=== PATIENT | male | born 1955 | race Caucasian/White ===

== ENCOUNTER → 2022-03-07 09:17 | Outpatient (CLI) | payer MEDICARE, SELFPAY ==
--- NOTE | 2022-03-07 09:24 | CT_ITS ---
FINAL REPORT TECHNIQUE: After the administration of oral and intravenous contrast, axial images were obtained through the abdomen and pelvis by computed tomography. The study was performed with techniques to keep radiation dose as low as reasonably achievable, (ALARA). Individual dose reduction techniques using automated exposure control or adjustment of mA and/or kV according to the patient's size were employed. CLINICAL HISTORY: HIGH PSA,? PROSTATE CANCER FINDINGS: Abdomen: The lung bases are clear. The liver parenchyma is homogeneous. The gallbladder is absent. There is moderate intrahepatic and extrahepatic biliary duct dilatation. The spleen, pancreas, and adrenal appear unremarkable. There is a defect in the posterior left kidney that may be due to sequela of old infarct. The aorta is normal in caliber. There is stranding in the root of the mesentery. There is a knuckle of small bowel measuring up to 4.5 cm in the mid abdomen. There are no secondary signs suggesting obstruction. There is extensive descending and sigmoid diverticulosis. There is a large amount of retained stool. Pelvis: The appendix is not identified. The urinary bladder is unremarkable. There is no free fluid or adenopathy. There are surgical clips in the inguinal regions. The prostate does not appear enlarged. There are multitude of sclerotic lesions throughout the axial skeleton particularly involving the lower lumbar and pelvis highly concerning for osseous metastatic disease. IMPRESSION: Diverticulosis without diverticulitis. Extensive osseous metastatic disease. Constipation. Reviewed, Interpreted and Dictated by Brock Adams MD Transcribed by Shan Main Authenticated by Brock Adams MD on 03/07/2022 01:24:45 PM [facility]
[2022-03-07 10:15] LABS: Blood Urea Nitrogen 18 mg/dl (9-20); Estimated Glomerular Filt Rate 134 ml/min (>60); GFR (African American) 163 ML/MIN (>60)
== END ==
PROVIDERS: PCP Student in an Organized Health Care Education/Training Program; Visit Provider Urology
DX: N31.1 Reflex neuropathic bladder, not elsewhere classified (principal)
CPT/HCPCS: 36415; 74177; 82565; 84520; Q9967

== ENCOUNTER → 2022-03-13 09:01 | Outpatient (CLI) | payer MEDICARE, SELFPAY ==
--- NOTE | 2022-03-13 09:06 | NM_ITS ---
FINAL REPORT CLINICAL HISTORY: PROSTATE CANCER pt had ct abd/pelvis 03/07/22 9:15 am 25.8 mci tc MDP injected into lt ant FINDINGS: EXISTING RELEVANT IMAGING STUDIES: CT abdomen and pelvis dated March 07, 2022 TECHNIQUE: The patient was injected with 25.8 mCi of technetium 99-MDP. 3 hour delayed images were obtained. FINDINGS: There is widespread abnormal tracer activity in the spine, pelvis, multiple ribs, proximal right femur, and both shoulders consistent with widespread bony metastatic disease as seen on the recent CT from March 07, 2022. IMPRESSION: Widespread bony metastatic disease. Reviewed, Interpreted and Dictated by Shan Womack III, MD Transcribed by Shan Main Authenticated by Shan Womack III, MD on 03/13/2022 01:02:03 PM [facility]
== END ==
PROVIDERS: PCP Student in an Organized Health Care Education/Training Program; Visit Provider Urology
DX: C61 Malignant neoplasm of prostate (principal)
CPT/HCPCS: 78306; A9503

== ENCOUNTER → 2022-04-21 11:01 | Outpatient (CLI) | payer MEDICARE, SELFPAY ==
--- NOTE | 2022-04-21 | XR_ITS ---
FINAL REPORT CLINICAL HISTORY: STOMACH PAIN..prostate ca FINDINGS: SINGLE VIEW ABDOMEN A single view of the abdomen was obtained. There is a nonobstructive bowel gas pattern. There are no abnormally dilated loops of small bowel. There is a large amount of retained stool. No abnormal calcifications are identified. There are postoperative changes of the right upper quadrant. There are postoperative changes of the right pelvis. IMPRESSION: Nonobstructive bowel gas pattern. Large amount of retained stool. Reviewed, Interpreted and Dictated by Shan Womack III, MD Transcribed by Hayde Johnston Authenticated and [facility]
[2022-04-21 11:39] LABS: Microscopic, Urine URINE MICROSCOPIC (MICROSCOPIC)
[2022-04-21 12:01] LABS: Appearance,Urine CLEAR (Clear); Bilirubin,Urine Negative (Negative); Blood, Urine Negative (Negative); Color,Urine YELLOW (Yellow); Glucose,Urine (UA) 3+ (Negative); Ketones,Urine Negative (Negative); Leukocyte Esterase,Urine Negative (Negative); Nitrate,Urine Negative (Negative); Protein,Urine Negative (Negative); Urobilinogen,Urine 0.2 EU/dl (0.2)
[2022-04-21 12:14] LABS: Bacteria,Urine Trace /lpf; Squamous Epithelial Cell,Urine Occasional #/hpf (0-5)
== END ==
PROVIDERS: PCP Student in an Organized Health Care Education/Training Program; Visit Provider Urology
DX: C61 Malignant neoplasm of prostate (principal); Z12.5 Encounter for screening for malignant neoplasm of prostate
CPT/HCPCS: 36415; 74018; 81001; G0103

== ENCOUNTER → 2022-05-21 11:38 | Outpatient (CLI) | payer MEDICARE, SELFPAY ==
--- NOTE | 2022-05-21 12:15 | XR_ITS ---
FINAL REPORT CLINICAL HISTORY: Malignant neoplasm of prostate COMPARISON: 04/21/2022 FINDINGS: ABDOMEN SINGLE VIEW There is a nonspecific, nonobstructive bowel gas pattern. No bowel dilation is identified. No abnormal calcification is seen. There is a moderate amount of stool throughout the colon. Postoperative changes seen in the right pelvis and right upper quadrant. The bony skeleton is heterogeneous consistent with widespread sclerotic metastases as seen on CT exam dated 03/07/2022 IMPRESSION: Widespread sclerotic metastases of the bony skeleton. Reviewed, Interpreted and Dictated by Shan Womack III, MD Transcribed by Tiffany Osborn Authenticated and [facility]
[2022-05-21 17:05] LABS: Prostate Specific Ag Screen 16.3 ng/ml (0.0-4.0)
== END ==
PROVIDERS: PCP Student in an Organized Health Care Education/Training Program; Visit Provider Urology
DX: C61 Malignant neoplasm of prostate (principal); Z12.5 Encounter for screening for malignant neoplasm of prostate
CPT/HCPCS: 36415; 74018; G0103

== ENCOUNTER → 2022-07-25 12:23 | Outpatient (CLI) | payer MEDICARE, SELFPAY ==
--- NOTE | 2022-07-25 12:49 | XR_ITS ---
FINAL REPORT CLINICAL HISTORY: prostate ca FINDINGS: A single view of the abdomen was obtained. There is a nonobstructive bowel gas pattern. There are no abnormally dilated loops of small bowel. There is a large amount of retained stool. IMPRESSION: Large amount of retained stool. Reviewed, Interpreted and Dictated by Brock Adams MD Transcribed by Shan Main Authenticated and [facility]
[2022-07-25 13:34] LABS: Alanine Aminotransferase 27 U/L (12-78); Albumin Level 4.3 g/dl (3.5-5.0); Albumin/Globulin Ratio 1.6 (1.1-1.8); Alkaline Phosphatase 247 U/L (38-126); Anion Gap 15.7 mEq/L (5-15); Aspartate Amino Transferase 28 U/L (17-59); Blood Urea Nitrogen 27 mg/dl (9-20); Calcium 9.3 mg/dl (8.4-10.2); Carbon Dioxide 25 mmol/L (22.0-30.0); Chloride 103 mmol/L (98-107); Estimated Glomerular Filt Rate 96 ml/min (>60); GFR (African American) 117 ML/MIN (>60); Globulin 2.7 g/dL (1.3-3.2); Glucose 135 mg/dl (74-100); Potassium 4.7 mmoL/L (3.5-5.1); Sodium 139 mmol/L (136-145)
[2022-07-25 13:39] LABS: Bilirubin,Total 0.1 mg/dl (0.2-1.3)
[2022-07-25 14:04] LABS: Prostate Specific Ag Screen 12.6 ng/ml (0.0-4.0)
== END ==
PROVIDERS: PCP Student in an Organized Health Care Education/Training Program; Visit Provider Urology
DX: C61 Malignant neoplasm of prostate (principal); Z12.5 Encounter for screening for malignant neoplasm of prostate
CPT/HCPCS: 36415; 74018; 80053; G0103

== ENCOUNTER → 2022-09-05 10:21 | Outpatient (CLI) | payer MEDICARE, SELFPAY ==
[2022-09-05 12:31] LABS: Prostate Specific Ag, Diagnost 10.9 ng/ml (0.0-4.0)
[2022-09-12 00:07] LABS: Testosterone, Total, LC/MS 6.9 ng/dL (.)
== END ==
PROVIDERS: PCP Student in an Organized Health Care Education/Training Program; Visit Provider Urology
DX: C61 Malignant neoplasm of prostate (principal)
CPT/HCPCS: 36415; 84153; 84403

== ENCOUNTER → 2022-09-29 14:49 | Outpatient (CLI) | payer MEDICARE, SELFPAY ==
--- NOTE | 2022-09-29 15:54 | XR_ITS ---
FINAL REPORT CLINICAL HISTORY: PROSTATE CANCER COMPARISON: 07/25/2022 FINDINGS: A single view of the abdomen was obtained. There is a nonobstructive bowel gas pattern. There are no abnormally dilated loops of small bowel. There is moderate fecal impaction. There are surgical clips in the right upper quadrant in the left lower quadrant. There is a small left pelvic calcification which is stable and compatible with a phlebolith. IMPRESSION: Stable exam. Reviewed, Interpreted and Dictated by Shon Kaye MD Transcribed by Armida Vazquez Authenticated and [facility]
[2022-09-29 16:52] LABS: Alanine Aminotransferase 92 U/L (12-78); Albumin Level 4.5 g/dl (3.5-5.0); Albumin/Globulin Ratio 1.7 (1.1-1.8); Alkaline Phosphatase 246 U/L (38-126); Anion Gap 20.9 mEq/L (5-15); Aspartate Amino Transferase 47 U/L (17-59); Bilirubin,Total 0.4 mg/dl (0.2-1.3); Blood Urea Nitrogen 25 mg/dl (9-20); Calcium 9.6 mg/dl (8.4-10.2); Carbon Dioxide 28 mmol/L (22.0-30.0); Chloride 94 mmol/L (98-107); Estimated Glomerular Filt Rate 84 ml/min (>60); GFR (African American) 102 ML/MIN (>60); Globulin 2.7 g/dL (1.3-3.2); Glucose 129 mg/dl (74-100); Potassium 3.9 mmoL/L (3.5-5.1); Sodium 139 mmol/L (136-145); Total Protein,Serum 7.2 g/dl (6.3-8.2)
[2022-09-29 17:22] LABS: Prostate Specific Ag, Diagnost 13.7 ng/ml (0.0-4.0)
== END ==
PROVIDERS: PCP Family Medicine; Visit Provider Urology
DX: C61 Malignant neoplasm of prostate (principal)
CPT/HCPCS: 36415; 74018; 80053; 84153

== ENCOUNTER 2022-10-08 14:47 | Emergency (ER) | payer MEDICARE, SELFPAY ==
[2022-10-08 15:48] VITALS: BP 139/77; PULSE 67; RESP 18; TEMP 36.5; O2SAT 97; BMI 26.6
--- NOTE | 2022-10-08 16:13 | EXP.UTC ---
Discharge Plan Disposition Patient Disposition: Home, Self-Care Condition: Good Prescriptions Prescriptions: New azithromycin [Zithromax Z-Naseem] 250 mg tablet See Rx Instructions .ROUTE .COMPLEX 5 Days Qty: 6 0RF Rx Instructions: For 250 mg dose pack: take 500 mg today (day 1), then 250 mg for 4 days (days 2-5) benzonatate 100 mg capsule 100 mg PO TID PRN (Reason: cough) Qty: 30 0RF Referrals Follow up/Referrals: Luis Atkins II, [Primary Care Provider] - See instructions Activity Restrictions/Add. Instructions Additional Instructions/Restrictions: *Monitor Temp, Over the counter Motrin or Tylenol as directed/as needed Tylenol every 4 hours and Motrin every 6 hours (as long as your family doctor has told you that you can take it) for fever or pain. and straight to ER if unable to lower temp less than 101.0 after medication given *Warm salt water gargles may help to soothe the throat *Throat Lozenges? *Warm fluids like tea with honey may help to soothe the throat? *Sleep elevated *Humidifier/Vaporizer Follow up IMMEDIATELY for new or worsening symptoms or no Noticeable improvement over the next 48-72 hours. 911 for difficulty breathing or swallowing You were tested for today for Upper Respiratory panel with COVID19 your test result should be back in the next 24-48 hours, you may check your results on the [facility] Clinical Impressions Clinical Impression: Bronchitis Sinusitis Qualifiers: Sinusitis location: unspecified location Chronicity: unspecified Qualified Code(s): J32.9 - Chronic sinusitis, unspecified Stand Alone Forms Stand Alone Forms: Work/School Release Instructions Patient Instructions: Sinusitis, DI for Sinusitis Discharge ED Provider: Clarice Mueller [facility] [place] Stated complaint: Covid test, congestion, cough, fever Mode of Arrival: Ambulatory Source of Information: Patient Limitations: No Limitations Time Seen by Provider: 10/08/22 16:14 Description of Symptoms (Recalled from Triage Doc. by RN): COUGH AND CONGESTION SINCE THANKSGIVING HEENT Symptoms (Recalled from RN notes): Yes Resp Symptoms (Recalled from RN notes): Yes Skin Symptoms (Recalled from RN notes): No MS Symptoms (Recalled from RN notes): No Functional Status (Recalled from RN notes): WNL History of Present Illness Provider Complaint: Patient states that he has had cough and sinus congestion on and off since but sinus congestion has got worse over the last couple of days and draining in the back of his throat causing him to cough States that one of his grandchildren has RSV and flu and wanted to get tested for that and COVID but thinks it is a URI Related Data Previous Rx's Medication Instructions Recorded azithromycin 250 mg tablet See Rx Instructions PO .COMPLEX 5 10/08/22 (Zithromax Z-Naseem) days #6 tabs benzonatate 100 mg capsule 100 mg PO TID PRN cough #30 caps 10/08/22 Allergies Allergy/AdvReac Type Severity Reaction Status Date / Time lisinopril [LISINOPRIL] Allergy Unknown Unverified 10/20/17 15:15 Tetanus Vaccines and Toxoid Allergy Unknown Unverified 10/20/17 15:15 [TETANUS VACCINES & TOXOID] Worker's Comp Is this a Worker's Comp case?: No [facility] Disclaimer: The information contained in this section may have been updated after the patient was seen, as this information can be updated by other users. Social History Smoking Status: Unknown if ever smoked alcohol intake: never current occupational status: retired Travel in the last 8 weeks: None ROS Obtained: Yes All systems reviewed & no additional complaints except as documented and Yes Systems reviewed as appropriate & no additional complaints except as documented Constitutional Constitutional: Reports system reviewed and no additional complaints, except as documented and Reports as per HPI ENT Ears, Nose, Mouth, and Throat: Reports system reviewed and
[2022-10-08 16:26] LABS: Adenovirus,PCR Not Detected (NotDetected); Bordetella Pertussis Not Detected (NotDetected); Chlamydophila Pneumoniae, PCR Not Detected (NotDetected); Coronavirus 19, PCR Not Detected (NotDetected); Coronavirus 229E Not Detected (NotDetected); Coronavirus NL63 Not Detected (NotDetected); Coronavirus OC43 Not Detected (NotDetected); Coronovirus HKU1,PCR Not Detected (NotDetected); Human Metapneumovirus Not Detected (NotDetected); Influenza A, PCR Not Detected (NotDetected); Influenza AH1, 2009 Not Detected (NotDetected); Influenza AH1, PCR Not Detected (NotDetected); Influenza AH3,PCR Not Detected (NotDetected); Influenza B, PCR Not Detected (NotDetected); Mycoplasma Pneumoniae, PCR Not Detected (NotDetected); Parainfluenza 1, PCR Not Detected (NotDetected); Parainfluenza 2, PCR Not Detected (NotDetected); Parainfluenza 3, PCR Not Detected (NotDetected); Parainfluenza 4, PCR Not Detected (NotDetected); Rhinovirus/Enterovirus Not Detected (NotDetected)
[2022-10-08 16:44] VITALS: BP 139/77; PULSE 67; RESP 18; TEMP 36.5; O2SAT 97
[2022-10-08 22:19] LABS: Respiratory Syncytial Virus Detected (NotDetected)
== END 2022-10-08 16:45 | disposition home or self-care (01) ==
PROVIDERS: Emergency Provider Nurse Practitioner; PCP Student in an Organized Health Care Education/Training Program
DX: J40 Bronchitis, not specified as acute or chronic (principal); J32.9 Chronic sinusitis, unspecified
CPT/HCPCS: 87581; 87632; 87798; 99212; C9803; G0463; U0003; U0005

== ENCOUNTER → 2022-11-07 14:37 | Outpatient (CLI) | payer MEDICARE, SELFPAY ==
--- NOTE | 2022-11-07 15:20 | XR_ITS ---
FINAL REPORT CLINICAL HISTORY: PROSTATE CANCER COMPARISON: September 29, 2022 FINDINGS: A single view of the abdomen was obtained. There is a normal bowel gas pattern. There are no abnormally dilated loops of small bowel. There is moderate fecal impaction. There are surgical clips in the right upper quadrant and the left lower quadrant. There is a small left pelvic calcification which is stable and compatible with a phlebolith. IMPRESSION: Stable exam. Reviewed, Interpreted and Dictated by Shon Kaye MD Transcribed by Armida Vazquez Authenticated and [facility]
[2022-11-07 17:29] LABS: Prostate Specific Ag, Diagnost 8.52 ng/ml (0.0-4.0)
== END ==
PROVIDERS: PCP Student in an Organized Health Care Education/Training Program; Visit Provider Urology
DX: C61 Malignant neoplasm of prostate (principal)
CPT/HCPCS: 36415; 74018; 84153

== ENCOUNTER → 2022-12-17 14:59 | Outpatient (CLI) | payer MEDICARE, SELFPAY ==
[2022-12-17 18:44] LABS: Prostate Specific Ag Screen 5.5 ng/ml (0.0-4.0)
== END ==
PROVIDERS: PCP Student in an Organized Health Care Education/Training Program; Visit Provider Urology
DX: C61 Malignant neoplasm of prostate (principal); Z12.5 Encounter for screening for malignant neoplasm of prostate
CPT/HCPCS: 36415; G0103

== ENCOUNTER → 2023-01-09 11:01 | Outpatient (CLI) | payer MEDICARE, SELFPAY ==
--- NOTE | 2023-01-09 11:30 | XR_ITS ---
FINAL REPORT CLINICAL HISTORY: PROSTATE CANCER COMPARISON: 11/07/2022 FINDINGS: ABDOMEN SINGLE VIEW / KUB A single view of the abdomen was obtained with a coned down view of the pelvis. There is a nonobstructive bowel gas pattern. There is a large stool burden. There are no abnormally dilated loops of small bowel. No abnormal calcification is identified. There are postoperative changes in the right upper quadrant and the right pelvis. IMPRESSION: Large stool burden with a nonobstructive bowel gas pattern. No significant change from prior. Reviewed, Interpreted and Dictated by Shan Womack III, MD Transcribed by Maria D Grey Authenticated and . [facility]
[2023-01-09 13:08] LABS: Prostate Specific Ag, Diagnost 6.04 ng/ml (0.0-4.0)
[2023-01-17 15:09] LABS: Testosterone, Total, LC/MS 8.1 ng/dL (.)
== END ==
PROVIDERS: PCP Student in an Organized Health Care Education/Training Program; Visit Provider Urology
DX: C61 Malignant neoplasm of prostate (principal)
CPT/HCPCS: 36415; 74018; 84153; 84403

== ENCOUNTER → 2023-02-13 09:41 | Outpatient (CLI) | payer MEDICARE, SELFPAY ==
[2023-02-13 11:36] LABS: Prostate Specific Ag Screen 6.6 ng/ml (0.0-4.0)
== END ==
PROVIDERS: PCP Student in an Organized Health Care Education/Training Program; Visit Provider Urology
DX: C61 Malignant neoplasm of prostate (principal); Z12.5 Encounter for screening for malignant neoplasm of prostate
CPT/HCPCS: 36415; G0103

== ENCOUNTER → 2023-03-02 13:13 | Outpatient (CLI) | payer MEDICARE, SELFPAY ==
--- NOTE | 2023-03-02 13:38 | XR_ITS ---
FINAL REPORT CLINICAL HISTORY: h/o medastatic prostate cancer COMPARISON: 01/09/2023 FINDINGS: A single view of the abdomen was obtained. There is a nonobstructive bowel gas pattern. There is a large amount of retained stool in the colon. There are no abnormally dilated loops of small bowel. There are no abnormal calcifications. Surgical clips are noted in the right upper quadrant. IMPRESSION: Constipation. Reviewed, Interpreted and Dictated by Brock Adams MD Transcribed by Mercedes Arreaga Authenticated and [facility]
[2023-03-02 14:46] LABS: Prostate Specific Ag Screen 6.2 ng/ml (0.0-4.0)
== END ==
PROVIDERS: PCP Student in an Organized Health Care Education/Training Program; Visit Provider Urology
DX: C61 Malignant neoplasm of prostate (principal); Z12.5 Encounter for screening for malignant neoplasm of prostate
CPT/HCPCS: 36415; 74018; G0103

== ENCOUNTER → 2023-03-04 16:21 | Outpatient (CLI) | payer MEDICARE, SELFPAY ==
--- NOTE | 2023-03-04 16:26 | XR_ITS ---
PROCEDURE INFORMATION: Exam: XR Right Knee Exam date and time: 03/04/2023 4:43 PM Age: 67 years old Clinical indication: Pain; Knee; Right; Additional info: Knee pain TECHNIQUE: Imaging protocol: Radiologic exam of the right knee. Views: 3 views. COMPARISON: NM BONE SCAN WHOLE BODY 03/13/2022 12:24 PM FINDINGS: Bones/joints: Normal. Soft tissues: Normal. IMPRESSION: No evidence of acute osseous injury.
== END ==
PROVIDERS: PCP Student in an Organized Health Care Education/Training Program; Visit Provider Urology
DX: M25.561 Pain in right knee (principal)
CPT/HCPCS: 73562

== ENCOUNTER → 2023-05-25 11:58 | Outpatient (CLI) | payer MEDICARE, SELFPAY ==
--- NOTE | 2023-05-25 12:39 | XR_ITS ---
FINAL REPORT CLINICAL HISTORY: PROSTATE CANCER FINDINGS: ABDOMEN SINGLE VIEW There is moderate diffuse fecal impaction. There is no bowel obstruction. Surgical clips are seen in the right pelvis. IMPRESSION Fecal impaction. Reviewed, Interpreted and Dictated by Shon Kaye MD Transcribed by Harry Sarmiento Authenticated and [facility]
[2023-05-25 14:05] LABS: Alanine Aminotransferase 95 U/L (12-78); Albumin Level 4.8 g/dl (3.5-5.0); Albumin/Globulin Ratio 1.5 (1.1-1.8); Alkaline Phosphatase 199 U/L (38-126); Anion Gap 16.9 mEq/L (5-15); Aspartate Amino Transferase 128 U/L (17-59); Bilirubin,Total 0.6 mg/dl (0.2-1.3); Calcium 9.9 mg/dl (8.4-10.2); Carbon Dioxide 24 mmol/L (22.0-30.0); Chloride 101 mmol/L (98-107); Globulin 3.1 g/dL (1.3-3.2); Glucose 257 mg/dl (74-100); Potassium 4.9 mmoL/L (3.5-5.1); Sodium 137 mmol/L (136-145); Total Protein,Serum 7.9 g/dl (6.3-8.2)
[2023-05-25 14:09] LABS: Blood Urea Nitrogen 22 mg/dl (9-20)
[2023-05-25 14:10] LABS: Estimated Glomerular Filt Rate 84 ml/min (>60); GFR (African American) 102 ML/MIN (>60)
[2023-05-25 14:35] LABS: Prostate Specific Ag Screen 6.6 ng/ml (0.0-4.0)
== END ==
PROVIDERS: PCP Student in an Organized Health Care Education/Training Program; Visit Provider Urology
DX: Z12.5 Encounter for screening for malignant neoplasm of prostate (principal); R97.20 Elevated prostate specific antigen [PSA]
CPT/HCPCS: 36415; 74018; 80053; G0103

== ENCOUNTER → 2023-06-26 10:52 | Outpatient (CLI) | payer MEDICARE, SELFPAY ==
[2023-06-26 11:21] LABS: Microscopic, Urine URINE MICROSCOPIC (MICROSCOPIC)
--- NOTE | 2023-06-26 11:31 | XR_ITS ---
FINAL REPORT CLINICAL HISTORY: PROSTATE CANCER COMPARISON: 05/25/2023 FINDINGS: SINGLE VIEW ABDOMEN A single view of the abdomen was obtained. There is a nonobstructive bowel gas pattern. There are no abnormally dilated loops of small bowel. No abnormal calcifications are identified. A moderate amount of stool is present. There are surgical clips in the inguinal regions bilaterally as well as in the right upper quadrant of the abdomen. IMPRESSION: Nonobstructive bowel gas pattern with a moderate stool burden. Reviewed, Interpreted and Dictated by Brock Adams MD Transcribed by Shanti Vang Authenticated and [facility]
[2023-06-26 11:51] LABS: Appearance,Urine CLEAR (Clear); Bilirubin,Urine Negative (Negative); Blood, Urine Negative (Negative); Color,Urine YELLOW (Yellow); Glucose,Urine (UA) 3+ (Negative); Ketones,Urine Negative (Negative); Leukocyte Esterase,Urine Negative (Negative); Nitrate,Urine Negative (Negative); Protein,Urine Negative (Negative); Specific Gravity, Urine <= 1.005 (1.005-1.030); Urobilinogen,Urine 0.2 EU/dl (0.2)
[2023-06-26 12:10] LABS: Squamous Epithelial Cell,Urine Occasional #/hpf (0-5)
[2023-06-26 12:11] LABS: Bacteria,Urine Trace /lpf
[2023-06-26 13:00] LABS: Prostate Specific Ag Screen 5.9 ng/ml (0.0-4.0)
[2023-07-02 17:55] LABS: Testosterone, Total, LC/MS 7.9 ng/dL (.)
== END ==
LOC: LAB 10:53
PROVIDERS: PCP Student in an Organized Health Care Education/Training Program; Visit Provider Urology
DX: C61 Malignant neoplasm of prostate; Z12.5 Encounter for screening for malignant neoplasm of prostate
CPT/HCPCS: 36415; 74018; 81001; 84403; G0103

== ENCOUNTER → 2023-07-24 10:13 | Outpatient (CLI) | payer MEDICARE, SELFPAY ==
[2023-07-24 12:13] LABS: Prostate Specific Ag Screen 6.9 ng/ml (0.0-4.0)
== END ==
PROVIDERS: PCP Student in an Organized Health Care Education/Training Program; Visit Provider Urology
DX: Z12.5 Encounter for screening for malignant neoplasm of prostate (principal)
CPT/HCPCS: 36415; G0103

== ENCOUNTER → 2023-08-28 13:23 | Outpatient (CLI) | payer MEDICARE, SELFPAY ==
--- NOTE | 2023-08-28 13:29 | XR_ITS ---
FINAL REPORT CLINICAL HISTORY: PROSTATE CANCER COMPARISON: 06/26/2023 FINDINGS: SINGLE VIEW ABDOMEN A single view of the abdomen was obtained. There is a nonobstructive bowel gas pattern with a moderate to large stool burden. There are no abnormally dilated loops of small bowel. No abnormal calcifications are identified. Postoperative changes are noted in the right abdomen and pelvis. There is a sclerotic focus in the left pubic bone, and a sclerotic metastasis is not excluded. IMPRESSION: Nonobstructive bowel gas pattern with moderate to large stool burden Sclerotic focus in the left pubic bone, a sclerotic metastasis is not excluded. Would recommend follow-up radiographs or bone scan for further evaluation.. Reviewed, Interpreted and Dictated by Shan Womack III, MD Transcribed by Shanti Vang Authenticated and [facility]
== END ==
PROVIDERS: PCP Student in an Organized Health Care Education/Training Program; Visit Provider Urology
DX: C61 Malignant neoplasm of prostate (principal); Z12.5 Encounter for screening for malignant neoplasm of prostate
CPT/HCPCS: 36415; 74018; 84403; G0103

== ENCOUNTER → 2023-10-05 12:20 | Outpatient (CLI) | payer MEDICARE, SELFPAY ==
[2023-10-05 13:48] LABS: Prostate Specific Ag, Diagnost 10.6 ng/ml (0.0-4.0)
[2023-10-12 09:25] LABS: Testosterone, Total, LC/MS 8.7
== END ==
PROVIDERS: PCP Student in an Organized Health Care Education/Training Program; Visit Provider Urology
DX: C61 Malignant neoplasm of prostate (principal)
CPT/HCPCS: 36415; 84153; 84403

== ENCOUNTER 2023-11-03 11:44 | Outpatient (CLI) | payer MEDICARE, SELFPAY ==
--- NOTE | 2023-11-03 11:55 | XR_ITS ---
FINAL REPORT CLINICAL HISTORY: .metastatic prostate cancer gallbladder sx hernia sx FINDINGS: There is a nonobstructive bowel gas pattern. There are no abnormally dilated loops of small bowel. No abnormal calcification is identified. There is a moderate amount of retained stool. There is postoperative change in the right abdomen and pelvis. Small foreign bodies in the right side of the abdomen may reflect ingested material. IMPRESSION: Nonobstructive bowel gas pattern. Reviewed, Interpreted and Dictated by Shan Womack III, MD Transcribed by Shan Main Authenticated and [facility]
[2023-11-03 12:10] LABS: Microscopic, Urine URINE MICROSCOPIC (MICROSCOPIC)
[2023-11-03 12:52] LABS: Appearance,Urine CLEAR (Clear); Bilirubin,Urine Negative (Negative); Blood, Urine Negative (Negative); Color,Urine YELLOW (Yellow); Glucose,Urine (UA) 3+ (Negative); Ketones,Urine Negative (Negative); Leukocyte Esterase,Urine Negative (Negative); Nitrate,Urine Negative (Negative); PH,Urine 5.5 (5.0-8.5); Protein,Urine Negative (Negative); Specific Gravity, Urine 1.015 (1.005-1.030); Urobilinogen,Urine 0.2 EU/dl (0.2)
[2023-11-03 13:27] LABS: Bacteria,Urine Trace /lpf; WBC,Urine Occasional #/hpf (0-3)
[2023-11-03 13:42] LABS: Alanine Aminotransferase 47 U/L (12-78); Albumin Level 4.2 g/dl (3.5-5.0); Albumin/Globulin Ratio 1.5 (1.1-1.8); Alkaline Phosphatase 130 U/L (38-126); Aspartate Amino Transferase 36 U/L (17-59); Bilirubin,Total 0.5 mg/dl (0.2-1.3); Blood Urea Nitrogen 22 mg/dl (9-20); Calcium 9.1 mg/dl (8.4-10.2); Carbon Dioxide 28 mmol/L (22.0-30.0); Estimated Glomerular Filt Rate 84 ml/min (>60); GFR (African American) 101 ML/MIN (>60); Globulin 2.8 g/dL (1.3-3.2); Glucose 136 mg/dl (74-100)
[2023-11-03 13:48] LABS: Anion Gap 13.1 mEq/L (5-15); Chloride 103 mmol/L (98-107); Potassium 4.1 mmoL/L (3.5-5.1); Sodium 140 mmol/L (136-145)
[2023-11-03 16:04] LABS: Prostate Specific Ag, Diagnost 5.25 ng/ml (0.0-4.0)
[2023-11-06 15:10] LABS: Testosterone, Total, LC/MS 7.7 ng/dL (.)
== END 2023-11-03 23:59 ==
LOC: RAD 11:46
PROVIDERS: PCP Student in an Organized Health Care Education/Training Program; Visit Provider Urology
DX: C61 Malignant neoplasm of prostate (principal)
CPT/HCPCS: 36415; 74018; 80053; 81001; 84153; 84403

== ENCOUNTER 2023-12-04 12:36 | Outpatient (CLI) | payer MEDICARE, SELFPAY ==
--- NOTE | 2023-12-04 12:51 | XR_ITS ---
FINAL REPORT CLINICAL HISTORY: PROTATE CANCER COMPARISON: 11/03/2023 FINDINGS: The visualized intestinal gas pattern appears unremarkable without evidence to suggest obstruction. There is mild fecal impaction. Surgical clips are seen in the right upper and right lower quadrants. No abnormal radiopacities are seen in the abdomen. IMPRESSION: Mild fecal impaction. Reviewed, Interpreted and Dictated by Shon Kaye MD Transcribed by Tiffany Osborn Authenticated and [facility]
[2023-12-04 13:32] LABS: Alanine Aminotransferase 28 U/L (12-78); Albumin Level 4.2 g/dl (3.5-5.0); Albumin/Globulin Ratio 1.7 (1.1-1.8); Alkaline Phosphatase 119 U/L (38-126); Anion Gap 12.5 mEq/L (5-15); Aspartate Amino Transferase 26 U/L (17-59); Bilirubin,Total 0.3 mg/dl (0.2-1.3); Blood Urea Nitrogen 19 mg/dl (9-20); Calcium 9.7 mg/dl (8.4-10.2); Carbon Dioxide 28 mmol/L (22.0-30.0); Chloride 104 mmol/L (98-107); Estimated Glomerular Filt Rate 84 ml/min (>60); GFR (African American) 101 ML/MIN (>60); Globulin 2.5 g/dL (1.3-3.2); Glucose 202 mg/dl (74-100); Potassium 4.5 mmoL/L (3.5-5.1); Sodium 140 mmol/L (136-145); Total Protein,Serum 6.7 g/dl (6.3-8.2)
[2023-12-04 14:03] LABS: Prostate Specific Ag, Diagnost 3.58 ng/ml (0.0-4.0)
[2023-12-11 20:13] LABS: Testosterone, Total, LC/MS 9.6 ng/dL (.)
== END 2023-12-04 23:59 ==
LOC: RAD 12:38
PROVIDERS: PCP Student in an Organized Health Care Education/Training Program; Visit Provider Urology
DX: C61 Malignant neoplasm of prostate (principal)
CPT/HCPCS: 36415; 74018; 80053; 84153; 84403

== ENCOUNTER 2024-01-08 08:20 | Outpatient (CLI) | payer MEDICARE, SELFPAY ==
--- NOTE | 2024-01-08 08:37 | XR_ITS ---
FINAL REPORT CLINICAL HISTORY: HEMATURIA,PROSTATE CANCER COMPARISON: 12/04/2023 FINDINGS: A single supine view the abdomen was obtained. Postoperative changes are present in the right upper quadrant. The bowel gas pattern is nonspecific but nonobstructive. There are no pathologic calcifications. Osseous structures are within normal limits. IMPRESSION: Nonspecific but nonobstructive bowel gas pattern. Reviewed, Interpreted and Dictated by Shan Womack III, MD Transcribed by Shanti Vang Authenticated and [facility]
--- NOTE | 2024-01-08 08:37 | XR_ITS ---
FINAL REPORT TECHNIQUE: C-spine 3 views, thoracic spine 3 views, lumbar spine 2 views CLINICAL HISTORY: hx prostate cancer. screening COMPARISON: None FINDINGS: CERVICAL SPINE: Mild degenerative change is present in the cervical spine. There is normal alignment of the cervical vertebral bodies. No prevertebral soft tissue swelling is noted. No evidence of acute fracture or dislocation is present. Small osteophytes are present. IMPRESSION: Mild degenerative change. THORACIC SPINE: Views of the thoracic spine reveal mild and moderate degenerative change of the thoracic spine. No paraspinal soft tissue abnormality is identified. No evidence of acute fracture is seen. Small osteophytes are present. IMPRESSION: Mild and moderate degenerative change of the thoracic spine. LUMBAR SPINE: Mild degenerative change of the lumbar spine is present. Multilevel osteophytes are present. Facet osteoarthropathy is present in the lower lumbar spine. No acute bony abnormality is present. IMPRESSION: Mild degenerative change with facet osteoarthropathy in the lower lumbar spine. Reviewed, Interpreted and Dictated by Shan Womack III, MD Transcribed by Shanti Vang Authenticated and [facility]
[2024-01-08 09:14] LABS: Alanine Aminotransferase 51 U/L (12-78); Albumin/Globulin Ratio 1.6 (1.1-1.8); Alkaline Phosphatase 125 U/L (38-126); Anion Gap 12.3 mEq/L (5-15); Aspartate Amino Transferase 80 U/L (17-59); Bilirubin,Total 0.5 mg/dl (0.2-1.3); Blood Urea Nitrogen 22 mg/dl (9-20); Carbon Dioxide 27 mmol/L (22.0-30.0); Chloride 101 mmol/L (98-107); Estimated Glomerular Filt Rate 96 ml/min (>60); GFR (African American) 116 ML/MIN (>60); Globulin 2.5 g/dL (1.3-3.2); Glucose 208 mg/dl (74-100); Potassium 4.3 mmoL/L (3.5-5.1); Sodium 136 mmol/L (136-145); Total Protein,Serum 6.5 g/dl (6.3-8.2)
--- NOTE | 2024-01-08 09:18 | XR_ITS ---
FINAL REPORT CLINICAL HISTORY: LOW BACK PAIN hx prostate cancer COMPARISON: None FINDINGS: SACRUM COCCYX: Views of the sacrum and coccyx failed to reveal any evidence of acute fracture. Surgical clips are noted over the right inguinal area. There is mild degenerative change present in the sacroiliac joints bilaterally. IMPRESSION: Mild degenerative change in the SI joints bilaterally. Reviewed, Interpreted and Dictated by Shan Womack III, MD Transcribed by Shanti Vang Authenticated and [facility]
[2024-01-08 09:45] LABS: Prostate Specific Ag, Diagnost 3.94 ng/ml (0.0-4.0)
[2024-01-14 19:09] LABS: Testosterone, Total, LC/MS 7.6 ng/dL (.)
== END 2024-01-08 23:59 ==
LOC: RAD 08:21
PROVIDERS: PCP Student in an Organized Health Care Education/Training Program; Visit Provider Urology
DX: R31.1 Benign essential microscopic hematuria; N40.1 Benign prostatic hyperplasia with lower urinary tract symptoms; M54.50 Low back pain, unspecified; C61 Malignant neoplasm of prostate
CPT/HCPCS: 36415; 72084; 72220; 74018; 80053; 84153; 84403

== ENCOUNTER 2024-02-13 10:20 | Outpatient (CLI) | payer MEDICARE, SELFPAY ==
[2024-02-13 10:29] LABS: Microscopic, Urine URINE MICROSCOPIC (MICROSCOPIC)
[2024-02-13 11:04] LABS: Appearance,Urine CLEAR (Clear); Bilirubin,Urine Negative (Negative); Blood, Urine Negative (Negative); Color,Urine YELLOW (Yellow); Glucose,Urine (UA) 3+ (Negative); Ketones,Urine Negative (Negative); Leukocyte Esterase,Urine Negative (Negative); Nitrate,Urine Negative (Negative); PH,Urine 5.5 (5.0-8.5); Protein,Urine Negative (Negative); Urobilinogen,Urine 0.2 EU/dl (0.2)
[2024-02-13 11:25] LABS: Bacteria,Urine Trace /lpf; Chloride 104 mmol/L (98-107); Potassium 4.9 mmoL/L (3.5-5.1); Sodium 139 mmol/L (136-145); Squamous Epithelial Cell,Urine Occasional #/hpf (0-5)
[2024-02-13 11:28] LABS: Alanine Aminotransferase 35 U/L (12-78); Albumin Level 4.4 g/dl (3.5-5.0); Albumin/Globulin Ratio 1.7 (1.1-1.8); Alkaline Phosphatase 129 U/L (38-126); Anion Gap 10.9 mEq/L (5-15); Aspartate Amino Transferase 33 U/L (17-59); Bilirubin,Total 0.5 mg/dl (0.2-1.3); Blood Urea Nitrogen 20 mg/dl (9-20); Carbon Dioxide 29 mmol/L (22.0-30.0); Estimated Glomerular Filt Rate 96 ml/min (>60); GFR (African American) 116 ML/MIN (>60); Globulin 2.6 g/dL (1.3-3.2); Glucose 244 mg/dl (74-100)
[2024-02-13 12:35] LABS: Prostate Specific Ag Screen 3.4 ng/ml (0.0-4.0)
[2024-02-20 18:19] LABS: Testosterone, Total, LC/MS 7.4 ng/dL (.)
== END 2024-02-13 23:59 | disposition home or self-care (01) ==
LOC: LAB 10:21
PROVIDERS: PCP Student in an Organized Health Care Education/Training Program; Visit Provider Urology
DX: C61 Malignant neoplasm of prostate (principal)
CPT/HCPCS: 36415; 80053; 81001; 84403; G0103

== ENCOUNTER 2024-03-17 11:22 | Outpatient (CLI) | payer MEDICARE, SELFPAY ==
[2024-03-17 11:36] LABS: Microscopic, Urine URINE MICROSCOPIC (MICROSCOPIC)
--- NOTE | 2024-03-17 12:02 | XR_ITS ---
FINAL REPORT CLINICAL HISTORY: PROSTATE CANCER FINDINGS: A single view of the abdomen was obtained. There is a nonobstructive bowel gas pattern. There is a moderate to large amount of retained stool. There are no abnormally dilated loops of small bowel. There are no abnormal calcifications. Postoperative changes are seen in the right upper quadrant and right pelvis. IMPRESSION: Nonobstructive bowel gas pattern with a moderate to large stool burden. Reviewed, Interpreted and Dictated by Shan Womack III, MD Transcribed by Mercedes Arreaga Authenticated and [facility]
[2024-03-17 13:02] LABS: Appearance,Urine CLEAR (Clear); Bilirubin,Urine Negative (Negative); Blood, Urine Negative (Negative); Color,Urine YELLOW (Yellow); Glucose,Urine (UA) 3+ (Negative); Ketones,Urine Negative (Negative); Leukocyte Esterase,Urine Negative (Negative); Nitrate,Urine Negative (Negative); Protein,Urine Negative (Negative); Urobilinogen,Urine 0.2 EU/dl (0.2)
[2024-03-17 13:35] LABS: Alanine Aminotransferase 32 U/L (12-78); Albumin Level 4.1 g/dl (3.5-5.0); Albumin/Globulin Ratio 1.5 (1.1-1.8); Alkaline Phosphatase 110 U/L (38-126); Anion Gap 13.2 mEq/L (5-15); Aspartate Amino Transferase 30 U/L (17-59); Bilirubin,Total 0.4 mg/dl (0.2-1.3); Blood Urea Nitrogen 21 mg/dl (9-20); Calcium 9.5 mg/dl (8.4-10.2); Carbon Dioxide 24 mmol/L (22.0-30.0); Chloride 102 mmol/L (98-107); Estimated Glomerular Filt Rate 96 ml/min (>60); GFR (African American) 116 ML/MIN (>60); Globulin 2.7 g/dL (1.3-3.2); Glucose 229 mg/dl (74-100); Potassium 4.2 mmoL/L (3.5-5.1); Sodium 135 mmol/L (136-145); Total Protein,Serum 6.8 g/dl (6.3-8.2)
[2024-03-17 13:59] LABS: Squamous Epithelial Cell,Urine Occasional #/hpf (0-5)
[2024-03-17 14:48] LABS: Prostate Specific Ag Screen 3.1 ng/ml (0.0-4.0)
== END 2024-03-17 23:59 | disposition home or self-care (01) ==
LOC: LAB 11:24
PROVIDERS: PCP Student in an Organized Health Care Education/Training Program; Visit Provider Urology
DX: C61 Malignant neoplasm of prostate (principal); Z12.5 Encounter for screening for malignant neoplasm of prostate; N39.0 Urinary tract infection, site not specified
CPT/HCPCS: 36415; 74018; 80053; 81001; 87086; G0103

== ENCOUNTER 2024-04-25 11:40 | Outpatient (CLI) | payer MEDICARE, SELFPAY ==
[2024-04-25 13:20] LABS: Prostate Specific Ag, Diagnost 3.28 ng/ml (0.0-4.0)
== END 2024-04-25 23:59 | disposition home or self-care (01) ==
LOC: LAB 11:43
PROVIDERS: PCP Student in an Organized Health Care Education/Training Program; Visit Provider Urology
DX: C61 Malignant neoplasm of prostate (principal)
CPT/HCPCS: 36415; 84153

== ENCOUNTER 2024-05-20 12:14 | Outpatient (CLI) | payer MEDICARE, SELFPAY ==
--- NOTE | 2024-05-20 12:19 | XR_ITS ---
FINAL REPORT TECHNIQUE: 1 view CLINICAL HISTORY: PROSTATE CANCER COMPARISON: March 2024 FINDINGS: Abdomen single view Examination shows moderate diffuse fecal impaction. There is no mechanical bowel obstruction. No abnormal densities are seen. No obvious free air is seen. IMPRESSION: Stool-filled colon as above Authenticated and [facility]
[2024-05-20 12:31] LABS: Microscopic, Urine URINE MICROSCOPIC (MICROSCOPIC)
[2024-05-20 13:12] LABS: Appearance,Urine CLEAR (Clear); Bilirubin,Urine Negative (Negative); Blood, Urine Negative (Negative); Color,Urine YELLOW (Yellow); Glucose,Urine (UA) 3+ (Negative); Ketones,Urine Negative (Negative); Leukocyte Esterase,Urine Negative (Negative); Nitrate,Urine Negative (Negative); Protein,Urine Negative (Negative); Urobilinogen,Urine 0.2 EU/dl (0.2)
[2024-05-20 13:21] LABS: Squamous Epithelial Cell,Urine Occasional #/hpf (0-5)
[2024-05-20 13:36] LABS: Alanine Aminotransferase 34 U/L (12-78); Albumin Level 4.1 g/dl (3.5-5.0); Albumin/Globulin Ratio 1.5 (1.1-1.8); Alkaline Phosphatase 129 U/L (38-126); Aspartate Amino Transferase 31 U/L (17-59); Bilirubin,Total 0.5 mg/dl (0.2-1.3); Blood Urea Nitrogen 21 mg/dl (9-20); Calcium 9.7 mg/dl (8.4-10.2); Carbon Dioxide 30 mmol/L (22.0-30.0); Chloride 99 mmol/L (98-107); Estimated Glomerular Filt Rate 112 ml/min (>60); GFR (African American) 135 ML/MIN (>60); Globulin 2.8 g/dL (1.3-3.2); Glucose 294 mg/dl (74-100); Sodium 137 mmol/L (136-145); Total Protein,Serum 6.9 g/dl (6.3-8.2)
[2024-05-20 14:07] LABS: Prostate Specific Ag, Diagnost 2.67 ng/ml (0.0-4.0)
== END 2024-05-20 23:59 | disposition home or self-care (01) ==
LOC: LAB 12:16
PROVIDERS: PCP Student in an Organized Health Care Education/Training Program; Visit Provider Urology
DX: R97.21 Rising PSA following treatment for malignant neoplasm of prostate (principal)
CPT/HCPCS: 36415; 74018; 80053; 81001; 84153

== ENCOUNTER 2024-06-24 13:29 | Outpatient (CLI) | payer MEDICARE, SELFPAY ==
[2024-06-24 15:34] LABS: Prostate Specific Ag, Diagnost 2.46 ng/ml (0.0-4.0)
== END 2024-06-24 23:59 | disposition home or self-care (01) ==
LOC: LAB 13:31
PROVIDERS: PCP Student in an Organized Health Care Education/Training Program; Visit Provider Urology
DX: C61 Malignant neoplasm of prostate (principal)
CPT/HCPCS: 36415; 84153

== ENCOUNTER 2024-08-12 12:03 | Outpatient (CLI) | payer MEDICARE, SELFPAY ==
--- NOTE | 2024-08-12 12:15 | XR_ITS ---
FINAL REPORT CLINICAL HISTORY: .PROSTATE CANCER COMPARISON: None FINDINGS: SINGLE VIEW ABDOMEN A single view of the abdomen was obtained. There is a nonobstructive bowel gas pattern. A large amount of stool is present in the colon. There are no abnormally dilated loops of small bowel. No abnormal calcifications are identified. IMPRESSION: Nonobstructive bowel gas pattern with a large stool burden. Reviewed, Interpreted and Dictated by Shan Womack III, MD Transcribed by Shanti Vang Authenticated and [facility]
--- NOTE | 2024-08-12 12:16 | XR_ITS ---
FINAL REPORT TECHNIQUE: Cervical spine 3 views, thoracic spine 2 views, lumbar spine 3 views CLINICAL HISTORY: .PROSTATE CANCER COMPARISON: None FINDINGS: CERVICAL SPINE: AP, lateral and odontoid views of the cervical spine were obtained. There is no prior exam for comparison. There is no acute fracture or malalignment. Mild degenerative change is present. Vertebral body height is preserved. The precervical soft tissues are normal. IMPRESSION: Mild degenerative change without acute bony abnormality. THORACIC SPINE: AP, and lateral views of the thoracic spine were obtained. There is no prior exam for comparison. There is no acute fracture or malalignment. Mild degenerative changes are present at multiple levels with osteophytes. Vertebral body height is preserved. Paraspinal soft tissues are within normal limits. IMPRESSION: Mild degenerative change without acute bony abnormality. LUMBAR SPINE: AP and lateral views of the lumbar spine were obtained. There is no prior exam for comparison. There is no acute fracture or malalignment. Vertebral body height is preserved. Mild lumbar degenerative change is present. Mild vascular calcifications are present. IMPRESSION: Mild degenerative change without acute bony abnormality. Reviewed, Interpreted and Dictated by Shan Womack III, MD Transcribed by Shanti Vang Authenticated and . [facility]
[2024-08-12 13:35] LABS: Prostate Specific Ag, Diagnost 2.64 ng/ml (0.0-4.0)
== END 2024-08-12 23:59 | disposition home or self-care (01) ==
LOC: RAD 12:05
PROVIDERS: PCP Student in an Organized Health Care Education/Training Program; Visit Provider Urology
DX: C61 Malignant neoplasm of prostate (principal)
CPT/HCPCS: 36415; 72084; 74018; 84153

== ENCOUNTER 2024-10-06 14:55 | Outpatient (CLI) | payer MEDICARE, SELFPAY | END 2024-10-06 23:59 | disposition home or self-care (01) | LOC: LAB 14:57 | PROVIDERS: PCP Student in an Organized Health Care Education/Training Program; Visit Provider Urology | DX: C61 Malignant neoplasm of prostate (principal) | CPT/HCPCS: 36415; 84153 ==

== ENCOUNTER 2024-11-18 12:40 | Outpatient (CLI) | payer MEDICARE, SELFPAY ==
[2024-11-18 12:51] LABS: Microscopic, Urine URINE MICROSCOPIC (MICROSCOPIC)
--- NOTE | 2024-11-18 13:03 | XR_ITS ---
FINAL REPORT CLINICAL HISTORY: HEMATURIA, PROSTATE CANCER COMPARISON: 08/12/2024 FINDINGS: There is moderate fecal impaction diffusely. There is no evidence of small-bowel dilatation. No abnormal calcifications are seen. The patient is status post cholecystectomy. IMPRESSION: Fecal impaction without evidence of radiopaque urinary tract stone. Reviewed, Interpreted and Dictated by Shon Kaye MD Transcribed by Maria D Grey Authenticated and [facility]
[2024-11-18 13:11] LABS: Appearance,Urine CLEAR (Clear); Bilirubin,Urine Negative (Negative); Blood, Urine Negative (Negative); Color,Urine YELLOW (Yellow); Glucose,Urine (UA) 3+ (Negative); Ketones,Urine Negative (Negative); Leukocyte Esterase,Urine Negative (Negative); Nitrate,Urine Negative (Negative); Protein,Urine Negative (Negative); Specific Gravity, Urine <= 1.005 (1.005-1.030); Urobilinogen,Urine 0.2 EU/dl (0.2)
[2024-11-18 13:29] LABS: Alanine Aminotransferase 77 U/L (12-78); Albumin Level 4.5 g/dl (3.5-5.0); Albumin/Globulin Ratio 1.7 (1.1-1.8); Alkaline Phosphatase 126 U/L (38-126); Anion Gap 16.3 mEq/L (5-15); Aspartate Amino Transferase 124 U/L (17-59); Bilirubin,Total 0.5 mg/dl (0.2-1.3); Blood Urea Nitrogen 23 mg/dl (9-20); Calcium 9.6 mg/dl (8.4-10.2); Carbon Dioxide 23 mmol/L (22.0-30.0); Chloride 100 mmol/L (98-107); Estimated Glomerular Filt Rate 83 ml/min (>60); GFR (African American) 101 ML/MIN (>60); Globulin 2.6 g/dL (1.3-3.2); Glucose 313 mg/dl (74-100); Potassium 4.3 mmoL/L (3.5-5.1); Sodium 135 mmol/L (136-145); Total Protein,Serum 7.1 g/dl (6.3-8.2)
[2024-11-18 13:35] LABS: Bacteria,Urine Trace /lpf; Squamous Epithelial Cell,Urine Occasional #/hpf (0-5); WBC,Urine Occasional #/hpf (0-3)
[2024-11-18 13:59] LABS: Prostate Specific Ag Screen 2.6 ng/ml (0.0-4.0)
== END 2024-11-18 23:59 | disposition home or self-care (01) ==
LOC: RAD 12:42
PROVIDERS: PCP Student in an Organized Health Care Education/Training Program; Visit Provider Urology
DX: C61 Malignant neoplasm of prostate (principal); R31.1 Benign essential microscopic hematuria
CPT/HCPCS: 36415; 74018; 80053; 81001; G0103

== ENCOUNTER 2025-01-02 12:01 | Outpatient (CLI) | payer MEDICARE, SELFPAY ==
[2025-01-02 13:37] LABS: Prostate Specific Ag, Diagnost 2.77 ng/ml (0.0-4.0)
== END 2025-01-02 23:59 | disposition home or self-care (01) ==
LOC: LAB 12:03
PROVIDERS: PCP Student in an Organized Health Care Education/Training Program; Visit Provider Urology
DX: C61 Malignant neoplasm of prostate (principal)
CPT/HCPCS: 36415; 84153

== ENCOUNTER 2025-02-24 15:36 | Outpatient (CLI) | payer MEDICARE, SELFPAY ==
--- NOTE | 2025-02-24 15:42 | XR_ITS ---
FINAL REPORT CLINICAL HISTORY: PROSTATE CANCER, BLOATING, ABD PAIN COMPARISON: 11/18/2024 FINDINGS: SINGLE VIEW ABDOMEN A single view of the abdomen was obtained. There is a large amount of stool throughout the colon consistent with constipation. Surgical clips are noted in the right inguinal region. No abnormal calcifications are identified. IMPRESSION: Constipation. Reviewed, Interpreted and Dictated by Brock Adams MD Transcribed by Maria D Grey Authenticated and [facility]
[2025-02-24 15:58] LABS: Microscopic, Urine URINE MICROSCOPIC (MICROSCOPIC)
[2025-02-24 16:54] LABS: Appearance,Urine CLEAR (Clear); Bilirubin,Urine Negative (Negative); Blood, Urine Negative (Negative); Color,Urine YELLOW (Yellow); Glucose,Urine (UA) 3+ (Negative); Ketones,Urine Negative (Negative); Leukocyte Esterase,Urine Negative (Negative); Nitrate,Urine Negative (Negative); PH,Urine 5.5 (5.0-8.5); Protein,Urine Negative (Negative); Urobilinogen,Urine 0.2 EU/dl (0.2)
[2025-02-24 17:23] LABS: Albumin Level 4.1 g/dl (3.5-5.0); Albumin/Globulin Ratio 1.5 (1.1-1.8); Alkaline Phosphatase 103 U/L (38-126); Anion Gap 11.6 mEq/L (5-15); Bilirubin,Total 0.6 mg/dl (0.2-1.3); Blood Urea Nitrogen 17 mg/dl (9-20); Calcium 9.6 mg/dl (8.4-10.2); Carbon Dioxide 29 mmol/L (22.0-30.0); Chloride 102 mmol/L (98-107); Estimated Glomerular Filt Rate 96 ml/min (>60); GFR (African American) 116 ML/MIN (>60); Globulin 2.8 g/dL (1.3-3.2); Glucose 227 mg/dl (74-100); Potassium 4.6 mmoL/L (3.5-5.1); Sodium 138 mmol/L (136-145); Total Protein,Serum 6.9 g/dl (6.3-8.2)
[2025-02-24 17:24] LABS: Alanine Aminotransferase 26 U/L (12-78); Aspartate Amino Transferase 24 U/L (17-59)
[2025-02-24 17:56] LABS: Prostate Specific Ag, Diagnost 2.21 ng/ml (0.0-4.0)
[2025-02-24 17:58] LABS: Bacteria,Urine Trace /lpf; WBC,Urine Occasional #/hpf (0-3)
== END 2025-02-24 23:59 | disposition home or self-care (01) ==
LOC: LAB 15:37
PROVIDERS: PCP Student in an Organized Health Care Education/Training Program; Visit Provider Urology
DX: C61 Malignant neoplasm of prostate (principal)
CPT/HCPCS: 36415; 74018; 80053; 81001; 84153

== ENCOUNTER 2025-04-10 12:48 | Outpatient (CLI) | payer MEDICARE, SELFPAY ==
--- OUTSIDE RECORDS SUMMARY | 2025-03-01 13:00 | XMS_ITS | Encounter Summary ---
Author Organization [place] [address] Care Team Providers [facility] Name Role Phone Thiago Martin MD Unavailable [phone] Neema Mariano DO Primary Care Provider [phone] Reason for Visit * Reason Comments Annual Exam Encounter Details Date Type Department Care Team (Late st Contact Info) Description 03/01/2025 1:00 PM EDT Office Visit [facility] [address] [place], [place] [id number] Neema Mariano DO [address] [place] [address] Medicare annual wellness visit, subsequent (Primary Dx); High risk medications (not anticoagulants) long-term use; Malaise and fatigue; Hyperlipidemia, unspecified hyperlipidemia type; Type 2 diabetes mellitus with diabetic nephropathy, with long-term current use of insulin (HCC); 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); Hypertension associated with diabetes (HCC); Hyperlipidemia associated with type 2 diabetes mellitus (HCC) Social History Tobacco Use Types Packs/Day Years Used Date Smoking Tobacco: Never Smokeless Tobacco: Never Tobacco Cessation:Counseling Given: Not Answered Alcohol Use Standard Drinks/Week Comments No 0 (1 standard drink = 0.6 oz pur e alcohol) Overall Financial Resource Strain (CARDIA) Mellisae r Date Recorded How hard is it for you to pa y for the very basics like food, housing, medical care, and heating? Not very hard 08/22/2024 PHQ-2 Answer Date Recorded PHQ-2 Total Score 0 03/01/2025 [facility] - Occupational Stress Questionnaire Answer Date Recorded Do you feel stress - tense, restless, nervous, or anxious, or unable to sleep at night because your mind is troubled all the time - these days? Only a little 08/22/2024 Exercise Vital Sign Answer Date Recorde d On average, how many days pe r week do you engage in moderate to strenuous exercise (like a brisk walk)? 0 days 08/22/2024 On average, how many minutes do you engage in exercise at this level? 0 min 08/22/2024 Hunger Vital Sign Answer Date Recorded Within the past 12 months, y ou worried that your food would run out before you got the money to buy more. Never true 08/22/20 24 Within the past 12 months, t he food you bought just didn't last and you didn't have money to get more. Never true 08/22/2024 PRAPARE - Transportation Answer Date Re corded In the past 12 months, has l ack of transportation kept you from medical appointments or from getting medications? No 08/03 In the past 12 months, has l ack of transportation kept you from meetings, work, or from getting things needed for daily living? No 08/22/2024 Housing Stability Vital Sign Answer Slim e Recorded In the last 12 months, was t here a time when you were not able to pay the mortgage or rent on time? No 09/20/2021 Number of Places Lived in the Last Year Not on f ile 09/20/2021 In the last 12 months, was t here a time when you did not have a steady place to sleep or slept in a penitentiary (including now)? No 09/20/2021 Sex and Gender Information Value Date Recorded Sex Assigned at Not on file Legal Sex Male 6:41 PM EDT Gender Identity Not on file Sexual Orientation Not on file documented as of this encounter Last Filed Vital Signs Vital Sign Reading Time Taken Comments Blood Pressure 120/80 03/01/2025 1:08 PM EDT Pulse 73 03/01/2025 1:08 PM EDT Temperature 36.2 C (97.2 F) 03/01/2025 1:08 PM EDT Respiratory Rate - - Oxygen Saturation 96% 03/01/2025 1:08 PM EDT Inhaled Oxygen Concentration - - Weight 103.9 kg (229 lb) 03/01/2025 1:08 PM EDT Height 186.7 cm (6' 1.5 ) 03/01/2025 1:08 PM EDT Body Mass Index 29.8 03/01/2025 1:08 PM EDT documented in this encounter Functional Status * Is the person deaf or does he/she have serious difficulty hearing? Answer Date of Assessment Author No 02/19/2023 11:19 AM EDT Clara Hinojosa RMA * Is the person blind or does he/she have serious difficulty seeing even when wearing glasses? Answer Date of Assessment Author No 02/19/2023 11:19 AM EDT Clara Hinojosa RMA * Does this person have serious difficulty walking or climbing stairs? Answer Date of Assessment Author No 02/19/2023 11:19 AM EDT Clara Hinojosa RMA * Does this person have difficulty dressing or bathing? Answer Date of Assessment Author No 02/19/2023 11:19 AM EDT Clara Hinojosa RMA * Because of a physical, mental or emotional condition, does this person have difficulty doing errands alone such as visiting a doctor's office or shopping? Answer Date of Assessment Author No 02/19/2023 11:19 AM EDT Clara Hinojosa RMA * PHQ-9 Total Score Answer Date of Assessment Author 0 03/01/2025 1:13 PM EDT Alanna Zamudio MA * Question Answer Date of Assessment Author Little interest or pleasure in doing things 0 03/01/2025 1:13 PM EDT Lien Mobley MA Feeling down, depressed, or hopeless 0 03/01/2025 1:13 PM EDT Lien Mobley MA PHQ-2 Total Score 0 03/01/2025 1:13 PM EDT Alanna Mobley MA documented as of this encounter Mental Status * Because of a physical, mental or emotional condition, does this person have serious difficulty concentrating, remembering or making decisions? Answer Entry Date Author No 02/19/2023 11:19 AM EDT Clara Hinojosa RMA documented in this encounter Progress Notes * Neema Mariano DO - 03/01/2025 1:00 PM EDT Assessment & Plan Vertigo: Resolved. Brain MRI 2 months ago normal. No further symptoms. No treatment needed. Hypertension: Well-controlled at 120/80 mmHg. Currently taking amlodipine. Recommend discontinuing amlodipine to monitor blood pressure response. If stable, can continue without amlodipine. Diabetes Mellitus: Slightly elevated blood glucose with A1c 7.4%. On 45 units of Tresiba at night and adjusts NovoLog dosage based on blood sugar levels. Morning levels typically around 90. Continue current insulin regimen. Prostate Cancer: Undergoing testosterone-lowering therapy. Reports fatigue and impact on quality oflife. Prefers no new medications for mood or other symptoms. Continue current management and monitor for changes. Dx/Orders: Diagnoses and all orders for this visit: Medicare annual wellness visit, subsequent - STABLE, PATIENT HAS NO ISSUES High risk medications (not anticoagulants) long-term use - COMPREHENSIVE METABOLIC PANEL; Future - STABLE, PATIENT HAS NO ISSUES Malaise and fatigue - CBC WITH DIFF; Future - TSH REFLEX TO FT4; Future - STABLE, PATIENT HAS NO ISSUES Hyperlipidemia, unspecified hyperlipidemia type - LIPID SCREEN; Future - MICROALBUMIN/CREATININE RATIO URINE; Future - STABLE, PATIENT HAS NO ISSUES Type 2 diabetes mellitus with diabetic nephropathy, with long-term current use of insulin (HCC) (Chronic) Overview: Microalbuminuria diagnosed Nov 2017. Tests sugar 4-5 times a day. Orders: - POCT GLYCATED HEMOGLOBIN, TOTAL - STABLE, PATIENT HAS NO ISSUES 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) (Chronic) Overview: Follows with Dr. Prather in [place], [place] Orders: - STABLE, PATIENT HAS NO ISSUES Hypertension associated with diabetes (HCC) (Chronic) Overview: At goal continue current medications Orders: - STABLE, PATIENT HAS NO ISSUES Hyperlipidemia associated with type 2 diabetes mellitus (HCC) (Chronic) - STABLE, PATIENT HAS NO ISSUES Return in about 6 months (around 08/31/2025) for Diabetes. Subjective Mil Johnston is a 69 y.o. male Chief Complaint Patient presents with Annual Exam Subsequent Annual Medicare Wellness Assessment. Risk Assessments: Fall Risk Assessment Has the patient had any fall with injury in the past year?: No Has the patient had 2 or more falls in the past year?: No Is the patient able to sit without assistance?: (!) No Is the patient able to get up without assistance?: Yes Does the patient have a difficult time ambulating when first getting up?: No (maybe a little bit) Does the patient have rugs or runners in the home?: No Does the patient have grab bars in the bathroom?: Yes Does the patient have stairs inside or outside of the home?: (!) Yes Does the patient have handrails for all inside or outside stairs?: Yes Functional Status Assessment Functional Level: self care Functional Mobility Assessment: independent w/o assist device Assessment of transportation needs: still drives most of the time Functional Activities of Daily Living Limitations: (!) managing medications; laundry Bladder: Do you have issues with your bladder, such as urgency or leaking urine?: Significant issues Does the patient report issues or concerns regarding hearing?: No Activities of Daily Living Assistive Device Assessment Assistive Devices: None Osteoporosis Screening Assessment Has the patient had a DEXA (Bone Density) scan in the past 2 years?: Not applicable (male) No results found for this or any previous visit. Abnormal Pains Assessment Excluding what you would consider normal aches and pains for your age and medical condition, do youhave any unusual or worrisome pains?: No Opiate Screening Are you currently on opiate or narcotic medications?: (!) Yes Do you ever use more of your medication, that is, take a higher dose, than is prescribed for you?: 0 Do you ever need early refills for your pain medication?: 0 Do you ever feel high or get a buzz after using your pain medication?: 0 Do you ever take you pain medication because you are upset, using the medication to relieve or copewith problems other than pain?: 0 Have you ever gone to multiple physicians, including emergency room doctors, seeking more of your pain medication?: 0 PHQ Depression Screening Results Little interest or pleasure in doing things: 0 Feeling down, depressed, or hopeless: 0 PHQ-2 Total Score: 0 PHQ-9 Total Score: 0 Advanced Directive Evaluation Advance Care Planning Guide Given?: Yes (For Dementia Screening below can use either AD-8 or Mini Cog. Doesn't require both.) AD-8 Dementia Screening tool results Problems with judgement: 0 Less interest in hobbies/activities: 0 Repeats the same things over and over: (!) 1 (according to Pt's ) Trouble learning how to use a tool, appliance or gadget: 0 Forgets correct month or year: 0 Trouble handling complicated financial affairs: 0 Trouble remembering appointments: 0 Daily problems with thinking and/or memory: 0 Total AD8 score:: 1 Mini Cog Dementia Screening tool results Welcome to Medicare Vision Screening Patient Instructions AWV findings and Plan of Care: Recommendations as part of the Personal Plan of Care based on risk screening assessments are: Fall Risk Assessment: Fall Risk Assessment: negative - re-assess in 1 year Functional Status/Social Determinates of Health: stable, no issues, re-assess in 1 year Depression Screening: negative - re-assess in 1 year Dementia Screening: negative - recommend re-assess in 1 year Vaccinations: up to date Exercise/Activity: recommended continuing current Recommended follow up annually for Medicare Annual Wellness Visit. Good preventative health care is important in reducing morbidity and mortality. I recommend exercise regularly as tolerated focusing on strength and balance. I recommend a balanced diet focusing on fruits, veggies, and lean meats. I recommend avoiding having rugs, runners, or other loose trip hazards in the home as these increase fall risk. I recommend installing grab bars in the bathrooms close to toilets, in tubs, and in showers as these are common areas for falls when transitioning from wet surfaces to dry surfaces, or visa versa. This is also an area of the home that is high risk for falls at night. I encourage having an Advanced Directives. This is something we recommend you have on file at home,as well as something that we should have on file in our records. If we don't have a copy of your current Advanced Directive, please bring a copy to your next visit. If you have a power of traffic law attorney orsdavidogate, we should also have a copy on file. I encourage candid discussion with your family on your wishes in the event that you are incapacitated and unable to participate in direct medical decision making. It is important to stay up to date on recommended vaccinations, please see the health maintenance topics due below and if we have not completed one of those topics today, please consider completing as part of your wellness plan this year. Below are other health maintenance topics that are recommended to be closed at your earliest opportunity. You may notice that some of these were addressed in the office today and will show as resolved in your MyChart account soon. Health Maintenance Due Topic Date Due Zoster (1 of 2) Never done RSV or 60+ (1 - Risk 60-74 years 1-dose series) Never done COVID-19 Vaccine (1) Never done Diabetic Eye Exam 10/23/2024 As part of today's visit the components of the Medicare wellness assessment were completed. These components included reviewing the information available in the risk screening questionnaire that was administered by ancillary staff either today or prior to today's visit (pre-visit planning) and recorded in the Medicare Wellness Assessment Flowsheet in the EMR. I have reviewed the data in regards to fall risk, activities of daily living/functional status, depression screening, dementia screening,and outstanding Health Maintenance topics and edited where necessary. The staff has reviewed and updated the past medical history, social history, family history, allergies, medications, and care team information during the standard rooming process. I have also reviewed this data as part of today'svisit. Below are the findings, recommendations, and Personal Plan of Care. The patient received a copy of their Personal Plan of Care including health maintenance topics thatare recommended to be completed and this can be noted in the after visit summary. The AVS is provided to the patient digitally through their [facility] account or with a paper copy if the patient doesn't have an active MyChart Account. A copy of today's progress note with recommendations below is alsoavailable electronically for patients with an active [facility] account per the Federal Cures Act. TheAVS also contains additional patient education if appropriate on topics common to wellness and their plan of care. History Reviewed: No results found. Results for orders placed or performed in visit on 03/01/25 LIPID SCREEN Result Value Ref Range Cholesterol 192 <200 mg/dL Triglyceride 250 (H) <150 mg/dL HDL 41 >=40 mg/dL LDL Calculated 108 (H) <100 mg/dL Non-HDL-C Calculated 151 (H) <=129 mg/dL Fasting Specimen? Yes None COMPREHENSIVE METABOLIC PANEL Result Value Ref Range Sodium 137 136 - 145 mmol/L Potassium 5.0 3.5 - 5.0 mmol/L Chloride 100 98 - 107 mmol/L Total CO2 23 22 - 29 mmol/L Anion Gap 14 7 - 16 mmol/L Calcium 10.2 8.8 - 10.4 mg/dL Glucose Lvl 176 (H) 70 - 99 mg/dL BUN 19 8 - 23 mg/dL Creatinine 0.82 0.67 - 1.30 mg/dL Albumin 4.6 3.2 - 4.6 gm/dL Total Protein 7.9 6.4 - 8.3 gm/dL Bili Total 0.4 0.2 - 1.4 mg/dL ALT 26 <=41 U/L AST 27 <=40 U/L Alk Phos 135 (H) 40 - 129 U/L e[facility]) 94 >=60 mL/min/1.73 m2 CBC WITH DIFF Result Value Ref Range WBC 8.8 3.7 - 10.3 x10(3)/mcL RBC 5.30 4.60 - 6.10 x10(6)/mcL Hgb 16.4 13.7 - 17.5 g/dL Hct 49.7 40.0 - 51.0 % MCV 93.8 80.0 - 100.0 fL MCH 30.9 26.0 - 34.0 pg MCHC 33.0 30.7 - 35.5 g/dL RDW 12.8 <=14.9 % Platelet 322 155 - 369 x10(3)/mcL MPV 10.0 8.8 - 12.5 fL Neut Percent 68.1 % Imm Gran% 0.3 % Lymph Percent 15.5 % [place] Percent 10.1 % Eos Percent 5.2 % Baso Percent 0.8 % Neut # 6.0 1.6 - 6.1 x10(3)/mcL IMMGRAN# 0.0 0.0 - 0.1 x10(3)/mcL Lymph # 1.4 1.2 - 3.9 x10(3)/mcL [place] # 0.9 0.3 - 0.9 x10(3)/mcL Eos# 0.5 0.0 - 0.5 x10(3)/mcL Baso # 0.1 0.0 - 0.1 x10(3)/mcL TSH REFLEX TO FT4 Result Value Ref Range TSH Reflex 3.620 0.270 - 4.200 mcIU/mL Narrative Ingestion of eduardo doses of biotin (>5 mg/day) taken within 8 hours of drawing blood sample can interfere with this immunoassay test. MICROALBUMIN/CREATININE RATIO URINE Result Value Ref Range Urine Microalb 57.4 mg/L Urine Creatinine 112.0 mg/dL Ur Microalb/Creat 51 (H) 0 - 30 mg/g POCT GLYCATED HEMOGLOBIN, TOTAL Result Value Ref Range Hemoglobin A1C 7.4 (A) 4 - 6 % Lot Number Expiration Date SeriAl # Patient Active Problem List Diagnosis Hypertension associated with diabetes (HCC) RAD (reactive airway disease) Type 2 diabetes mellitus with diabetic nephropathy, with long-term current use of insulin (HCC) Hyperlipidemia associated with type 2 diabetes mellitus (HCC) ED (erectile dysfunction) Low testosterone Chronic left-sided low back pain with left-sided sciatica Gastroesophageal reflux disease with esophagitis without hemorrhage 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) Screening for colon cancer Past Medical History: Diagnosis Date Arthritis Asthma Cancer (HCC) prostate Diabetes mellitus (HCC) GERD (gastroesophageal reflux disease) Hyperlipidemia Hypertension Prostate disorder enlarged Small bowel obstruction (HCC) 12/31/2006 resected Past Surgical History: Procedure Laterality Date CHOLECYSTECTOMY, OPEN 1983 COLONOSCOPY 12/17/05 next 2015 EYE SURGERY bilateral cataracts INGUINAL HERNIA REPAIR 2000 left & umbilical INGUINAL HERNIA REPAIR Bilateral 09/20/2015 LAPAROSCOPIC BILATERAL INGUINAL HERNIA REPAIR WITH MESH; Surgeon: Guille Allen MD; Location: [facility]; Service: General SMALL INTESTINE SURGERY 01/06 SBO resection TIBIA FRACTURE SURGERY plate and screws put in and then plate removed TONSILLECTOMY AND ADENOIDECTOMY 1966 UPPER GASTROINTESTINAL ENDOSCOPY VASECTOMY 1987 Allergies Allergen Reactions Tetanus Vaccines And Toxoid Other (See Comments) [place] in his early 20's Lisinopril hyperkalemia Peanut Current Outpatient Medications on File Prior to Visit Medication Sig Dispense Refill alfuzosin (UROXATRAL) 10 mg Oral Tablet Sustained Release 24 hr Take 10 mg by mouth daily. aspirin 81 mg tablet Take 81 mg by mouth daily. bicalutamide (CASODEX) 50 mg Oral Tablet Take by mouth daily. Blood Sugar Diagnostic (JostleUCH ULTRA BLUE TEST STRIP) [facility] [place] Use to test up tp 3 times daily.DX: E11.9 300 Strip 2 Blood Sugar Diagnostic (JostleUCH ULTRA TEST) [facility] [place] USE TO TEST UP TO 3 TIMES DAILY 300 Each 0 Coenzyme Q10 100 mg Oral Capsule Take by mouth. dapagliflozin propanediol (FARXIGA) 10 mg Oral Tablet Take 1 Tablet by mouth daily. 90 Tablet 3 dutasteride (AVODART) 0.5 mg Oral Capsule Take 0.5 mg by mouth daily. enzalutamide (XTANDI ORAL) Take by mouth. fluticasone furoate (ARNUITY ELLIPTA) 100 mcg/actuation Inhl Disk with Device INHALE 1 PUFF BY MOUTH ONCE DAILY AT 9AM, MUST MAKE APPOINTMENT FOR FURTHER REFILLS 30 Each 2 FREESTYLE LANCETS 28 gauge [facility] USE 1 LANCET TO CHECK GLUCOSE THREE TIMES DAILY 100 Each 0 GLUCOSAM & CHONDROIT-MV & MIN3 (GLUCOSAMINE &[id number] ORAL) Take by mouth daily. hydrALAZINE (APRESOLINE) 25 mg Oral Tablet Take 1 Tablet by mouth 2 times daily. 180 Tablet 3 ibuprofen (ADVIL;MOTRIN) 800 mg Oral Tablet Take 800 mg by mouth 4 times daily as needed for Pain. insulin aspart U-100 (NOVOLOG FLEXPEN U-100 INSULIN) 100 unit/mL (3 mL) SubQ Insulin Pen Subcutaneous (Inject under the skin) 30 Units 2 times daily (with meals). 5 boxes received from patient assistance. 15 mL 0 insulin degludec (TRESIBA FLEXTOUCH U-100) 100 unit/mL (3 mL) SubQ Insulin Pen Subcutaneous (Injectunder the skin) 60 Units nightly. 5 boxes received from patient assistance. 15 mL 0 Insulin [place], Disposable, (LEWIS PEN NEEDLE) 32 gauge x 5/32 Misc Needle Use to inject insulin 3times daily 270 box 2 Insulin [place], Disposable, 31 gauge x 5/16 Misc Needle Use up to 3 times daily. DX:E11.9 300 Each 2 Insulin [place], Disposable, 31 gauge x 5/16 Misc Needle USE AT BEDTIME WITH INSULIN PEN 50 Each 11 Lancets Misc Misc Used to test blood sugar 3 times daily 1 Each 11 Lancets Misc Misc One touch ultra. Test up to 3 times daily. E11.9 300 Each 2 losartan (COZAAR) 100 mg Oral Tablet Take 1 Tablet by mouth daily. 90 Tablet 3 meclizine (ANTIVERT) 25 mg Oral Tablet Take 1 Tablet by mouth 3 times daily as needed for Dizziness. 60 Tablet 0 metFORMIN (GLUCOPHAGE XR) 500 mg Oral ER 24 hr tablet TAKE 2 TABLETS BY MOUTH IN THE MORNING WITH BREAKFAST 200 Tablet 0 morphine (MS CONTIN) 15 mg Oral Tablet Sustained Release Take 15 mg by mouth 2 times daily. As needed multivit-min/folic/vit K/lycop (ONE-A-DAY MEN'S 50 PLUS ORAL) Take by mouth. ONE TOUCH DELICA 33 gauge Misc Misc USE ONE TO CHECK GLUCOSE 4 TIMES DAILY 100 Each 11 ONETOUCH ULTRA2 Misc Kit USE DIRECTED 1 Kit 0 oxyCODONE-acetaminophen (PERCOCET) 10-325 mg Oral Tablet Take 1 Tablet by mouth every 4 hours as needed. pantoprazole (PROTONIX) 40 mg Oral Tablet, Delayed Release (E.C.) Take 1 Tablet by mouth daily. 90 Tablet 2 pravastatin (PRAVACHOL) 40 mg Oral Tablet TAKE 1 TABLET BY MOUTH ONCE DAILY IN THE EVENING 100 Tablet 0 pregabalin (LYRICA) 150 mg Oral Capsule Take 150 mg by mouth 2 times daily. semaglutide (OZEMPIC) 0.25 mg or 0.5 mg(2 mg/1.5 mL) SubQ Pen Injector Subcutaneous (Inject under the skin) 0.5 mg once a week. 1.5 mL 0 VENTOLIN HFA 90 mcg/actuation Inhl HFA Aerosol Inhaler INHALE TWO PUFFS INTO THE LUNGS EVERY 4 HOURS NEEDED FOR WHEEZING 18 g 2 Vitamin B Comp & C No.3 (B COMPLEX PLUS VITAMIN C) 23-94-41-5-300 mg Oral Capsule Take by mouthdaily. vitamin E 400 unit capsule Take by mouth daily. venlafaxine (EFFEXOR-XR) 37.5 mg Oral Capsule, Sust. Release 24 hr Take 37.5 mg by mouth daily. (Patient not taking: Reported on 03/01/2025) No current facility-administered medications on file prior to visit. Social History Socioeconomic History Marital status: Spouse name: None Number of children: None Years of education: None Highest education level: None Tobacco Use Smoking status: Never Smokeless tobacco: Never Vaping Use Vaping status: Never Used Substance and Sexual Activity Alcohol use: No Drug use: No Social Drivers of Health Financial Resource Strain: Low Risk (08/22/2024) Overall Financial Resource Strain (CARDIA) Difficulty of Paying Living Expenses: Not very hard Food Insecurity: No Food Insecurity (08/22/2024) Hunger Vital Sign Worried About Running Out of Food in the Last Year: Never true Ran Out of Food in the Last Year: Never true Transportation Needs: No Transportation Needs (08/22/2024) PRAPARE - Transportation Lack of Transportation (Medical): No Lack of Transportation (Non-Medical): No Physical Activity: Inactive (08/22/2024) Exercise Vital Sign Days of Exercise per Week: 0 days Minutes of Exercise per Session: 0 min Stress: No Stress Concern Present (08/22/2024) [employer] [facility] - Occupational Stress Questionnaire Feeling of Stress : Only a little Housing Stability: Unknown (09/20/2021) Housing Stability Vital Sign Unable to Pay for Housing in the Last Year: No Unstable Housing in the Last Year: No Family History Problem Relation Age of Onset Alzheimer's Disease Mother 70's Diabetes Mother Heart Disease Mother enlarged heart High Blood Pressure Mother Arthritis Mother had TKR Early Father Heart Disease Father at 44, tob smoker Alcohol Abuse Father Diabetes Brother High Cholesterol Brother Diabetes Maternal Aunt Alzheimer's Disease Maternal Uncle 80's Diabetes Maternal Uncle Diabetes Maternal Grandmother Diabetes Maternal Grandfather Heart Disease Paternal Grandfather Stroke Paternal Grandfather Anesth Problems Neg Hx Immunization History Administered Date(s) Administered Hep A/Hep B 07/08/2012, 02/07/2013 Hepatitis B, Adult 07/11/2020 Influenza Vaccine Quadrivalent 08/25/2017, 08/04/2018 Influenza Vaccine, Unspecified Formulation 07/13/2010, 07/08/2012, 08/02/2015 [employer] SARS-CoV-2 Vaccine 02/01/2021 Pneumococcal Conjugate Vaccine 20 Valent 08/21/2023 Pneumococcal Polysaccharide 23 Valent 11/02/2006, 07/11/2020 Quadrivalent Influenza High Dose 07/11/2020, 08/14/2021, 10/15/2022, 08/21/2023 Health Maintenance Topic Date Due Zoster (1 of 2) Never done RSV or 60+ (1 - Risk 60-74 years 1-dose series) Never done COVID-19 Vaccine (1) Never done Diabetic Eye Exam 10/23/2024 Influenza Vaccine (Season Ended) 2025 Hemoglobin A1c 08/31/2025 Microalbuminuria 03/01/2026 Lipids 03/01/2026 Wellness Exam Medicare 03/02/2026 Colon Cancer Screening 08/16/2033 Hepatitis C Screening Completed Pneumococcal Vaccine 50+ Completed Hepatitis B Vaccine Completed Meningococcal B Vaccine Aged Out DTaP/TDaP/Td Discontinued Patient Care Team: Neema Mariano DO as PCP - General (Family Medicine) Thiago Martin MD (Ophthalmology) Additional issues addressed today: History of Present Illness The patient is a 69-year-old individual presenting for evaluation of vertigo, hypertension, diabetes mellitus, and prostate cancer. The patient's vertigo symptoms resolved within one month, attributed to dizziness secondary to antidepressant side effects. During this period, the patient experienced hypotension and a sinus infection. There were concerns regarding the possibility of a tumor or aneurysm. The patient's blood pressure is well-controlled, obviating the need for antihypertensive medication. The use of amlodipine is uncertain, but hydrochlorothiazide has been discontinued. The patient expresses a desire to eventually discontinue all medications and emphasizes the importance of cardiac health due to a family history of cardiovascular disease. The current treatment for prostate cancer is physically demanding, but the patient remains active, including engaging in activities such as fishing. The patient's morning blood glucose levels are slightly elevated, typically in the 90s mg/dL. The patient prefers to avoid nocturnal hypoglycemia, which is more challenging to manage than daytime episodes. Nocturnal symptoms may be due to hypoglycemia or severe hot flashes. The insulin regimen includes 45 units of Tresiba administered at night and 25 units of NovoLog, with adjustments based on blood glucose levels. For instance, 35 units of NovoLog are planned for today due to a blood glucose reading of 174 mg/dL. The patient believes their diabetes is well-managed, with no anticipated complications such as retinopathy or diabetic foot ulcers. FAMILY HISTORY Family history of heart attacks on their father's side and Alzheimer's disease. Review of Systems See HPI as above for pertinent positives. Other systems reviewed as negative. Objective Blood pressure 120/80, pulse 73, temperature 97.2 ??F (36.2 ??C), temperature source Temporal, height 6' 1.5 (1.867 m), weight 229 lb (103.9 kg), SpO2 96%. Body mass index is 29.8 kg/m??. Physical Exam Respiratory: Clear to auscultation, no wheezing, rales, or rhonchi. Cardiovascular: Regular rate and rhythm, no murmurs, rubs, or gallops. Physical Exam Results Labs: A1c 7.4%. Imaging: Brain MRI normal. Results for orders placed or performed in visit on 03/01/25 LIPID SCREEN Result Value Ref Range Cholesterol 192 <200 mg/dL Triglyceride 250 (H) <150 mg/dL HDL 41 >=40 mg/dL LDL Calculated 108 (H) <100 mg/dL Non-HDL-C Calculated 151 (H) <=129 mg/dL Fasting Specimen? Yes None COMPREHENSIVE METABOLIC PANEL Result Value Ref Range Sodium 137 136 - 145 mmol/L Potassium 5.0 3.5 - 5.0 mmol/L Chloride 100 98 - 107 mmol/L Total CO2 23 22 - 29 mmol/L Anion Gap 14 7 - 16 mmol/L Calcium 10.2 8.8 - 10.4 mg/dL Glucose Lvl 176 (H) 70 - 99 mg/dL BUN 19 8 - 23 mg/dL Creatinine 0.82 0.67 - 1.30 mg/dL Albumin 4.6 3.2 - 4.6 gm/dL Total Protein 7.9 6.4 - 8.3 gm/dL Bili Total 0.4 0.2 - 1.4 mg/dL ALT 26 <=41 U/L AST 27 <=40 U/L Alk Phos 135 (H) 40 - 129 U/L eGFR (CKD-EPIcr 2020) 94 >=60 mL/min/1.73 m2 CBC WITH DIFF Result Value Ref Range WBC 8.8 3.7 - 10.3 x10(3)/mcL RBC 5.30 4.60 - 6.10 x10(6)/mcL Hgb 16.4 13.7 - 17.5 g/dL Hct 49.7 40.0 - 51.0 % MCV 93.8 80.0 - 100.0 fL MCH 30.9 26.0 - 34.0 pg MCHC 33.0 30.7 - 35.5 g/dL RDW 12.8 <=14.9 % Platelet 322 155 - 369 x10(3)/mcL MPV 10.0 8.8 - 12.5 fL Neut Percent 68.1 % Imm Gran% 0.3 % Lymph Percent 15.5 % [place] Percent 10.1 % Eos Percent 5.2 % Baso Percent 0.8 % Neut # 6.0 1.6 - 6.1 x10(3)/mcL IMMGRAN# 0.0 0.0 - 0.1 x10(3)/mcL Lymph # 1.4 1.2 - 3.9 x10(3)/mcL [place] # 0.9 0.3 - 0.9 x10(3)/mcL Eos# 0.5 0.0 - 0.5 x10(3)/mcL Baso # 0.1 0.0 - 0.1 x10(3)/mcL TSH REFLEX TO FT4 Result Value Ref Range TSH Reflex 3.620 0.270 - 4.200 mcIU/mL Narrative Ingestion of eduardo doses of biotin (>5 mg/day) taken within 8 hours of drawing blood sample can interfere with this immunoassay test. MICROALBUMIN/CREATININE RATIO URINE Result Value Ref Range Urine Microalb 57.4 mg/L Urine Creatinine 112.0 mg/dL Ur Microalb/Creat 51 (H) 0 - 30 mg/g POCT GLYCATED HEMOGLOBIN, TOTAL Result Value Ref Range Hemoglobin A1C 7.4 (A) 4 - 6 % Lot Number Expiration Date SeriAl # The provider educated the patient (or legal pest control service representative) on the use of the ambient listening artificial intelligence tool, Untangle. They were informed that this AI tool processes the conversation to generate a clinical note with the expected benefit of improved accuracy while achieving an improved encounter experience for the patient and provider.?The provider explained that the medical information captured by the AI tool including, but not limited to, diagnoses and treatment plan would be protected in accordance with applicable privacy laws and that all diagnoses and treatment decisions would be made by the provider. The provider explained that the note generated will be reviewed bythe provider for accuracy to minimize potential errors.? The patient was given an opportunity to ask questions and opt out of proceeding with the use of the AI tool. After being informed of such information, the patient (or legal pest control service representative), and each individual in attendance with the patient, verbally consented to the use of the AI tool. documented in this encounter Miscellaneous Notes * Patient Instructions - Neema Mariano DO - 03/01/2025 1:00 PM EDT Today as part of your Medicare Wellness Assessment your provider has reviewed a number of components of your chart, current health state, medications, and medical history. At the beginning of today'svisit you may have had some Health Maintenance topics that needed to be completed soon to optimize your care and wellness. Some of these topics may even be overdue. Here is listed the topics that we have outstanding in your record. Health Maintenance Due Topic Date Due ??? Hemoglobin A1c 08/25/2024 ??? Diabetic Eye Exam 10/23/2024 ??? Microalbuminuria 02/23/2025 ??? Lipids 02/23/2025 ??? Wellness Exam Medicare 02/24/2025 Some of these topics may have been addressed either during the visit such as fall risk screenings, depression screenings, or others that were completed via questionnaire. Some immunizations may have been updated. These topics will reflect in your [facility] account as completed once your provider closes today's visit. Other topics noted above may still need to be completed by you such as additional screening tests, or vaccines. If you don't have any Health Maintenance topics due, congratulations you are all caught up! If notice that you don't have information or a path to complete the above topics please let us know and we will assist you. Remember our goal is to provide you with the best evidence based recommendations and all of the goals above are consistent with national guideline recommendations. Your provider may have ordered additional testing or provided additional information basedon your unique health care needs and those are also important. * Addendum Note - Neema Mariano DO - 03/01/2025 1:00 PM EDTAddended by: NEEMA MARIANO on: 03/06/2025 10:08 AM Modules accepted: Orders documented in this encounter Plan of Treatment Not on file documented as of this encounter Goals Goal Patient Goal Type Associated Problems Recent Progress Patient-Stated? Author Blood Pressure < 140/90 Blood Pressure 120/80(03/01 1:08 PM EDT) No Johnny Michelle MD BMI (Calculated) < 30 General 29.9( 025 1:08 PM EDT) No Alanna Mobley MA Maintain a healthy diet, exercise regularly and maintain an ideal body weight General No Phuong Vazquez RMA Patient will obtain affordable medications through patient assistance programs. General On track(2022 3:08 PM EST) No Tamera Schroeder RN LDL CALC < 100 Result Component 108(03/01/20 1:51 PM EDT) No Johnny Michelle MD HEMOGLOBIN A1C < 7.1 Result Component 7.4(03/01/20 1:51 PM EDT) No Johnny Michelle MD documented as of this encounter Procedures Procedure Name Priority Date/Time Associated Diagnosis Comments MICROALBUMIN/CREATINI NE RATIO URINE Routine 03/01/2025 1:55 PM EDT Hyperlipidemia, unspecified hyperlipidemia type TSH REFLEX TO FT4 Routine 03/01/2025 1:5 1 PM EDT Malaise and fatigue POCT GLYCATED HEMOGLOBIN, TOTAL Routine 03/01/2025 1:51 PM EDT Type 2 diabetes mellitus with diabetic nephropathy, with long-term current use of insulin (HCC) CBC WITH DIFF Routine 03/01/2025 1:51 PM EDT Malaise and fatigue LIPID SCREEN Routine 03/01/2025 1:51 PM EDT Hyperlipidemia, unspecified hyperlipidemia type COMPREHENSIVE METABOLIC PANEL Routine 03/01/2025 1:51 PM EDT High risk medications (not anticoagulants) long-term use documented in this encounter Results * (ABNORMAL) MICROALBUMIN/CREATININE RATIO URINE (03/01/2025 1:55 PM EDT) Urine Microalb 57.4 mg/L 03/01/2025 9:19 PM EDT [facility] Urine Creatinine 112.0 mg/dL 03/01/2025 9:19 PM EDT [email or web address] [place] Ur Microalb/Creat 51(H) 0 - 30 mg/g 03/01/2025 9:19 PM EDT [facility] Urine STRUCTURE OF URINARY TRACT PROPER / Unknown 03/01/2025 1:55 PM EDT 03/01/2025 1:55 PM EDT Neema Ratliff Sharp URINE ORDERABLES Final Result [facility] [address] [facility] , [place] [address] * (ABNORMAL) POCT GLYCATED HEMOGLOBIN, TOTAL (03/01/2025 1:51 PM EDT) Hemoglobin A1C 7.4(A) 4 - 6 % SEP OFFICE Lot Number SEP OFFICE Expiration Date SEP OFFICE SeriAl # SEP OFFICE 03/01/2025 1:51 PM EDT [facility] / ?[facility]?? [facility] POINT OF CARE TEST ORDERABLES Final Result SEP OFFICE * TSH REFLEX TO FT4 (03/01/2025 1:51 PM EDT) TSH Reflex 3.620 0.270 - 4.200 mcIU/mL 03/01/2025 8:03 PM EDT [facility] Blood VENOUS BLOOD / Unknown Venipuncture / Unknown 03/01/2025 1:51 PM EDT 03/01/2025 1:51 PM EDT Narrative [facility] - 03/01/2025 8:03 PM EDT Ingestion of eduardo doses of biotin (>5 mg/day) taken within 8 hours of drawing blood sample can interfere with this immunoassay test. Neema Mariano DO CHEMISTRY ORDERABLES Final Res ult [facility] [address] [facility] , [address] [place] [id number] * CBC WITH DIFF (03/01/2025 1:51 PM EDT) WBC 8.8 3.7 - 10.3 x10(3)/mcL 03/01/2025 7:59 PM EDT [facility] RBC 5.30 4.60 - 6.10 x10(6)/mcL 03/01/2025 7:59 PM EDT [facility] Hgb 16.4 13.7 - 17.5 g/dL 03/01/2025 7:59 PM EDT [facility] Hct 49.7 40.0 - 51.0 % 03/01/2025 7:59 PM EDT [facility] MCV 93.8 80.0 - 100.0 fL 03/01/2025 7:59 PM EDT [facility] MCH 30.9 26.0 - 34.0 pg 03/01/2025 7:59 PM EDT [facility] MCHC 33.0 30.7 - 35.5 g/dL 03/01/2025 7:59 PM EDT [facility] RDW 12.8 <=14.9 % 03/01/2025 7:59 PM EDT [facility] Platelet 322 155 - 369 x10(3)/mcL 03/01/2025 7:59 PM EDT [facility] MPV 10.0 8.8 - 12.5 fL 03/01/2025 7:59 PM EDT [facility] Neut Percent 68.1 % 03/01/2025 7:59 PM EDT [facility] Comment:Neutrophils equals s egs plus bands Imm Gran% 0.3 % 03/01/2025 7:59 PM EDT [facility] Comment:Automated count of m etamyelocytes, myelocytes and promyelocytes. Lymph Percent 15.5 % 03/01/2025 7:59 PM EDT [facility] [place] Percent 10.1 % 03/01/2025 7:59 PM EDT [facility] Eos Percent 5.2 % 03/01/2025 7:59 PM EDT [facility] Baso Percent 0.8 % 03/01/2025 7:59 PM EDT [facility] Neut # 6.0 1.6 - 6.1 x10(3)/mcL 03/01/2025 7:59 PM EDT [facility] Comment:Neutrophils equals s egs plus bands IMMGRAN# 0.0 0.0 - 0.1 x10(3)/mcL 03/01/2025 7:59 PM EDT [facility] Comment:Automated count of m etamyelocytes, myelocytes and promyelocytes. An absolute IG <0.1 is reported as 0.0. Lymph # 1.4 1.2 - 3.9 x10(3)/mcL 03/01/2025 7:59 PM EDT [facility] [place] # 0.9 0.3 - 0.9 x10(3)/mcL 03/01/2025 7:59 PM EDT [facility] Eos# 0.5 0.0 - 0.5 x10(3)/mcL 03/01/2025 7:59 PM EDT [facility] Baso # 0.1 0.0 - 0.1 x10(3)/mcL 03/01/2025 7:59 PM EDT [facility] Blood VENOUS BLOOD / Unknown Venipuncture / Unknown 03/01/2025 1:51 PM EDT 03/01/2025 1:51 PM EDT us Neema Mariano DO HEMATOLOGY ORDERABLES Final Re sult [facility] [address] [facility] , [address] [place] [id number] * (ABNORMAL) COMPREHENSIVE METABOLIC PANEL (03/01/2025 1:51 PM EDT) Sodium 137 136 - 145 mmol/L 03/01/2025 8:03 PM EDT [facility] Potassium 5.0 3.5 - 5.0 mmol/L 03/01/2025 8:03 PM EDT [facility] Chloride 100 98 - 107 mmol/L 03/01/2025 8:03 PM EDT [facility] Total CO2 23 22 - 29 mmol/L 03/01/2025 8:03 PM EDT [facility] Anion Gap 14 7 - 16 mmol/L 03/01/2025 8:03 PM EDT [facility] Calcium 10.2 8.8 - 10.4 mg/dL 03/01/2025 8:03 PM EDT [facility] Glucose Lvl 176(H) 70 - 99 mg/dL 03/01/2025 8:03 PM EDT [facility] BUN 19 8 - 23 mg/dL 03/01/2025 8:03 PM EDT [facility] Creatinine 0.82 0.67 - 1.30 mg/dL 03/01/2025 8:03 PM EDT [facility] Albumin 4.6 3.2 - 4.6 gm/dL 03/01/2025 8:03 PM EDT [facility] Total Protein 7.9 6.4 - 8.3 gm/dL 03/01/2025 8:03 PM EDT [facility] Bili Total 0.4 0.2 - 1.4 mg/dL 03/01/2025 8:03 PM EDT [facility] ALT 26 <=41 U/L 03/01/2025 8:03 PM EDT [facility] AST 27 <=40 U/L 03/01/2025 8:03 PM EDT [facility] Alk Phos 135(H) 40 - 129 U/L 03/01/2025 8:03 PM EDT [facility] eGFR (CKD-EPIcr 2020) 94 >=60 mL/min/1.7 3 m2 03/01/2025 8:03 PM EDT [facility] Comment:Estimated GFR was ca lculated using the CKD-EPIcr (2020) equation refit without race. The equation is recommended by the National Kidney Foundation - [place] [employer] of Nephrology Task Force. Blood VENOUS BLOOD / Unknown Venipuncture / Unknown 03/01/2025 1:51 PM EDT 03/01/2025 1:51 PM EDT us Neema Ratliff Sharp DO CHEMISTRY ORDERABLES Final Res ult [facility] [address] [facility] , [place] [address] * (ABNORMAL) LIPID SCREEN (03/01/2025 1:51 PM EDT) Cholesterol 192 <200 mg/dL 03/01/2025 8:03 PM EDT [facility] Comment: < 200 Desirable 200 - 239 Borderline High >= 240 High Triglyceride 250(H) <150 mg/dL 03/01/2025 8:03 PM EDT [facility] Comment: < 150 Normal 150 - 199 Borderline High 200 - 499 High >= 500 Very High HDL 41 >=40 mg/dL 03/01/2025 8:03 PM EDT [facility] Comment: > 60 Optimal 40 - 60 Acceptable < 40 Low LDL Calculated 108(H) <100 mg/dL 03/01/2025 8:03 PM EDT [facility] Comment: < 100 Optimal 100 - 129 Near or above optimal 130 - 159 Borderline High 160 - 189 High >= 190 Very High The National Institutes of Health (NIH) equation is used for all lipid panels that report calculated LDL (LDL-C). Non-HDL-C Calculated 151(H) <=129 mg/dL 03/01/2025 8:03 PM EDT [facility] Comment: <130 Desirable 130-159 Above Desirable 160-189 Borderline High 190-219 High >= 220 Very High Fasting Specimen? Yes None 025 8:03 PM EDT [facility] Blood VENOUS BLOOD / Unknown Venipuncture / Unknown 03/01/2025 1:51 PM EDT 03/01/2025 1:51 PM EDT us Neema Mariano DO CHEMISTRY ORDERABLES Final Res ult [facility] [address] [place] [address] [place] [address] documented in this encounter Visit Diagnoses Diagnosis Medicare annual wellness visit, subsequent- Primary Routine general medical examination at a health care facility High risk medications (not anticoagulants) long-term use Encounter for long-term (current) use of other medications Malaise and fatigue Other malaise and fatigue Hyperlipidemia, unspecified hyperlipidemia type Type 2 diabetes mellitus with diabetic nephropathy, 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 Cancelled by 02/24/2024 03/01/2025 documented as of this encounter Orders Nursing Count Last Ordered Date First Orde red Date STABLE, PATIENT HAS NO ISSUES 1 03/06/2025 documented in this encounter Additional Health Concerns Assessment Noted Time A fall risk assessment has been complete d for the patient 03/01/2025 1:13 PM EDT documented as of this encounter Care Teams City Weighmaster Relationship Specialty Start Date End Date Neema Mariano DO [address] [place] [address] PCP - General Family Medicine 09/21/19 Thiago Martin MD Ophthalmology 12/26/16 documented as of this encounter
--- OUTSIDE RECORDS SUMMARY | 2025-04-10 12:52 | XMS_ITS | Encounter Summary ---
Author Organization [place] [address] Care Team Providers Care Political Cartoonist Name Role Phone Thiago Martin MD Unavailable [phone] Luis Atkins DO Primary Care Provider [phone] Reason for Visit * Reason Onset Date Comments Central Patient Navigator Outreach 02/28/2025 awv questionnaire Encounter Details Date Type Department Care Team (Late st Contact Info) Description 02/28/2025 Patient Outreach [facility] [address] [place], [place] [id number] Luis Atkins DO [address] [address] Central Patient Navigator Outreach (awv questionnaire) Social History Tobacco Use Types Packs/Day Years Used Date Smoking Tobacco: Never Smokeless Tobacco: Never Alcohol Use Standard Drinks/Week Comments No 0 (1 standard drink = 0.6 oz pur e alcohol) Overall Financial Resource Strain (CARDIA) Answe r Date Recorded How hard is it for you to pa y for the very basics like food, housing, medical care, and heating? Not very hard 08/22/2024 PHQ-2 Answer Date Recorded PHQ-2 Total Score 0 03/01/2025 [facility] [place] of Occupat ional Health - Occupational Stress [...] place to sleep or slept in a senior care (including now)? No 09/20/2021 Sex and Gender Information Value Date Recorded Sex Assigned at Not on file Legal Sex Male 6:41 PM EDT Gender Identity Not on file Sexual Orientation Not on file documented as of this encounter Functional Status * Is the person deaf or does he/she have serious difficulty hearing? Answer Date of Assessment Author No 02/19/2023 11:19 AM EDClara Lee RMA * Is the person blind or does he/she have serious difficulty seeing even when wearing glasses? Answer Date of Assessment Author No 02/19/2023 11:19 AM EDClara Lee RMA * Does this person have serious [...] 11:19 AM EDT Clara Hinojosa RMA documented as of this encounter Mental Status * Because of a physical, mental or emotional condition, does this person have serious difficulty concentrating, remembering or making decisions? Answer Entry Date Author No 02/19/2023 11:19 AM EDT Clara Hinojosa RMA documented in this encounter Progress Notes * Lakshmi Bhaktaara - 02/28/2025 11:43 AM EDT Patient Outreach: Pre-Visit Questionnaires Attempt Count: 1st Care Gaps Addressed senior executive compensation analyst: Medicare Questionnaire, Diabetic Eye Exam, Diabetic A1c, and Lipid Panel w/reflex Outcome:Medicare Questionnaire completed discuss iris exam and labs with PCP Call back number: [phone] documented in this encounter Plan of Treatment [...] 100 Result Component 108(03/01/20 1:51 PM EDT) Johnny Gtz MD HEMOGLOBIN A1C < 7.1 Result Component 7.4(03/01/20 1:51 PM EDT) No Johnny Michelle MD documented as of this encounter Visit Diagnoses Not on filedocumented in this encounter Additional Health Concerns Assessment Noted Time A fall risk assessment has been complete d for the patient 02/24/2024 10:44 AM EDT documented as of this encounter Care Teams Political Cartoonist Relationship Specialty Start Date End Date Luis Atkins DO [address] [place] [address] [place] CALL [facility] PCP - General Family Medicine 09/21/19 Thiago Martin MD Ophthalmology 12/26/16 documented as of this encounter
--- OUTSIDE RECORDS SUMMARY | 2025-04-10 12:52 | XMS_ITS | Encounter Summary ---
Author Organization [place] [address] Care Team Providers Care Duck Operator Name Role Phone Thiago Martin MD Unavailable [phone] Luis Atkins DO Primary Care Provider [phone] Reason for Visit * Reason Onset Date Comments CM- Telephonic Outreach 03/29/2025 CM-Medication Assistance 03/29/2025 Encounter Details Date Type Department Care Team (Late st Contact Info) Description 03/29/2025 Patient Outreach [facility] [address] [place] [address] Melanie Lamb RN CM- Telephonic Outreach; CM-Medication Assistance Social History Tobacco Use Types Packs/Day Years Used Date Smoking Tobacco: Never Smokeless Tobacco: Never Alcohol Use Standard Drinks/Week Comments No 0 (1 standard drink = 0.6 oz pur e alcohol) Overall Financial Resource Strain ([facility]) Answe r Date Recorded How hard is it for you to pa y for the very basics like food, housing, medical care, and heating? Not very hard 08/22/2024 PHQ-2 Answer Date Recorded PHQ-2 Total Score 0 03/01/2025 [facility] [place] of Occupat ional Health - Occupational Stress [...] place to sleep or slept in a residential (including now)? No 09/20/2021 Sex and Gender [...] documented in this encounter Progress Notes * Melanie Lamb RN - 03/29/2025 11:56 AM EDT Tresiba, Ozempic, Novolog and pen needles arrived from Patient Assistance Program. Called and notified patient's Yuliya that medications can be picked up during office hours. documented in this encounter Plan of Treatment [...] documented as of this encounter Visit Diagnoses Diagnosis Encounter for support and coordination of transition of care- Primary documented in this encounter Additional Health Concerns Assessment Noted Time A fall risk assessment has been complete d for the patient 03/01/2025 1:13 PM EDT documented as of this encounter Care Teams Duck Operator Relationship Specialty Start Date End Date Luis Atkins DO [address] [place] [address] PCP - General Family Medicine 09/21/19 Thiago Martin MD Ophthalmology 12/26/16 documented as of this encounter
--- OUTSIDE RECORDS SUMMARY | 2025-04-10 12:52 | XMS_ITS | Encounter Summary ---
Author Organization [place] [address] Care Team Providers Care Booth Operator Name Role Phone Thiago Martin MD Unavailable [phone] Luis Atkins DO Primary Care Provider [phone] Reason for Visit * Reason Comments Medication Refill Encounter Details Date Type Department Care Team (Late st Contact Info) Description 03/13/2025 Refill [facility] [address] [place] [id number] Luis Atkins DO [address] [place] [address] Medication Refill Social History Tobacco Use Types Packs/Day Years [...] Recorded PHQ-2 Total Score 0 03/01/2025 [facility] [place] of Occupat ional Health - Occupational Stress [...] place to sleep or slept in a custodial (including now)? No 09/20/2021 Sex and Gender [...] 02/19/2023 11:19 AM EDClara Lee RMA * Because of a physical, mental [...] Clara Hinojosa RMA documented in this encounter Plan of Treatment [...] documented as of this encounter Care Teams Booth Operator Relationship Specialty Start Date End Date Luis Atkins DO [address] [place] [place] [address] [place] [address] PCP - General Family Medicine 09/21/19 Thiago Martin MD Ophthalmology 12/26/16 documented as of this encounter
--- OUTSIDE RECORDS SUMMARY | 2025-04-10 12:52 | XMS_ITS | Encounter Summary ---
Author Organization [place] [address] Care Team Providers Care Director Work Name Role Phone Thiaog Martin MD Unavailable Luis Atkins DO Primary Care Provider [phone] Reason for Visit * Reason Onset Date Comments Refill 03/13/2025 lancets Encounter Details Date Type Department Care Team (Late Contact Info) Description 03/13/2025 Telephone [facility] [address] [place] [phone] Luis Atkins DO [address] [place] [address] Refill (lancets) Social History Tobacco Use Types Packs/Day Years [...] Recorded PHQ-2 Total Score 0 03/01/2025 [facility] [place] of Occupat ional Health - Occupational Stress [...] of Assessment Author No 02/19/2023 11:19 AM Clara Bena RMA * Does this person have serious difficulty walking or climbing stairs? Answer Date of Assessment Author No 02/19/2023 11:19 AM EDClara Lee RMA * Does this person have difficulty [...] No 02/19/2023 11:19 AM EDT Clara Hinojosa KAIDEN documented in this encounter Ordered Prescriptions Prescription Sig Dispense Quantity Refills Last Filled Start Date End Date lancets (FREESTYLE LANCETS) 28 gauge Misc Misc Subcutaneous (Inject under the skin) 1 'box' 3 times daily. USE 1 LANCET TO CHECK GLUCOSE THREE TIMES DAILY 200 Each 2 03/13/2025 documented in this encounter Miscellaneous Notes * Telephone Encounter - Alanna Mobley MA - 03/13/2025 11:30 AM EDT Refill sent. * Telephone Encounter - Jennifer Schulte MA - 03/13/2025 11:15 AM EDT Select the most appropriate reason for this telephone message: Medication Refill Who is requesting the refill: Patient Medication(s)Name/Dosage/Frequency: Disp Refills Start End FREESTYLE LANCETS 28 gauge Misc Misc 100 Each 0 09/28/2024 -- Sig: USE 1 LANCET TO CHECK GLUCOSE THREE TIMES DAILY Did patient contact the pharmacy first: Yes have not heard back How many days left on hand: not nsure Future appt date w/ prescribing provider: nothing [facility]acy & Location: [facility] Method of Communication: N/A Additional Information: N/A documented in this encounter Plan of Treatment [...] Diagnoses Not on filedocumented in this encounter Discontinued Medications Medication Sig Discontinue Reason Start Date End Da te FREESTYLE LANCETS 28 gauge Misc Misc USE 1 LANCET TO CHECK GLUCOSE THREE TIMES DAILY Reorder 09/28/2024 03/13/2025 documented as of this encounter Additional Health Concerns Assessment Noted Time A fall risk assessment has been complete d for the patient 03/01/2025 1:13 PM EDT documented as of this encounter Care Teams Director Work Relationship Specialty Start Date End Date Luis Atkins DO [address] [place] [address] PCP - General Family Medicine 09/21/19 Thiago Martin MD Ophthalmology 12/26/16 documented as of this encounter
--- OUTSIDE RECORDS SUMMARY | 2025-04-10 12:52 | XMS_ITS | Encounter Summary ---
Author Organization [place] [address] Care Team Providers Care Coconut Cooker Name Role Phone Thiago Martin MD Unavailable [phone] Luis Atkins DO Primary Care Provider [phone] Anais Garcia RN Unavailable Unavailable Encounter Details Date Type Department Care Team (Late st Contact Info) Description 12/02/2019 Lab [facility] [place] [id number] Khoa Vela MD [address] [place] [address] Dysphagia, unspecified Social History Tobacco Use Types Packs/Day Years Used Date Smoking Tobacco: Never Smokeless Tobacco: Never Alcohol Use Standard Drinks/Week Comments No 0 (1 standard drink = 0.6 oz pur e alcohol) PHQ-2 Answer Date Recorded PHQ-2 Score 0 03/25/2019 Sex and Gender Information Value Date Recorded Sex Assigned at Not on file Legal Sex Male 6:41 PM EDT Gender Identity Not on file Sexual Orientation Not on file documented as of this encounter Functional Status * Is the person deaf or does he/she have serious difficulty hearing? Answer Date of Assessment Author No 03/17/2019 9:20 AM Zach Cartwright CMA * Is the person blind or does he/she have serious difficulty seeing even when wearing glasses? Answer Date of Assessment Author No 03/17/2019 9:20 AM KENISHAT Zach Barrientos CMA * Does this person have serious difficulty walking or climbing stairs? Answer Date of Assessment Author No 03/17/2019 9:20 AM Zach Cartwright CMA * Does this person have difficulty dressing or bathing? Answer Date of Assessment Author No 03/17/2019 9:20 AM Zach Cartwright CMA * Because of a physical, mental or emotional condition, does this person have difficulty doing errands alone such as visiting a doctor's office or shopping? Answer Date of Assessment Author No 03/17/2019 9:20 AM Zach Cartwright CMA documented as of this encounter Mental Status * Because of a physical, mental or emotional condition, does this person have serious difficulty concentrating, remembering or making decisions? Answer Entry Date Author No 03/17/2019 9:20 AM Zach Cartwright CMA documented in this encounter Plan of Treatment Not on file documented as of this encounter Goals Goal Patient Goal Type Associated Problems Recent Progress Patient-Stated? Author Blood Pressure < 140/90 Blood Pressure 120/80(2024 1:08 PM EDT) No Johnny Michelle MD BMI (Calculated) < 30 General 29.9(03/01/20 1:08 PM EDT) No Alanna Mobley MA Maintain a healthy diet, exercise regularly and maintain an ideal body weight General No Phuong Vazquez, GLENNA LDL CALC < 100 Result Component 108( 5 1:51 PM EDT) Johnny Gtz MD HEMOGLOBIN A1C < 7.1 Result Component 7.4( 5 1:51 PM EDT) No Johnny Michelle MD documented as of this encounter Procedures Procedure Name Priority Date/Time Associated Diagnosis Comments PATHOLOGY TISSUE REQUEST Routine 12/02/2019 1:30 PM EST Dysphagia, unspecified documented in this encounter Results * PATHOLOGY TISSUE REQUEST (12/02/2019 1:30 PM EST) CASE REPORT Surgical Pathology Case: [id number] Authorizing Provider: Khoa Vela MD Collected: 12/02/2019 1330 Ordering Location: [facility] Received: 12/02/2019 1816 Pathologist: Angella Montiel MD Specimen: Gastric, Biopsy in the stomach and antrum 12/06/2019 9:35 AM EST [facility] CLINICAL HISTORY Dysphagia; odynophagia. 12/06/2019 9:35 AM EST [email or web address] FINAL DIAGNOSIS Stomach, biopsy: - Antral/oxyntic mucosa with focal chronic inflammation. 12/06/2019 9:35 AM EST [email or web address] at 0935 EST GROSS DESCRIPTION Received in formalin labeled with the patient s name and g astric biopsy in stomach and antrum are five fragments of sanchez tissue ranging from 0.2 to 0.5 cm in greatest dimension. Entirely submitted in one cassette./ TE 12/06/2019 9:35 AM EST [email or web address] MICROSCOPIC DESCRIPTION Microscopic examination is performed and the findings corroborate the diagnosis. 12/06/2019 9:35 AM EST [email or web address] FLOW CYTOMETRY SUMMARY 12/06/2019 9:35 AM EST [email or web address] EMBEDDED IMAGES 12/06/2019 9:35 AM EST [email or web address] Tissue STOMACH STRUCTURE / Unknown 12/02/2019 1:30 PM EST 12/02/2019 6:16 PM EST us Khoa Vela MD PATHOLOGY ORDERABLES Final Result [email or web address] [address] [place] [address] documented in this encounter Visit Diagnoses Diagnosis Dysphagia, unspecified documented in this encounter Care Teams Coconut Cooker Relationship Specialty Start Date End Date Luis Atkins DO [address] [place] [address] PCP - General Family Medicine 09/21/19 Thiago Martin MD Ophthalmology 12/26/16 Anais Garcia RN Bulk Driver Registered Nurse 12/13/20 01/16/21 documented as of this encounter
--- OUTSIDE RECORDS SUMMARY | 2025-04-10 12:52 | XMS_ITS | Encounter Summary ---
Author Organization [place] [address] Care Team Providers Care Oracle E Business Developer Name Role Phone Thiago Martin MD Unavailable [phone] Luis Atkins DO Primary Care Provider [phone] Encounter Details Date Type Department Care Team (Late st Contact Info) Description 03/02/2025 Results Follow-Up [facility] [address] [place], [place] [id number] Luis Atkins DO [address] [place], [place] [address] LIPID SCREEN, COMPREHENSIVE METABOLIC PANEL, CBC WITH DIFF, Additional followed-up results: 2 Social History Tobacco Use Types Packs/Day Years [...] Date Recorded PHQ-2 Total Score 0 03/01/2025 [facility] [place] of Occupat ional Health - Occupational Stress [...] place to sleep or slept in a chcf (including now)? No 09/20/2021 Sex and Gender [...] MD BMI (Calculated) < 30 General 29.9( 1:08 PM EDT) No Alanna Mobley MA [...] documented as of this encounter Care Teams Oracle E Business Developer Relationship Specialty Start Date End Date Luis Atkins DO [address] [place] [address] [place] [address] PCP - General Family Medicine 09/21/19 Thiago Martin MD Ophthalmology 12/26/16 documented as of this encounter
--- OUTSIDE RECORDS SUMMARY | 2025-04-10 12:52 | XMS_ITS | Encounter Summary ---
Author Organization [place] [address] Care Team Providers Care Office Engineer Name Role Phone Johnny Michelle MD Primary Care Provider [phone] Thiago Martin MD Unavailable [phone] Luis Atkins DO Primary Care Provider Anais Garcia RN Unavailable Unavailable Encounter Details Date Type Department Care Team (Late st Contact Info) Description 07/30/2015 Orders Only [facility] [address] [place] [facility] Building [address] [place] [address] Ryne Craven MD [address] [place] [address] Social History Tobacco Use Types Packs/Day Years Used Date Smoking Tobacco: Never Smokeless Tobacco: Never Alcohol Use Standard Drinks/Week Comments No 0 (1 standard drink = 0.6 oz pur e alcohol) Sex and Gender Information Value Date Recorded Sex Assigned at Not on file Legal Sex Male 6:41 PM EDT Gender Identity Not on file Sexual Orientation Not on file documented as of this encounter Plan of Treatment Not on file documented as of this encounter Goals Goal Patient Goal Type Associated Problems Recent Progress Patient-Stated? Author Blood Pressure < 140/90 Blood Pressure 120/80(2024 1:08 PM EDT) Johnny Gtz MD LDL CALC < 100 Result Component 108( 1:51 PM EDT) Johnny Gtz MD HEMOGLOBIN A1C < 7.1 Result Component 7.4( 5 1:51 PM EDT) No Johnny Michelle MD documented as of this encounter Procedures Procedure Name Priority Date/Time Associated Diagnosis Comments [facility] COLONOSCOPY Routine 07/30/2015 9:00 AM EDT documented in this encounter Results * [facility] COLONOSCOPY (07/30/2015 9:00 AM EDT) 07/30/2015 9:[address] [facility] - 07/30/2015 9:26 AM EDT Moderate diverticulosis of the distal descending colon and sigmoid colon. Plan: Screening Colonoscopy in 10 years. This section is an excerpt of the full report. us Ryne Craven MD GI PROCEDURE ORDERABLES Fin al Result Performing Organization Address City/State/[facility] Co de Phone Number [facility] [address] [place] [address] documented in this encounter Visit Diagnoses Not on filedocumented in this encounter Care Teams Office Engineer Relationship Specialty Start Date End Date Johnny Michelle MD PCP - General 07/23/11 09/20/19 Luis Atkins DO [address] [place] [address] PCP - General Family Medicine 09/21/19 Thiago Martin MD Ophthalmology 12/26/16 Anais Garcia RN Look Out Tower Fire Watcher Registered Nurse 12/13/20 01/16/21 documented as of this encounter
--- OUTSIDE RECORDS SUMMARY | 2025-04-10 12:52 | XMS_ITS | Encounter Summary ---
Author Organization [place] [address] Care Team Providers Care Hand Rug Braider Name Role Phone Thiago Martin MD Unavailable [phone] Luis Atkins DO Primary Care Provider [phone] Reason for Visit * Reason Comments Medication Refill Encounter Details Date Type Department Care Team (Late st Contact Info) Description 02/11/2025 Refill [facility] [address] [employer] [place] [phone] Luis Atkins DO [address] [place] [address] Medication Refill Social History Tobacco Use Types [...] Answer Date Recorded PHQ-2 Total Score 0 02/24/2024 [facility] [place] of Occupat ional Health - Occupational Stress [...] place to sleep or slept in a fdc (including now)? No 09/20/2021 Sex and Gender [...] Clara Hinojosa RMA documented in this encounter Ordered Prescriptions Prescription Sig Dispense Quantity Refills Last Filled Start Date End Date pravastatin (PRAVACHOL) 40 mg Oral TabletIndications: 10 year risk of DE or stroke 7.5% or greater TAKE 1 TABLET BY MOUTH ONCE DAILY IN THE EVENING 100 Tablet 02/13/2025 documented in this encounter Miscellaneous Notes * Telephone Encounter - Eddie Grey CPhT - 02/13/2025 6:57 AM EDT pravastatin Future Visit: 03/01/25 Last Assessed Visit: 02/24/24 Follow-Up Date: 02/23/25 All protocols passed. Refills approved and sent to requesting pharmacy. Routed to [facility] if applicable. documented in this encounter Plan of Treatment [...] 7.1 Result Component 7.4(03/01/20 1:51 PM EDT) Johnny Gtz MD documented as of this encounter Visit Diagnoses Diagnosis 10 year risk of DE or stroke 7.5% or greater documented in this encounter Discontinued Medications Medication Sig Discontinue Reason Start Date End Da te pravastatin (PRAVACHOL) 40 mg Oral TabletIndications:10 year risk of DE or stroke 7.5% or greater Take 1 Tablet by mouth every evening. 02/24/2024 02/13/2025 documented as of this encounter Additional Health Concerns Assessment Noted Time A fall risk assessment has been complete d for the patient 02/24/2024 10:44 AM EDT documented as of this encounter Care Teams Hand Rug Braider Relationship Specialty Start Date End Date Luis Atkins DO [address] [place] [address] PCP - General Family Medicine 09/21/19 Thiago Martin MD Ophthalmology 12/26/16 documented as of this encounter
--- OUTSIDE RECORDS SUMMARY | 2025-04-10 12:52 | XMS_ITS | Encounter Summary ---
Author Organization [place] [address] Care Team Providers Care Inclusion Teacher Name Role Phone Thiago Martin MD Unavailable [phone] Luis Atkins DO Primary Care Provider [phone] Anais Garcia RN Unavailable Unavailable Encounter Details Date Type Department Care Team (Late st Contact Info) Description 12/02/2019 Orders Only [facility] [address] [phone] Khoa Vela MD [address] [place] [phone] Social History Tobacco Use Types Packs/Day Years [...] 9:20 AM KENISHAT Zach Barrientos CMA * Is the person blind or does he/she have serious difficulty seeing even when wearing glasses? Answer Date of Assessment Author No 03/17/2019 9:20 AM EDT Zach Barrientos CMA * Does this person have serious difficulty walking or climbing stairs? Answer Date of Assessment Author No 03/17/2019 9:20 AM EDZach Ceja CMA * Does this person have difficulty dressing or bathing? Answer Date of Assessment Author No 03/17/2019 9:20 AM Zach Cartwright CMA * Because of a physical, mental or emotional condition, does this person have difficulty doing errands alone such as visiting a doctor's office or shopping? Answer Date of Assessment Author No 03/17/2019 9:20 AM EDZach Ceja CMA documented as of this encounter Mental [...] Name Priority Date/Time Associated Diagnosis Comments [facility]ED EGD Routine 12/02/2019 1:30 PM EST documented in this encounter Results * [facility]ED EGD (12/02/2019 1:30 PM EST) 12/02/2019 1:30 PM EST Impressions [facility] - 12/02/2019 2:11 PM EST Normal duodenum. Normal mucosa in the whole stomach. (Biopsy). Erosions and ulcerations in the gastroesophageal junction and lower third of the esophagus compatible with ulcerative esophagitis. Plan: Follow up pathology results. Avoid eating 3 hrs prior to sleep Discontinue NSAIDs. Protonix 40mg PO daily Follow-up with referring provider / physician This section is an excerpt of the full report. us Khoa Vela MD GI PROCEDURE ORDERABLES Fin al Result [facility] [address] [place] [address] documented in this encounter Visit Diagnoses Not on filedocumented in this encounter Care Teams Inclusion Teacher Relationship Specialty Start Date End Date Luis Atkins DO [address] [place] [address] PCP - General Family Medicine 09/21/19 Thiago Martin MD Ophthalmology 12/26/16 Anais Garcia RN Medical Radiation Therapist Registered Nurse 12/13/20 01/16/21 documented as of this encounter
--- OUTSIDE RECORDS SUMMARY | 2025-04-10 12:52 | XMS_ITS | Encounter Summary ---
Author Organization [place] [address] Care Team Providers Care Dural Mechanic Name Role Phone Thiago Martin MD Unavailable [phone] Luis Atkins DO Primary Care Provider [phone] Reason for Visit * Reason Comments Medication Refill Encounter Details Date Type Department Care Team (Late st Contact Info) Description 03/15/2025 Refill [facility] [address] [place] [phone] Malgorzata Woodruff APRN [address] [employer] [place], [place] [id number] Medication Refill Social History Tobacco Use Types Packs/Day Years Used Date Smoking Tobacco: Never Smokeless Tobacco: Never Alcohol Use Standard Drinks/Week Comments No 0 (1 standard drink = 0.6 oz pur e alcohol) Overall Financial Resource Strain ([facility]) Answe r Date Recorded How hard is it for you to pa y for the very basics like food, housing, medical care, and heating? Not very hard 08/22/2024 PHQ-2 Answer Date Recorded PHQ-2 Total Score 0 03/01/2025 [place] of Occupat ional Health - Occupational Stress [...] place to sleep or slept in a longterm (including now)? No 09/20/2021 Sex and Gender [...] Refills Last Filled Start Date End Date metFORMIN (GLUCOPHAGE XR) 500 mg Oral ER 24 hr tablet TAKE 2 TABLETS BY MOUTH IN THE MORNING WITH BREAKFAST 200 Tablet 03/15/2025 documented in this encounter Plan of Treatment [...] Discontinue Reason Start Date End Da te metFORMIN (GLUCOPHAGE XR) 500 mg Oral ER 24 hr tablet TAKE 2 TABLETS BY MOUTH IN THE MORNING WITH BREAKFAST 12/09/2024 03/15/2025 documented as of this encounter Additional Health Concerns Assessment Noted Time A fall risk assessment has been complete d for the patient 03/01/2025 1:13 PM EDT documented as of this encounter Care Teams Dural Mechanic Relationship Specialty Start Date End Date Luis Atkins DO [address] [place] [address] PCP - General Family Medicine 09/21/19 Thiago Martin MD Ophthalmology 12/26/16 documented as of this encounter
--- OUTSIDE RECORDS SUMMARY | 2025-04-10 12:53 | XMS_ITS | Continuity of Care Document ---
Author Organization [facility] Address [address], [place] [address] Phone Care Team Providers Care Disability Liaison Officer Name Role Phone Thiago Martin MD Unavailable [phone] Neema Atkins DO Primary Care Provider [phone] Encounters Date Type Department Care Team Description 03/29/2025 Patient Outreach [facility] [address], [place] [address] Melanie Lamb, ALPA CM- Telephonic Outreach; CM-Medication Assistance 03/15/2025 Refill [facility] [address] [place] [phone] Malgorzata Woodruff APRN Medication Refill 03/13/2025 Telephone [facility] [address], [place] [phone] Neema Atkins, DO Refill (lancets) 03/13/2025 Refill [facility] [address] [place] [address] Neema Atkins, DO Medication Refill 03/02/2025 Results Follow-Up [facility] [address], [place] [phone] Neema Atkins, DO LIPID SCREEN, COMPREHENSIVE METABOLIC PANEL, CBC WITH DIFF, Additional followed-up results: 2 03/01/2025 1:00 PM EDT Office Visit [facility] [address] [place] [address] [phone] Neema Atkins DO Medicare annual wellness visit, subsequent (Primary Dx); High risk medications (not anticoagulants) long-term use; Malaise and fatigue; Hyperlipidemia, unspecified hyperlipidemia type; Type 2 diabetes mellitus with diabetic nephropathy, with long-term current use of insulin (HCC); 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); Hypertension associated with diabetes (HCC); Hyperlipidemia associated with type 2 diabetes mellitus (HCC) 02/28/2025 Patient Outreach [facility] [address] [place] [address] Neema Atkins DO Central Patient Navigator Outreach (awv questionnaire) 02/11/2025 Refill [facility] [address] [place] [address] [phone] Neema Atkins, Medication Refill 01/04/2025 Orders Only [facility] [address] [place] [phone] Neema Atkins, Acute bacterial sinusitis (Primary Dx) 01/03/2025 5:21 PM EST - 01/03/2025 11:59 PM EST Hospital Encounter [facility] [place] [address] BPV (benign positional vertigo), unspecified laterality; Prostate cancer (HCC) Discharge Disposition: Home or Self Care 01/02/2025 2:15 PM EST Office Visit [facility] [address] [place] [address] [phone] Neema Atkins DO Blepharitis, unspecified laterality, unspecified type (Primary Dx); BPV (benign positional vertigo), unspecified laterality; Prostate cancer (HCC) 12/27/2024 Patient Outreach [facility] [address] Appointment [place] [address] Melanie Lamb RN CM- Telephonic Outreach; CM-Medication Assistance; Patient Returning Call 12/23/2024 Patient Outreach [facility] [address] [facility] [address] Clarita Thomason, RN CM-Medication Assistance 12/09/2024 Telephone [facility] Nurse Now [address] [facility] [place] [address] aGil Perez RN Medication Refill 12/09/2024 Refill [facility] [address], [place] [phone] Neema Atkins, DO Medication Refill 12/05/2024 1:00 PM EST Office Visit [facility] [address], 3[place] [address] Comfort Schneider APRN Gastroesophageal reflux disease with esophagitis without hemorrhage (Primary Dx); Encounter for medication refill 11/29/2024 Refill [facility] [address], [place] [phone] Neema Atkins, DO Medication Refill 11/25/2024 Refill [facility] [address] [place], [place] [phone] Neema Atkins, DO Medication Refill 11/01/2024 Refill [facility] [address]TR[address], 3[place] [address] Comfort Schneider APRN Medication Refill; Central Patient Navigator Outreach (med refills 100 [facility]) 09/28/2024 Refill [facility] [address], [place] [phone] Neema Atkins, DO Medication Refill 08/30/2024 Patient Outreach [facility] [address], [place] [phone] Tamera Schroeder, RN CM- Telephonic Outreach; CM-Medication Assistance 08/22/2024 1:00 PM EDT Clinical Support [facility] [address], [place] [phone] Tamera Schroeder, RN Encounter for support and coordination of transition of care (Primary Dx) 08/19/2024 Telephone [facility] [address] [place] [address] [phone] Neema Atkins, DO Medication Refill; Central Patient Navigator Outreach (Med Refill 100/) 08/15/2024 Telephone [facility] [address] [place] [address] [phone] Neema Atkins, DO Other ( call back ); Medication Management ([place] [employer] called to get clarification on medication request they rec'd) 07/10/2024 Refill [facility] [address] [place] [address] [phone] Neema Atkins, DO Medication Refill 06/08/2024 Telephone [facility] [address] [place] [address] [phone] Neema Atkins, DO Medication Management (Lancets ICD 10 code ) 06/07/2024 Refill [facility] [address] [place] [address] [phone] Neema Atkins, DO Medication Refill 05/09/2024 Telephone [facility] [address] [place] [address] [phone] Neema Atkins, DO Medication Management (semaglutide (OZEMPIC) 0.25 mg or 0.5 mg(2 mg/1.5 mL) SubQ Pen Injector 1.5 mL 0 01/23/2023 - /Sig - Route: Subcutaneous (Inject under the skin) 0.5 mg once a week. - Subcutaneous /Sent to pharmacy as: semaglutide 0.25 mg or 0.5 mg (2 mg/1.5 mL) subcutaneous pen injector (Ozempic) /Notes to Pharmacy: Dispense once. Patient has voucher from [employer]. //) 02/28/2024 Refill [facility] [address] [place] [address] [phone] Neema Atkins, DO Medication Refill 02/25/2024 Telephone [facility] [address] [place] [address] [phone] Neema Atkins, DO Results (Microalbumin, TSH, CMP, CBC, Lipid) 02/24/2024 11:00 AM EDT Office Visit [facility] [address] [place] [address] [phone] Neema Atkins, DO Medicare annual wellness visit, subsequent (Primary Dx); High risk medications (not anticoagulants) long-term use; Malaise and fatigue; Hyperlipidemia, unspecified hyperlipidemia type; Type 2 diabetes mellitus with diabetic nephropathy, with long-term current use of insulin (HCC); 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); Hyperlipidemia associated with type 2 diabetes mellitus (HCC); Chronic left-sided low back pain with left-sided sciatica; Gastroesophageal reflux disease with esophagitis without hemorrhage; Hypertension associated with diabetes (HCC); 10 year risk of OK or stroke 7.5% or greater; Hypertension associated with diabetes (HCC); Type 2 diabetes mellitus without complication, unspecified whether halfway insulin use (HCC) 02/23/2024 Patient Outreach [facility] [address] [place] [address] Neema Atkins, Central Patient Navigator Outreach (AWV Questionnaire /) 02/17/2024 Refill [facility] [address] [place] [address] [phone] Neema Atkins, DO Medication Refill 02/16/2024 Patient Outreach [facility] [address] [place] [address] [phone] Tamera Schroeder RN CM-Medication Assistance 02/15/2024 Refill [facility] [address] [place] [phone] Neema Atkins, DO Medication Refill 12/03/2023 11:00 AM EST Office Visit [facility] [address], 3[place] [address] Comfort Schneider APRN Gastroesophageal reflux disease with esophagitis without hemorrhage (Primary Dx); Encounter for medication refill 11/18/2023 Telephone [facility] [address]TR[address], [address] [address] Khoa Vela MD Other 11/18/2023 Orders Only [facility] [address]TR[address], [address] [address] Zonia Restrepo, ROOF SLATER 11/11/2023 Refill [facility] [address]TR[address], [address] [address] Comfort Schneider, CHRI[employer]IAN [employer]ISTRIES PROFESSOR Medication Refill 11/10/2023 Patient Outreach [facility] [address], [place] [phone] Tamera Schroeder, RN CM-Medication Assistance (Ozempic, Novolog, Tresiba) 10/13/2023 Refill [facility] [address], [place] [phone] Neema Atkins, DO Medication Refill 10/08/2023 2:00 PM EST Office Visit [facility] [address], [place] [phone] Tamera Schoreder, RN Encounter for support and coordination of transition of care (Primary Dx) 10/08/2023 Telephone [facility] [address], [place] [phone] Neema Atkins, DO Other (Reschedule Care Management Appt) 09/17/2023 Patient Outreach [facility] [address] [place] [address] [phone] Tamera Schroeder, RN CM-Medication Assistance (Patient assistance renewal) 09/15/2023 Patient Outreach [facility] [address], [place] [phone] Tamera Schroeder, RN CM-Medication Assistance (Patient assistance renewal) 08/29/2023 Refill [facility] [address] [place] [address] [phone] Neema Atkins, DO Medication Refill 08/19/2023 9:03 AM EDT - 08/19/2023 11:59 PM EDT Hospital Encounter [facility] [address] [place], [place] [id number] Khoa Vela MD Judge, Lisa M, MD Sommer, Kristin, CRNA Screening for colon cancer Discharge Disposition: Home or Self Care 08/19/2023 10:17 AM EDT Anesthesia Event [facility] [address] [place], [place] [id number] Christina Sneed MD Collins, Angela, CH[employer]RI[employer] PROFESSOR 08/18/2023 Travel 08/17/2023 Refill [facility] [address], [place] [phone] Neema Atkins, DO Medication Refill 08/16/2023 Refill [facility] [address]TR[address], 3[address] [place] [address] Comfort Schneider, CHRI[employer]IAN [employer]ISTRI[employer] PROFESSOR Medication Refill 08/10/2023 Telephone [facility] [address] [place] [address] Khoa Vela MD Other (Ozempic) 07/26/2023 Refill [facility] [address] [place] [address] Neema Atkins, DO Medication Refill; Central Patient Navigator Outreach (Med Refill ) 07/07/2023 Refill [facility] [address] [place] [address] Neema Atkins, DO Medication Refill 05/27/2023 Patient Outreach [facility] [address] [place] [address] Tamera Schroeder, RN CM- Telephonic Outreach 05/11/2023 Telephone [facility] [address], 3[place] [address] Khoa Vela MD Colonoscopy; Medication Management 04/14/2023 Telephone [facility] [address] [place] [address] Neema Atkins, DO Other (freestyle lancets 28 gauge) 04/13/2023 Refill [facility] [address] [place] [address] [phone] Neema Atkins, DO Medication Refill 04/12/2023 Refill [facility] [address] [address] [phone] Neema Atkins, DO Medication Refill 02/19/2023 11:15 AM EDT Office Visit [facility] [address] [place] [address] [phone] Neema Atkins, DO High risk medications (not anticoagulants) long-term use (Primary Dx); Malaise and fatigue; Hyperlipidemia, unspecified hyperlipidemia type; Hyperglycemia; 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); Hypertension associated with diabetes (HCC); Type 2 diabetes mellitus with diabetic nephropathy, with long-term current use of insulin (HCC); Hyperlipidemia associated with type 2 diabetes mellitus (HCC); Annual physical exam; Medicare annual wellness visit, subsequent 02/16/2023 Telephone [facility] [address] [address] [phone] Neema Atkins, DO Other (Eye exam ) 02/16/2023 Patient Outreach [facility] [address] [address] [phone] Tamera Schroeder RN CM-Medication Assistance 02/13/2023 Telephone [facility] [address] [address] [phone] Neema Atkins, DO Medication Management 02/10/2023 Telephone [facility] [address] [place] [address] [phone] Neema Atkins, DO Medication Refill (losartan (COZAAR) 100 mg Oral Tablet 90 Tablet 0 11/17/2022 /Sig: Take 1 tablet by mouth once daily /Sent to pharmacy as: losartan 100 mg tablet //amLODIPine (NORVASC) 5 mg Oral Tablet 90 Tablet 0 11/17/2022 /Sig: Take 1 tablet by mouth once daily /Sent to pharmacy as: amLODIPine 5 mg tablet (NORVASC) //pravastatin (PRAVACHOL) 40 mg Oral Tablet 90 Tablet 0 11/17/2022 /Sig: TAKE 1 TABLET BY MOUTH ONCE DAILY IN THE EVENING /) 01/23/2023 Telephone [facility] [address] [place] [address] [phone] Neema Atkins, DO Medication Management (Ozempic) 01/22/2023 Patient Outreach [facility] [address] [place] [address] [phone] Tamera Schroeder, RN CM-Medication Assistance 01/17/2023 Refill [facility] [address] [place] [address] [phone] Neema Atkins, DO Medication Refill 12/31/2022 11:00 AM EST Office Visit [facility] [address] [place] [address] [phone] Tamera Schroeder, RN Encounter for support and coordination of transition of care (Primary Dx); Type 2 diabetes mellitus with diabetic nephropathy, with long-term current use of insulin (HCC) 12/30/2022 Patient Outreach [place] [address] [place] [address] Neema Atkins, DO Central Patient Navigator Outreach (AWV Questionnaire ) 12/29/2022 Patient Outreach [facility] [address] [place] [address] [phone] Tamera Schroeder, RN CM- Telephonic Outreach; CM-Medication Assistance 12/24/2022 Patient Outreach [facility] [address] [place] [address] Neema Atkins, DO Central Patient Navigator Outreach (AWV A1C) 11/18/2022 Refill [facility] [address] [place] [address] [phone] Neema Atkins, DO Medication Refill 11/16/2022 Refill [facility] [address], [place] [phone] Neema Atkins, DO Medication Refill 11/15/2022 Refill [facility] [address], [place] [phone] Neema Atkins, DO Medication Refill 11/04/2022 Refill [facility] [address], [place] [phone] Neema Atkins, DO Medication Refill 10/23/2022 Orders Only [facility] [address] [place] [address] Provider, Unknown 10/23/2022 Orders Only [facility] [address] [place] [address] Provider, Unknown 10/15/2022 Telephone [facility] [address], [place] [address] Alanna Mobley, MA Other 10/13/2022 Orders Only [facility] [address], [place] [phone] Neema Atkins, DO Cough, unspecified type (Primary Dx) 10/08/2022 Orders Only [facility] [address], [place] [phone] Neema Atkins, DO 10/08/2022 Telephone [facility] [address], [place] [phone] Neema Atkins, DO Other 09/30/2022 12:30 PM EST Office Visit [facility] [address], 3[address] [place] [address] Comfort Schneider APRN Encounter for medication refill (Primary Dx); Gastroesophageal reflux disease with esophagitis without hemorrhage 08/23/2022 Refill [facility] [address], [place] [phone] Neema Atkins, DO Medication Refill 08/22/2022 Orders Only [facility] [address]TR[address], 3[address] [place] [address] Zonia Restrepo, ROOF SLATER Gastroesophageal reflux disease with esophagitis without hemorrhage 08/21/2022 Telephone [facility] [address] [address] Khoa Vela MD Medication Refill; Medication Management 08/16/2022 Refill [facility] [address] [address] Khoa Vela MD Medication Refill 08/16/2022 Refill [facility] 300 [facility] [place] [phone] Neema Atkins, DO Medication Refill 07/28/2022 Patient Outreach [facility] 300 [facility] [place] [phone] Tamera Schroeder, RN CM-Medication Assistance ([facility]) 07/16/2022 Telephone [facility] 300 [facility] [place] [phone] Neema Atkins, DO Medication Management (fluticasone furoate (ARNUITY ELLIPTA)) 07/09/2022 Refill [facility] 300 [facility] [place] [phone] Neema Atkins, DO Medication Refill 07/08/2022 Telephone [facility] 300 [facility] [place] [phone] Neema Atkins, DO Medication Refill (PULMICORT FLEXHALER 180 mcg/actuation Inhl Aerosol Powdr Breath Activated 1 Each 0 11/08/2021 /Sig: INHALE 1 PUFF BY MOUTH TWICE DAILY //) 06/25/2022 Telephone [facility] [address] [place] [address] [phone] Neema Atkins, DO Other (Needing results faxed gael.) 06/20/2022 1:54 PM EDT - 06/20/2022 11:59 PM EDT Hospital Encounter [facility] [address], [place] [id number] 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) Discharge Disposition: Home or Self Care 06/20/2022 1:50 PM EDT - 06/20/2022 1:53 PM EDT Hospital Encounter [facility] [address], [place] [phone] 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) (Primary Dx) Discharge Disposition: Home or Self Care 05/15/2022 Refill [facility] [address], [place] [phone] Neema Atkins, DO Medication Refill 05/13/2022 Patient Outreach [facility] [address] [place] [address] [phone] Tamera Schroeder, ALPA CM-Medication Assistance 04/24/2022 Patient Outreach [facility] [address], [place] [phone] Tamera Schroeder, ALPA CM-Medication Assistance; CM- Telephonic Outreach; CM- Longitudinal Continued 04/11/2022 Refill [facility] [address], [place] [phone] Neema Atkins, Medication Refill 03/20/2022 Patient Outreach [facility] [address] [place] [address] [phone] Tamera Schroeder, ALPA CM-Medication Assistance 03/18/2022 Telephone [facility] [address], [place] [phone] Neema Atkins DO Medication Management (Blood Sugar Diagnostic (ONETOUCH ULTRA BLUE TEST STRIP) [facility] Strip 300 Strip 2 12/11/2020 /Sig: Use to test up tp 3 times daily. DX: E11.9 /Sent to pharmacy as: OneTouch Ultra Blue Test Strip (Blood Sugar Diagnostic) /Notes to Pharmacy: Please consider 90 day supplies to promote better adherence /Cosign for Ordering: Accepted by Neema Atkins DO on 12/11/2020 5:19 PM /E-Prescribing Status: Receipt confirmed by pharmacy (12/11/2020 4:30 PM EST) //) 03/10/2022 Telephone [facility] [address] [place] [address] [phone] Neema Atkins, DO Medication Refill (pravastatin (PRAVACHOL) 40 mg Oral Tablet 30 Tablet 0 02/03/2022 /Sig: TAKE 1 TABLET BY MOUTH ONCE DAILY IN THE EVENING /Sent to pharmacy as: pravastatin 40 mg tablet (PRAVACHOL) /Cosign for Ordering: Accepted by Neema Atkins DO on 02/03/2022 4:24 PM /E-Prescribing Status: Receipt confirmed by pharmacy (02/03/2022 2:57 PM EDT) //) 03/08/2022 Refill [facility] [address] [phone] Neema Atkins, DO Medication Refill 03/07/2022 Telephone [facility] [address] [address] [phone] Neema Atkins, DO Results (Bun, creatine blood work ) 02/24/2022 Telephone [facility] [address] [address] [phone] Neema Atkins, Medication Refill (Metformin ) 02/17/2022 Refill [facility] [address] [address] [phone] Neema Atkins, DO Medication Refill (multiple) 02/14/2022 Telephone [facility] [address] [address] [phone] Neema Atkins, DO Other (call back ) 02/13/2022 Orders Only [facility] [address] [phone] Neema Atkins, DO Elevated PSA (Primary Dx) 02/13/2022 Telephone [facility] [address] [place] [address] [phone] Alanna Mob[address] MA Results 02/12/2022 Travel 02/12/2022 11:15 AM EDT - 02/12/2022 11:59 PM EDT Hospital Encounter [facility] [address] [place] [id number] Hip pain Discharge Disposition: Home or Self Care 02/12/2022 10:30 AM EDT Office Visit [facility] [address] [address] [phone] Neema Atkins, DO Medicare annual wellness visit, subsequent (Primary Dx); Hip pain; Tick bite, unspecified site, initial encounter; High risk medications (not anticoagulants) long-term use; Malaise and fatigue; Hyperglycemia; Hypertension associated with diabetes (HCC); Type 2 diabetes mellitus with diabetic nephropathy, with long-term current use of insulin (HCC); Hyperlipidemia associated with type 2 diabetes mellitus (HCC); Generalized abdominal pain; Screening for malignant neoplasm of prostate 02/11/2022 Patient Outreach [place] [address] [place] [address] Neema Atkins, Central Patient Navigator Outreach (awv questionnaire) 02/07/2022 Patient Outreach [facility] [address] [address] [phone] Tamera Schroeder, RN CM-Medication Assistance (Wayne shipment) 02/03/2022 Patient Outreach [place] [address] [place] [address] Neema Atkins DO Central Patient Navigator Outreach (Medication Refill Appointment-1st maria eugenia) 02/01/2022 Refill [facility] [address] [phone] Neema Atkins, DO Medication Refill 01/13/2022 Patient Outreach [facility] [address] [address] [phone] Tamera Schroeder, RN CM-Medication Assistance (Farxiga) 01/13/2022 Patient Outreach [facility] [address] [address] [phone] Tamera Schroeder, RN CM-Medication Assistance 01/11/2022 Refill [facility] [address] [address] [phone] Neema Atkins, DO Medication Refill 11/21/2021 Telephone [facility] [address] [address] [phone] Neema Atkins, DO Symptom Call (sinus) 11/14/2021 Patient Outreach [facility] [address] [address] [phone] Tamera Schroeder, ALPA CM-Medication Assistance 11/08/2021 Refill [facility] [address] [address] [phone] Neema Atkins, DO Medication Refill 11/04/2021 Refill [facility] [address] [address] [phone] Neema Atkins, DO Medication Refill 10/29/2021 Patient Outreach [facility] [address] [address] [phone] Niyah Odmo, observation assistant; CM- Telephonic Outreach; CM-Medication Assistance 10/08/2021 Refill [facility] [address] [phone] Neema Atkins, DO Medication Refill 09/20/2021 11:00 AM EST Office Visit [facility] [address] [phone] Niyah Odom, RN Enrolled in chronic care management (Primary Dx); Type 2 diabetes mellitus without complication, unspecified whether intermediate project manager insulin use (HCC) 09/12/2021 Telephone [facility] [address] [address] [phone] Neema Atkins, DO Other (requesting call from Beryl Garcia) 08/20/2021 Telephone [facility] [address] [address] [phone] Neema Atkins, Referral (different iron setter) 08/19/2021 Refill [facility] [address] [address] [phone] Neema Atkins, DO Medication Refill (amLODIPine (NORVASC) 5 mg Oral Stexzx20 Tab37/11/2020) 08/18/2021 Refill [facility] [address] [phone] Neema Atkins, DO Medication Refill 08/14/2021 10:15 AM EDT Office Visit [facility] [address] [phone] Neema Atkins, Type 2 diabetes mellitus without complication, unspecified whether intermediate project manager insulin use (HCC) (Primary Dx); Needs flu shot; Hyperthyroidism; Hyperlipidemia, unspecified hyperlipidemia type; Screening, anemia, deficiency, iron; Ear lesion; Hypertension associated with diabetes (HCC); Type 2 diabetes mellitus with diabetic nephropathy, with long-term current use of insulin (HCC); Hyperlipidemia associated with type 2 diabetes mellitus (HCC) 08/13/2021 Patient Outreach [facility] [address] [place] [address] Neema Atkins DO Central Patient Navigator Outreach (awv questionnaire ) 08/05/2021 Orders Only [facility] [address], [place] [phone] Alanna Mobley MA Hyperlipidemia, unspecified hyperlipidemia type (Primary Dx); Screening, anemia, deficiency, iron; Hyperthyroidism; Type 2 diabetes mellitus without complication, unspecified whether halfway insulin use (HCC) 08/05/2021 Telephone [facility] [address] [address] [phone] Neema Atkins, Lab Orders (awn) 08/04/2021 Refill [facility] [address] [address] [phone] Sharp, Neema L, DO Medication Refill 08/01/2021 Orders Only [facility] [address] [place] [address] Provider, Unknown 07/20/2021 Refill [facility] [address], [place] [phone] Neema Atkins, DO Medication Refill 07/10/2021 Refill [facility] [address], [place] [phone] Neema Atkins, DO Medication Refill 07/04/2021 Refill [facility] [address], [place] [phone] Neema Atkins, DO Medication Refill 06/21/2021 Patient Outreach [place] [address] [place] [address] Amanda Troy Appointment Needed (Diabetic follow-up) 06/19/2021 Travel 06/19/2021 10:30 AM EDT Office Visit [facility] [address] [facility] [address] [place] [address] Khoa Vela MD Gastroesophageal reflux disease with esophagitis without hemorrhage (Primary Dx); Screening for colon cancer; Esophageal dysphagia 06/10/2021 Refill [facility] [address], [place] [address] Neema Atkins, DO Medication Refill 05/23/2021 Patient Outreach [facility] [address], [place] [address] Anais Garcia RNobservation assistant; CM- Telephonic Outreach 05/02/2021 Orders Only [facility] [address], [place] [address] Elaine Buchanan, [facility] Type 2 diabetes mellitus with diabetic nephropathy, with long-term current use of insulin (HCC) (Primary Dx) 05/02/2021 Telephone [facility] [address], [place] [address] Neema Atkins, DO Medication Refill (metFORMIN XR (GLUCOPHAGE-XR) 500 mg Oral Tablet Sustained Release 24 hr) 05/02/2021 Refill [facility] [address], [place] [address] Neema Atkins, DO Medication Refill 04/16/2021 Telephone [facility] [address] [address] Khoa Vela MD Other 04/16/2021 Refill [facility] [address] [address] Khoa Vela MD Medication Refill 04/13/2021 Refill [facility] [address] [address] Khoa Vela MD Medication Refill 04/09/2021 Refill [facility] [address], [place] [address] Neema Atkins, DO Medication Refill 04/02/2021 Refill [facility] [address], [place] [address] Neema Atkins, DO Medication Refill 03/31/2021 Refill [facility] [address], [place] [address] Neema Atkins, DO Medication Refill 03/18/2021 Patient Outreach [facility] [address], [place] [address] Niyah Odom, observation assistant; CM- Telephonic Outreach 03/13/2021 Telephone [facility] [address], [place] [address] Neema Atkins, DO Prior Authorization 03/11/2021 Refill [facility] [address] [phone] Khoa Vela MD Medication Refill 03/11/2021 Refill [facility] [address], [place] [address] Neema Atkins, DO Medication Refill 03/11/2021 Patient Outreach [facility] [address], [place] [address] Niyah Odom, observation assistant 03/11/2021 Patient Outreach [facility] [address], [place] [address] Niyah Odom, observation assistant; CM- Telephonic Outreach 02/14/2021 Refill [facility] [address], [place] [address] Neema Atkins, DO Medication Refill 01/22/2021 Patient Outreach [facility] [address], [place] [address] Anais Garcia, observation assistant; CM- Telephonic Outreach (contact made) 01/17/2021 10:00 AM EDT Telemedicine [facility] [address], [place] [address] Anais Garcia, [place] Type 2 diabetes mellitus with diabetic nephropathy, with long-term current use of insulin (HCC) (Primary Dx); Enrolled in chronic care management 01/16/2021 Orders Only [facility] [address], [place] [address] Alanna Mobley MA BPH without urinary obstruction 01/16/2021 Refill [facility] [address], [place] [address] Neema Atkins, DO Medication Refill 12/20/2020 Refill [facility] [address], [place] [address] Neema Atkins, DO Medication Refill 12/13/2020 Telephone [facility] [address], [place] [address] Alanna Mobley MA Prior Authorization (One Touch Ultra Strips ) 12/13/2020 11:00 AM EST Office Visit [facility] [address] [place] [address] [phone] Anais Garcia, RN Type 2 diabetes mellitus with diabetic nephropathy, with long-term current use of insulin (HCC) (Primary Dx) 12/12/2020 Telephone [facility] [address] [place] [address] [address] Neema Atkins, DO Other; Care Transition; CM- Telephonic Outreach (Contact made); CM-Resource Coordination (Contacted pt's pharmacy) 12/12/2020 Patient Outreach [facility] [address] [place] [address] [phone] Anais Garcia observation assistant; CM- Telephonic Outreach (contact made) 12/12/2020 Orders Only [facility] [address], [place] [address] Ryann Correa MA 12/11/2020 Telephone [facility] [address] [place] [address] [phone] Neema Atkins, Medication Management (medication cost) 12/07/2020 Refill [facility] [address] [place] [address] [phone] Neema Atkins, Medication Refill; Medication Refill 12/05/2020 Refill [facility] [address], [place] [address] Neema Atkins, Medication Refill 12/05/2020 Telephone [facility] [address], [place] [address] Neema Atkins, Medication Change (need to change to lantus ) 11/21/2020 Telephone [facility] [address], [place] [address] Neema Atkins, Prior Authorization (all meds) 11/06/2020 Refill [facility] [address] [place] [address] [phone] Neema Atkins, DO Medication Refill; Medication Management (pt insurance change. pt on [place] they want pt on Lantus) 10/15/2020 9:15 AM EST Office Visit [facility] [address] [place] [address] [phone] Neema Atkins, DO 10 year risk of [place] or stroke 7.5% or greater (Primary Dx); BPH without urinary obstruction; Hypertension associated with diabetes (HCC); Hyperlipidemia associated with type 2 diabetes mellitus (HCC); Type 2 diabetes mellitus with diabetic nephropathy, with long-term current use of insulin (HCC); Chronic left-sided low back pain with left-sided sciatica 10/10/2020 Refill [facility] [address] [place] [address] [address] Neema Atkins, DO Medication Refill 10/10/2020 Orders Only [facility] [address] [place] [address] [phone] Neema Atkins, High risk medications (not anticoagulants) long-term use; Malaise and fatigue; Hyperlipidemia, unspecified hyperlipidemia type; Hyperglycemia; Vitamin D deficiency 10/10/2020 Travel 10/10/2020 9:40 AM EST Clinical Support [facility] [address] [place] [address] [address] Melanie Ortiz Hyperlipidemia, unspecified hyperlipidemia type; High risk medications (not anticoagulants) long-term use; Hyperglycemia; Malaise and fatigue; Vitamin D deficiency 10/08/2020 Travel 10/04/2020 Refill [facility] [address] [place] [address] [address] Neema Atkins, DO Medication Refill 10/03/2020 Refill [facility] [address] [place] [address] [address] Neema Atkins, DO Medication Refill 09/06/2020 Telephone [facility] [address] [place] [address] [address] Neema Atkins, DO Medication Management (leg cramps ) 08/17/2020 Refill [facility] [address] [place] [address] [address] Neema Atkins, DO Medication Refill 08/11/2020 Refill [facility] [address] [place] [address] [phone] Johnny Michelle MD Medication Refill 07/27/2020 Patient Outreach [facility] [address] [place] [address] Dionne Benton PharmD Medication Management (Adherence Outreach) 07/23/2020 Abstract [facility] [address], [place] [phone] Neema Atkins, DO 07/12/2020 Refill [facility] [address] [place] [address] Johnny Michelle MD Medication Refill 07/11/2020 Orders Only [facility] In[facility] [address] [place] [address] Juan Jensen MD 07/11/2020 Travel 07/11/2020 9:00 AM EDT Office Visit [facility] [address], [place] [address] Neema Atkins, DO Type 2 diabetes mellitus with diabetic nephropathy, with long-term current use of insulin (HCC) (Primary Dx); Hypertension associated with diabetes (HCC); Hyperlipidemia associated with type 2 diabetes mellitus (HCC); Pain in both lower extremities 07/11/2020 10:20 AM EDT Office Visit [facility] [address] [facility] [address] Juan Jensen MD Neoplasm of unspecified behavior of bone, soft tissue, and skin (Primary Dx); Other viral warts; Disturbance of skin sensation 07/04/2020 9:30 AM EDT Clinical Support [facility] [address] [place] [address] [phone] VorMelanie fatima Type 2 diabetes mellitus with diabetic nephropathy, with long-term current use of insulin ([facility]); Immunity status testing 07/03/2020 Refill [facility] [address] [place] [address] [phone] Neema Atkins, DO Medication Refill 07/02/2020 Refill [facility] [address] [place] [address] [phone] Neema Atkins, DO Medication Refill 06/20/2020 Refill [facility] [address] [place] [address] [phone] Neema Atkins, DO Medication Refill 06/14/2020 Telephone [facility] [address], [place] [address] Neema Atkins, DO Advice Only (wait for derm appt?) 06/08/2020 Telephone [facility] [address] [place] [phone] Khoa Vela MD Medication Question 05/29/2020 Telephone [facility] [address] [place] [address] [phone] Neema Atkins, DO Orders (lab ) 05/29/2020 Travel 04/19/2020 Travel 04/13/2020 Orders Only [facility] [address] [place] [address] [phone] Neema Atkins, DO Rash (Primary Dx) 04/12/2020 Telephone [facility] [address] [place] [address] [phone] Neema Atkins, DO Medication Management ([place]) 04/09/2020 11:45 AM EDT Office Visit [facility] [address] [place] [address] [phone] Neema Atkins, DO Skin lesion (Primary Dx); Pain, unspecified ; Localized swelling, mass and lump, trunk ; Benign lipomatous neoplasm of skin and subcutaneous tissue of left arm ; Pain in left arm 04/06/2020 Travel 02/15/2020 Refill [facility] [address] [facility] [address] [place] [address] Khoa Vela MD Medication Refill 02/14/2020 Telephone [facility] [address] [place] [address] [phone] Neema Atkins, DO Medication Refill (BASAGLAR KWIKPEN U-100 INSULIN 100 unit/mL (3 mL) SubQ Insulin Pen 45 mL 0 02/10/2020 ) 02/10/2020 Refill [facility] [address], [place] [address] Neema Atkins, DO Medication Refill 02/10/2020 Refill [facility] [address], [place] [address] Neema Atkins, DO Medication Refill 01/18/2020 Travel 01/18/2020 9:20 AM EDT Office Visit [facility] [address] [place] [address] [phone] Neema Atkins, DO Type 2 diabetes mellitus with diabetic nephropathy, with long-term current use of insulin (HCC) (Primary Dx); Tinea pedis of both feet 01/11/2020 Travel 01/11/2020 9:40 AM EDT Clinical Support [facility] [address] [place] [address] [phone] Melanie Ortiz Iron deficiency anemia, unspecified iron deficiency anemia type; Type 2 diabetes mellitus with diabetic nephropathy, with long-term current use of insulin (HCC) 01/10/2020 Telephone [facility] [address] [facility] [address] [place] [address] Khoa Vela MD Medication Question; Follow-up 01/02/2020 Telephone [facility] [address] [place] [address] [phone] Neema Atkins, DO Orders (labs) 01/02/2020 Travel 12/28/2019 Refill [facility] [address] [place] [address] [address] Neema Atkins, DO Medication Refill 12/06/2019 Refill [facility] [address] [place] [address] [phone] Neema Atkins, DO Medication Refill 12/02/2019 Lab Requisition [facility] [address] [place], [place] [id number] Khoa Vela MD Dysphagia, unspecified 12/02/2019 Orders Only [facility] [address] [place] [address] Khoa Vela MD Gastroesophageal reflux disease with esophagitis (Primary Dx) 12/02/2019 Orders Only [facility] [address] [facility] [address] [place] [address] Khoa Vela MD 11/29/2019 1:00 PM EST Office Visit [facility] [address] [facility] [address] [place] [address] Comfort Schneider APRN Esophageal dysphagia (Primary Dx); Epigastric abdominal pain 11/28/2019 Telephone [facility] [address] [place] [address] [phone] Neema Atkins, DO Medication Management 11/25/2019 Telephone [facility] [address] [facility] [address] [place] [address] Ryne Craven MD Dysphagia; EGD 09/21/2019 11:00 AM EST Office Visit [facility] [address] [place] [address] [phone] Neema Atkins, DO Esophageal dysfunction (Primary Dx); Type 2 diabetes mellitus with diabetic nephropathy, with long-term current use of insulin ([facility]) 09/15/2019 9:40 AM EST Clinical Support [facility] [address] [place] [address] [address] Melanie Ortiz Chronic fatigue; Hypertension associated with diabetes ([facility]) 2019 Orders Only [facility] [address] [place] [address] Neema Atkins, DO Hypertension associated with diabetes (HCC) (Primary Dx); Chronic fatigue 2019 Telephone [facility] [address], [place] [address] Johnny Michelle MD Medication Refill 09/12/2019 Refill [facility] [address] [place] [address] Johnny Michelle MD Medication Refill 08/24/2019 Refill [facility] [address] [place] [address] Johnny Michelle MD Medication Refill 07/05/2019 Refill [facility] [address], [place] [address] Johnny Michelle MD Medication Refill 06/23/2019 Refill [facility] [address] [place] [address] Johnny Michelle MD Medication Refill 06/01/2019 Telephone [facility] [address], [place] [address] Johnny Michelle MD Medication Refill (ointment) 05/18/2019 Abstract [facility] [address], [place] [address] Johnny Michelle MD 04/01/2019 Refill [facility] [address] [place] [address] Johnny Michelle MD Medication Refill 03/24/2019 Telephone [facility] [address], [place] [address] Johnny Michelle MD Visit Follow Up; Diabetes 03/17/2019 Telephone [facility] [address], [place] [address] Johnny Michelle MD Other; Visit Follow Up 03/17/2019 9:40 AM EDT Office Visit [facility] [address] [place] [address] [phone] Johnny Michelle MD Routine general medical examination at a health care facility (Primary Dx); Type 2 diabetes mellitus with diabetic nephropathy, with long-term current use of insulin (HCC); Hypertension associated with diabetes (HCC); Hyperlipidemia associated with type 2 diabetes mellitus (HCC) 03/16/2019 Telephone [facility] [address] [place] [address] [address] Johnny Michelle MD Visit Follow Up 03/14/2019 8:57 AM EDT - 03/14/2019 11:59 PM EDT Hospital Encounter [facility] [address] [place] [address] [address] Type 2 diabetes mellitus with diabetic nephropathy, with long-term current use of insulin (HCC); Hyperlipidemia associated with type 2 diabetes mellitus (HCC); Screening for prostate cancer Discharge Disposition: Home or Self Care 03/09/2019 Patient Outreach [facility] [address] [place] [address] [address] Johnny Michelle MD Medicare Annual Wellness (Pre-Visit Questionnaire) 03/08/2019 Telephone [facility] [address] [place] [address] [address] Johnny Michelle MD Lab Orders 12/22/2018 Orders Only [facility] Interface Inbound [address] [place] [address] Provider, Unknown 11/24/2018 Refill [facility] [address] [address] [address] Johnny Michelle MD Medication Refill 10/05/2018 Refill [facility] [address] [place] [address] [address] Estefania Guzman APRN Medication Refill 2018 Refill [facility] [address], [place] [address] Johnny Michelle MD Medication Refill 08/04/2018 9:40 AM EDT Office Visit [facility] [address], [place] [address] Johnny Michelle MD Type 2 diabetes mellitus with diabetic nephropathy, with long-term current use of insulin (HCC) (Primary Dx); Hyperlipidemia associated with type 2 diabetes mellitus (HCC); Hypertension associated with diabetes (HCC); Dysphagia, unspecified type 07/21/2018 10:40 AM EDT Clinical Support [facility] [address], [place] [address] Neela Aguilar, CPT, BAND LEADER Hypertension associated with diabetes (HCC); Type 2 diabetes mellitus with diabetic nephropathy, with long-term current use of insulin (HCC); Hyperlipidemia associated with type 2 diabetes mellitus (HCC) 07/19/2018 Telephone [facility] [address] [place] [address] Johnny Michelle MD Orders 07/19/2018 Refill [facility] [address], [place] [address] Estefania Guzman APRN Medication Refill 07/19/2018 Refill [facility] [address], [place] [address] Johnny Michelle MD Medication Refill 06/18/2018 Refill [facility] [address], [place] [address] Johnny Michelle MD Medication Refill 03/25/2018 9:40 AM EDT Office Visit [facility] [address], [place] [address] Johnny Michelle MD Abdominal pain, LLQ (left lower quadrant) (Primary Dx); Chronic left-sided low back pain with left-sided sciatica 03/24/2018 Refill [facility] [address] [place] [address] Estefania Guzman, [employer] PROFESSOR Medication Refill 03/05/2018 Refill [facility] [address], [place] [address] Johnny Michelle MD Medication Refill 02/04/2018 Refill [facility] [address], [place] [address] Estefania Guzman, [employer] PROFESSOR Medication Refill 02/04/2018 Refill [facility] [address], [place] [address] Johnny Michelle MD Medication Refill 12/23/2017 Abstract [facility] [address], [place] [address] Franchesca Barrientos, BERNARDO 12/19/2017 Orders Only [facility] Interface Inbound [address] [place] [address] Provider, Unknown 12/18/2017 Orders Only [facility] [address], [place] [address] Franchesca Barrientos, [facility] Type 2 diabetes mellitus with diabetic nephropathy, with long-term current use of insulin (HCC) 12/18/2017 Telephone [facility] [address], [place] [address] Johnny Michelle MD Other 12/17/2017 Refill [facility] [address], [place] [address] Estefania Guzman, [employer] PROFESSOR Medication Refill 12/17/2017 Telephone [facility] [address], [place] [address] Johnny Michelle MD Medication Change 12/08/2017 9:00 AM EST Office Visit [facility] [address], [place] [address] Johnny Michelle MD Type 2 diabetes mellitus with diabetic nephropathy, with long-term current use of insulin (HCC) (Primary Dx); Hypertension associated with diabetes (HCC); Hyperlipidemia associated with type 2 diabetes mellitus (HCC); ED (erectile dysfunction) of organic origin 12/01/2017 Orders Only [facility] [address] [address] [address] Johnny Michelle MD Type 2 diabetes mellitus without complication, with long-term current use of insulin (HCC) (Primary Dx); Hyperlipidemia associated with type 2 diabetes mellitus (HCC) 12/01/2017 10:20 AM EST Clinical Support [facility] [address] [address] [address] Neela Aguilar, CPT, BAND LEADER Screening for metabolic disorder (Primary Dx); Screening for thyroid disorder; Vitamin D deficiency; Screening for deficiency anemia; Screening for lipid disorders; Type 2 diabetes mellitus with diabetic nephropathy, unspecified halfway insulin use status (HCC); Type 2 diabetes mellitus without complication, with long-term current use of insulin (HCC); Hyperlipidemia associated with type 2 diabetes mellitus (HCC); Screening PSA (prostate specific antigen) 11/23/2017 Refill [facility] [address] [place] [address] Johnny Michelle MD Medication Refill 11/06/2017 Telephone [facility] [address], [place] [address] Johnny Michelle MD Medication Refill 10/05/2017 Refill [facility] [address], [place] [address] Johnny Michelle MD Medication Refill 10/05/2017 Refill [facility] [address], [place] [address] Estefania Guzman APRN Medication Refill 09/28/2017 10:39 AM EST - 09/28/2017 11:59 PM EST Hospital Encounter [facility] Physical Therapy [facility] [address] [id number] Jv Caceres PTA Acute left-sided low back pain with left-sided sciatica Discharge Disposition: Home or Self Care 09/23/2017 10:08 AM EST - 09/23/2017 11:59 PM EST Hospital Encounter [facility] Physical Therapy [address], [place] [address] Min Colón, PT Acute left-sided low back pain with left-sided sciatica Discharge Disposition: Home or Self Care 09/21/2017 10:35 AM EST - 09/21/2017 11:59 PM EST Hospital Encounter [facility] Physical Therapy [address], [place] [address] Jv Caceres, SELLING SPECIALIST Acute left-sided low back pain with left-sided sciatica Discharge Disposition: Home or Self Care 09/16/2017 2:02 PM EST - 09/16/2017 11:59 PM EST Hospital Encounter [facility] Physical Therapy [address], [place] [address] Jv Caceres, SELLING SPECIALIST Acute left-sided low back pain with left-sided sciatica Discharge Disposition: Home or Self Care 09/14/2017 10:27 AM EST - 09/14/2017 11:59 PM EST Hospital Encounter [facility] Physical Therapy [address], [place] [address] Jv Caceres, SELLING SPECIALIST Acute left-sided low back pain with left-sided sciatica Discharge Disposition: Home or Self Care 09/10/2017 Refill [facility] [address] [place] [phone] Johnny Michelle MD Medication Refill 09/09/2017 11:20 AM EST - 09/09/2017 11:59 PM EST Hospital Encounter [facility] Physical Therapy [place] [address] Min Colón, PT Acute left-sided low back pain with left-sided sciatica Discharge Disposition: Home or Self Care 09/03/2017 Telephone [facility] [address] [place] [id number] Johnny Michelle MD Orders 08/31/2017 Telephone [facility] [address], [place] [address] Johnny Michelle MD Other 08/26/2017 Telephone [facility] [address], [place] [address] Franchesca Barrientos [facility] Visit Follow Up 08/25/2017 1:40 PM EDT - 08/25/2017 11:59 PM EDT Hospital Encounter [facility] [place] [facility] [address] [place] [address] Johnny Michelle MD Abdominal pain, LLQ (left lower quadrant); Change in bowel function Discharge Disposition: Home or Self Care 08/25/2017 11:40 AM EDT Office Visit [facility] [address], [place] [address] Johnny Michelle MD Abdominal pain, LLQ (left lower quadrant) (Primary Dx); Change in bowel function 08/21/2017 Telephone [facility] [address], [place] [address] Johnny Michelle MD Other 08/20/2017 Telephone [facility] [address], [place] [address] Estefania Guzman APRN Visit Follow Up 08/14/2017 Telephone [facility] [address], [place] [address] Johnny Michelle MD Visit Follow Up; Diabetes 08/11/2017 8:56 PM EDT - 08/11/2017 11:59 PM EDT Hospital Encounter [facility] [place] [address] Discharge Disposition: Home or Self Care 08/11/2017 9:40 AM EDT Office Visit [facility] [address], [place] [address] Estefania Guzman, [employer] PROFESSOR Olecranon bursitis of left elbow (Primary Dx); Essential hypertension 08/10/2017 Telephone [facility] [address] [address] Johnny Michelle MD Results 08/07/2017 Telephone [facility] [address] [address] Johnny Michelle MD Medication Refill 08/06/2017 10:44 AM EDT - 08/06/2017 11:59 PM EDT Hospital Encounter [facility] [address] [place] [address] Left hip pain; Chronic midline posterior neck pain; Pain of both heels Discharge Disposition: Home or Self Care 08/04/2017 10:20 AM EDT Office Visit [facility] [address] [phone] Johnny Michelle MD Type 2 diabetes mellitus without complication, with long-term current use of insulin (HCC) (Primary Dx); Hyperlipidemia associated with type 2 diabetes mellitus (HCC); Hypertension associated with diabetes (HCC); Left hip pain; Pain of both heels; Chronic midline posterior neck pain; Olecranon bursitis of left elbow 07/22/2017 3:39 PM EDT - 07/22/2017 11:59 PM EDT Hospital Encounter [facility] [place] [address] Hyperlipidemia associated with type 2 diabetes mellitus (HCC); Screening for prostate cancer; Screening for thyroid disorder; Vitamin D deficiency; Essential hypertension; Need for hepatitis C screening test; Type 2 diabetes mellitus without complication, with long-term current use of insulin (HCC) Discharge Disposition: Home or Self Care 07/22/2017 11:00 AM EDT Clinical Support [facility] [facility] [address] [phone] Alanna Mobley MA Hyperlipidemia, unspecified hyperlipidemia type (Primary Dx) 07/13/2017 Refill [facility] [address] [phone] Johnny Michelle MD Medication Refill 07/10/2017 Refill [facility] [address], [place] [phone] Johnny Michelle MD Medication Refill 06/30/2017 4:00 PM EDT Office Visit [facility] [address], [place] [id number] Johnny Michelle MD Hand, foot and mouth disease (Primary Dx) 06/30/2017 Telephone [facility] [address], [place] [address] Franchesca Barrientos CMA Foot Swelling 06/23/2017 Telephone [facility] [address], [place] [address] Johnny Michelle MD Orders 05/21/2017 Refill [facility] [address], [place] [address] Johnny Michelle MD Medication Refill 04/20/2017 Refill [facility] [address], [place] [address] Johnny Michelle MD Medication Refill 03/10/2017 Telephone [facility] [address], [place] [phone] Johnny Michelle MD Other 02/23/2017 Telephone [facility] [address], [place] [phone] Franchesca Barrientos CMA Prior Authorization 02/19/2017 Telephone [facility] [address], [place] [phone] Johnny Michelle MD Other 02/17/2017 Telephone [facility] [address], [place] [phone] Franchesca Barrientos CMA Prior Authorization (contour meter.) 02/16/2017 Telephone [facility] [address], [place] [phone] Johnny Michelle MD Diabetes 02/09/2017 Refill [facility] [address], [place] [phone] Johnny Michelle MD Medication Refill 02/06/2017 Telephone [facility] [address], [place] [phone] Johnny Michelle MD Other 01/15/2017 Refill [facility] [address], [place] [phone] Johnny Michelle MD Medication Refill 12/26/2016 Abstract [facility] [address], [place] [phone] Johnny Michelle MD 12/25/2016 Refill [facility] [address], [place] [phone] Johnny Michelle MD Medication Refill 12/10/2016 Telephone [facility] [address], [place] [phone] Johnny Michelle MD Visit Follow Up; Diabetes 12/04/2016 Telephone [facility] [address], [place] [phone] Johnny Michelle MD Visit Follow Up 12/04/2016 Telephone [facility] [address], [place] [phone] Johnny Michelle MD Visit Follow Up; Diabetes 11/25/2016 Orders Only [facility] [address] [place] [address] Provider, Unknown 11/24/2016 8:20 AM EST Office Visit [facility] [address], [place] [phone] Johnny Michelle MD Type 2 diabetes mellitus without complication, with long-term current use of insulin (HCC) (Primary Dx); Hyperlipidemia LDL goal < 100; Essential hypertension 11/18/2016 4:12 PM EST - 11/18/2016 11:59 PM EST Hospital Encounter [facility] LAB [facility]IC[facility] PROCESSING [facility] [place], [place] [id number] Type 2 diabetes mellitus without complication, unspecified halfway insulin use status; Routine adult health maintenance Discharge Disposition: Home or Self Care 11/18/2016 10:40 AM EST Clinical Support [facility] [address], [place] [phone] Daniela Clarke, STEPHEN Type 2 diabetes mellitus without complication, unspecified intermediate project manager insulin use status (Primary Dx) 11/17/2016 Telephone [facility] [address], [place] [phone] Johnny Michelle MD Other 10/31/2016 Refill [facility] [address], [place] [phone] Johnny Michelle MD Medication Refill 10/14/2016 Telephone [facility] [address], [place] [phone] Alanna Mobley MA Medication Question 10/04/2016 Refill [facility] [address], [place] [phone] Johnny Michelle MD Medication Refill 09/11/2016 Telephone [facility] [address], [place] [phone] Alanna Mobley MA Prior Authorization (Asmanex ) 08/25/2016 Refill [facility] [address], [place] [phone] Johnny Michelle MD Medication Refill 08/07/2016 Refill [facility] [address], [place] [phone] Johnny Michelle MD Medication Refill 07/17/2016 Refill [facility] [address], [place] [phone] Johnny Michelle MD Medication Refill 06/08/2016 Refill [facility] [address], [place] [phone] Johnny Michelle MD Medication Refill 06/02/2016 9:00 AM EDT Office Visit [facility] [address], [place] [phone] Johnny Michelle MD Type 2 diabetes mellitus without complication (HCC) (Primary Dx); Hyperlipidemia LDL goal < 100; Essential hypertension 05/27/2016 Telephone [facility] [address], [place] [phone] Johnny Michelle MD Medication Question 05/13/2016 3:18 PM EDT - 05/13/2016 11:59 PM EDT Hospital Encounter [facility] LAB RICKEY PROCESSING [facility] [place] [address] Essential hypertension; Type 2 diabetes mellitus without complication (HCC); Hyperlipidemia LDL goal < 100 Discharge Disposition: Home or Self Care 05/13/2016 9:30 AM EDT Clinical Support [facility] [address], [place] [phone] Daniela Clarke RPT Essential hypertension (Primary Dx); Hyperlipidemia LDL goal < 100; Type 2 diabetes mellitus without complication (HCC); Screening for thyroid disorder 05/12/2016 Orders Only [facility] [address], [place] [phone] Johnny Michelle MD Type 2 diabetes mellitus without complication (HCC) (Primary Dx); Hyperlipidemia LDL goal < 100; Essential hypertension 05/12/2016 Orders Only [facility] [address] [place] [address] Cait Goodman CCMA RAD (reactive airway disease), mild persistent, uncomplicated (Primary Dx); Type 2 diabetes mellitus without complication (HCC) 04/21/2016 Telephone [facility] [address], [place] [phone] Johnny Michelle MD Medication Refill 04/17/2016 Telephone [facility] [address], [place] [address] Johnny Michelle MD Medication Refill 04/11/2016 Telephone [facility] [address], [place] [address] Johnny Michelle MD Medication Refill 04/02/2016 Refill [facility] [address], [place] [address] Johnny Michelle MD Medication Refill 03/26/2016 Telephone [facility] [address], [place] [address] Johnny Michelle MD Medication Problem 03/14/2016 Refill [facility] [address], [place] [address] Johnny Michelle MD Medication Refill 02/21/2016 Refill [facility] [address], [place] [address] Johnny Michelle MD Medication Refill 02/16/2016 Refill [facility] [address], [place] [phone] Johnny Michelle MD Medication Refill 01/28/2016 Refill [facility] [address], [place] [address] Johnny Michelle MD Medication Refill 01/16/2016 Telephone [facility] [address], [place] [phone] Johnny Michelle MD Medication Refill 12/24/2015 Orders Only [facility] [address] [place] [address] Johnny Michelle MD Cough (Primary Dx) 12/06/2015 Refill [facility] [address], [place] [phone] Johnny Michelle MD Medication Refill 12/06/2015 1:20 PM EST Office Visit [facility] [address] [phone] Johnny Michelle MD Type 2 diabetes mellitus without complication (HCC) (Primary Dx); Hyperlipidemia LDL goal < 100; Essential hypertension; RAD (reactive airway disease), mild persistent, uncomplicated 12/04/2015 Telephone [facility] [address], [place] [phone] Johnny Michelle MD Medication Refill 12/03/2015 Telephone [facility] [address], [place] [phone] Johnny Michelle MD Medication Management 12/03/2015 Telephone [facility] [address], [place] [phone] Johnny Michelle MD Other 11/26/2015 Telephone [facility] [address], [place] [phone] Johnny Michelle MD Medication Refill 10/20/2015 Refill [facility] [address], [place] [phone] Johnny Michelle MD Medication Refill 10/09/2015 3:31 PM EST - 10/09/2015 11:59 PM EST Hospital Encounter ED[facility] LAB RICKEY PROCESSING [facility] [place] [address] Type 2 diabetes mellitus without complication (HCC); Hyperlipidemia LDL goal < 100; Essential hypertension Discharge Disposition: Home or Self Care 10/09/2015 9:00 AM EST Clinical Support [facility] [address] [phone] Daniela Clarke RPT Type 2 diabetes mellitus without complication (HCC) (Primary Dx); Essential hypertension; Hyperlipidemia LDL goal < 100 10/02/2015 9:30 AM EST Office Visit [facility] [address] [place] [address] Phani Guthrie MD Postop check (Primary Dx) 09/20/2015 Telephone [facility] [address] [phone] Johnny Michelle MD Other 09/20/2015 8:00 AM EST - 09/20/2015 8:45 AM EST Surgery [facility] [place] [address] Guille Allen MD LAPAROSCOPIC INGUINAL HERNIA REPAIR (TEP- TOTALLY EXTRAPERITONEAL) (COVERS POSSIBLE OPEN) 09/20/2015 8:10 AM EST Anesthesia Event [facility] [place] [address] Brian Lao, Adriane Godfrey, PRODUCTION OPERATOR 09/20/2015 7:12 AM EST - 09/20/2015 11:00 AM EST Hospital Encounter [facility] SAME DAY SURGERY [facility] [place] [address] Guille Allen MD Discharge Disposition: Home or Self Care 09/15/2015 Refill [facility] [address] [phone] Johnny Michelle MD Medication Refill 2015 1:46 PM EST - 2015 11:59 PM EST Hospital Encounter [facility] PRE-ADMIT TESTING [facility] [place] [address] 1, Edg Pat Nurse Essential hypertension (Primary Dx) Discharge Disposition: Home or Self Care 09/05/2015 Abstract [facility] [address] [phone] Nanette Hsu, KAIDEN 08/18/2015 Refill [facility] [address] [phone] Johnny Michelle MD Medication Refill 08/09/2015 Telephone [facility] [address] [place] [address] Guille Allen MD Surgery; Visit Follow Up 08/07/2015 10:00 AM EDT Office Visit [facility] [address] [place] [address] Guille Allen MD Unilateral inguinal hernia without obstruction or gangrene, recurrence not specified (Primary Dx); Unilateral recurrent inguinal hernia without obstruction or gangrene 07/30/2015 Orders Only [facility] [address] [facility] [address] [place] [address] Ryne Craven MD 07/17/2015 4:39 PM EDT - 07/17/2015 11:59 PM EDT Hospital Encounter [facility] LAB RICKEY PROCESSING [facility] [place] [address] Screening for prostate cancer Discharge Disposition: Home or Self Care 07/17/2015 Refill [facility] [address] [place] [address] Johnny Michelle MD Medication Refill 07/17/2015 9:00 AM EDT Clinical Support [facility] [address] [place] [address] Daniela Clarke RPT Essential hypertension (Primary Dx) 06/18/2015 Telephone [facility] [address] [facility] [address] [place] [address] Dexter Mcginnis MD Colonoscopy 06/18/2015 Orders Only [facility] [address] [place] [address] Johnny Michelle MD Screen for colon cancer (Primary Dx) 06/18/2015 Telephone [facility] [address] [place] [address] Johnny Michelle MD Other 06/11/2015 Refill [facility] [address] [place] [address] Johnny Michelle MD Medication Refill 06/07/2015 2:40 PM EDT Office Visit [facility] [address] [place] [address] Johnny Michelle MD Type 2 diabetes mellitus without complication (HCC) (Primary Dx); Hyperlipidemia LDL goal < 100; Essential hypertension 05/28/2015 Telephone [facility] [address], [place] [phone] Johnny Michelle MD Other 05/22/2015 4:14 PM EDT - 05/22/2015 11:59 PM EDT Hospital Encounter [facility] LAB RICKEY PROCESSING [facility] [place] [address] Hyperlipidemia LDL goal < 100; Type 2 diabetes mellitus without complication (HCC) Discharge Disposition: Home or Self Care 05/22/2015 8:45 AM EDT Clinical Support [facility] [address], [place] [phone] Jennifer Hussein RMA Type 2 diabetes mellitus without complication (HCC) (Primary Dx); Essential hypertension; Hyperlipidemia LDL goal < 100 05/21/2015 Telephone [facility] [address], [place] [phone] Johnny Michelle MD Orders 05/01/2015 6:42 PM EDT - 05/01/2015 11:59 PM EDT Hospital Encounter [facility] LAB RICKEY PROCESSING [facility] [place] [address] Blood in stool Discharge Disposition: Home or Self Care 05/01/2015 1:30 PM EDT Clinical Support [facility] [address], [place] [phone] Clara Hinojosa RMA Occult blood in stools (Primary Dx) 05/01/2015 Refill [facility] [address] [phone] Johnny Michelle MD Medication Refill 04/30/2015 Telephone [facility] [address], [place] [phone] Johnny Michelle MD Results 04/23/2015 3:42 PM EDT - 04/23/2015 11:59 PM EDT Hospital Encounter [facility]G LAB RICKEY PROCESSING [facility] [place] [address] Blood in stool Discharge Disposition: Home or Self Care 04/20/2015 Telephone [facility] [address], [place] [phone] Johnny Michelle MD Other 03/12/2015 Telephone [facility] [address], [place] [phone] Johnny Michelle MD Other 02/19/2015 Telephone [facility] [address], [place] [phone] Johnny Michelle MD Diabetes 02/01/2015 Telephone [facility] [address], [place] [address] Johnny Michelle MD Diabetes 01/26/2015 Refill [facility] [address], [place] [address] Johnny Michelle MD Medication Refill 01/26/2015 Telephone [facility] [address], [place] [address] Johnny Michelle MD Medication Refill 01/26/2015 Refill [facility] [address], [place] [phone] Johnny Michelle MD Medication Refill 01/25/2015 2:00 PM EDT Office Visit [facility] [address], [place] [phone] Johnny Michelle MD Type II or unspecified type diabetes mellitus without mention of complication, not stated as uncontrolled (HCC) (Primary Dx); HTN (hypertension); Hyperlipidemia LDL goal < 100; DM (diabetes mellitus), type 2 (HCC) 01/15/2015 3:14 PM EDT - 01/15/2015 11:59 PM EDT Hospital Encounter [facility] LAB RICKEY PROCESSING [facility] [place] [address] HTN (hypertension); DM (diabetes mellitus), type 2 (HCC); Hyperlipidemia LDL goal < 100 Discharge Disposition: Home or Self Care 01/15/2015 Refill [facility] [address], [place] [address] Johnny Michelle MD Medication Refill 01/15/2015 9:45 AM EDT Clinical Support [facility] [address], [place] [phone] Claar Hinojosa RMA DM (diabetes mellitus), type 2 (HCC) (Primary Dx); Hyperlipidemia LDL goal < 100; HTN (hypertension) 01/11/2015 Telephone [facility] [address], [place] [address] Johnny Michelle MD Other 01/09/2015 Telephone [facility] [address], [place] [address] Johnny Michelle MD Other 12/26/2014 Refill [facility] [address], [place] [address] Johnny Michelle MD Medication Refill 12/21/2014 Orders Only [facility] [address], [place] [address] Chin Lamb RMA DM (diabetes mellitus), type 2 (HCC) (Primary Dx) 12/21/2014 Refill [facility] [address], [place] [address] Johnny Michelle MD Medication Refill 12/21/2014 Orders Only [facility] [address], [place] [address] Chin Lamb RMA DM (diabetes mellitus), type 2 (HCC) (Primary Dx) 12/19/2014 Refill [facility] [address], [place] [address] Johnny Michelle MD Medication Refill 11/13/2014 Telephone [facility] [address], [place] [address] Johnny Michelle MD Diabetes 10/12/2014 Orders Only [facility] [address], [place] [address] Laura Nair MA DM (diabetes mellitus), type 2 (HCC) (Primary Dx) 10/12/2014 Refill [facility] [address], [place] [address] Johnny Michelle MD Medication Refill 10/04/2014 Telephone [facility] [address], [place] [address] Johnny Michelle MD Visit Follow Up; Diabetes 09/20/2014 Telephone [facility] [address], [place] [address] Johnyn Michelle MD Medication Management 09/20/2014 Telephone [facility] [address], [place] [address] Johnny Michelle MD Other 09/18/2014 Telephone [facility] [address], [place] [address] Johnny Michelle MD Diabetes 09/15/2014 Refill [facility] [address], [place] [phone] Johnny Michelle MD Medication Refill 09/07/2014 Orders Only [facility] [address], [place] [address] Johnny Michelle MD Elevated PSA (Primary Dx) 09/05/2014 6:13 PM EST - 09/05/2014 11:59 PM EST Hospital Encounter [facility] LAB RICKEY PROCESSING [facility] [place] [place] [address] HTN (hypertension); DM (diabetes mellitus), type 2 (HCC); Hyperlipidemia LDL goal < 100; Low testosterone Discharge Disposition: Home or Self Care 09/05/2014 9:15 AM EST Clinical Support [facility] [address], [place] [address] Nanette Hsu RMMacy Low testosterone (Primary Dx); DM (diabetes mellitus), type 2 (HCC) 08/31/2014 Telephone [facility] [address], [place] [address] Johnny Michelle MD Medication Refill 08/28/2014 Refill [facility] [address], [place] [address] Johnny Michelle MD Medication Refill 08/28/2014 Telephone [facility] [address], [place] [address] Johnny Michelle MD Orders 08/25/2014 Refill [facility] [address], [place] [address] Johnny Michelle MD Medication Refill 08/20/2014 Telephone [facility] [address], [place] [address] Johnny Michelle MD Labs Only 08/11/2014 Telephone [facility] [address], [place] [address] Johnny Michelle MD Medication Refill 06/20/2014 Telephone [facility] [address], [place] [address] Johnny Michelle MD Other 06/15/2014 Refill [facility] [address], [place] [address] Johnny Michelle MD Medication Refill 06/15/2014 Refill [facility] [address], [place] [phone] Johnny Michelle MD Medication Refill 06/15/2014 1:00 PM EDT Office Visit [facility] [address] [phone] Johnny Michelle MD Pre-op exam (Primary Dx) 06/05/2014 Telephone [facility] [address] [phone] Johnny Michelle MD Medication Refill 05/24/2014 Refill [facility] [address] [phone] Johnny Michelle MD Medication Refill 05/17/2014 4:18 PM EDT - 05/17/2014 11:59 PM EDT Hospital Encounter [facility] LAB RICKEY PROCESSING [facility] [place] [address] Low testosterone Discharge Disposition: Home or Self Care 05/17/2014 9:00 AM EDT Clinical Support [facility] [address] [phone] Cindy Lau Low testosterone (Primary Dx) 05/10/2014 Telephone Adult Med [address] [place] [address] [place] [address] Johnny Michelle MD Labs Only 05/01/2014 Telephone [facility] [address] [phone] Johnny Michelle MD Visit Follow Up; Diabetes 04/19/2014 Telephone [facility] [address] [phone] Johnny Michelle MD Visit Follow Up; Diabetes 04/10/2014 2:50 PM EDT - 04/10/2014 11:59 PM EDT Hospital Encounter [facility] LAB RICKEY PROCESSING [facility] [place] [address] Hyperlipidemia LDL goal < 100; FH: hemochromatosis; DM (diabetes mellitus), type 2 (HCC) Discharge Disposition: Home or Self Care 04/10/2014 9:15 AM EDT Office Visit [facility] [address] [phone] Johnny Michelle MD DM (diabetes mellitus), type 2 (HCC) (Primary Dx); FH: hemochromatosis; Low testosterone; Hyperlipidemia LDL goal < 100; HTN (hypertension); Constipation 03/16/2014 Refill [facility] [address], [place] [phone] Johnny Michelle MD Medication Refill 01/06/2014 Telephone [facility] [address], [place] [phone] Johnny Michelle MD Other 12/20/2013 Telephone [facility] [address], [place] [phone] Johnny Michelle MD Other 12/07/2013 Telephone [facility] [address], [place] [phone] Johnny Michelle MD Visit Follow Up 12/07/2013 Telephone [facility] [address], [place] [address] Johnny Michelle MD Visit Follow Up; Diabetes 12/01/2013 Refill [facility] [address], [place] [address] Johnny Michelle MD Medication Refill 12/01/2013 Refill [facility] [address], [place] [address] Johnny Michelle MD Medication Refill 11/30/2013 4:45 PM EST - 11/30/2013 11:59 PM EST Hospital Encounter [facility] LAB RICKEY PROCESSING [facility] [place] [address] DM (diabetes mellitus), type 2 (HCC); Hyperlipidemia LDL goal < 100; Screening for prostate cancer; ED (erectile dysfunction) Discharge Disposition: Home or Self Care 11/30/2013 9:00 AM EST Office Visit [facility] [address], [place] [phone] Johnny Michelle MD DM (diabetes mellitus), type 2 (HCC) (Primary Dx); Hyperlipidemia LDL goal < 100; HTN (hypertension); ED (erectile dysfunction); Screening for prostate cancer 08/23/2013 Telephone [facility] [address] [phone] Johnny Michelle MD Medication Refill 07/19/2013 Refill [facility] [address] [phone] Johnny Michelle MD Medication Refill 06/28/2013 Refill [facility] [address] [phone] Johnny Michelle MD Medication Refill 06/28/2013 Telephone [facility] [address] [phone] Johnny Michelle MD Medication Refill 06/27/2013 Refill [facility] [address], [place] [phone] Johnny Michelle MD Medication Refill 06/22/2013 3:36 PM EDT - 06/22/2013 11:59 PM EDT Hospital Encounter [facility] LAB RICKEY PROCESSING [facility] [place] [address] HTN (hypertension); DM (diabetes mellitus), type 2 (HCC); Hyperlipidemia LDL goal < 100 Discharge Disposition: Home or Self Care 06/22/2013 9:00 AM EDT Office Visit [facility] [address] [phone] Johnny Michelle MD DM (diabetes mellitus), type 2 (HCC) (Primary Dx); HTN (hypertension); Hyperlipidemia LDL goal < 100; Wart; Skin lesion 01/04/2013 Refill [facility] [address] [phone] Gracy Murdock LPN Medication Refill 01/02/2013 Refill [facility] [address] [phone] Johnny Michelle MD Medication Refill 11/01/2012 Telephone [facility] [address] [phone] Johnny Michelle MD Other 11/01/2012 Telephone [facility] [address] [phone] Johnny Michelle MD Medication Refill 10/31/2012 Refill [facility] [address] [phone] Johnny Michelle MD Medication Refill 10/11/2012 Refill [facility] [address] [phone] Johnny Michelle MD Medication Refill 09/07/2012 Telephone [facility] [address] [phone] Johnny Michelle MD Other 08/28/2012 Refill [facility] [address] [phone] Johnny Michelle MD Medication Refill 07/28/2012 8:45 AM EDT Office Visit [facility] [address] [phone] oJhnny Michelle MD DM (diabetes mellitus), type 2 (HCC) (Primary Dx); HTN (hypertension); Hyperlipidemia LDL goal < 100; Eczema; ED (erectile dysfunction) 07/19/2012 2:56 PM EDT - 07/19/2012 11:59 PM EDT Hospital Encounter [facility] LAB RICKEY PROCESSING [facility] [place] [address] DM (diabetes mellitus), type 2 (HCC); HTN (hypertension); Hyperlipidemia LDL goal < 100; Screening for prostate cancer Discharge Disposition: Home or Self Care 07/19/2012 8:30 AM EDT Clinical Support [facility] [address] [phone] Cindy Lau DM (diabetes mellitus), type 2 (HCC) (Primary Dx) 07/14/2012 Telephone [facility] [address], [place] [phone] Johnny Michelle MD Other 07/07/2012 Refill [facility] [address] [place] [address] Johnny Michelle MD Medication Refill 07/07/2012 Telephone [facility] [address] [place] [address] Johnny Michelle MD Medication Refill 06/30/2012 Telephone [facility] [address] [place] [address] Johnny Michelle MD Other 06/18/2012 Telephone [facility] [address] [place], [place] [address] Johnny Michelle MD Medication Refill 06/15/2012 Refill [facility] [address] [place] [address] Johnny Michelle MD Medication Refill 05/17/2012 Refill [facility] [address] [place], [place] [address] Johnny Michelle MD Medication Refill 05/13/2012 Refill [facility] [address] [place] [address] Johnny Michelle MD Medication Refill 04/22/2012 Telephone [facility] [address] [place], [place] [address] Johnny Michelle MD Other 04/05/2012 Telephone [facility] [address] [place] [address] Johnny Michelle MD Medication Management 04/01/2012 Refill [facility] [address] [place], [place] [address] Sabi Vigil LPN Medication Refill 03/12/2012 Telephone [facility] [address] [place], [place] [address] Johnny Michelle MD Other 03/11/2012 Telephone [facility] [address] [place], [place] [address] Johnny Michelle MD Other 03/08/2012 Refill [facility] [address] [place] [address] Johnny Michelle MD Medication Refill 02/25/2012 Telephone [facility] [address] [place], [place] [address] Jonhny Michelle MD Medication Management 02/09/2012 Refill [facility] [address] [place], [place] [address] Anais Bruno MD Medication Refill 02/09/2012 Refill [facility] [address] [place], [place] [address] Johnny Michelle MD Medication Refill 01/26/2012 Telephone [facility] [address] [place], [place] [address] Johnny Michelle MD Other 01/20/2012 Refill [facility] [address] [place], [place] [address] Johnny Michelle MD Medication Refill 01/06/2012 Telephone [facility] [address] [place], [place] [address] Johnny Michelle MD Other 01/05/2012 Refill [facility] [address] [place], [place] [address] Johnny Michelle MD Medication Refill 12/02/2011 Telephone [facility] [address] [place] [address] Johnny Michelle MD Other 11/24/2011 Telephone [facility] [address] [place] [address] Johnny Michelle MD Other 11/18/2011 Orders Only [facility] [address] [place], [place] [address] Anais Bruno MD HTN (hypertension) (Primary Dx) 11/18/2011 11:15 AM EST Clinical Support [facility] [address] [place], [place] [address] Francesca Wray CMA HTN (hypertension) (Primary Dx) 11/18/2011 Telephone [facility] [address] [place], [place] [address] Johnny Michelle MD Other (samples) 10/20/2011 Telephone [facility] [address] [place], [place] [address] Johnny Michelle MD Medication Problem 10/06/2011 Telephone [facility] [address] [place], [place] [address] Johnny Michelle MD Other (samples) 09/22/2011 Telephone [facility] [address] [place], [place] [address] Johnny Michelle MD Medication Refill 08/25/2011 Telephone [facility] [address] [place], [place] [address] Johnny Michelle MD Medication Management 07/23/2011 Refill [facility] [address] [place], [place] [address] Adriane Del Castillo RMA Medication Refill 07/21/2011 Telephone [facility] [address] [place], [place] [address] Tram Villar MD Other (samples) 06/26/2011 Telephone [facility] [address] [place], [place] [address] Johnny Michelle MD Results 06/24/2011 8:15 AM EDT Office Visit [facility] [address] [place], [place] [address] Johnny Michelle MD DM (diabetes mellitus), type 2 (HCC) (Primary Dx) 05/02/2011 Refill [facility] [address] [place], [place] [address] Tram Villar MD Medication Refill 04/04/2011 Telephone [facility] [address] [place] [address] Tram Villar MD Blood Sugar Problem 02/25/2011 Telephone [facility] [address] [place] [address] Tram Villar MD Blood Sugar Problem 02/04/2011 Telephone [facility] [address] [place] [address] Tram Villar MD Other 01/27/2011 Refill [facility] [address] [place], [place] [address] Gracy Murdock LPN Medication Refill 01/24/2011 Refill [facility] [address] [place] [address] Tram Villar MD Medication Refill 01/21/2011 Telephone [facility] [address] [place] [address] Tram Villar MD Other 01/01/2011 Telephone [facility] [address] [place] [address] Tram Villar MD Medication Problem 12/30/2010 Telephone [facility] [address] [place], [place] [phone] Tram Villar MD Medication Management 11/29/2010 Telephone [facility] [address] [place] [phone] Tram Villar MD Results 11/29/2010 12:30 PM EST - 11/29/2010 11:59 PM EST Hospital Encounter [facility] X[facility] [address] [place] [address] Asbestos exposure Discharge Disposition: Home or Self Care 11/26/2010 Abstract [facility] [address] [place], [place] [address] Tram Villar MD ED (erectile dysfunction) 11/26/2010 Refill [facility] [address] [place], [place] [address] Gracy Murdock LPN Other (fax of [facility] without comments) 11/26/2010 9:45 AM EST Office Visit [facility] [address] [place], [place] [address] Tram Villar MD Well adult exam (Primary Dx); DM (diabetes mellitus), type 2 (HCC); Hyperlipidemia LDL goal < 100; Rash; RAD (reactive airway disease); HTN (hypertension) 11/20/2010 Refill [facility] [address] [place], [place] [address] Tram Villar MD Medication Refill 10/29/2010 Telephone [facility] [address] [place], [place] [address] Tram Villar MD Medication Management 09/10/2010 Telephone [facility] [address] [place] [address] Tram Villar MD Results 08/30/2010 Telephone [facility] [address] [place] [phone] Tram Villar MD Other (wants bw order) 08/23/2010 Abstract [facility] [address] [place] [phone] [facility], Test Liquor Rectifier DM (diabetes mellitus) (HCC); HTN (hypertension); Elevated cholesterol; RAD (reactive airway disease) 01/10/2009 3:57 PM EDT - 01/10/2009 11:59 PM EDT Hospital Encounter [facility] Malgorzata Leigh MD 01/03/2009 3:42 PM EST - 01/03/2009 11:59 PM EST Hospital Encounter [facility] Tram Villar MD 09/02/2008 4:04 PM EDT - 09/02/2008 11:59 PM EDT Hospital Encounter [facility] Tram Villar MD 05/26/2008 1:52 PM EDT - 05/26/2008 11:59 PM EDT Hospital Encounter [facility] Tram Villar MD 12/30/2007 - 12/30/2007 11:15 AM EST Hospital Encounter [facility] FTT Generic, Historical Provider 12/15/2007 2:36 PM EST - 12/15/2007 11:59 PM EST Hospital Encounter [facility] Tram Villar MD Allergies Active Allergy Reactions Criticality Noted Date Comments Tetanus Vaccines And Toxoid Other (See Comments) High Edema in his early 20's Lisinopril 11/26/2010 hyperkalemia Peanut 08/04/2017 Medications GLUCOSAM & CHONDROIT-MV & MIN3 (GLUCOSAMINE &CHONDROIT-MV- MIN3 ORAL) Take by mouth daily. Active vitamin E 400 unit capsule Take by mouth daily. Active Vitamin B Comp & C No.3 (B COMPLEX PLUS VITAMIN C) 59-14-96-5-300 mg Oral Capsule Take by mouth daily. Active aspirin 81 mg tablet Take 81 mg by mouth daily. Active VENTOLIN HFA 90 mcg/actuation Inhl HFA Aerosol Inhaler INHALE TWO PUFFS INTO THE LUNGS EVERY 4 HOURS NEEDED FOR WHEEZING 18 g 2 02/10/20 17 Active ONETOUCH ULTRA2 Misc Kit USE DIRECTED 1 Kit 07/10/20 17 Active ONE TOUCH DELICA 33 gauge Misc Misc USE ONE TO CHECK GLUCOSE 4 TIMES DAILY 100 Each 11 09/08/20 17 Active Insulin [place], Disposable, 31 gauge x 5/16 Misc Needle USE AT BEDTIME WITH INSULIN PEN 50 Each 07/12/20 20 Active Insulin [place], Disposable, (LEWIS PEN NEEDLE) 32 gauge x 5/32 Misc Needle Use to inject insulin 3 times daily 270 box 2 12/10/19 Active Blood Sugar Diagnostic (ONETOUCH ULTRA BLUE TEST STRIP) Misc Strip Use to test up tp 3 times daily. DX: E11.9 300 Strip 2 12/11/19 Active Lancets Misc Misc One touch ultra. Test up to 3 times daily. E11.9 300 Each 2 12/11/19 21 Active Insulin [place], Disposable, 31 gauge x 5/16 Misc Needle Use up to 3 times daily. DX:E11.9 300 Each 12/11/19 21 Active Coenzyme Q10 100 mg Oral Capsule Take by mouth. Activ e multivit-min/f olic/vit K/lycop (ONE-A-DAY MEN'S 50 PLUS ORAL) Take by mouth. Activ e ibuprofen (ADVIL;MOTRIN) 800 mg Oral Tablet Take 800 mg by mouth 4 times daily as needed for Pain. Active morphine (MS CONTIN) 15 mg Oral Tablet Sustained Release Take 15 mg by mouth 2 times daily. As needed Active pregabalin (LYRICA) 150 mg Oral Capsule Take 150 mg by mouth 2 times daily. Active bicalutamide (CASODEX) 50 mg Oral Tablet Take by mouth daily. Active alfuzosin (UROXATRAL) 10 mg Oral Tablet Sustained Release 24 hr Take 10 mg by mouth daily. Active semaglutide (OZEMPIC) 0.25 mg or 0.5 mg(2 mg/1.5 mL) SubQ Pen InjectorIndica tions:Type 2 diabetes mellitus with diabetic nephropathy, with long-term current use of insulin (HCC) Subcutaneous (Inject under the skin) 0.5 mg once a week. 1.5 mL 01/24/20 23 Active Blood Sugar Diagnostic (ONETOUCH ULTRA TEST) Misc Strip USE TO TEST UP TO 3 TIMES DAILY 300 Each 04/13/20 23 Active Lancets Misc Misc Used to test blood sugar 3 times daily 1 Each 04/14/20 Active fluticasone furoate (ARNUITY ELLIPTA) 100 mcg/actuation [place]hl Disk with Device INHALE 1 PUFF BY MOUTH ONCE DAILY AT 9AM, MUST MAKE APPOINTMENT FOR FURTHER REFILLS 30 Each 2 10/13/20 23 Active enzalutamide (XTANDI ORAL) Take by mouth. A ctive oxyCODONE-acet aminophen (PERCOCET) 10-325 mg Oral Tablet Take 1 Tablet by mouth every 4 hours as needed. Active insulin degludec (TRESIBA FLEXTOUCH U-100) 100 unit/mL (3 mL) SubQ Insulin PenIndications :Type 2 diabetes mellitus with diabetic nephropathy, with long-term current use of insulin (HCC) Subcutaneous (Inject under the skin) 60 Units nightly. 5 boxes received from patient assistance. 15 mL 02/16/20 24 Active insulin aspart U-100 (NOVOLOG FLEXPEN U-100 INSULIN) 100 unit/mL (3 mL) SubQ Insulin PenIndications :Type 2 diabetes mellitus with diabetic nephropathy, with long-term current use of insulin (HCC) Subcutaneous (Inject under the skin) 30 Units 2 times daily (with meals). 5 boxes received from patient assistance. 15 mL 02/16/20 24 Active hydrALAZINE (APRESOLINE) 25 mg Oral TabletIndicati ons:Hypertensi on associated with diabetes (HCC) Take 1 Tablet by mouth 2 times daily. 180 Tablet 3 02/24/20 24 Active dapagliflozin propanediol (FARXIGA) 10 mg Oral TabletIndicati ons:Type 2 diabetes mellitus with diabetic nephropathy, with long-term current use of insulin (HCC) Take 1 Tablet by mouth daily. 90 Tablet 3 02/24/20 24 Active losartan (COZAAR) 100 mg Oral Tablet Take 1 Tablet by mouth daily. 90 Tablet 3 02/24/20 24 Active pantoprazole (PROTONIX) 40 mg Oral Tablet, Delayed Release (E.C.) Take 1 Tablet by mouth daily. 90 Tablet 2 12/05/19 25 Active venlafaxine (EFFEXOR-XR) 37.5 mg Oral Capsule, Sust. Release 24 hr Take 37.5 mg by mouth daily. 11/21/19 25 Active dutasteride (AVODART) 0.5 mg Oral Capsule Take 0.5 mg by mouth daily. 11/06/19 25 Active meclizine (ANTIVERT) 25 mg Oral TabletIndicati ons:BPV (benign positional vertigo), unspecified laterality Take 1 Tablet by mouth 3 times daily as needed for Dizziness. 60 Tablet 01/03/20 25 Active pravastatin (PRAVACHOL) 40 mg Oral TabletIndicati ons:10 year risk of [place] or stroke 7.5% or greater TAKE 1 TABLET BY MOUTH ONCE DAILY IN THE EVENING 100 Tablet 02/14/20 25 Active lancets (FREESTYLE LANCETS) 28 gauge Misc Misc Subcutaneous (Inject under the skin) 1 'box' 3 times daily. USE 1 LANCET TO CHECK GLUCOSE THREE TIMES DAILY 200 Each 2 03/13/20 25 Active metFORMIN (GLUCOPHAGE XR) 500 mg Oral ER 24 hr tablet TAKE 2 TABLETS BY MOUTH IN THE MORNING WITH BREAKFAST 200 Tablet 03/15/20 25 Active metFORMIN (GLUCOPHAGE XR) 500 mg Oral ER 24 hr tablet TAKE 2 TABLETS BY MOUTH IN THE MORNING WITH BREAKFAST 200 Tablet 12/09/19 25 025 Discontinued Active Problems Patient Care Coordination No te Formatting of this note migh t be different from the original. Retroactive HCC audit completed by Cait Rader RN on 04/22/2024. Aneesh: no record 08/04/17 bp 130/80. LDL <100. A1C 7 or less. DM Eye Exam-11/24/16 No Dm retinopathy present. Dr. Colby Martin Problem Noted Date Diagnosed Date Screening for colon cancer 08/19/2023 Malignant neoplasm of prostate metastatic to bon e 09/30/2022 Overview (09/30/2022): Follows with Dr. Prather in [place], [place] Assessment & Plan (02/19/2023 1:08 PM EDT): Currently receiving injections and daily medication Gastroesophageal reflux dise ase with esophagitis without hemorrhage 09/23/2022 Overview (12/05/2024): EGD 12/02/2019-ulcerative esophagitis, biopsy negative. controlled on Protonix 40 mg daily. Followed by GI Assessment & Plan (12/05/2024 2:52 PM EST): 1. GERD with esophagitis - GERD diet - Continue Protonix 40 mg daily, #90 with 2 refills Chronic left-sided low back pain with left-sided sciatica 09/09/2017 Low testosterone 04/10/2014 Type 2 diabetes mellitus wit h diabetic nephropathy, with long-term current use of insulin 11/26/2010 Overview (12/08/2017): Microalbuminuria diagnosed Nov 2017. Tests sugar 4-5 times a day. Assessment & Plan (02/19/2023 1:09 PM EDT): Check A1c Hyperlipidemia associated with type 2 diabetes m ellitus 11/26/2010 ED (erectile dysfunction) 11/26/2010 RAD (reactive airway disease) 08/23/2010 Hypertension associated with diabetes Overview (08/14/2021): At goal continue current medications Immunizations Immunization Administration Dates Next Due Hep A/Hep B 02/07/2013,07/08/2012 Hepatitis B, Adult 07/11/2020 Influenza Vaccine Quadrivalent 08/04/2018,2016 Influenza Vaccine, Unspecifi ed Formulation 08/02/2015,07/08/2012,07/13/2010 Pneumococcal Conjugate Vacci ne 20 Valent 08/21/2023 Pneumococcal Polysaccharide 23 Valent 07/11/2020 ,11/02/2006 Quadrivalent Influenza High Dose 023,10/15/2022,08/14/2021,07/11 Family History Medical History Relation Name Comments Diabetes Brother juany High Cholesterol Brother juany Alcohol Abuse Father Early Father Heart Disease Father at 44, tob smo ker Diabetes Maternal Aunt Diabetes Maternal Grandfather Diabetes Maternal Grandmother Alzheimer's Disease Maternal Uncle 80's Diabetes Maternal Uncle Alzheimer's Disease Mother 70's Arthritis Mother had TKR Diabetes Mother Heart Disease Mother enlarged heart High Blood Pressure Mother Heart Disease Paternal Grandfather Stroke Paternal Grandfather Anesth Problems Neg Hx Relation Name Status Comments Brother juany Alive Chaudhari's esoph jaqui Father Maternal Aunt Maternal Grandfather Maternal Grandmother Maternal Uncle Mother Paternal Grandfather Social History Smoking Status as of 04/10/2025 Tobacco Use Types Packs/Day Years Used Date Smoking Tobacco: Never Assessed Overall Financial Resource Strain (CARDIA) Answe r Date Recorded How hard is it for you to pa y for the very basics like food, housing, medical care, and heating? Not very hard 08/22/2024 PHQ-2 Answer Date Recorded PHQ-2 Total Score 0 03/01/2025 [facility] - Occupational Stress [...] to sleep or slept in a senior living (including now)? No 09/20/2021 Sex and Gender Information Value Date Recorded Sex Assigned at Not on file Legal Sex Male 6:41 PM EDT Gender Identity Not on file Sexual Orientation Not on file Last Filed Vital Signs Vital Sign Reading Time Taken Comments Blood Pressure 120/80 03/01/2025 1:08 PM EDT Pulse 73 03/01/2025 1:08 PM EDT Temperature 36.2 C (97.2 F) 03/01/2025 1:08 PM EDT Respiratory Rate 16 08/19/2023 11:25 AM EDT Oxygen Saturation 96% 03/01/2025 1:08 PM EDT Inhaled Oxygen Concentration - - Weight 103.9 kg (229 lb) 03/01/2025 1:08 PM EDT Height 186.7 cm (6' 1.5 ) 03/01/2025 1:08 PM EDT Body Mass Index 29.8 03/01/2025 1:08 PM EDT Plan of Treatment Not on file Medical Devices Implanted Type Area Diamond Grinder Device Identifier Shelf Expiration Date Model / Serial / Lot Mesh 3d Right Large [id number] - [id number] Implanted:Qty: 1 on 09/20/2015 by Guille Allen MD at [facility] Right: Inguinal CR BARD:DAVOL 06/29/2020 [id number] / / [id number] Mesh 3d Left Large [id number] - [id number] Implanted:Qty: 1 on 09/20/2015 by Guille Allen MD at [facility] Left: Inguinal CR BARD:DAVOL 05/29/2020 [id number] / / [id number] Device Fixation Strap Absorbable 25 Straps Secure Strap 5mm - [id number] Implanted:Qty: 1 on 09/20/2015 by Guille Allen MD at [facility] Left: Inguinal J&J:ETHICON:ENDO -SURGERY 07/01/2017 [id number] / / [id number] Procedures Procedure Name Priority Date/Time Associated Diagnosis Comments MICROALBUMIN/CREATININ E RATIO URINE Routine 03/01/2025 1:55 PM EDT Hyperlipidemia, unspecified hyperlipidemia type POCT GLYCATED HEMOGLOBIN, TOTAL Routine 03/01/2025 1:51 PM EDT Type 2 diabetes mellitus with diabetic nephropathy, with long-term current use of insulin (HCC) TSH REFLEX TO FT4 Routine 03/01/2025 1:51 PM EDT Malaise and fatigue CBC WITH DIFF Routine 03/01/2025 1:51 PM EDT Malaise and fatigue COMPREHENSIVE METABOLIC PANEL Routine 03/01/2025 1:51 PM EDT High risk medications (not anticoagulants) long-term use LIPID SCREEN Routine 03/01/2025 1:51 PM EDT Hyperlipidemia, unspecified hyperlipidemia type MRI BRAIN W WO CONTRAST STAT 01/03/2025 7:10 PM EST BPV (benign positional vertigo), unspecified laterality Prostate cancer (HCC) MICROALBUMIN/CREATININ E RATIO URINE Routine 02/24/2024 11:40 AM EDT Type 2 diabetes mellitus with diabetic nephropathy, with long-term current use of insulin (HCC) TSH REFLEX TO FT4 Routine 02/24/2024 11:37 AM EDT Malaise and fatigue COMPREHENSIVE METABOLIC PANEL Routine 02/24/2024 11:37 AM EDT High risk medications (not anticoagulants) long-term use CBC WITH DIFF Routine 02/24/2024 11:37 AM EDT High risk medications (not anticoagulants) long-term use LIPID SCREEN Routine 02/24/2024 11:37 AM EDT Hyperlipidemia, unspecified hyperlipidemia type POCT GLYCATED HEMOGLOBIN, TOTAL Routine 02/24/2024 11:20 AM EDT Type 2 diabetes mellitus with diabetic nephropathy, with long-term current use of insulin (HCC) SCANNED LABS 09/12/2023 2:54 PM EST COLONOSCOPY Routine 08/19/2023 10:46 AM EDT Screening for colon cancer INTRAOP AIRWAY PLACEMENT Routine 08/19/2023 10:21 AM EDT GLUCOSE METER POC Routine 08/19/2023 10:01 AM EDT TSH REFLEX TO FT4 Routine 02/19/2023 11:53 AM EDT Malaise and fatigue HEMOGLOBIN A1C Routine 02/19/2023 11:53 AM EDT Hyperglycemia COMPREHENSIVE METABOLIC PANEL Routine 02/19/2023 11:53 AM EDT High risk medications (not anticoagulants) long-term use CBC WITH DIFF Routine 02/19/2023 11:53 AM EDT High risk medications (not anticoagulants) long-term use LIPID SCREEN Routine 02/19/2023 11:53 AM EDT Hyperlipidemia, unspecified hyperlipidemia type DIABETIC RETINAL EXAM Routine 10/23/2022 8:41 AM EST DIABETIC RETINAL EXAM Routine 10/23/2022 8:41 AM EST SCANNED LABS 10/20/2022 8:56 AM EST XR ABDOMEN AP Routine 06/20/2022 2:15 PM EDT 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) TESTOSTERONE LEVEL TOTAL Routine 06/20/2022 2:05 PM EDT 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) PROSTATE SPECIFIC ANTIGEN (SCREENING) Routine 06/20/2022 2:05 PM EDT 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) XR HIPS BILATERAL AP LATERAL W AP PELVIS Routine 02/12/2022 11:38 AM EDT Hip pain PROSTATE SPECIFIC ANTIGEN (SCREENING) Routine 02/12/2022 10:55 AM EDT Screening for malignant neoplasm of prostate LYME AB TOTAL LATE Routine 02/12/2022 10:55 AM EDT Tick bite, unspecified site, initial encounter TSH REFLEX TO FT4 Routine 02/12/2022 10:55 AM EDT Malaise and fatigue HEMOGLOBIN A1C Routine 02/12/2022 10:55 AM EDT Hyperglycemia COMPREHENSIVE METABOLIC PANEL Routine 02/12/2022 10:55 AM EDT High risk medications (not anticoagulants) long-term use CBC WITH DIFF Routine 02/12/2022 10:55 AM EDT High risk medications (not anticoagulants) long-term use MICROALBUMIN/CREATININ E RATIO URINE Routine 08/14/2021 10:49 AM EDT Type 2 diabetes mellitus without complication, unspecified whether intermediate project manager insulin use (HCC) LIPID SCREEN Routine 08/14/2021 10:39 AM EDT Hyperlipidemia, unspecified hyperlipidemia type CBC WITH DIFF Routine 08/14/2021 10:39 AM EDT Screening, anemia, deficiency, iron COMPREHENSIVE METABOLIC PANEL Routine 08/14/2021 10:39 AM EDT Hyperlipidemia, unspecified hyperlipidemia type THYROID STIMULATING HORMONE Routine 08/14/2021 10:39 AM EDT Hyperthyroidism POCT GLYCATED HEMOGLOBIN, TOTAL Routine 08/14/2021 10:29 AM EDT Type 2 diabetes mellitus without complication, unspecified whether intermediate project manager insulin use (HCC) DIABETIC RETINAL EXAM Routine 08/01/2021 4:40 PM EDT VITAMIN D 25 HYDROXY Routine 10/10/2020 9:25 AM EST Vitamin D deficiency TSH REFLEX TO FT4 Routine 10/10/2020 9:25 AM EST Malaise and fatigue HEMOGLOBIN A1C Routine 10/10/2020 9:25 AM EST Hyperglycemia COMPREHENSIVE METABOLIC PANEL Routine 10/10/2020 9:25 AM EST High risk medications (not anticoagulants) long-term use CBC WITH DIFF Routine 10/10/2020 9:25 AM EST High risk medications (not anticoagulants) long-term use LIPID SCREEN Routine 10/10/2020 9:25 AM EST Hyperlipidemia, unspecified hyperlipidemia type HM DIABETES EYE EXAM Routine 07/13/2020 DERMATOPATHOLOGY TISSUE SEND OUT RESULT Routine 07/11/2020 2:05 PM EDT MICROALBUMIN/CREATININ E RATIO URINE Routine 07/04/2020 9:33 AM EDT Type 2 diabetes mellitus with diabetic nephropathy, with long-term current use of insulin (HCC) SARS-COV-2 IGG Routine 07/04/2020 9:13 AM EDT Immunity status testing HEMOGLOBIN A1C Routine 07/04/2020 9:13 AM EDT Type 2 diabetes mellitus with diabetic nephropathy, with long-term current use of insulin (HCC) PATHOLOGY TISSUE REQUEST Routine 04/09/2020 1:08 PM EDT Skin lesion LIPID PANEL REFLEX Routine 01/11/2020 9:27 AM EDT Type 2 diabetes mellitus with diabetic nephropathy, with long-term current use of insulin (HCC) FERRITIN Routine 01/11/2020 9:27 AM EDT Iron deficiency anemia, unspecified iron deficiency anemia type IRON/UIBC Routine 01/11/2020 9:27 AM EDT Iron deficiency anemia, unspecified iron deficiency anemia type HEMOGLOBIN A1C Routine 01/11/2020 9:27 AM EDT Type 2 diabetes mellitus with diabetic nephropathy, with long-term current use of insulin (HCC) COMPREHENSIVE METABOLIC PANEL Routine 01/11/2020 9:27 AM EDT Type 2 diabetes mellitus with diabetic nephropathy, with long-term current use of insulin (HCC) CBC Routine 01/11/2020 9:27 AM EDT Iron deficiency anemia, unspecified iron deficiency anemia type GMED EGD Routine 12/02/2019 1:30 PM EST PATHOLOGY TISSUE REQUEST Routine 12/02/2019 1:30 PM EST Dysphagia, unspecified HEMOGLOBIN A1C Routine 09/15/2019 9:12 AM EST Hypertension associated with diabetes (HCC) COMPREHENSIVE METABOLIC PANEL Routine 09/15/2019 9:12 AM EST Hypertension associated with diabetes (HCC) CBC Routine 09/15/2019 9:12 AM EST Chronic fatigue MICROALBUMIN/CREATININ E RATIO URINE Routine 03/17/2019 10:34 AM EDT Type 2 diabetes mellitus with diabetic nephropathy, with long-term current use of insulin (HCC) PROSTATE SPECIFIC ANTIGEN (SCREENING) Routine 03/14/2019 9:42 AM EDT Screening for prostate cancer TSH REFLEX TO FT4 Routine 03/14/2019 9:42 AM EDT Type 2 diabetes mellitus with diabetic nephropathy, with long-term current use of insulin (HCC) LIPID SCREEN Routine 03/14/2019 9:42 AM EDT Hyperlipidemia associated with type 2 diabetes mellitus (HCC) HEMOGLOBIN A1C Routine 03/14/2019 9:42 AM EDT Type 2 diabetes mellitus with diabetic nephropathy, with long-term current use of insulin (HCC) COMPREHENSIVE METABOLIC PANEL Routine 03/14/2019 9:42 AM EDT Type 2 diabetes mellitus with diabetic nephropathy, with long-term current use of insulin (HCC) CBC WITH DIFF Routine 03/14/2019 9:42 AM EDT Type 2 diabetes mellitus with diabetic nephropathy, with long-term current use of insulin (HCC) DIABETIC RETINAL EXAM Routine 12/22/2018 11:56 AM EST HM DIABETES EYE EXAM Routine 12/22/2018 HEMOGLOBIN A1C Routine 07/21/2018 10:42 AM EDT Type 2 diabetes mellitus with diabetic nephropathy, with long-term current use of insulin (HCC) TSH REFLEX TO FT4 Routine 07/21/2018 10:42 AM EDT Type 2 diabetes mellitus with diabetic nephropathy, with long-term current use of insulin (HCC) LIPID SCREEN Routine 07/21/2018 10:42 AM EDT Hyperlipidemia associated with type 2 diabetes mellitus (HCC) COMPREHENSIVE METABOLIC PANEL Routine 07/21/2018 10:42 AM EDT Type 2 diabetes mellitus with diabetic nephropathy, with long-term current use of insulin (HCC) Hyperlipidemia associated with type 2 diabetes mellitus (HCC) Hypertension associated with diabetes (HCC) CBC WITH DIFF Routine 07/21/2018 10:42 AM EDT Hypertension associated with diabetes (HCC) DIABETIC RETINAL EXAM Routine 12/19/2017 11:36 AM EST POCT GLYCATED HEMOGLOBIN, TOTAL Routine 12/08/2017 9:13 AM EST Type 2 diabetes mellitus with diabetic nephropathy, with long-term current use of insulin (HCC) MICROALBUMIN/CREATININ E RATIO URINE Routine 12/01/2017 10:34 AM EST Type 2 diabetes mellitus without complication, with long-term current use of insulin (HCC) TSH REFLEX TO FT4 Routine 12/01/2017 10:34 AM EST Type 2 diabetes mellitus without complication, with long-term current use of insulin (HCC) LIPID SCREEN Routine 12/01/2017 10:34 AM EST Hyperlipidemia associated with type 2 diabetes mellitus (HCC) CREATINE KINASE Routine 12/01/2017 10:34 AM EST Hyperlipidemia associated with type 2 diabetes mellitus (HCC) COMPREHENSIVE METABOLIC PANEL Routine 12/01/2017 10:34 AM EST Type 2 diabetes mellitus without complication, with long-term current use of insulin (HCC) Hyperlipidemia associated with type 2 diabetes mellitus (HCC) CT ABDOMEN PELVIS W CONTRAST STAT 08/25/2017 3:49 PM EDT Abdominal pain, LLQ (left lower quadrant) Change in bowel function CREATININE ISTAT Routine 08/25/2017 3:47 PM EDT BODY FLUID CULTURE (STAIN INCLUDED) Routine 08/11/2017 10:44 AM EDT Olecranon bursitis of left elbow PROCEDURE DOCUMENTATION - ASPIRATION Routine 08/11/2017 9:40 AM EDT Olecranon bursitis of left elbow XR FOOT LEFT AP LATERAL AND OBLIQUE Routine 08/06/2017 11:21 AM EDT Pain of both heels XR FOOT RIGHT AP LATERAL AND OBLIQUE Routine 08/06/2017 11:21 AM EDT Pain of both heels XR CERVICAL SPINE AP LATERAL ODONTOID AND OBLIQUE Routine 08/06/2017 11:21 AM EDT Chronic midline posterior neck pain XR LUMBAR SPINE AP LATERAL AND OBLIQUES Routine 08/06/2017 11:21 AM EDT Left hip pain XR HIP LEFT AP LATERAL W AP PELVIS Routine 08/06/2017 11:21 AM EDT Left hip pain LDL, CALCULATED Routine 07/22/2017 11:17 AM EDT HEMOGLOBIN A1C Routine 07/22/2017 11:17 AM EDT Type 2 diabetes mellitus without complication, with long-term current use of insulin (HCC) HCV ANTIBODY SCREEN W/ REFLEX Routine 07/22/2017 11:17 AM EDT Need for hepatitis C screening test CBC Routine 07/22/2017 11:17 AM EDT Essential hypertension LIPID PANEL REFLEX Routine 07/22/2017 11:17 AM EDT Hyperlipidemia associated with type 2 diabetes mellitus (HCC) VITAMIN D 25 HYDROXY Routine 07/22/2017 11:17 AM EDT Vitamin D deficiency THYROID STIMULATING HORMONE Routine 07/22/2017 11:17 AM EDT Screening for thyroid disorder PROSTATE SPECIFIC ANTIGEN (SCREENING) Routine 07/22/2017 11:17 AM EDT Screening for prostate cancer HEPATIC FUNCTION PANEL Routine 7 11:17 AM EDT Hyperlipidemia associated with type 2 diabetes mellitus (HCC) CREATINE KINASE Routine 07/22/2017 11:17 AM EDT Hyperlipidemia associated with type 2 diabetes mellitus (HCC) BASIC METABOLIC PANEL Routine 07/22/2017 11:17 AM EDT Hyperlipidemia associated with type 2 diabetes mellitus (HCC) DIABETIC RETINAL EXAM Routine 11/25/2016 8:15 AM EST POCT GLYCATED HEMOGLOBIN, TOTAL Routine 11/24/2016 8:49 AM EST Type 2 diabetes mellitus without complication, with long-term current use of insulin (HCC) MICROALBUMIN/CREATININ E RATIO URINE Routine 11/18/2016 10:54 AM EST Type 2 diabetes mellitus without complication, unspecified halfway insulin use status DIFFERENTIAL Routine 11/18/2016 10:51 AM EST THYROID STIMULATING HORMONE Routine 11/18/2016 10:51 AM EST Routine adult health maintenance LIPID SCREEN Routine 11/18/2016 10:51 AM EST Routine adult health maintenance COMPREHENSIVE METABOLIC PANEL Routine 11/18/2016 10:51 AM EST Routine adult health maintenance CBC WITH DIFF Routine 11/18/2016 10:51 AM EST Routine adult health maintenance LDL, CALCULATED Routine 05/13/2016 9:34 AM EDT DIFFERENTIAL Routine 05/13/2016 9:34 AM EDT THYROID STIMULATING HORMONE Routine 05/13/2016 9:34 AM EDT Type 2 diabetes mellitus without complication (HCC) LIPID PANEL REFLEX Routine 05/13/2016 9:34 AM EDT Type 2 diabetes mellitus without complication (HCC) Hyperlipidemia LDL goal < 100 HEMOGLOBIN A1C Routine 05/13/2016 9:34 AM EDT Type 2 diabetes mellitus without complication (HCC) COMPREHENSIVE METABOLIC PANEL Routine 05/13/2016 9:34 AM EDT Type 2 diabetes mellitus without complication (HCC) Essential Hypertension CBC WITH DIFF Routine 05/13/2016 9:34 AM EDT Essential Hypertension MICROALBUMIN/CREATININ E RATIO URINE Routine 10/09/2015 8:57 AM EST Type 2 diabetes mellitus without complication (HCC) Hyperlipidemia LDL goal < 100 Essential hypertension LDL, CALCULATED Routine 10/09/2015 8:57 AM EST DIFFERENTIAL Routine 10/09/2015 8:57 AM EST HEMOGLOBIN A1C Routine 10/09/2015 8:57 AM EST Type 2 diabetes mellitus without complication (HCC) Hyperlipidemia LDL goal < 100 Essential hypertension THYROID STIMULATING HORMONE Routine 10/09/2015 8:57 AM EST Type 2 diabetes mellitus without complication (HCC) Hyperlipidemia LDL goal < 100 Essential hypertension LIPID PANEL REFLEX Routine 10/09/2015 8:57 AM EST Type 2 diabetes mellitus without complication (HCC) Hyperlipidemia LDL goal < 100 Essential hypertension COMPREHENSIVE METABOLIC PANEL Routine 10/09/2015 8:57 AM EST Type 2 diabetes mellitus without complication (HCC) Hyperlipidemia LDL goal < 100 Essential hypertension CBC WITH DIFF Routine 10/09/2015 8:57 AM EST Type 2 diabetes mellitus without complication (HCC) Hyperlipidemia LDL goal < 100 Essential hypertension SCANNED RHYTHM STRIPS 09/22/2015 10:47 PM EST SCANNED EKG 09/22/2015 10:47 PM EST GLUCOSE METER POC Routine 09/20/2015 9:34 AM EST LAPAROSCOPIC INGUINAL HERNIA REPAIR (TEP- TOTALLY EXTRAPERITONEAL) (COVERS POSSIBLE OPEN) 09/20/2015 8:09 AM EST Unilateral inguinal hernia without obstruction or gangrene, recurrence not specified Unilateral recurrent inguinal hernia without obstruction or gangrene Special Needs XENA CPT; 36146, [id number] 09/06 DT GLUCOSE METER POC Routine 09/20/2015 7:40 AM EST EK EKG 12 LEAD Routine 2015 2:39 PM EST Essential hypertension GMED COLONOSCOPY Routine 07/30/2015 9:00 AM EDT PROSTATE SPECIFIC ANTIGEN (SCREENING) Routine 07/17/2015 9:13 AM EDT Screening for prostate cancer LDL, CALCULATED Routine 05/22/2015 8:38 AM EDT DIFFERENTIAL Routine 05/22/2015 8:38 AM EDT HEMOGLOBIN A1C Routine 05/22/2015 8:38 AM EDT Type 2 diabetes mellitus without complication (HCC) CREATINE KINASE Routine 05/22/2015 8:38 AM EDT Hyperlipidemia LDL goal < 100 Type 2 diabetes mellitus without complication (HCC) THYROID STIMULATING HORMONE Routine 05/22/2015 8:38 AM EDT Hyperlipidemia LDL goal < 100 Type 2 diabetes mellitus without complication (HCC) LIPID PANEL REFLEX Routine 05/22/2015 8:38 AM EDT Hyperlipidemia LDL goal < 100 Type 2 diabetes mellitus without complication (HCC) COMPREHENSIVE METABOLIC PANEL Routine 05/22/2015 8:38 AM EDT Hyperlipidemia LDL goal < 100 Type 2 diabetes mellitus without complication (HCC) CBC WITH DIFF Routine 05/22/2015 8:38 AM EDT Hyperlipidemia LDL goal < 100 Type 2 diabetes mellitus without complication (HCC) POCT HEMOCCULT 1-3 CARDS Routine 05/01/2015 1:46 PM EDT Occult blood in stools OVA AND PARASITE BASIC Routine 5 1:25 PM EDT Blood in stool LDL, CALCULATED Routine 01/15/2015 9:38 AM EDT MICROALBUMIN/CREATININ E RATIO URINE Routine 01/15/2015 9:38 AM EDT DM (diabetes mellitus), type 2 (HCC) HEMOGLOBIN A1C Routine 01/15/2015 9:38 AM EDT DM (diabetes mellitus), type 2 (HCC) CREATINE KINASE Routine 01/15/2015 9:38 AM EDT Hyperlipidemia LDL goal < 100 THYROID STIMULATING HORMONE Routine 01/15/2015 9:38 AM EDT DM (diabetes mellitus), type 2 (HCC) LIPID PANEL REFLEX Routine 01/15/2015 9:38 AM EDT Hyperlipidemia LDL goal < 100 COMPREHENSIVE METABOLIC PANEL Routine 01/15/2015 9:38 AM EDT DM (diabetes mellitus), type 2 (HCC) HTN (hypertension) Hyperlipidemia LDL goal < 100 CBC Routine 01/15/2015 9:38 AM EDT HTN (hypertension) LDL, CALCULATED Routine 09/05/2014 11:19 AM EST DIFFERENTIAL Routine 09/05/2014 11:19 AM EST PSA, FREE PERCENT (PSA FREE+TOTAL)-REF LAB Routine 09/05/2014 11:19 AM EST Low testosterone THYROID STIMULATING HORMONE Routine 09/05/2014 11:19 AM EST DM (diabetes mellitus), type 2 (HCC) HEMOGLOBIN A1C Routine 09/05/2014 11:19 AM EST DM (diabetes mellitus), type 2 (HCC) LIPID PANEL REFLEX Routine 09/05/2014 11:19 AM EST Hyperlipidemia LDL goal < 100 COMPREHENSIVE METABOLIC PANEL Routine 09/05/2014 11:19 AM EST DM (diabetes mellitus), type 2 (HCC) Hyperlipidemia LDL goal < 100 HTN (hypertension) CBC WITH DIFF Routine 09/05/2014 11:19 AM EST HTN (hypertension) TESTOSTERONE LEVEL TOTAL Routine 05/17/2014 11:00 AM EDT Low testosterone PROSTATE SPECIFIC ANTIGEN (SCREENING) Routine 05/17/2014 11:00 AM EDT Low testosterone HEMOGLOBIN AND HEMATOCRIT Routine 05/17/2014 11:00 AM EDT Low testosterone POCT OCCULT BLOOD STOOL Routine 04/10/2014 1:12 PM EDT Constipation POCT GLYCATED HEMOGLOBIN, TOTAL Routine 04/10/2014 10:26 AM EDT DM (diabetes mellitus), type 2 (HCC) THYROID STIMULATING HORMONE Routine 04/10/2014 10:14 AM EDT DM (diabetes mellitus), type 2 (HCC) LIPID SCREEN Routine 04/10/2014 10:14 AM EDT Hyperlipidemia LDL goal < 100 IRON LEVEL Routine 04/10/2014 10:14 AM EDT FH: hemochromatosis FERRITIN Routine 04/10/2014 10:14 AM EDT FH: hemochromatosis CREATINE KINASE Routine 04/10/2014 10:14 AM EDT Hyperlipidemia LDL goal < 100 ASPARTATE AMINOTRANSFERASE Routine 04/10/2014 10:14 AM EDT Hyperlipidemia LDL goal < 100 ALANINE AMINOTRANSFERASE Routine 04/10/2014 10:14 AM EDT Hyperlipidemia LDL goal < 100 MICROALBUMIN/CREATININ E RATIO URINE Routine 04/10/2014 10:01 AM EDT DM (diabetes mellitus), type 2 (HCC) SCANNED LABS 12/09/2013 3:00 PM EST THYROID STIMULATING HORMONE Routine 11/30/2013 9:50 AM EST DM (diabetes mellitus), type 2 (HCC) TESTOSTERONE LEVEL TOTAL Routine 11/30/2013 9:50 AM EST ED (erectile dysfunction) PROSTATE SPECIFIC ANTIGEN (SCREENING) Routine 11/30/2013 9:50 AM EST Screening for prostate cancer LIPID SCREEN Routine 11/30/2013 9:50 AM EST Hyperlipidemia LDL goal < 100 BASIC METABOLIC PANEL Routine 11/30/2013 9:50 AM EST DM (diabetes mellitus), type 2 (HCC) POCT GLYCATED HEMOGLOBIN, TOTAL Routine 11/30/2013 9:24 AM EST DM (diabetes mellitus), type 2 (HCC) POCT GLYCATED HEMOGLOBIN, TOTAL Routine 06/22/2013 9:25 AM EDT DM (diabetes mellitus), type 2 (HCC) LDL, CALCULATED Routine 06/22/2013 9:20 AM EDT DIFFERENTIAL Routine 06/22/2013 9:20 AM EDT MICROALBUMIN/CREATININ E RATIO URINE Routine 06/22/2013 9:20 AM EDT DM (diabetes mellitus), type 2 (HCC) THYROID STIMULATING HORMONE Routine 06/22/2013 9:20 AM EDT DM (diabetes mellitus), type 2 (HCC) CREATINE KINASE Routine 06/22/2013 9:20 AM EDT Hyperlipidemia LDL goal < 100 LIPID PANEL REFLEX Routine 06/22/2013 9:20 AM EDT DM (diabetes mellitus), type 2 (HCC) COMPREHENSIVE METABOLIC PANEL Routine 06/22/2013 9:20 AM EDT DM (diabetes mellitus), type 2 (HCC) HTN (hypertension) Hyperlipidemia LDL goal < 100 CBC WITH DIFF Routine 06/22/2013 9:20 AM EDT HTN (hypertension) DIFFERENTIAL Routine 07/19/2012 8:38 AM EDT CREATINE KINASE Routine 07/19/2012 8:38 AM EDT Hyperlipidemia LDL goal < 100 LIPID SCREEN Routine 07/19/2012 8:38 AM EDT Hyperlipidemia LDL goal < 100 THYROID STIMULATING HORMONE Routine 07/19/2012 8:38 AM EDT DM (diabetes mellitus), type 2 (HCC) HTN (hypertension) HEMOGLOBIN A1C Routine 07/19/2012 8:38 AM EDT DM (diabetes mellitus), type 2 (HCC) PROSTATE SPECIFIC ANTIGEN (SCREENING) Routine 07/19/2012 8:38 AM EDT Screening for prostate cancer COMPREHENSIVE METABOLIC PANEL Routine 07/19/2012 8:38 AM EDT DM (diabetes mellitus), type 2 (HCC) Hyperlipidemia LDL goal < 100 HTN (hypertension) CBC WITH DIFF Routine 07/19/2012 8:38 AM EDT HTN (hypertension) MICROALBUMIN, URINE-ARUP Routine 07/19/2012 8:38 AM EDT DM (diabetes mellitus), type 2 (HCC) SCANNED LABS 03/11/2012 12:00 AM EDT SCANNED LABS 03/11/2012 12:00 AM EDT SCANNED LABS 07/03/2011 12:00 AM EDT XR CHEST PA AND LATERAL Routine 11/29/2010 12:59 PM EST Asbestos exposure SCANNED LABS 11/29/2010 12:00 AM EST SCANNED LABS 11/27/2010 12:00 AM EST SCANNED LABS 11/27/2010 12:00 AM EST SCANNED LABS 11/27/2010 12:00 AM EST SCANNED LABS 09/23/2010 12:00 AM EST HEMOGLOBIN A1C Routine 09/11/2010 SCANNED OR REPORT STL 02/26/2010 12:00 AM EDT Results * (ABNORMAL) MICROALBUMIN/CREATININE RATIO URINE (03/01/2025 1:55 PM EDT) Only the most recent of11 resultswithin the time period is included. Urine Microalb 57.4 mg/L 03/01/2025 9:19 PM EDT [facility] [employer] Urine Creatinine 112.0 mg/dL 03/01/2025 9:19 PM EDT [employer] Ur Microalb/Creat 51(H) 0 - 30 mg/g 03/01/2025 9:19 PM EDT [employer] Urine STRUCTURE OF URINARY TRACT PROPER / Unknown 03/01/2025 1:55 PM EDT 03/01/2025 1:55 PM EDT us Neema Atkins DO URINE ORDERABLES Final Result [facility] [address] , [place] [address] * TSH REFLEX TO FT4 (03/01/2025 1:51 PM EDT) Only the most recent of8 resultswithin the time period is included. Pathologist [facility] TSH Reflex 3.620 0.270 - 4.200 mcIU/mL 03/01/2025 8:03 PM EDT [facility] [employer] Blood VENOUS BLOOD / Unknown Venipuncture / Unknown 03/01/2025 1:51 PM EDT 03/01/2025 1:51 PM EDT Narrative [facility] [employer] - 03/01/2025 8:03 PM EDT Ingestion of eduardo doses of biotin (>5 mg/day) taken within 8 hours of drawing blood sample can interfere with this immunoassay test. Neema Atkins DO CHEMISTRY ORDERABLES Final Res ult [facility] [address] [facility], [address] [place] [id number] * (ABNORMAL) POCT GLYCATED HEMOGLOBIN, TOTAL (03/01/2025 1:51 PM EDT) Only the most recent of8 resultswithin the time period is included. Pathologist [facility] Hemoglobin A1C 7.4(A) 4 - 6 % SEP OFFICE Lot Number SEP OFFICE Expiration Date SEP OFFICE SeriAl # SEP OFFICE 03/01/2025 1:51 PM EDT Neema Atkins DO POINT OF CARE TEST ORDERABLES Final Result Performing Organization Address City/[facility]/ZIP Co de Phone Number SEP OFFICE * CBC WITH DIFF (03/01/2025 1:51 PM EDT) Only the most recent of15 resultswithin the time period is included. Pathologist [facility] WBC 8.8 3.7 - 10.3 x10(3)/mcL 03/01/2025 7:59 PM EDT PREFERRED [employer] [employer] RBC 5.30 4.60 - 6.10 x10(6)/mcL 03/01/2025 7:59 PM EDT [facility] [employer], [employer] Hgb 16.4 13.7 - 17.5 g/dL 03/01/2025 7:59 PM EDT [facility] [employer] [employer] Hct 49.7 40.0 - 51.0 % 03/01/2025 7:59 PM EDT [facility] MCV 93.8 80.0 - 100.0 fL 03/01/2025 7:59 PM EDT [facility] MCH 30.9 26.0 - 34.0 pg 03/01/2025 7:59 PM EDT [facility] MCHC 33.0 30.7 - 35.5 g/dL 03/01/2025 7:59 PM EDT [facility] RDW 12.8 <=14.9 % 03/01/2025 7:59 PM EDT [facility] Platelet 322 155 - 369 x10(3)/mcL 03/01/2025 7:59 PM EDT [facility] MPV 10.0 8.8 - 12.5 fL 03/01/2025 7:59 PM EDT [facility] Neut Percent 68.1 % 03/01/2025 7:59 PM EDT [facility] Comment:Neutrophils equals s egs plus bands Imm Gran% 0.3 % 03/01/2025 7:59 PM EDT [facility] Comment:Automated count of m etamyelocytes, myelocytes and promyelocytes. Lymph Percent 15.5 % 03/01/2025 7:59 PM EDT [facility] [place] Percent 10.1 % 03/01/2025 7:59 PM EDT [facility] Eos Percent 5.2 % 03/01/2025 7:59 PM EDT [facility] Baso Percent 0.8 % 03/01/2025 7:59 PM EDT [facility] Neut # 6.0 1.6 - 6.1 x10(3)/mcL 03/01/2025 7:59 PM EDT [facility] Comment:Neutrophils equals s egs plus bands IMMGRAN# 0.0 0.0 - 0.1 x10(3)/mcL 03/01/2025 7:59 PM EDT [facility] Comment:Automated count of m etamyelocytes, myelocytes and promyelocytes. An absolute IG <0.1 is reported as 0.0. Lymph # 1.4 1.2 - 3.9 x10(3)/mcL 03/01/2025 7:59 PM EDT [facility]REF[facility]ED [facility] [employer], [facility] [place] # 0.9 0.3 - 0.9 x10(3)/mcL 03/01/2025 7:59 PM EDT [facility] [employer], [facility] Eos# 0.5 0.0 - 0.5 x10(3)/mcL 03/01/2025 7:59 PM EDT [facility] [employer], [facility] Baso # 0.1 0.0 - 0.1 x10(3)/mcL 03/01/2025 7:59 PM EDT [facility] [employer] [facility] Blood VENOUS BLOOD / Unknown Venipuncture / Unknown 03/01/2025 1:51 PM EDT 03/01/2025 1:51 PM EDT Neema Atkins DO HEMATOLOGY ORDERABLES Final Re sult [facility]REF[facility] [employer] [address] , [place] [address] * (ABNORMAL) LIPID SCREEN (03/01/2025 1:51 PM EDT) Only the most recent of12 resultswithin the time period is included. Cholesterol 192 <200 mg/dL 03/01/2025 8:03 PM EDT [facility] [employer], [facility] Comment: < 200 Desirable 200 - 239 Borderline High >= 240 High Triglyceride 250(H) <150 mg/dL 03/01/2025 8:03 PM EDT [facility] [employer] [facility] [facility] Comment: < 150 Normal 150 - 199 Borderline High 200 - 499 High >= 500 Very High HDL 41 >=40 mg/dL 03/01/2025 8:03 PM EDT [facility] [employer] [facility] Comment: > 60 Optimal 40 - 60 Acceptable < 40 Low LDL Calculated 108(H) <100 mg/dL 03/01/2025 8:03 PM EDT [facility] [employer], [facility] Comment: < 100 Optimal 100 - 129 Near or above optimal 130 - 159 Borderline High 160 - 189 High >= 190 Very High The National Institutes of Health (NIH) equation is used for all lipid panels that report calculated LDL (LDL-C). Non-HDL-C Calculated 151(H) <=129 mg/dL 03/01/2025 8:03 PM EDT [facility] Comment: <130 Desirable 130-159 Above Desirable 160-189 Borderline High 190-219 High >= 220 Very High Fasting Specimen? Yes None 025 8:03 PM EDT [facility] Blood VENOUS BLOOD / Unknown Venipuncture / Unknown 03/01/2025 1:51 PM EDT 03/01/2025 1:51 PM EDT us Neema Atkins DO CHEMISTRY ORDERABLES Final Res ult [facility] [address] [facility] , [place] [address] * (ABNORMAL) COMPREHENSIVE METABOLIC PANEL (03/01/2025 1:51 PM EDT) Only the most recent of19 resultswithin the time period is included. Sodium 137 136 - 145 mmol/L 03/01/2025 [...] - 8.3 gm/dL 03/01/2025 8:03 PM EDT [facility], [facility] Bili Total 0.4 0.2 - 1.4 mg/dL 03/01/2025 8:03 PM EDT [facility], [facility] ALT 26 <=41 U/L 03/01/2025 8:03 PM EDT [facility], [facility] AST 27 <=40 U/L 03/01/2025 8:03 PM EDT [facility], [facility] Alk Phos 135(H) 40 - 129 U/L 03/01/2025 8:03 PM EDT [facility] [employer], [facility] eGFR (CKD-EPIcr 2020) 94 >=60 mL/min/1.7 3 m2 03/01/2025 8:03 PM EDT [facility] [employer], [facility] Comment:Estimated GFR was ca lculated using the CKD-EPIcr (2020) equation refit without race. The equation is recommended by the National [employer] - [place] [employer] Neph[employer] Task Force. Blood VENOUS BLOOD / Unknown Venipuncture / Unknown 03/01/2025 1:51 PM EDT 03/01/2025 1:51 PM EDT us Neema Atkins DO CHEMISTRY ORDERABLES Final Res ult [facility] [address] , [place] [address] * MRI BRAIN W WO CONTRAST (01/03/2025 7:10 PM EST) Anatomical Region Laterality Modality Head Magnetic Resonan ce 01/03/2025 7:10 PM EST Impressions 01/03/2025 7:47 PM EST 1. No acute or enhancing intracranial abnormality. 2. No evidence of intracranial metastatic disease. 3. 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 - Note: Radiology results need to be interpreted within a comprehensive clinical context. If you have questions about the radiology report, please contact the office of the ordering clinician. 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 COMPARISON: None. PROCEDURE COMMENTS: Multiplanar multiecho MR imaging of the brain per protocol before and following IV contrast administration. Gadolinium contrast given as recorded in Epic. FINDINGS: Acute Ischemic Change: No evidence of restricted diffusion to suggest an acute infarct. Hemorrhage: No evidence of prior parenchymal hemorrhage on the gradient echo images. Mass Effect / Mass Lesion: No mass effect. No evidence of an intracranial mass or extra-axial fluid collection. Parenchyma: There is no abnormal parenchymal or leptomeningeal enhancement on postcontrast imaging. The brain parenchyma is otherwise within normal limits of signal intensity and morphology. Ventricles: Normal caliber and morphology. Skull Base: Hypothalamic and pituitary region are grossly normal. Craniocervical junction is normal. No marrow replacement process. Vasculature: Major intracranial arterial structures and dural venous sinuses show typical flow void, suggesting patency by spin echo criteria. Sinuses: There is minimal to mild chronic mucosal thickening involving the frontal, ethmoid, and maxillary sinuses. Minimal fluid within mastoid air cells. Orbits: Status post bilateral cataract surgery. Orbits are otherwise grossly unremarkable. Soft Tissues: The visualized extracranial soft tissues are grossly normal. 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 COMPARISON: None. PROCEDURE COMMENTS: Multiplanar multiecho MR imaging of the brain perprotocol before and following IV contrast administration. Gadolinium contrast givenas recorded in Epic. FINDINGS: Acute Ischemic Change: No evidence of restricted diffusion to suggest anacute infarct. Hemorrhage: No evidence of prior parenchymal hemorrhage on the gradientecho images. Mass Effect / Mass Lesion: No mass effect. No evidence of an intracranialmass or extra-axial fluid collection. Parenchyma: There is no abnormal parenchymal or leptomeningeal enhancementon postcontrast imaging. The brain parenchyma is otherwise within normallimits of signal intensity and morphology. Ventricles: Normal caliber and morphology. Skull Base: Hypothalamic and pituitary region are grossly normal.Craniocervical junction is normal. No marrow replacement process. Vasculature: Major intracranial arterial structures and dural venoussinuses show typical flow void, suggesting patency by spin echo criteria. Sinuses: There is minimal to mild chronic mucosal thickening involvingthe frontal, ethmoid, and maxillary sinuses. Minimal fluid within mastoid aircells. Orbits: Status post bilateral cataract surgery. Orbits are otherwisegrossly unremarkable. Soft Tissues: The visualized extracranial soft tissues are grosslynormal. IMPRESSION: 1. No acute or enhancing intracranial abnormality. 2. No evidence of intracranial metastatic disease. 3. 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 - Note: Radiology results need to be interpreted within a comprehensiveclinical context. If you have questions about the radiology report, please contactthe office of the ordering clinician. us Neema Atkins DO IMG MRI ORDERABLES Final Resul t * SCANNED LABS (09/12/2023 2:54 PM EST) Only the most recent of11 resultswithin the time period is included. 09/12/2023 2:54 PM EST us Unknown Provider HEMATOLOGY ORDERABLES Final Res ult * COLONOSCOPY (08/19/2023 10:46 AM EDT) Anatomical Region Laterality Modality Endoscopy Addenda Addendum by Khoa Vela MD on 08/19/2023 10:47 AM EDT Table formatting from the original result was not included. Findings Multiple medium, scattered diverticula of moderate severity with no inflammation in the descending colon and sigmoid colon; no bleeding was identified Redundant colon Internal small hemorrhoids observed during retroflexion; no bleeding was identified Recommendation Recommend a high fiber diet. Repeat screening colonoscopy in 10 years Follow up with PCP Indication Screening for colon cancer Staff Staff Role Khoa Vela MD Performing Provider Oly Farrar RN Endoscopy Nurse Ida Grey RN Endoscopy Nurse Vanessa Nicole RN Inclusion Special Educator CARA Schmitz CRNA, MD Anesthesiologist Medications See Anesthesia Record. Preprocedure A history and physical has been performed, and patient medication allergies have been reviewed. The patient's tolerance of previous anesthesia has been reviewed. The risks and benefits of the procedure and the sedation options and risks were discussed with the patient. All questions were answered and informed consent obtained. ASA 3 - Patient with severe systemic disease Details of the Procedure The patient underwent monitored anesthesia care, which was administered by an anesthesia professional. The patient's blood pressure, heart rate, level of consciousness, oxygen, respirations, ECG and ETCO2 were monitored throughout the procedure. A digital rectal exam was performed. The scope was introduced through the anus and advanced to the cecum. Retroflexion was performed in the rectum. Bowel prep was adequate. The patient experienced no blood loss. The procedure was not difficult. The patient tolerated the procedure well. There were no apparent adverse events. Patient provided education and educated on specific discharge instructions. Patient educated on medications given during the procedure and new medications for discharge. Patient verbalizes understanding of discharge education. Patient stable and awaiting transport for discharge. Events Procedure Events Event Event Time ENDO SCOPE IN TIME 08/19/2023 10:23 AM ENDO CECUM REACHED 08/19/2023 10:30 AM ENDO SCOPE OUT TIME 08/19/2023 10:43 AM Specimens No specimens collected Anesthesia Event Time In Patient In - Proc. Room 10:17 AM us Khoa Vela MD ENDOSCOPY PROCEDURE ORDERAB LES Edited Result - Final * INTRAOP AIRWAY PLACEMENT (08/19/2023 10:21 AM EDT) Narrative [facility] - 08/19/2023 10:21 AM EDT Ludivina Haro CRNA 08/19/2023 10:23 AM Intraop Airway Placement: Date/Time: 08/19/2023 10:21 AM Airway type: Nasal cannula salter us Christina Sneed MD MD ANESTHESIA Final Result [facility] [address] [place] [address] * (ABNORMAL) GLUCOSE METER POC (08/19/2023 10:01 AM EDT) Only the most recent of3 resultswithin the time period is included. [facility] Glucose Meter POC 180(H) 70 - 100 mg/dL 08/19/2023 10:03 AM EDT [facility] Sample Type Capillary 08/19/2023 10:03 AM EDT [facility] Patient Status Non-Critical Patient 08/19/2023 10:03 AM EDT [facility] Blood BLOOD SPECIMEN / Unknown 08/19/2023 10:01 AM EDT 08/19/2023 10:03 AM EDT Khoa Vela MD POINT OF CARE TEST ORDERABL ES Final Result Performing Organization Address City/[facility]/ZIP Co de Phone Number [facility] [address] [place] [address] * (ABNORMAL) HEMOGLOBIN A1C (02/19/2023 11:53 AM EDT) Only the most recent of16 resultswithin the time period is included. Pathologist [facility] Hgb A1C 7.2(H) 4.2 - 5.6 % 02/19/2023 5:17 PM EDT [facility] Est. Avg Glucose 160 mg/dL 02/19/2023 5:17 PM EDT [facility] Blood VENOUS BLOOD / Unknown Venipuncture / Unknown 02/19/2023 11:53 AM EDT 02/19/2023 11:53 AM EDT Narrative [facility] - 02/19/2023 5:17 PM EDT REFERENCE RANGE: Normal: 4.0-5.6% Pre-diabetes: 5.7-6.4% Provisional diagnosis of diabetes: >6.4% Hgb F>10% and anything which shortens red cell survival, such as hemolytic anemia, or unstable hemoglobin variants such as HbSS, HbSC, or HbCC, will lower the HbA1c value associated with a given level of glycemic control. us Neema Atkins DO CHEMISTRY ORDERABLES Final Res ult Performing Organization Address City/[facility]/ZIP Co de Phone Number [facility] [address] [place] [address] , [place] [address] * DIABETIC RETINAL EXAM (10/23/2022 8:41 AM EST) [facility] VISUAL ACUITY SCREEN OS 20/20 10/23/2022 8:41 AM EST [facility] OCULAR BLOOD FLOW MEASURE OS 18 10/23/2022 8:41 AM EST [facility] DIABETIC RETINOPATHY NEGATIVE 10/23/2022 8:41 AM EST [facility] CATARACTS NEGATIVE 10/23/2022 8:41 AM EST [facility] GLAUCOMA NEGATIVE 10/23/2022 8:41 AM EST [facility] 10/23/2022 8:41 AM EST us Unknown Provider OPHTHALMOLOGY SERVICES ORDERABL ES Final Result Performing Organization Address City/[facility]/ZIP Co de Phone Number [facility] * DIABETIC RETINAL EXAM (10/23/2022 8:41 AM EST) [facility] VISUAL ACUITY SCREEN OD 20/20 10/23/2022 8:41 AM EST [facility] OCULAR BLOOD FLOW MEASURE OD 14 10/23/2022 8:41 AM EST [facility] 10/23/2022 8:41 AM EST us Unknown Provider OPHTHALMOLOGY SERVICES ORDERABL ES Final Result Performing Organization Address [facility] Co de Phone Number [facility] * XR ABDOMEN AP (06/20/2022 2:15 PM EDT) Anatomical Region Laterality Modality Abdomen Radiographic Meli ging 06/20/2022 2:15 PM EDT Impressions 06/20/2022 3:25 PM EDT No acute finding. - Note: Radiology results need to be interpreted within a comprehensive clinical context. If you have questions about the radiology report, please contact the office of the ordering clinician. 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 FINDINGS: Nonspecific, nonobstructive bowel gas pattern. No pathologic calcification. Skeleton grossly intact. Surgical clips in the bilateral inguinal regions, cholecystectomy clips.. 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 FINDINGS: Nonspecific, nonobstructive bowel gas pattern. No pathologiccalcification. Skeleton grossly intact. Surgical clips in the bilateral inguinalregions, cholecystectomy clips.. IMPRESSION: No acute finding. - Note: Radiology results need to be interpreted within a comprehensiveclinical context. If you have questions about the radiology report, please contactthe office of the ordering clinician. us Alin Prather MD IMG DIAGNOSTIC IMAGING ORDERAB LES Final Result * (ABNORMAL) PROSTATE SPECIFIC ANTIGEN (SCREENING) (06/20/2022 2:05 PM EDT) Only the most recent of8 resultswithin the time period is included. Total Psa 16.60(H) <=4.00 ng/mL 06/20/2022 8:14 PM EDT [facility] Blood VENOUS BLOOD / Unknown Venipuncture / Unknown 06/20/2022 2:05 PM EDT 06/20/2022 2:05 PM EDT Narrative [facility] [employer] - 06/20/2022 8:14 PM EDT Prostate cancer screening with the PSA test is controversial and varying recommendation exists among several Urologic, Governmental, and Oncologic organizations. The decision to test the prostate for cancer should be based on a discussion between the patient and the physician. Given that the PSA value varies with age, prostate size, prostate activity, and between blood tests, consideration should be given to prostatic hypertrophy, prostate inflammation, perineal activity (including bicycle riding and digital rectal exam), and prior PSA levels. Lastly, higher risk prostate cancers can occur in certain ethnic groups and low PSA states, consideration of history and physical findings should guide screening decision making. Ingestion of eduardo doses of biotin (>5 mg/day) taken within 8 hours of drawing blood sample can interfere with this immunoassay test. us Alin Prather MD CHEMISTRY ORDERABLES Final Res ult Performing Organization Address [facility] Co de Phone Number [facility] [address] [place] [address] , [place] [address] * (ABNORMAL) TESTOSTERONE LEVEL TOTAL (06/20/2022 2:05 PM EDT) Only the most recent of3 resultswithin the time period is included. Testosterone Lvl <3(L) 300 - 720 ng/dL 06/20/2022 8:22 PM EDT [facility] Blood VENOUS BLOOD / Unknown Venipuncture / Unknown 06/20/2022 2:05 PM EDT 06/20/2022 2:05 PM EDT Narrative [facility] - 06/20/2022 8:22 PM EDT Values less than 12 ng/dL are not reliable as the intermediate precision coefficient of variation is > 20%. Ingestion of eduardo doses of biotin (>5 mg/day) taken within 8 hours of drawing blood sample can interfere with this immunoassay test. Alin Prather MD CHEMISTRY ORDERABLES Final Res ult Performing Organization Address [facility] de Phone Number [facility] [address] [place] [address] , [place] [address] * XR HIPS BILATERAL AP LATERAL W AP PELVIS (02/12/2022 11:38 AM EDT) Anatomical Region Laterality Modality Hip Radiographic Meli ging 02/12/2022 11:3 8 AM EDT Impressions 02/12/2022 12:01 PM EDT 1. No acute osseous abnormality. Narrative 02/12/2022 12:01 PM EDT XR HIPS BILATERAL AP LATERAL W AP PELVIS CLINICAL HISTORY: M25.559-Pain in unspecified [id number] COMPARISON: None No significant osseous abnormality. No acute fracture or dislocation. No destructive lesions. Soft tissue and fat planes preserved. Procedure Note Melvin Leo MD - 02/12/2022 XR HIPS BILATERAL AP LATERAL W AP PELVIS CLINICAL HISTORY: M25.559-Pain in unspecified [id number] COMPARISON: None No significant osseous abnormality. No acute fracture or dislocation. No destructive lesions. Soft tissue and fat planes preserved. IMPRESSION: 1. No acute osseous abnormality. us Neema Atkins DO IMG DIAGNOSTIC IMAGING ORDERAB LES Final Result * LYME AB TOTAL LATE (02/12/2022 10:55 AM EDT) [facility] B burgdorferi Abs, Total Negative Negative, Equivocal 02/14/2022 11:49 AM EDT [facility] Blood VENOUS BLOOD / Unknown Venipuncture / Unknown 02/12/2022 10:55 AM EDT 02/12/2022 10:55 AM EDT us Neema Atkins DO IMMUNOLOGY ORDERABLES Final Re sult Performing Organization Address [facility] de Phone Number [facility] [address] [place] [address] , [place] [address] * THYROID STIMULATING HORMONE (08/14/2021 10:39 AM EDT) Only the most recent of12 resultswithin the time period is included. [facility] TSH 1.860 0.270 - 4.200 mcIU/mL 08/14/2021 5:31 PM EDT [facility] Blood Venipuncture / Unknown 08/14/2021 10:39 AM EDT 08/14/2021 10:40 AM EDT Narrative [facility] - 08/14/2021 5:31 PM EDT Ingestion of eduardo doses of biotin (>5 mg/day) taken within 8 hours of drawing blood sample can interfere with this immunoassay test. us Neema Atkins DO CHEMISTRY ORDERABLES Final Res ult Performing Organization Address [facility] Co de Phone Number [facility] [address] [place] [address] , [place] [address] * DIABETIC RETINAL EXAM (08/01/2021 4:40 PM EDT) [facility] VISUAL ACUITY SCREEN OD 20/20 08/01/2021 4:40 PM EDT [facility] VISUAL ACUITY SCREEN OS 20/20 08/01/2021 4:40 PM EDT [facility] OCULAR BLOOD FLOW MEASURE OD 19 08/01/2021 4:40 PM EDT [facility] OCULAR BLOOD FLOW MEASURE OS 19 08/01/2021 4:40 PM EDT [facility] DIABETIC RETINOPATHY NEGATIVE 08/01/2021 4:40 PM EDT [facility] CATARACTS NEGATIVE 08/01/2021 4:40 PM EDT [facility] GLAUCOMA NEGATIVE 08/01/2021 4:40 PM EDT [facility] 08/01/2021 4:40 PM EDT us Unknown Provider OPHTHALMOLOGY SERVICES ORDERABL ES Final Result Performing Organization Address City/[facility] de Phone Number [facility] * (ABNORMAL) VITAMIN D 25 HYDROXY (10/10/2020 9:25 AM EST) Only the most recent of2 resultswithin the time period is included. Vit D 25 OH 29.2(L) 30.0 - 120.0 ng/mL 10/10/2020 5:22 PM EST [facility] Comment: INTERPRETIVE INFORMATION: Vitamin D, 25-Hydroxy <20 ng/mL Deficiency 20 - 29 ng/mL Insufficiency 30 - 80 ng/mL Optimum Level >120 ng/mL Possible Toxicity NOTE: For infants and children up to 17 years of age, the optimum level is >=20 ng/mL. This assay accurately quantifies the sum of vitamin D3, 25-Hydroxy and vitamin D2, 25-Hydroxy. Blood VENOUS BLOOD / Unknown Venipuncture / Unknown 10/10/2020 9:25 AM EST 10/10/2020 9:25 AM EST us Neema Atkins DO CHEMISTRY ORDERABLES Final Res ult [facility] [address] [facility] , [place] [address] * DIABETES EYE EXAM (07/13/2020) Only the most recent of2 resultswithin the time period is included. Left Diabetic Retinopathy Not Present Present/Not Present SEP OFFICE Right Diabetic Retinopathy Not Present Present/Not Present SEP OFFICE Historical Provider HEALTH MAINTENANCE Final Res ult Performing Organization Address City/[facility]/ZIP Co de Phone Number SEP OFFICE * DERMATOPATHOLOGY TISSUE SEND OUT RESULT (07/11/2020 2:05 PM EDT) DERM PATHOLOGY REPORT MICRO EXAM: There is an ulcerated, polypoid proliferation of blood vessels with fibrosis. 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 L posterior trapeziusBiopsy Date: 07/11/2020Impression: Favor pyogenic granulomaGross Description: A specimen of skin was received [id number] Juan Jensen MD PATHOLOGY ORDERABLES Final Re sult Performing Organization Address [facility] Co de Phone Number DERMATOLOGY * SARS-COV-2 IGG (07/04/2020 9:13 AM EDT) SARS-CoV-2 IgG (Nucleocapsid) Negative 07/04/2020 4:21 PM EDT [facility] Blood VENOUS BLOOD / Unknown Venipuncture / Unknown 07/04/2020 9:13 AM EDT 07/04/2020 9:13 AM EDT Narrative [facility] - 07/04/2020 4:21 PM EDT The SARS-CoV-2 IgG assay is a chemiluminescent microparticle immunoassay (CMIA) intended for the qualitative detection of IgG antibodies to SARS-CoV-2 in human serum or plasma. It may only be used under the Food and Drug Administration's Emergency Use Authorization. The assay is not intended for acute diagnostic purposes. Negative results do not preclude acute SARS-CoV-2 infection. False positive results may occur due to cross-reactivity from pre-existing antibodies or other possible causes. It is unknown for how long antibodies persist following infection and if the presence of IgG confers protective immunity. [facility] Provider Fact Sheet: https://www.fda.gov/media/230023/download [facility] Patient Fact Sheet: https://www.fda.gov/media/025398/download us Neema Atkins DO IMMUNOLOGY ORDERABLES Final Re sult [facility], [address], [place] [address] * PATHOLOGY TISSUE REQUEST (04/09/2020 1:08 PM EDT) Only the most recent of2 resultswithin the time period is included. CASE REPORT Surgical Pathology Case: [id number] Authorizing Provider: Neema Atkins DO Collected: 04/09/2020 1308 Ordering Location: [facility] Received: 04/09/2020 1308 Pathologist: Angella Montiel MD Specimen: Back 04/12/2020 12:25 PM EDT [facility] FINAL DIAGNOSIS Skin, back, biopsy: - Pyogenic granuloma. 04/12/2020 12:25 PM EDT [facility] at 1225 EDT GROSS DESCRIPTION Received in formalin labeled with the patient's name and back is a 0.4 x 0.4 x 0.3 cm brown-red polypoid tissue. The margin is inked blue, bisected, and entirely submitted in cassette A1. /ZN 04/12/2020 12:25 PM EDT [facility] MICROSCOPIC DESCRIPTION Microscopic examination is performed and the findings corroborate the diagnosis. 04/12/2020 12:25 PM EDT [facility] EMBEDDED IMAGES 04/12/2020 12:25 PM EDT [facility] Tissue STRUCTURE OF BACK OF TRUNK / Unknown 04/09/2020 1:08 PM EDT 04/09/2020 1:08 PM EDT us Neema Atkins DO PATHOLOGY ORDERABLES Final Res ult [place] [phone] * IRON/UIBC (01/11/2020 9:27 AM EDT) Iron 100 50 - 170 mcg/dL 01/11/2020 4:21 PM EDT [facility] [employer] UIBC 200 112 - 347 mcg/dL 01/11/2020 4:21 PM EDT [facility] [employer] Transferrin Sat 33 20 - 50 % 0 4:21 PM EDT [facility] [employer] Blood VENOUS BLOOD / Unknown Venipuncture / Unknown 01/11/2020 9:27 AM EDT 01/11/2020 9:27 AM EDT us Neema Atkins DO CHEMISTRY ORDERABLES Final Res ult Performing Organization Address [facility]/ZIP Co de Phone Number [facility] [address] [facility], [place] [address] * (ABNORMAL) LIPID PANEL REFLEX (01/11/2020 9:27 AM EDT) Only the most recent of8 resultswithin the time period is included. Cholesterol 129 <200 mg/dL 01/11/2020 4:10 PM EDT [facility] [employer] Comment: < 200 Desirable 200 - 239 Borderline High >= 240 High Triglyceride 114 <150 mg/dL 01/11/2020 4:10 PM EDT [facility] [employer] Comment: < 150 Normal 150 - 199 Borderline High 200 - 499 High >= 500 Very High HDL 35(L) >=40 mg/dL 01/11/2020 4:10 PM EDT [facility] [employer] Comment: > 60 Optimal 40 - 60 Acceptable < 40 Low LDL Calculated 71 <100 mg/dL 01/11/2020 4:10 PM EDT [facility] [employer] Non-HDL-C Calculated 94 <=129 mg/dL 01/11/2020 4:10 PM EDT [facility] [employer] Comment: <130 Desirable 130-159 Above Desirable 160-189 Borderline High 190-219 High >= 220 Very High Fasting Specimen? Yes None 020 4:10 PM EDT [facility] Blood Venipuncture / Unknown 01/11/2020 9:27 AM EDT 01/11/2020 9:27 AM EDT us Neema Atkins DO CHEMISTRY ORDERABLES Final Res ult [facility] [address] [facility] , [place] [address] * CBC (01/11/2020 9:27 AM EDT) Only the most recent of4 resultswithin the time period is included. WBC 7.0 3.7 - 10.3 x10(3)/mcL 01/11/2020 3:48 PM EDT [facility] RBC 5.11 4.60 - 6.10 x10(6)/mcL 01/11/2020 3:48 PM EDT [facility] Hgb 15.9 13.7 - 17.5 g/dL 01/11/2020 3:48 PM EDT [facility] Hct 46.6 40.0 - 51.0 % 01/11/2020 3:48 PM EDT [facility] MCV 91.2 80.0 - 100.0 fL 01/11/2020 3:48 PM EDT [facility] MCH 31.1 26.0 - 34.0 pg 01/11/2020 3:48 PM EDT [facility] MCHC 34.1 30.7 - 35.5 g/dL 01/11/2020 3:48 PM EDT [facility] RDW 12.7 <=14.9 % 01/11/2020 3:48 PM EDT [facility] Platelet 261 155 - 369 x10(3)/mcL 01/11/2020 3:48 PM EDT [facility] MPV 10.4 8.8 - 12.5 fL 01/11/2020 3:48 PM EDT [facility] Blood Venipuncture / Unknown 01/11/2020 9:27 AM EDT 01/11/2020 9:27 AM EDT Neema Atkins DO HEMATOLOGY ORDERABLES Final Re sult Performing Organization Address [facility] Co de Phone Number [facility] [address] [facility] , [place] [address] * FERRITIN (01/11/2020 9:27 AM EDT) Only the most recent of2 resultswithin the time period is included. Ferritin 159 30 - 400 ng/mL 01/11/2020 4:16 PM EDT [facility] Blood VENOUS BLOOD / Unknown Venipuncture / Unknown 01/11/2020 9:27 AM EDT 01/11/2020 9:27 AM EDT Narrative [facility] [employer] - 01/11/2020 4:16 PM EDT Ingestion of eduardo doses of biotin (>5 mg/day) taken within 8 hours of drawing blood sample can interfere with this immunoassay test. Neema Atkins DO CHEMISTRY ORDERABLES Final Res ult Performing Organization Address [facility] de Phone Number [facility] [address] [facility] , [place] [address] * GMED EGD (12/02/2019 1:30 PM EST) 12/02/2019 1:30 PM EST Impressions [facility] - 12/02/2019 2:11 PM EST [...] is an excerpt of the full report. Khoa Vela MD GI PROCEDURE ORDERABLES Fin al Result Performing Organization Address City/[facility] Co de Phone Number [facility] [address] [place] [address] * DIABETIC RETINAL EXAM (12/22/2018 11:56 AM EST) VISUAL ACUITY SCREEN OD 20/20 12/22/2018 11:56 AM EST [facility] VISUAL ACUITY SCREEN OS 20/20 12/22/2018 11:56 AM EST [facility] OCULAR BLOOD FLOW MEASURE OD 14 12/22/2018 11:56 AM EST [facility] OCULAR BLOOD FLOW MEASURE OS 16 12/22/2018 11:56 AM EST [facility] DIABETIC RETINOPATHY NEGATIVE 12/22/2018 11:56 AM EST [facility] CATARACTS NEGATIVE 12/22/2018 11:56 AM EST [facility] GLAUCOMA NEGATIVE 12/22/2018 11:56 AM EST [facility] 12/22/2018 11:5 6 AM EST us Unknown Provider OPHTHALMOLOGY SERVICES ORDERABL ES Final Result Performing Organization Address City/[facility]/ZIP Co de Phone Number [facility] * DIABETIC RETINOPATHY EXAM (12/19/2017 11:36 AM EST) VISUAL ACUITY SCREEN OD 20/20 12/19/2017 11:36 AM EST [facility] VISUAL ACUITY SCREEN OS 20/20 12/19/2017 11:36 AM EST [facility] OCULAR BLOOD FLOW MEASURE OD 16 12/19/2017 11:36 AM EST [facility] OCULAR BLOOD FLOW MEASURE OS 14 12/19/2017 11:36 AM EST [facility] DIABETIC RETINOPATHY NEGATIVE 12/19/2017 11:36 AM EST [facility] CATARACTS NEGATIVE 12/19/2017 11:36 AM EST [facility] GLAUCOMA NEGATIVE 12/19/2017 11:36 AM EST [facility] 12/19/2017 11:3 6 AM EST us Unknown Provider OPHTHALMOLOGY SERVICES ORDERABL ES Final Result [facility] * CREATINE KINASE (12/01/2017 10:34 AM EST) Only the most recent of7 resultswithin the time period is included. CK 77 39 - 308 IU/L 12/01/2017 9:46 PM EST [facility] Blood VENOUS BLOOD / Unknown Venipuncture / Unknown 12/01/2017 10:34 AM EST 12/01/2017 10:34 AM EST us Johnny Michelle MD CHEMISTRY ORDERABLES Final Res ult [facility] [address] [place] [address] * CT ABDOMEN PELVIS W CONTRAST (08/25/2017 3:49 PM EDT) Anatomical Region Laterality Modality Abdomen, Chest, Pelvis, Hip Comp uted Tomography 08/25/2017 3:49 PM EDT Impressions 08/25/2017 4:02 PM EDT Diverticulosis of the descending colon and extensive diverticulosis of the caudal descending colon and sigmoid colon without diverticulitis. Scarring involving the midportion of the left kidney. Otherwise unremarkable abdominal and pelvic CT in this patient status post cholecystectomy and appendectomy. Nas Freire Code Jot Stat Narrative 08/25/2017 4:[address] ABDOMEN PELVIS W CONTRAST 08/25/2017 History: Clinical: 61 years. Male . R10.32-Left lower quadrant gbvw-LCO-26-CM R19.4-Change in bowel lrutv-KPZ-06-CM. . Prior bilateral inguinal hernia repairs. Prior appendectomy and cholecystectomy. Prior partial small bowel resection for obstruction. History of diverticulitis. 100 mL of Isovue 370 administered intravenously. Oral contrast also administered. Automated dose reduction utilized. Comparison: None. Findings: Abdominal findings: Lung bases are unremarkable. There is mild scarring involving the posterior and lateral midportion left kidney. Kidneys and collecting systems are otherwise unremarkable. Remaining solid organs are normal. Gallbladder is absent. There is no biliary ductal dilatation. There is diverticulosis of the descending colon without evidence of diverticulitis. Bowel is otherwise unremarkable within the abdomen. There are no abdominal fluid collections and there is no intra-abdominal or retroperitoneal adenopathy.. Pelvic findings: There is extensive diverticulosis of the caudal descending and the sigmoid colon without diverticulitis. Prostate and bladder are unremarkable. There is no pelvic or inguinal adenopathy. Bone windows demonstrate mild degenerative changes lower lumbar spine. Procedure Note Nas Freire MD - 08/25/2017 CT ABDOMEN PELVIS W CONTRAST 08/25/2017 History: Clinical: 61 years. Male . R10.32-Left lower rpkowluhdyop-MJN-14-CM R19.4-Change in bowel wvudn-LEN-68-CM. . Prior bilateral inguinal hernia repairs. Prior appendectomy and cholecystectomy. Prior partial smallbowel resection for obstruction. History of diverticulitis. 100 mL of Isovue 370 administered intravenously. Oral contrast also administered. Automated dose reduction utilized. Comparison: None. Findings: Abdominal findings: Lung bases are unremarkable. There is mild scarring involving the posterior and lateral midportionleft kidney. Kidneys and collecting systems are otherwise unremarkable. Remaining solid organs are normal. Gallbladder is absent. There is nobiliary ductal dilatation. There is diverticulosis of the descending colon without evidence of diverticulitis. Bowel is otherwise unremarkable within the abdomen. There are no abdominal fluid collections and there is no intra-abdominalor retroperitoneal adenopathy.. Pelvic findings: There is extensive diverticulosis of the caudal descending and the sigmoidcolon without diverticulitis. Prostate and bladder are unremarkable. There is no pelvic or inguinal adenopathy. Bone windows demonstrate mild degenerative changes lower lumbar spine. IMPRESSION: Diverticulosis of the descending colon and extensive diverticulosis ofthe caudal descending colon and sigmoid colon without diverticulitis.Scarring involving the midportion of the left kidney. Otherwise unremarkableabdominal and pelvic CT in this patient status post cholecystectomy andappendectomy. Nas Freire Code Jot Stat Johnny Michelle MD [facility] CT ORDERABLES Final Result * CREATININE ISTAT (08/25/2017 3:47 PM EDT) Creatinine-iST AT 0.7 0.6 - 1.3 mg/dL 08/25/2017 3:51 PM EDT [facility] Blood BLOOD SPECIMEN / Unknown 08/25/2017 3:47 PM EDT 08/25/2017 3:51 PM EDT Johnny Michelle MD POINT OF CARE TEST ORDERABLES Final Result [facility] [address] [place] [address] * BODY FLUID CULTURE (08/11/2017 10:44 AM EDT) Culture No Growth at 5 days. 08/16/2017 9:18 AM EDT [facility] Stain Rare WBCs 08/16/2017 9:18 AM EDT [facility] Stain No organisms seen 08/16/2017 9:18 AM EDT [facility] Bursal Fluid LEFT ELBOW REGION STRUCTURE / Unknown 08/11/2017 10:44 AM EDT 08/11/2017 10:44 AM EDT us Estefania Guzman APRN MICROBIOLOGY - GENERAL ORDER MATHEW Final Result Performing Organization Address [facility] [place] [address] * PROCEDURE DOCUMENTATION - ASPIRATION (08/11/2017 9:40 AM EDT) Narrative SEP OFFICE - 08/11/2017 9:40 AM EDT Estefania Guzman APRN 08/11/2017 10:26 AM Joint Aspiration Date/Time: 08/11/2017 10:24 AM Performed by: ESTEFANIA GUZMAN Authorized by: ESTEFANIA GUZMAN Indications: joint swelling Body area: elbow Joint: left elbow Local anesthesia used: yes Anesthesia: local infiltration Anesthesia: Local anesthesia used: yes Local Anesthetic: lidocaine 1% with epinephrine Anesthetic total: 2 mL Sedation: Patient sedated: no Preparation: Patient was prepped and draped in the usual sterile fashion. Needle size: 18 G Ultrasound guidance: no Approach: medial Aspirate: blood-tinged and serous Aspirate amount: 3 mL Patient tolerance: Patient tolerated the procedure well with no immediate complications us Estefania Guzman APRN PROCEDURE/MINOR SURGICAL ORD ERABLES Final Result Performing Organization Address [facility] Co de Phone Number SEP OFFICE * XR FOOT RIGHT AP LATERAL AND OBLIQUE (08/06/2017 11:21 AM EDT) Anatomical Region Laterality Modality Foot Radiographic Meli ging 08/06/2017 11:2 1 AM EDT Impressions 08/06/2017 4:34 PM EDT No significant osseous, joint or soft tissue abnormality is seen. Narrative 08/06/2017 4:34 PM EDT XR FOOT RIGHT AP LATERAL AND OBLIQUE 08/06/2017 11:21 AM HISTORY: M79.671-Pain in right tmkb-RLB-83-CM M79.672-Pain in left xydc-LTN-92-CM Procedure Note Aaron Nelson MD - 08/06/2017 XR FOOT RIGHT AP LATERAL AND OBLIQUE 08/06/2017 11:21 AM HISTORY: M79.671-Pain in right jdkn-XPF-99-CM M79.672-Pain in left guqi-BNK-25-CM IMPRESSION: No significant osseous, joint or soft tissue abnormality is seen. Johnny Michelle MD [facility] DIAGNOSTIC IMAGING ORDERAB LES Final Result * XR FOOT LEFT AP LATERAL AND OBLIQUE (08/06/2017 11:21 AM EDT) Anatomical Region Laterality Modality Foot Radiographic Meli ging 08/06/2017 11:2 1 AM EDT Impressions 08/06/2017 4:01 PM EDT 1. No acute osseous abnormality. Narrative 08/06/2017 4:01 PM EDT XR FOOT LEFT AP LATERAL AND OBLIQUE CLINICAL HISTORY: M79.671-Pain in right nnlq-HXF-83-CM M79.672-Pain in left kypr-TIX-67-CM COMPARISON: None No significant osseous abnormality. No acute fracture or dislocation. No destructive lesions. Soft tissue and fat planes preserved. Procedure Note Melvin Leo MD - 08/06/2017 XR FOOT LEFT AP LATERAL AND OBLIQUE CLINICAL HISTORY: M79.671-Pain in right vpah-HTL-37-CM M79.672-Pain in left guod-NXX-55-CM COMPARISON: None No significant osseous abnormality. No acute fracture or dislocation. No destructive lesions. Soft tissue and fat planes preserved. IMPRESSION: 1. No acute osseous abnormality. us Johnny Michelle MD [facility] DIAGNOSTIC IMAGING ORDERAB LES Final Result * XR HIP LEFT AP LATERAL W AP PELVIS (08/06/2017 11:21 AM EDT) Anatomical Region Laterality Modality Hip Radiographic Meli ging 08/06/2017 11:2 1 AM EDT Impressions 08/06/2017 12:53 PM EDT No significant osseous, joint or soft tissue abnormality is seen. Narrative 08/06/2017 12:53 PM EDT XR HIP LEFT AP LATERAL W AP PELVIS 08/06/2017 11:21 AM HISTORY: M25.552-Pain in left zpn-QMT-46-CM Procedure Note Aaron Nelson MD - 08/06/2017 XR HIP LEFT AP LATERAL W AP PELVIS 08/06/2017 11:21 AM HISTORY: M25.552-Pain in left gjx-DJX-15-CM IMPRESSION: No significant osseous, joint or soft tissue abnormality is seen. us Johnny Michelle MD [facility] DIAGNOSTIC IMAGING ORDERAB LES Final Result * XR LUMBAR SPINE AP LATERAL AND OBLIQUES (08/06/2017 11:21 AM EDT) Anatomical Region Laterality Modality L-spine Radiographic Meli ging 08/06/2017 11:2 1 AM EDT Impressions 08/06/2017 12:42 PM EDT Mild bilateral facet joint degenerative changes L5-S1. Moderate L5-S1 degenerative disc disease. Narrative 08/06/2017 12:42 PM EDT XR LUMBAR SPINE AP LATERAL AND OBLIQUES Clinical: M25.552-Pain in left wnd-LEN-98-CM Procedure Note Melvin Leo MD - 08/06/2017 XR LUMBAR SPINE AP LATERAL AND OBLIQUES Clinical: M25.552-Pain in left syj-SLQ-13-CM IMPRESSION: Mild bilateral facet joint degenerative changes L5-S1. Moderate L5-S1 degenerative disc disease. us Johnny Michelle MD [facility] DIAGNOSTIC IMAGING ORDERAB LES Final Result * XR CERVICAL SPINE AP LATERAL ODONTOID AND OBLIQUE (08/06/2017 11:21 AM EDT) Anatomical Region Laterality Modality C-spine Radiographic Meli ging 08/06/2017 11:2 1 AM EDT Impressions 08/06/2017 12:50 PM EDT Mild degenerative disc disease C6-C7. Moderate foraminal stenosis on the right at C3-C4 and C4-C5. Moderate to severe foraminal stenosis on the left at C4-C5. Narrative 08/06/2017 12:50 PM EDT XR CERVICAL SPINE AP LATERAL ODONTOID AND OBLIQUE Clinical: M54.0-Yoqmrxsbodg-RBR-10-CM G89.29-Other chronic vjtl-ZDA-68-CM Procedure Note Melvin Leo MD - 08/06/2017 XR CERVICAL SPINE AP LATERAL ODONTOID AND OBLIQUE Clinical: M54.2-Kibclcenvym-NQM-10-CM G89.29-Other chronic gelk-YIL-62-CM IMPRESSION: Mild degenerative disc disease C6-C7. Moderate foraminal stenosis on the right at C3-C4 and C4-C5. Moderate tosevere foraminal stenosis on the left at C4-C5. Johnny Michelle MD [facility] DIAGNOSTIC IMAGING ORDERAB LES Final Result * HEPATITIS C ANTIBODY - SCREENING (07/22/2017 11:17 AM EDT) Pathologist [facility] Hep C Ab Negative Negative [facility] Blood specimen (specimen) 07/22/2017 11:17 AM EDT 07/22/2017 4:09 PM EDT Johnny Michelle MD HEMATOLOGY ORDERABLES Final Re sult [facility] [address] [place] [address] * LDL, CALCULATED (07/22/2017 11:17 AM EDT) Only the most recent of7 resultswithin the time period is included. LDL Calculated 78 <=100 mg/dL [facility] Comment: < 100 Optimal 100 - 129 Near or above optimal 130 - 159 Borderline High 160 - 189 High >= 190 Very High Blood specimen (specimen) 07/22/2017 11:17 AM EDT 07/22/2017 4:09 PM EDT Johnny Michelle MD CHEMISTRY ORDERABLES Final Res ult Performing Organization Address [facility] [place] [address] * HEPATIC FUNCTION PANEL (07/22/2017 11:17 AM EDT) [facility] Total Protein 7.8 6.4 - 8.3 gm/dL [facility] Albumin 4.5 3.2 - 4.6 gm/dL [facility] Bili Direct <0.2 0.0 - 0.3 mg/dL [facility] Bili Total 0.4 0.1 - 1.4 mg/dL [facility] AST 20 <=40 IU/L [facility] ALT 24 <=41 IU/L [facility] Alk Phos 74 40 - 129 IU/L [facility] Blood specimen (specimen) 07/22/2017 11:17 AM EDT 07/22/2017 4:09 PM EDT us Johnny Michelle MD CHEMISTRY ORDERABLES Final Res ult Performing Organization Address [facility] [place] [address] * (ABNORMAL) BASIC METABOLIC PANEL (07/22/2017 11:17 AM EDT) Only the most recent of2 resultswithin the time period is included. [facility] Sodium 136 136 - 145 mmol/L [facility] Potassium 4.3 3.5 - 5.0 mmol/L [facility] Chloride 98 98 - 107 mmol/L [facility] Total CO2 25 22 - 29 mmol/L [facility] Anion Gap 13 7 - 16 mmol/L [facility] Calcium 9.8 8.8 - 10.2 mg/dL [facility] Glucose Lvl 237(H) 82 - 100 mg/dL [facility] BUN 16 8 - 23 mg/dL [facility] Creatinine 0.79 0.67 - 1.30 mg/dL [facility] GFR Afr Am >60 [facility] GFR Non Afr Am >60 [facility] Blood specimen (specimen) 07/22/2017 11:17 AM EDT 07/22/2017 4:09 PM EDT us Johnny Michelle MD CHEMISTRY ORDERABLES Edited Re sult - Final [facility] [address] [place] [address] * DIABETIC RETINOPATHY EXAM (11/25/2016 8:15 AM EST) VISUAL ACUITY SCREEN OD 20/20 11/25/2016 8:15 AM EST [facility] VISUAL ACUITY SCREEN OS 20/20 11/25/2016 8:15 AM EST [facility] OCULAR BLOOD FLOW MEASURE OD 18 11/25/2016 8:15 AM EST [facility] OCULAR BLOOD FLOW MEASURE OS 18 11/25/2016 8:15 AM EST [facility] DIABETIC RETINOPATHY NEGATIVE 11/25/2016 8:15 AM EST [facility] CATARACTS NEGATIVE 11/25/2016 8:15 AM EST [facility] GLAUCOMA NEGATIVE 11/25/2016 8:15 AM EST [facility] 11/25/2016 8:15 AM EST us Unknown Provider OPHTHALMOLOGY SERVICES ORDERABL ES Final Result [facility] * DIFFERENTIAL (11/18/2016 10:51 AM EST) Only the most recent of7 resultswithin the time period is included. Neut Percent 60.3 % [facility] Lymph Percent 22.2 % [facility] [place] Percent 9.7 % [facility] Eos Percent 7.2 % [facility] Baso Percent 0.6 % [facility] Neut# 3.6 1.8 - 7.7 x10(3)/mcL [facility] Lymph# 1.3 0.6 - 4.8 x10(3)/mcL [facility] [place]# 0.6 0.0 - 1.3 x10(3)/mcL [facility] Eos# 0.4 0.0 - 0.5 x10(3)/mcL [facility] Baso# 0.0 0.0 - 0.2 x10(3)/[facility] Blood specimen (specimen) 11/18/2016 10:51 AM EST 11/18/2016 5:18 PM EST us Johnny Michelle MD HEMATOLOGY ORDERABLES Final Re sult [facility] [address] [place] [address] * SCANNED RHYTHM STRIPS (09/22/2015 10:47 PM EST) Anatomical Region Laterality Modality Other 09/22/2015 10:4 7 PM EST us Unknown Unknown IMG ECG ORDERABLES Final Result * SCANNED EKG (09/22/2015 10:47 PM EST) Anatomical Region Laterality Modality Other 09/22/2015 10:4 7 PM EST us Unknown Unknown IMG ECG ORDERABLES Final Result * EK EKG 12 LEAD (2015 2:39 PM EST) Anatomical Region Laterality Modality Other 2015 2:39 PM EST Impressions 2015 5:38 PM EST [facility] Interpretive Statements SINUS RHYTHM Normal Electronically Signed On 2015 17:38:54 EST by Nirmal Kay MD Narrative Procedure Note Nirmal Kay MD - 2015 IMPRESSION Stationary [facility] Interpretive Statements SINUS RHYTHM Normal Electronically Signed On 2015 17:38:54 EST by Nirmal Kay MD us Jo Ann Gordon APRN IMG ECG ORDERABLES Final Res ult * GMED COLONOSCOPY (07/30/2015 9:00 AM EDT) 07/30/2015 9:00 AM EDT Impressions [facility] - 07/30/2015 9:26 AM EDT Moderate diverticulosis of the distal descending colon and sigmoid colon. Plan: Screening Colonoscopy in 10 years. This section is an excerpt of the full report. Ryne Craven MD GI PROCEDURE ORDERABLES Fin al Result Performing Organization Address [facility] Co de Phone Number [facility] [address] [place] [address] * POCT HEMOCCULT 1-3 CARDS (05/01/2015 1:46 PM EDT) Fec Heme negative Pos/Neg SEP OFFICE Comment:negative x 3 Lot Number SEP OFFICE Expiration Date SEP OFFICE SeriAl # SEP OFFICE Stool specimen (specimen) 05/01/2015 1:46 PM EDT Johnny Michelle MD POINT OF CARE TEST ORDERABLES Final Result Performing Organization Address [facility] de Phone Number SEP OFFICE * OVA AND PARASITE BASIC (05/01/2015 1:25 PM EDT) Final Negative: Giardia lamblia antigen not detected. Negative: Cryptosporidi um antigen not detected. Internal QC ok The O and P vial will be saved for 1 week. If extended O and P is desired, please call Micro at . [facility] Stool specimen (specimen) 05/01/2015 1:25 PM EDT 05/01/2015 7:03 PM EDT Johnny Michelle MD MICROBIOLOGY - GENERAL ORDERAB LES Final Result Performing Organization Address [facility] Co de Phone Number [facility] [address] [place] [address] * (ABNORMAL) PSA, TOTAL AND FREE (09/05/2014 11:19 AM EST) PSA Total 2.61 <=4.00 ng/mL [facility] Comment: Test Methodology: ECLIA PSA (Electrochemiluminescence Immunoassay) For PSA values from 2.5-4.0, particularly in younger men <60 years old, the AUA and NCCN suggest testing for % Free PSA (3515) and evaluation of the rate of increase in PSA (PSA velocity). PSA, Free 0.44 ng/mL [facility] PSA, %Free 17(L) >25 % [facility] Comment: Probability of Prostate Cancer (For Men with Non-Suspicious CARRIE Results and PSA Between 4 and 10 ng/mL, By Patient Age) % free PSA Patient Age 50 to 59 Years 60 to 69 Years >70 Years <=10% 49.2% 57.5% 64.5% 11 - 18% 26.9% 33.9% 40.8% 19 - 25% 18.3% 23.9% 29.7% >25% 9.1% 12.2% 15.8% Performed at: [facility] [place] [id number] [facility], [address] [place] [address] Blood specimen (specimen) UPPER LIMB STRUCTURE / Unknown 09/05/2014 11:19 AM EST 09/05/2014 7:19 PM EST Johnny Michelle MD CHEMISTRY ORDERABLES Final Res ult Performing Organization Address City/[facility]/ZIP Co de Phone Number [facility] [address] [place] [address] * HEMOGLOBIN AND HEMATOCRIT (05/17/2014 11:00 AM EDT) Hgb 16.1 13.5 - 17.1 gm/dL [facility] Hct 46.1 38.9 - 51.6 % [facility] Blood specimen (specimen) UPPER LIMB STRUCTURE / Unknown 05/17/2014 11:00 AM EDT 05/17/2014 5:30 PM EDT Johnny Michelle MD HEMATOLOGY ORDERABLES Final Re sult Performing Organization Address City/[facility]/ZIP Co de Phone Number [facility] [address] [place] [address] * POCT OCCULT BLOOD STOOL (04/10/2014 1:12 PM EDT) Fec Heme negative Pos/Neg SEP OFFICE 04/10/2014 1:12 PM EDT us Johnny Michelle MD POINT OF CARE TEST ORDERABLES Final Result Performing Organization Address [facility]/ZIP Co de Phone Number SEP OFFICE * ALANINE AMINOTRANSFERASE (04/10/2014 10:14 AM EDT) ALT 29 <=41 IU/L [facility] Blood specimen (specimen) UPPER LIMB STRUCTURE / Unknown 04/10/2014 10:14 AM EDT 04/10/2014 3:09 PM EDT us Johnny Michelle MD CHEMISTRY ORDERABLES Final Res ult Performing Organization Address [facility] Co de Phone Number [facility] [address] [place] [address] * ASPARTATE AMINOTRANSFERASE (04/10/2014 10:14 AM EDT) AST 25 <=40 IU/L [facility] Blood specimen (specimen) UPPER LIMB STRUCTURE / Unknown 04/10/2014 10:14 AM EDT 04/10/2014 3:09 PM EDT us Johnny Michelle MD CHEMISTRY ORDERABLES Final Res ult Performing Organization Address [facility] Co de Phone Number [facility] [address] [place] [address] * IRON LEVEL (04/10/2014 10:14 AM EDT) Iron 131 50 - 170 mcg/dL [facility] Blood specimen (specimen) UPPER LIMB STRUCTURE / Unknown 04/10/2014 10:14 AM EDT 04/10/2014 3:09 PM EDT us Johnny Michelle MD CHEMISTRY ORDERABLES Final Res ult Performing Organization Address [facility]/ZIP Co de Phone Number [facility] [address] [place] [address] * MICROALBUMIN, URINE-ARUP (07/19/2012 8:38 AM EDT) Total Volume Random mL [facility] Hrs Case Random hr [facility] U Creatinine 120 mg/dL [facility] U24 Creat Not Applicable 800 - 2100 mg/day SE LAB Microalbumin mg/dL-ARUP 0.9 mg/dL [facility] Microalbumin/Cre atinine Ratio-ARUP 8 0 - 30 mg/gm [facility] Microalbumin ug/minute-ARUP Not Applicable 0 - 20 mcg/min [facility] Microalbumin mg/day-ARUP Not Applicable 2 - 30 mg/day [facility] Urine specimen (specimen) 07/19/2012 8:38 AM EDT 07/19/2012 4:06 PM EDT us Johnny Michelle MD URINE ORDERABLES Final Result Performing Organization Address City/State/[facility] Co de Phone Number [facility] [address] [place] [address] * XR CHEST PA AND LATERAL (11/29/2010 12:59 PM EST) Anatomical Region Laterality Modality Chest Radiographic Meli ging 11/29/2010 Impressions 11/29/2010 1:14 PM EST IMPRESSION: No acute thoracic disease. No calcified pleural plaques are seen, no pulmonary fibrosis. Narrative 11/29/2010 1:14 PM EST PA lateral chest, 11/21/2010 COMPARISON: None HISTORY: Cough, history of asbestos exposure Procedure Note Reagan Schuster - 11/29/2010 PA lateral chest, 11/21/2010 COMPARISON: None HISTORY: Cough, history of asbestos exposure IMPRESSION: No acute thoracic disease. No calcified pleural plaques areseen, no pulmonary fibrosis. us Tram Villar MD IMG DIAGNOSTIC IMAGING OR DERABLES Final Result * SCANNED OR REPORT STL (02/26/2010 12:00 AM EDT) Narrative 02/26/2010 1:19 PM EDT Ordered by an unspecified provider. Transcriptions Unknown, Unknown - 02/26/2010 9:19 AM EDT us Unknown Unknown PROCEDURE/MINOR SURGICAL ORDERAB LES Final Result Visit Diagnoses Diagnosis Start Date DM (diabetes mellitus) (HCC) Type II or unspecified type diabetes mellitus without mention of complication, not stated as uncontrolled 08/23/2010 HTN (hypertension) Unspecified essential hypertension 08/23/2010 Elevated cholesterol Pure hypercholesterolemia 08/23/2010 RAD (reactive airway disease) Unspecified asthma 08/23/2010 ED (erectile dysfunction) Impotence of organic origin 11/26/2010 Rash Rash and other nonspecific skin eruption 11/26/2010 DM (diabetes mellitus), type 2 (HCC) Type II or unspecified type diabetes mellitus without mention of complication, not stated as uncontrolled 11/26/2010 Hyperlipidemia LDL goal < 100 Other and unspecified hyperlipidemia 11/26/2010 Well adult exam Routine general medical examination at a [facility] care facility 11/26/2010 Rash Rash and other nonspecific skin eruption 11/26/2010 RAD (reactive airway disease) Unspecified asthma 11/26/2010 HTN (hypertension) Unspecified essential hypertension 11/26/2010 DM (diabetes mellitus), type 2 (HCC) Type II or unspecified type diabetes mellitus without mention of complication, not stated as uncontrolled 11/29/2010 Asbestos exposure Personal history of contact with and (suspected) exposure to asbestos 11/29/2010 DM (diabetes mellitus), type 2 (HCC) Type II or unspecified type diabetes mellitus without mention of complication, not stated as uncontrolled 12/30/2010 DM (diabetes mellitus), type 2 (HCC) Type II or unspecified type diabetes mellitus without mention of complication, not stated as uncontrolled 01/01/2011 Asbestos exposure Personal history of contact with and (suspected) exposure to asbestos 01/21/2011 DM (diabetes mellitus), type 2 (HCC) Type II or unspecified type diabetes mellitus without mention of complication, not stated as uncontrolled 06/24/2011 DM (diabetes mellitus), type 2 (HCC) Type II or unspecified type diabetes mellitus without mention of complication, not stated as uncontrolled 09/22/2011 HTN (hypertension) Unspecified essential hypertension 11/18/2011 HTN (hypertension) Unspecified essential hypertension 11/18/2011 DM (diabetes mellitus), type 2 (HCC) Type II or unspecified type diabetes mellitus without mention of complication, not stated as uncontrolled 01/05/2012 Hyperlipidemia LDL goal < 100 Other and unspecified hyperlipidemia 01/05/2012 DM (diabetes mellitus), type 2 (HCC) Type II or unspecified type diabetes mellitus without mention of complication, not stated as uncontrolled 07/07/2012 RAD (reactive airway disease) Unspecified asthma 07/07/2012 DM (diabetes mellitus), type 2 (HCC) Type II or unspecified type diabetes mellitus without mention of complication, not stated as uncontrolled 07/07/2012 DM (diabetes mellitus), type 2 (HCC) Type II or unspecified type diabetes mellitus without mention of complication, not stated as uncontrolled 07/14/2012 Hyperlipidemia LDL goal < 100 Other and unspecified hyperlipidemia 07/14/2012 HTN (hypertension) Unspecified essential hypertension 07/14/2012 Screening for prostate cancer Special screening for malignant neoplasm of prostate 07/14/2012 DM (diabetes mellitus), type 2 (HCC) Type II or unspecified type diabetes mellitus without mention of complication, not stated as uncontrolled 07/19/2012 HTN (hypertension) Unspecified essential hypertension 07/19/2012 Hyperlipidemia LDL goal < 100 Other and unspecified hyperlipidemia 07/19/2012 Screening for prostate cancer Special screening for malignant neoplasm of prostate 07/19/2012 DM (diabetes mellitus), type 2 (HCC) Type II or unspecified type diabetes mellitus without mention of complication, not stated as uncontrolled 07/19/2012 DM (diabetes mellitus), type 2 (HCC) Type II or unspecified type diabetes mellitus without mention of complication, not stated as uncontrolled 07/28/2012 HTN (hypertension) Unspecified essential hypertension 07/28/2012 Hyperlipidemia LDL goal < 100 Other and unspecified hyperlipidemia 07/28/2012 Eczema Contact dermatitis and other eczema, due to unspecified cause 07/28/2012 ED (erectile dysfunction) Impotence of organic origin 07/28/2012 DM (diabetes mellitus), type 2 (HCC) Type II or unspecified type diabetes mellitus without mention of complication, not stated as uncontrolled 11/01/2012 HTN (hypertension) Unspecified essential hypertension 06/22/2013 DM (diabetes mellitus), type 2 (HCC) Type II or unspecified type diabetes mellitus without mention of complication, not stated as uncontrolled 06/22/2013 Hyperlipidemia LDL goal < 100 Other and unspecified hyperlipidemia 06/22/2013 DM (diabetes mellitus), type 2 (HCC) Type II or unspecified type diabetes mellitus without mention of complication, not stated as uncontrolled 06/22/2013 HTN (hypertension) Unspecified essential hypertension 06/22/2013 Hyperlipidemia LDL goal < 100 Other and unspecified hyperlipidemia 06/22/2013 Wart Viral warts, unspecified 06/22/2013 Skin lesion Unspecified disorder of skin and subcutaneous tissue 06/22/2013 RAD (reactive airway disease) Unspecified asthma 06/28/2013 DM (diabetes mellitus), type 2 (HCC) Type II or unspecified type diabetes mellitus without mention of complication, not stated as uncontrolled 06/28/2013 DM (diabetes mellitus), type 2 (HCC) Type II or unspecified type diabetes mellitus without mention of complication, not stated as uncontrolled 08/23/2013 DM (diabetes mellitus), type 2 (HCC) Type II or unspecified type diabetes mellitus without mention of complication, not stated as uncontrolled 11/30/2013 Hyperlipidemia LDL goal < 100 Other and unspecified hyperlipidemia 11/30/2013 Screening for prostate cancer Special screening for malignant neoplasm of prostate 11/30/2013 ED (erectile dysfunction) Impotence of organic origin 11/30/2013 DM (diabetes mellitus), type 2 (HCC) Type II or unspecified type diabetes mellitus without mention of complication, not stated as uncontrolled 11/30/2013 Hyperlipidemia LDL goal < 100 Other and unspecified hyperlipidemia 11/30/2013 HTN (hypertension) Unspecified essential hypertension 11/30/2013 ED (erectile dysfunction) Impotence of organic origin 11/30/2013 Screening for prostate cancer Special screening for malignant neoplasm of prostate 11/30/2013 DM (diabetes mellitus), type 2 (HCC) Type II or unspecified type diabetes mellitus without mention of complication, not stated as uncontrolled 12/01/2013 Hyperlipidemia LDL goal < 100 Other and unspecified hyperlipidemia 04/10/2014 FH: hemochromatosis Family history of other endocrine and metabolic diseases 04/10/2014 DM (diabetes mellitus), type 2 (HCC) Type II or unspecified type diabetes mellitus without mention of complication, not stated as uncontrolled 04/10/2014 DM (diabetes mellitus), type 2 (HCC) Type II or unspecified type diabetes mellitus without mention of complication, not stated as uncontrolled 04/10/2014 FH: hemochromatosis Family history of other endocrine and metabolic diseases 04/10/2014 Low testosterone Other testicular hypofunction 04/10/2014 Hyperlipidemia LDL goal < 100 Other and unspecified hyperlipidemia 04/10/2014 HTN (hypertension) Unspecified essential hypertension 04/10/2014 Constipation Unspecified constipation 04/10/2014 DM (diabetes mellitus), type 2 (HCC) Type II or unspecified type diabetes mellitus without mention of complication, not stated as uncontrolled 04/19/2014 Low testosterone Other testicular hypofunction 05/10/2014 Low testosterone Other testicular hypofunction 05/17/2014 Low testosterone Other testicular hypofunction 05/17/2014 Eczema Contact dermatitis and other eczema, due to unspecified cause 06/05/2014 Pre-op exam Preoperative examination, unspecified 06/15/2014 Elevated PSA Elevated prostate specific antigen (PSA) 08/20/2014 DM (diabetes mellitus), type 2 (HCC) Type II or unspecified type diabetes mellitus without mention of complication, not stated as uncontrolled 08/28/2014 Elevated PSA Elevated prostate specific antigen (PSA) 08/28/2014 Hyperlipidemia LDL goal < 100 Other and unspecified hyperlipidemia 08/28/2014 HTN (hypertension) Unspecified essential hypertension 08/28/2014 HTN (hypertension) Unspecified essential hypertension 09/05/2014 DM (diabetes mellitus), type 2 (HCC) Type II or unspecified type diabetes mellitus without mention of complication, not stated as uncontrolled 09/05/2014 Hyperlipidemia LDL goal < 100 Other and unspecified hyperlipidemia 09/05/2014 Low testosterone Other testicular hypofunction 09/05/2014 Low testosterone Other testicular hypofunction 09/05/2014 DM (diabetes mellitus), type 2 (HCC) Type II or unspecified type diabetes mellitus without mention of complication, not stated as uncontrolled 09/05/2014 Elevated PSA Elevated prostate specific antigen (PSA) 09/07/2014 DM (diabetes mellitus), type 2 (HCC) Type II or unspecified type diabetes mellitus without mention of complication, not stated as uncontrolled 09/20/2014 DM (diabetes mellitus), type 2 (HCC) Type II or unspecified type diabetes mellitus without mention of complication, not stated as uncontrolled 10/12/2014 DM (diabetes mellitus), type 2 (HCC) Type II or unspecified type diabetes mellitus without mention of complication, not stated as uncontrolled 12/21/2014 DM (diabetes mellitus), type 2 (HCC) Type II or unspecified type diabetes mellitus without mention of complication, not stated as uncontrolled 12/21/2014 Mite infestation Acariasis, unspecified 01/09/2015 DM (diabetes mellitus), type 2 (HCC) Type II or unspecified type diabetes mellitus without mention of complication, not stated as uncontrolled 01/11/2015 HTN (hypertension) Unspecified essential hypertension 01/11/2015 Hyperlipidemia LDL goal < 100 Other and unspecified hyperlipidemia 01/11/2015 HTN (hypertension) Unspecified essential hypertension 01/15/2015 DM (diabetes mellitus), type 2 (HCC) Type II or unspecified type diabetes mellitus without mention of complication, not stated as uncontrolled 01/15/2015 Hyperlipidemia LDL goal < 100 Other and unspecified hyperlipidemia 01/15/2015 DM (diabetes mellitus), type 2 (HCC) Type II or unspecified type diabetes mellitus without mention of complication, not stated as uncontrolled 01/15/2015 Hyperlipidemia LDL goal < 100 Other and unspecified hyperlipidemia 01/15/2015 HTN (hypertension) Unspecified essential hypertension 01/15/2015 Type II or unspecified type diabetes mellitus without mention of complication, not stated as uncontrolled 01/25/2015 HTN (hypertension) Unspecified essential hypertension 01/25/2015 Hyperlipidemia LDL goal < 100 Other and unspecified hyperlipidemia 01/25/2015 DM (diabetes mellitus), type 2 (HCC) Type II or unspecified type diabetes mellitus without mention of complication, not stated as uncontrolled 01/25/2015 Type II or unspecified type diabetes mellitus without mention of complication, not stated as uncontrolled 02/19/2015 DM (diabetes mellitus), type 2 (HCC) Type II or unspecified type diabetes mellitus without mention of complication, not stated as uncontrolled 02/19/2015 Type II or unspecified type diabetes mellitus without mention of complication, not stated as uncontrolled 03/12/2015 Blood in stool 04/20/2015 Blood in stool 04/23/2015 Blood in stool 05/01/2015 Occult blood in stools Nonspecific abnormal finding in stool contents 05/01/2015 Hyperlipidemia LDL goal < 100 Other and unspecified hyperlipidemia 05/21/2015 Type 2 diabetes mellitus without complication (HCC) 05/21/2015 Hyperlipidemia LDL goal < 100 Other and unspecified hyperlipidemia 05/22/2015 Type 2 diabetes mellitus without complication (HCC) 05/22/2015 Type 2 diabetes mellitus without complication (HCC) 05/22/2015 Essential hypertension Unspecified essential hypertension 05/22/2015 Hyperlipidemia LDL goal < 100 Other and unspecified hyperlipidemia 05/22/2015 Type 2 diabetes mellitus without complication (HCC) 06/07/2015 Hyperlipidemia LDL goal < 100 Other and unspecified hyperlipidemia 06/07/2015 Essential hypertension Unspecified essential hypertension 06/07/2015 Screen for colon cancer Special screening for malignant neoplasms, colon 06/18/2015 Screening for prostate cancer Special screening for malignant neoplasm of prostate 06/18/2015 Screening for prostate cancer Special screening for malignant neoplasm of prostate 07/17/2015 Essential hypertension Unspecified essential hypertension 07/17/2015 Unilateral inguinal hernia without obstruction or gangrene, recurrence not specified 08/07/2015 Unilateral recurrent inguinal hernia without obstruction or gangrene Inguinal hernia without mention of obstruction or gangrene, recurrent unilateral or unspecified 08/07/2015 Essential hypertension Unspecified essential hypertension 2015 Type 2 diabetes mellitus without complication (HCC) 09/20/2015 Hyperlipidemia LDL goal < 100 Other and unspecified hyperlipidemia 09/20/2015 Essential hypertension Unspecified essential hypertension 09/20/2015 Unilateral inguinal hernia without obstruction or gangrene, recurrence not specified 09/20/2015 Unilateral recurrent inguinal hernia without obstruction or gangrene Inguinal hernia without mention of obstruction or gangrene, recurrent unilateral or unspecified 09/20/2015 Postop check Follow-up examination, following unspecified surgery 10/02/2015 Type 2 diabetes mellitus without complication (HCC) 10/09/2015 Hyperlipidemia LDL goal < 100 Other and unspecified hyperlipidemia 10/09/2015 Essential hypertension Unspecified essential hypertension 10/09/2015 Type 2 diabetes mellitus without complication (HCC) 10/09/2015 Essential hypertension Unspecified essential hypertension 10/09/2015 Hyperlipidemia LDL goal < 100 Other and unspecified hyperlipidemia 10/09/2015 RAD (reactive airway disease), mild intermittent, uncomplicated 12/03/2015 Type 2 diabetes mellitus without complication (HCC) 12/03/2015 Type 2 diabetes mellitus without complication (HCC) 12/06/2015 Hyperlipidemia LDL goal < 100 Other and unspecified hyperlipidemia 12/06/2015 Essential hypertension Unspecified essential hypertension 12/06/2015 RAD (reactive airway disease), mild persistent, uncomplicated 12/06/2015 Cough 12/24/2015 RAD (reactive airway disease), mild persistent, uncomplicated 03/26/2016 Type 2 diabetes mellitus without complication (HCC) 04/11/2016 RAD (reactive airway disease), mild persistent, uncomplicated 04/11/2016 RAD (reactive airway disease), mild persistent, uncomplicated 04/17/2016 Type 2 diabetes mellitus without complication (HCC) 04/17/2016 Type 2 diabetes mellitus without complication (HCC) 05/12/2016 Hyperlipidemia LDL goal < 100 Other and unspecified hyperlipidemia 05/12/2016 Essential hypertension Unspecified essential hypertension 05/12/2016 RAD (reactive airway disease), mild persistent, uncomplicated 05/12/2016 Type 2 diabetes mellitus without complication (HCC) 05/12/2016 Essential hypertension Unspecified essential hypertension 05/13/2016 Type 2 diabetes mellitus without complication (HCC) 05/13/2016 Hyperlipidemia LDL goal < 100 Other and unspecified hyperlipidemia 05/13/2016 Essential hypertension Unspecified essential hypertension 05/13/2016 Hyperlipidemia LDL goal < 100 Other and unspecified hyperlipidemia 05/13/2016 Type 2 diabetes mellitus without complication (HCC) 05/13/2016 Screening for thyroid disorder 05/13/2016 Type 2 diabetes mellitus without complication (HCC) 06/02/2016 Hyperlipidemia LDL goal < 100 Other and unspecified hyperlipidemia 06/02/2016 Essential hypertension Unspecified essential hypertension 06/02/2016 Type 2 diabetes mellitus without complication (HCC) 10/31/2016 Routine adult health maintenance Routine general medical examination at a health care facility 11/17/2016 Type 2 diabetes mellitus without complication, unspecified halfway insulin use status 11/18/2016 Routine adult health maintenance Routine general medical examination at a health care facility 11/18/2016 Type 2 diabetes mellitus without complication, unspecified halfway insulin use status 11/18/2016 Type 2 diabetes mellitus without complication, with long-term current use of insulin (HCC) 11/24/2016 Hyperlipidemia LDL goal < 100 Other and unspecified hyperlipidemia 11/24/2016 Essential hypertension Unspecified essential hypertension 11/24/2016 RAD (reactive airway disease), moderate persistent, uncomplicated 02/23/2017 RAD (reactive airway disease), mild persistent, uncomplicated 02/23/2017 RAD (reactive airway disease), mild persistent, uncomplicated 04/20/2017 RAD (reactive airway disease), mild persistent, uncomplicated 05/21/2017 Type 2 diabetes mellitus without complication, with long-term current use of insulin (HCC) 05/21/2017 Type 2 diabetes mellitus without complication, with long-term current use of insulin (HCC) 06/23/2017 Essential hypertension Unspecified essential hypertension 06/23/2017 Hyperlipidemia associated with type 2 diabetes mellitus (HCC) 06/23/2017 Vitamin D deficiency Unspecified vitamin D deficiency 06/23/2017 Screening for thyroid disorder 06/23/2017 Screening for prostate cancer Special screening for malignant neoplasm of prostate 06/23/2017 Need for hepatitis C screening test Special screening examination for other specified viral diseases 06/23/2017 Hand, foot and mouth disease Hand, foot, and mouth disease 06/30/2017 RAD (reactive airway disease), mild persistent, uncomplicated 07/10/2017 Type 2 diabetes mellitus without complication, with long-term current use of insulin (HCC) 07/10/2017 Hyperlipidemia associated with type 2 diabetes mellitus (HCC) 07/22/2017 Screening for prostate cancer Special screening for malignant neoplasm of prostate 07/22/2017 Screening for thyroid disorder 07/22/2017 Vitamin D deficiency Unspecified vitamin D deficiency 07/22/2017 Essential hypertension Unspecified essential hypertension 07/22/2017 Need for hepatitis C screening test Special screening examination for other specified viral diseases 07/22/2017 Type 2 diabetes mellitus without complication, with long-term current use of insulin (HCC) 07/22/2017 Hyperlipidemia, unspecified hyperlipidemia type 07/22/2017 Type 2 diabetes mellitus without complication, with long-term current use of insulin (HCC) 08/04/2017 Hyperlipidemia associated with type 2 diabetes mellitus (HCC) 08/04/2017 Hypertension associated with diabetes (HCC) Type II or unspecified type diabetes mellitus with other specified manifestations, not stated as uncontrolled 08/04/2017 Left hip pain Pain in joint, pelvic region and thigh 08/04/2017 Pain of both heels 08/04/2017 Chronic midline posterior neck pain Cervicalgia 08/04/2017 Olecranon bursitis of left elbow Olecranon bursitis 08/04/2017 Left hip pain Pain in joint, pelvic region and thigh 08/06/2017 Chronic midline posterior neck pain Cervicalgia 08/06/2017 Pain of both heels 08/06/2017 Left hip pain Pain in joint, pelvic region and thigh 08/07/2017 Olecranon bursitis of left elbow Olecranon bursitis 08/11/2017 Essential hypertension Unspecified essential hypertension 08/11/2017 Left hip pain Pain in joint, pelvic region and thigh 08/21/2017 Abdominal pain, LLQ (left lower quadrant) Abdominal pain, left lower quadrant 08/25/2017 Change in bowel function Other symptoms involving digestive system 08/25/2017 Abdominal pain, LLQ (left lower quadrant) Abdominal pain, left lower quadrant 08/25/2017 Change in bowel function Other symptoms involving digestive system 08/25/2017 Irritable bowel syndrome with constipation Irritable bowel syndrome 08/31/2017 Acute low back pain, unspecified back pain laterality, with sciatica presence unspecified 09/03/2017 Arthralgia of hip, unspecified laterality 09/03/2017 Acute left-sided low back pain with left-sided sciatica 09/09/2017 Acute left-sided low back pain with left-sided sciatica 09/14/2017 Acute left-sided low back pain with left-sided sciatica 09/16/2017 Acute left-sided low back pain with left-sided sciatica 09/21/2017 Acute left-sided low back pain with left-sided sciatica 09/23/2017 Acute left-sided low back pain with left-sided sciatica 09/28/2017 RAD (reactive airway disease), mild persistent, uncomplicated 10/05/2017 Essential hypertension Unspecified essential hypertension 10/05/2017 RAD (reactive airway disease), mild persistent, uncomplicated 11/06/2017 Hyperlipidemia associated with type 2 diabetes mellitus (HCC) 11/23/2017 Type 2 diabetes mellitus without complication, with long-term current use of insulin ([facility]) 12/01/2017 Hyperlipidemia associated with type 2 diabetes mellitus (HCC) 12/01/2017 Screening for metabolic disorder 12/01/2017 Screening for thyroid disorder 12/01/2017 Vitamin D deficiency Unspecified vitamin D deficiency 12/01/2017 Screening for deficiency anemia Screening for other and unspecified deficiency anemia 12/01/2017 Screening for lipid disorders 12/01/2017 Type 2 diabetes mellitus with diabetic nephropathy, unspecified intermediate project manager insulin use status 12/01/2017 Type 2 diabetes mellitus without complication, with long-term current use of insulin ([facility]) 12/01/2017 Hyperlipidemia associated with type 2 diabetes mellitus (HCC) 12/01/2017 Screening PSA (prostate specific antigen) Special screening for malignant neoplasm of prostate 12/01/2017 Type 2 diabetes mellitus with diabetic nephropathy, with long-term current use of insulin ([facility]) 12/08/2017 Hypertension associated with diabetes ([facility]) Type II or unspecified type diabetes mellitus with other specified manifestations, not stated as uncontrolled 12/08/2017 Hyperlipidemia associated with type 2 diabetes mellitus (HCC) 12/08/2017 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 of organic origin 12/08/2017 Essential hypertension Unspecified essential hypertension 12/17/2017 Type 2 diabetes mellitus with diabetic nephropathy, with long-term current use of insulin ([facility]) 12/17/2017 Type 2 diabetes mellitus with diabetic nephropathy, with long-term current use of insulin ([facility]) 12/18/2017 Essential hypertension Unspecified essential hypertension 02/04/2018 Essential hypertension Unspecified essential hypertension 03/24/2018 Abdominal pain, LLQ (left lower quadrant) Abdominal pain, left lower quadrant 03/25/2018 Chronic left-sided low back pain with left-sided sciatica 03/25/2018 Hypertension associated with diabetes (HCC) Type II or unspecified type diabetes mellitus with other specified manifestations, not stated as uncontrolled 06/18/2018 Hyperlipidemia associated with type 2 diabetes mellitus (HCC) 06/18/2018 Type 2 diabetes mellitus with diabetic nephropathy, with long-term current use of insulin (HCC) 07/19/2018 Hyperlipidemia associated with type 2 diabetes mellitus (HCC) 07/19/2018 Screening for prostate cancer Special screening for malignant neoplasm of prostate 07/19/2018 Hypertension associated with diabetes (HCC) Type II or unspecified type diabetes mellitus with other specified manifestations, not stated as uncontrolled 07/19/2018 Essential hypertension Unspecified essential hypertension 07/19/2018 Type 2 diabetes mellitus with diabetic nephropathy, with long-term current use of insulin (HCC) 07/19/2018 Hypertension associated with diabetes (HCC) Type II or unspecified type diabetes mellitus with other specified manifestations, not stated as uncontrolled 07/21/2018 Type 2 diabetes mellitus with diabetic nephropathy, with long-term current use of insulin (HCC) 07/21/2018 Hyperlipidemia associated with type 2 diabetes mellitus (HCC) 07/21/2018 Type 2 diabetes mellitus with diabetic nephropathy, with long-term current use of insulin (HCC) 08/04/2018 Hyperlipidemia associated with type 2 diabetes mellitus (HCC) 08/04/2018 Hypertension associated with diabetes (HCC) Type II or unspecified type diabetes mellitus with other specified manifestations, not stated as uncontrolled 08/04/2018 Dysphagia, unspecified type 08/04/2018 Essential hypertension Unspecified essential hypertension 10/05/2018 Type 2 diabetes mellitus with diabetic nephropathy, with long-term current use of insulin (HCC) 11/24/2018 Hypertension associated with diabetes (HCC) Type II or unspecified type diabetes mellitus with other specified manifestations, not stated as uncontrolled 11/24/2018 Hyperlipidemia associated with type 2 diabetes mellitus (HCC) 11/24/2018 Type 2 diabetes mellitus with diabetic nephropathy, with long-term current use of insulin (HCC) 03/08/2019 Hyperlipidemia associated with type 2 diabetes mellitus (HCC) 03/08/2019 Screening for prostate cancer Special screening for malignant neoplasm of prostate 03/08/2019 Type 2 diabetes mellitus with diabetic nephropathy, with long-term current use of insulin (HCC) 03/14/2019 Hyperlipidemia associated with type 2 diabetes mellitus (HCC) 03/14/2019 Screening for prostate cancer Special screening for malignant neoplasm of prostate 03/14/2019 Routine general medical examination at a health care facility 03/17/2019 Type 2 diabetes mellitus with diabetic nephropathy, with long-term current use of insulin (HCC) 03/17/2019 Hypertension associated with diabetes (HCC) Type II or unspecified type diabetes mellitus with other specified manifestations, not stated as uncontrolled 03/17/2019 Hyperlipidemia associated with type 2 diabetes mellitus (HCC) 03/17/2019 Eczema Contact dermatitis and other eczema, due to unspecified cause 06/01/2019 Type 2 diabetes mellitus with diabetic nephropathy, with long-term current use of insulin (HCC) 06/23/2019 Hyperlipidemia associated with type 2 diabetes mellitus (HCC) 06/23/2019 RAD (reactive airway disease), mild persistent, uncomplicated 07/05/2019 Type 2 diabetes mellitus with diabetic nephropathy, with long-term current use of insulin ([facility]) 08/24/2019 Hypertension associated with diabetes ([facility]) Type II or unspecified type diabetes mellitus with other specified manifestations, not stated as uncontrolled 09/12/2019 Type 2 diabetes mellitus with diabetic nephropathy, with long-term current use of insulin (HCC) 09/12/2019 Hyperlipidemia associated with type 2 diabetes mellitus (HCC) 09/12/2019 Hypertension associated with diabetes ([facility]) Type II or unspecified type diabetes mellitus with other specified manifestations, not stated as uncontrolled 2019 Chronic fatigue Other malaise and fatigue 2019 Hypertension associated with diabetes (HCC) Type II or unspecified type diabetes mellitus with other specified manifestations, not stated as uncontrolled 2019 Type 2 diabetes mellitus with diabetic nephropathy, with long-term current use of insulin (HCC) 2019 Hyperlipidemia associated with type 2 diabetes mellitus (HCC) 2019 Chronic fatigue Other malaise and fatigue 09/15/2019 Hypertension associated with diabetes (HCC) Type II or unspecified type diabetes mellitus with other specified manifestations, not stated as uncontrolled 09/15/2019 Esophageal dysfunction Dyskinesia of esophagus 09/21/2019 Type 2 diabetes mellitus with diabetic nephropathy, with long-term current use of insulin (HCC) 09/21/2019 Esophageal dysphagia Dysphagia, pharyngoesophageal phase 11/29/2019 Epigastric abdominal pain Abdominal pain, epigastric 11/29/2019 Dysphagia, unspecified 12/02/2019 Gastroesophageal reflux disease with esophagitis 12/02/2019 Hypertension associated with diabetes ([facility]) Type II or unspecified type diabetes mellitus with other specified manifestations, not stated as uncontrolled 12/06/2019 Hyperlipidemia associated with type 2 diabetes mellitus ([facility]) 12/06/2019 Type 2 diabetes mellitus with diabetic nephropathy, with long-term current use of insulin ([facility]) 12/28/2019 Type 2 diabetes mellitus with diabetic nephropathy, with long-term current use of insulin ([facility]) 01/02/2020 Iron deficiency anemia, unspecified iron deficiency anemia type 01/02/2020 Iron deficiency anemia, unspecified iron deficiency anemia type 01/11/2020 Type 2 diabetes mellitus with diabetic nephropathy, with long-term current use of insulin ([facility]) 01/11/2020 Type 2 diabetes mellitus with diabetic nephropathy, with long-term current use of insulin ([facility]) 01/18/2020 Tinea pedis of both feet 01/18/2020 Type 2 diabetes mellitus with diabetic nephropathy, with long-term current use of insulin ([facility]) 02/10/2020 Hyperlipidemia associated with type 2 diabetes mellitus ([facility]) 02/10/2020 Hypertension associated with diabetes ([facility]) Type II or unspecified type diabetes mellitus with other specified manifestations, not stated as uncontrolled 02/10/2020 Type 2 diabetes mellitus with diabetic nephropathy, with long-term current use of insulin ([facility]) 02/14/2020 Gastroesophageal reflux disease with esophagitis 02/15/2020 Skin lesion Unspecified disorder of skin and subcutaneous tissue 04/09/2020 Pain, unspecified 04/09/2020 Localized swelling, mass and lump, trunk 04/09/2020 Benign lipomatous neoplasm of skin and subcutaneous tissue of left arm Lipoma of other skin and subcutaneous tissue 04/09/2020 Pain in left arm 04/09/2020 Rash Rash and other nonspecific skin eruption 04/13/2020 Immunity status testing Antibody response examination 05/29/2020 Type 2 diabetes mellitus with diabetic nephropathy, with long-term current use of insulin ([facility]) 05/29/2020 Gastroesophageal reflux disease with esophagitis 06/08/2020 Type 2 diabetes mellitus with diabetic nephropathy, with long-term current use of insulin ([facility]) 06/20/2020 Type 2 diabetes mellitus with diabetic nephropathy, with long-term current use of insulin ([facility]) 07/02/2020 Hypertension associated with diabetes (HCC) Type II or unspecified type diabetes mellitus with other specified manifestations, not stated as uncontrolled 07/03/2020 Type 2 diabetes mellitus with diabetic nephropathy, with long-term current use of insulin (HCC) 07/04/2020 Immunity status testing Antibody response examination 07/04/2020 Type 2 diabetes mellitus with diabetic nephropathy, with long-term current use of insulin (HCC) 07/11/2020 Hypertension associated with diabetes (HCC) Type II or unspecified type diabetes mellitus with other specified manifestations, not stated as uncontrolled 07/11/2020 Hyperlipidemia associated with type 2 diabetes mellitus (HCC) 07/11/2020 Pain in both lower extremities 07/11/2020 Neoplasm of unspecified behavior of bone, soft tissue, and skin 07/11/2020 Other viral warts 07/11/2020 Disturbance of skin sensation 07/11/2020 RAD (reactive airway disease), mild persistent, uncomplicated 08/11/2020 Type 2 diabetes mellitus with diabetic nephropathy, with long-term current use of insulin ([facility]) 10/03/2020 Hypertension associated with diabetes (HCC) Type II or unspecified type diabetes mellitus with other specified manifestations, not stated as uncontrolled 10/03/2020 Type 2 diabetes mellitus with diabetic nephropathy, with long-term current use of insulin ([facility]) 10/04/2020 Hypertension associated with diabetes (HCC) Type II or unspecified type diabetes mellitus with other specified manifestations, not stated as uncontrolled 10/04/2020 High risk medications (not anticoagulants) long-term use Encounter for long-term (current) use of other medications 10/10/2020 Malaise and fatigue Other malaise and fatigue 10/10/2020 Hyperlipidemia, unspecified hyperlipidemia type 10/10/2020 Hyperglycemia Other abnormal glucose 10/10/2020 Vitamin D deficiency Unspecified vitamin D deficiency 10/10/2020 Hyperlipidemia, unspecified hyperlipidemia type 10/10/2020 High risk medications (not anticoagulants) long-term use Encounter for long-term (current) use of other medications 10/10/2020 Hyperglycemia Other abnormal glucose 10/10/2020 Malaise and fatigue Other malaise and fatigue 10/10/2020 Vitamin D deficiency Unspecified vitamin D deficiency 10/10/2020 10 year risk of OK or stroke 7.5% or greater 10/15/2020 BPH without urinary obstruction Hypertrophy of prostate without urinary obstruction and other lower urinary tract symptoms (LUTS) 10/15/2020 Hypertension associated with diabetes (HCC) Type II or unspecified type diabetes mellitus with other specified manifestations, not stated as uncontrolled 10/15/2020 Hyperlipidemia associated with type 2 diabetes mellitus (HCC) 10/15/2020 Type 2 diabetes mellitus with diabetic nephropathy, with long-term current use of insulin ([facility]) 10/15/2020 Chronic left-sided low back pain with left-sided sciatica 10/15/2020 Type 2 diabetes mellitus with diabetic nephropathy, with long-term current use of insulin ([facility]) 11/06/2020 Hypertension associated with diabetes ([facility]) Type II or unspecified type diabetes mellitus with other specified manifestations, not stated as uncontrolled 11/06/2020 Type 2 diabetes mellitus with diabetic nephropathy, with long-term current use of insulin ([facility]) 12/05/2020 Hypertension associated with diabetes ([facility]) Type II or unspecified type diabetes mellitus with other specified manifestations, not stated as uncontrolled 12/05/2020 Type 2 diabetes mellitus with diabetic nephropathy, with long-term current use of insulin ([facility]) 12/07/2020 Type 2 diabetes mellitus with diabetic nephropathy, with long-term current use of insulin ([facility]) 12/13/2020 Hypertension associated with diabetes ([facility]) Type II or unspecified type diabetes mellitus with other specified manifestations, not stated as uncontrolled 12/20/2020 BPH without urinary obstruction Hypertrophy of prostate without urinary obstruction and other lower urinary tract symptoms (LUTS) 01/16/2021 BPH without urinary obstruction Hypertrophy of prostate without urinary obstruction and other lower urinary tract symptoms (LUTS) 01/16/2021 10 year risk of OK or stroke 7.5% or greater 01/16/2021 Type 2 diabetes mellitus with diabetic nephropathy, with long-term current use of insulin ([facility]) 01/17/2021 Enrolled in chronic care management 01/17/2021 Gastroesophageal reflux disease with esophagitis 03/11/2021 Hypertension associated with diabetes ([facility]) Type II or unspecified type diabetes mellitus with other specified manifestations, not stated as uncontrolled 03/31/2021 BPH without urinary obstruction Hypertrophy of prostate without urinary obstruction and other lower urinary tract symptoms (LUTS) 04/09/2021 10 year risk of OK or stroke 7.5% or greater 04/09/2021 Gastroesophageal reflux disease with esophagitis 04/13/2021 Gastroesophageal reflux disease with esophagitis 04/16/2021 RAD (reactive airway disease), mild persistent, uncomplicated 04/16/2021 Gastroesophageal reflux disease with esophagitis 04/16/2021 Type 2 diabetes mellitus with diabetic nephropathy, with long-term current use of insulin (HCC) 05/02/2021 Hypertension associated with diabetes (HCC) Type II or unspecified type diabetes mellitus with other specified manifestations, not stated as uncontrolled 05/02/2021 Gastroesophageal reflux disease with esophagitis without hemorrhage 06/19/2021 Screening for colon cancer Special screening for malignant neoplasms, colon 06/19/2021 Esophageal dysphagia Dysphagia, pharyngoesophageal phase 06/19/2021 Hypertension associated with diabetes (HCC) Type II or unspecified type diabetes mellitus with other specified manifestations, not stated as uncontrolled 07/10/2021 BPH without urinary obstruction Hypertrophy of prostate without urinary obstruction and other lower urinary tract symptoms (LUTS) 08/04/2021 10 year risk of OK or stroke 7.5% or greater 08/04/2021 Hyperlipidemia, unspecified hyperlipidemia type 08/05/2021 Screening, anemia, deficiency, iron Screening for iron deficiency anemia 08/05/2021 Hyperthyroidism Thyrotoxicosis without mention of goiter or other cause, without mention of thyrotoxic crisis or storm 08/05/2021 Type 2 diabetes mellitus without complication, unspecified whether halfway insulin use ([facility]) 08/05/2021 Needs flu shot Need for prophylactic vaccination and inoculation against influenza 08/14/2021 Type 2 diabetes mellitus without complication, unspecified whether intermediate project manager insulin use (HCC) 08/14/2021 Hyperthyroidism Thyrotoxicosis without mention of goiter or other cause, without mention of thyrotoxic crisis or storm 08/14/2021 Hyperlipidemia, unspecified hyperlipidemia type 08/14/2021 Screening, anemia, deficiency, iron Screening for iron deficiency anemia 08/14/2021 Ear lesion Unspecified disorder of external ear 08/14/2021 Hypertension associated with diabetes (HCC) Type II or unspecified type diabetes mellitus with other specified manifestations, not stated as uncontrolled 08/14/2021 Type 2 diabetes mellitus with diabetic nephropathy, with long-term current use of insulin (HCC) 08/14/2021 Hypertension associated with diabetes (HCC) Type II or unspecified type diabetes mellitus with other specified manifestations, not stated as uncontrolled 08/18/2021 Hypertension associated with diabetes (HCC) Type II or unspecified type diabetes mellitus with other specified manifestations, not stated as uncontrolled 08/19/2021 Ear lesion Unspecified disorder of external ear 08/20/2021 Enrolled in chronic care management 09/20/2021 Type 2 diabetes mellitus without complication, unspecified whether halfway insulin use (HCC) 09/20/2021 Hypertension associated with diabetes (HCC) Type II or unspecified type diabetes mellitus with other specified manifestations, not stated as uncontrolled 10/08/2021 BPH without urinary obstruction Hypertrophy of prostate without urinary obstruction and other lower urinary tract symptoms (LUTS) 11/04/2021 10 year risk of OK or stroke 7.5% or greater 11/04/2021 RAD (reactive airway disease), mild persistent, uncomplicated 11/08/2021 Encounter for support and coordination of transition of care 11/14/2021 Hypertension associated with diabetes (HCC) Type II or unspecified type diabetes mellitus with other specified manifestations, not stated as uncontrolled 01/11/2022 Encounter for support and coordination of transition of care 01/13/2022 Encounter for support and coordination of transition of care 01/13/2022 10 year risk of OK or stroke 7.5% or greater 02/01/2022 Encounter for support and coordination of transition of care 02/07/2022 Hip pain Pain in joint, pelvic region and thigh 02/12/2022 Hip pain Pain in joint, pelvic region and thigh 02/12/2022 Tick bite, unspecified site, initial encounter 02/12/2022 High risk medications (not anticoagulants) long-term use Encounter for long-term (current) use of other medications 02/12/2022 Malaise and fatigue Other malaise and fatigue 02/12/2022 Hyperglycemia Other abnormal glucose 02/12/2022 Hypertension associated with diabetes (HCC) Type II or unspecified type diabetes mellitus with other specified manifestations, not stated as uncontrolled 02/12/2022 Type 2 diabetes mellitus with diabetic nephropathy, with long-term current use of insulin (HCC) 02/12/2022 Hyperlipidemia associated with type 2 diabetes mellitus (HCC) 02/12/2022 Medicare annual wellness visit, subsequent Routine general medical examination at a health care facility 02/12/2022 Generalized abdominal pain Abdominal pain, generalized 02/12/2022 Screening for malignant neoplasm of prostate 02/12/2022 Elevated PSA Elevated prostate specific antigen (PSA) 02/13/2022 Hypertension associated with diabetes (HCC) Type II or unspecified type diabetes mellitus with other specified manifestations, not stated as uncontrolled 02/17/2022 Hypertension associated with diabetes (HCC) Type II or unspecified type diabetes mellitus with other specified manifestations, not stated as uncontrolled 03/07/2022 10 year risk of OK or stroke 7.5% or greater 03/08/2022 10 year risk of OK or stroke 7.5% or greater 03/10/2022 Encounter for support and coordination of transition of care 03/20/2022 Hypertension associated with diabetes (HCC) Type II or unspecified type diabetes mellitus with other specified manifestations, not stated as uncontrolled 04/11/2022 Encounter for support and coordination of transition of care 04/24/2022 Encounter for support and coordination of transition of care 05/13/2022 Hypertension associated with diabetes (HCC) Type II or unspecified type diabetes mellitus with other specified manifestations, not stated as uncontrolled 05/15/2022 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) Malignant neoplasm of base of tongue 06/20/2022 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) Malignant neoplasm of base of tongue 06/20/2022 RAD (reactive airway disease), mild persistent, uncomplicated 07/08/2022 Hypertension associated with diabetes (HCC) Type II or unspecified type diabetes mellitus with other specified manifestations, not stated as uncontrolled 07/09/2022 Encounter for support and coordination of transition of care 07/28/2022 Gastroesophageal reflux disease with esophagitis without hemorrhage 08/16/2022 Hypertension associated with diabetes (HCC) Type II or unspecified type diabetes mellitus with other specified manifestations, not stated as uncontrolled 08/16/2022 Gastroesophageal reflux disease with esophagitis without hemorrhage 08/21/2022 Gastroesophageal reflux disease with esophagitis without hemorrhage 08/22/2022 Gastroesophageal reflux disease with esophagitis without hemorrhage 09/30/2022 Encounter for medication refill Issue of repeat prescriptions 09/30/2022 Cough, unspecified type 10/13/2022 Hypertension associated with diabetes (HCC) Type II or unspecified type diabetes mellitus with other specified manifestations, not stated as uncontrolled 11/15/2022 10 year risk of OK or stroke 7.5% or greater 11/16/2022 Hypertension associated with diabetes (HCC) Type II or unspecified type diabetes mellitus with other specified manifestations, not stated as uncontrolled 11/18/2022 Type 2 diabetes mellitus with diabetic nephropathy, with long-term current use of insulin (HCC) 12/24/2022 Encounter for support and coordination of transition of care 12/29/2022 Encounter for support and coordination of transition of care 12/31/2022 Type 2 diabetes mellitus with diabetic nephropathy, with long-term current use of insulin (HCC) 12/31/2022 Hypertension associated with diabetes (HCC) Type II or unspecified type diabetes mellitus with other specified manifestations, not stated as uncontrolled 01/17/2023 Type 2 diabetes mellitus with diabetic nephropathy, with long-term current use of insulin (HCC) 01/23/2023 Hypertension associated with diabetes (HCC) Type II or unspecified type diabetes mellitus with other specified manifestations, not stated as uncontrolled 02/10/2023 10 year risk of OK or stroke 7.5% or greater 02/10/2023 Encounter for support and coordination of transition of care 02/16/2023 High risk medications (not anticoagulants) long-term use Encounter for long-term (current) use of other medications 02/19/2023 Malaise and fatigue Other malaise and fatigue 02/19/2023 Hyperlipidemia, unspecified hyperlipidemia type 02/19/2023 Hyperglycemia Other abnormal glucose 02/19/2023 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) Malignant neoplasm of prostate 02/19/2023 Hypertension associated with diabetes (HCC) Type II or unspecified type diabetes mellitus with other specified manifestations, not stated as uncontrolled 02/19/2023 Type 2 diabetes mellitus with diabetic nephropathy, with long-term current use of insulin (HCC) 02/19/2023 Annual physical exam Routine general medical examination at a health care facility 02/19/2023 Medicare annual wellness visit, subsequent Routine general medical examination at a health care facility 02/19/2023 Hypertension associated with diabetes (HCC) Type II or unspecified type diabetes mellitus with other specified manifestations, not stated as uncontrolled 04/12/2023 Screening for colon cancer Special screening for malignant neoplasms, colon 05/11/2023 Hypertension associated with diabetes (HCC) Type II or unspecified type diabetes mellitus with other specified manifestations, not stated as uncontrolled 07/07/2023 Gastroesophageal reflux disease with esophagitis without hemorrhage 08/16/2023 Screening for colon cancer Special screening for malignant neoplasms, colon 08/19/2023 Encounter for support and coordination of transition of care 09/15/2023 Encounter for support and coordination of transition of care 09/17/2023 Encounter for support and coordination of transition of care 10/08/2023 Type 2 diabetes mellitus with diabetic nephropathy, with long-term current use of insulin (HCC) 11/10/2023 Encounter for support and coordination of transition of care 11/10/2023 Gastroesophageal reflux disease with esophagitis without hemorrhage 11/11/2023 Gastroesophageal reflux disease with esophagitis without hemorrhage 12/03/2023 Encounter for medication refill Issue of repeat prescriptions 12/03/2023 Hypertension associated with diabetes (HCC) Type II or unspecified type diabetes mellitus with other specified manifestations, not stated as uncontrolled 02/15/2024 Type 2 diabetes mellitus with diabetic nephropathy, with long-term current use of insulin (HCC) 02/16/2024 High risk medications (not anticoagulants) long-term use Encounter for long-term (current) use of other medications 02/24/2024 Malaise and fatigue Other malaise and fatigue 02/24/2024 Hyperlipidemia, unspecified hyperlipidemia type 02/24/2024 Type 2 diabetes mellitus with diabetic nephropathy, with long-term current use of insulin (HCC) 02/24/2024 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) Malignant neoplasm of prostate 02/24/2024 Chronic left-sided low back pain with left-sided sciatica 02/24/2024 Gastroesophageal reflux disease with esophagitis without hemorrhage 02/24/2024 Hypertension associated with diabetes (HCC) Type II or unspecified type diabetes mellitus with other specified manifestations, not stated as uncontrolled 02/24/2024 Medicare annual wellness visit, subsequent Routine general medical examination at a health care facility 02/24/2024 10 year risk of OK or stroke 7.5% or greater 02/24/2024 Type 2 diabetes mellitus without complication, unspecified whether halfway insulin use (HCC) 02/24/2024 Encounter for support and coordination of transition of care 08/22/2024 Encounter for support and coordination of transition of care 08/30/2024 Gastroesophageal reflux disease with esophagitis without hemorrhage 12/05/2024 Encounter for medication refill Issue of repeat prescriptions 12/05/2024 Blepharitis, unspecified laterality, unspecified type 01/02/2025 BPV (benign positional vertigo), unspecified laterality 01/02/2025 Prostate cancer (HCC) Malignant neoplasm of prostate 01/02/2025 BPV (benign positional vertigo), unspecified laterality 01/03/2025 Prostate cancer (HCC) Malignant neoplasm of prostate 01/03/2025 Acute bacterial sinusitis Acute sinusitis, unspecified 01/04/2025 10 year risk of OK or stroke 7.5% or greater 02/11/2025 High risk medications (not anticoagulants) long-term use Encounter for long-term (current) use of other medications 03/01/2025 Malaise and fatigue Other malaise and fatigue 03/01/2025 Hyperlipidemia, unspecified hyperlipidemia type 03/01/2025 Type 2 diabetes mellitus with diabetic nephropathy, with long-term current use of insulin (HCC) 03/01/2025 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) Malignant neoplasm of prostate 03/01/2025 Hypertension associated with diabetes (HCC) Type II or unspecified type diabetes mellitus with other specified manifestations, not stated as uncontrolled 03/01/2025 Medicare annual wellness visit, subsequent Routine general medical examination at a health care facility 03/01/2025 Encounter for support and coordination of transition of care 03/29/2025 Goals Goal Patient Goal Type Associated Problems Recent Progress Patient-Stated? Author Blood Pressure < 140/90 Blood Pressure 120/80(03/01 1:08 PM EDT) No Johnny Michelle MD BMI (Calculated) < 30 General 29.9( 025 1:08 PM EDT) No Alanna Mobley MA Maintain a healthy diet, exercise regularly and maintain an ideal body weight General No Phuong Vazquez, KAIDEN Patient will obtain affordable medications through patient assistance programs. General On track(2022 3:08 PM EST) No Tamera Schroeder RN LDL CALC < 100 Result Component 108(03/01/20 1:51 PM EDT) No Johnny Michelle MD HEMOGLOBIN A1C < 7.1 Result Component 7.4(03/01/20 1:51 PM EDT) No Johnny Michelle MD Care Teams Disability Liaison Officer Relationship Specialty Start Date End Date Neema Atkins DO [address] [place] [id number] PCP - General Family Medicine 09/21/19 Thiago Martin MD Ophthalmology 12/26/16
== END 2025-04-10 23:59 | disposition home or self-care (01) ==
LOC: LAB 12:48
PROVIDERS: PCP Student in an Organized Health Care Education/Training Program; Visit Provider Urology
DX: R97.20 Elevated prostate specific antigen [PSA] (principal); N40.1 Benign prostatic hyperplasia with lower urinary tract symptoms
CPT/HCPCS: 36415; G0103

== ENCOUNTER 2025-06-06 11:55 | Outpatient (CLI) | payer MEDICARE, SELFPAY ==
--- NOTE | 2025-06-06 | XR_ITS ---
FINAL REPORT CLINICAL HISTORY: PROSTATE CANCER.. COMPARISON: 02/24/2025 FINDINGS: ABDOMEN SINGLE VIEW There is a nonspecific, nonobstructive bowel gas pattern. No abnormal dilatation is identified. There is a large amount of retained stool throughout the colon. Surgical clips are seen in the right upper quadrant. There is a sclerotic area in the left iliac wing and within the left sacral ala concerning for osseous metastases. There is no abnormal calcification. IMPRESSION: Sclerotic areas in the left iliac wing and left sacral ala concerning for osseous metastases. CT could better evaluate. Reviewed, Interpreted and Dictated by Brock Adams MD Transcribed by Tiffany Osborn Authenticated and [facility]
--- OUTSIDE RECORDS SUMMARY | 2025-06-06 11:58 | XMS_ITS | Clinical Summary ---
[facility] Address [address] [place] [id number] Phone Care Team Providers Care Site Controller Name Role Phone Zuleima Arreola APRN Primary Care Physician [phone] Conditions or Problems No information available. Medications No information available. Medications Administered No information available. Allergies, Adverse Reactions, Alerts No information available. Results No information available. Plan of Care No information available. Procedures No information available. Vital Signs No information available. Immunizations No information available. Advance Directives No information available.
--- OUTSIDE RECORDS SUMMARY | 2025-06-06 11:59 | XMS_ITS | Encounter Summary ---
Author Organization [place] [address] Care Team Providers Care Branch Billing Payroll Clerk Name Role Phone Thiago Martin MD Unavailable [phone] Luis Atkins DO Primary Care Provider [phone] Anais Garcia RN Unavailable Unavailable Encounter Details Date Type Department Care Team (Late st Contact Info) Description 12/02/2019 Orders Only [facility] [address] [address] Khoa Vela MD [address] [place] [id number] Social History Tobacco Use Types Packs/Day Years [...] PM EST) 12/02/2019 1:30 PM EST Impressions [facility] - 12/02/2019 2:11 PM EST Normal [...] MD GI PROCEDURE ORDERABLES Fin al Result [facility] [address] [place] [address] documented in this encounter Visit Diagnoses Not on filedocumented in this encounter Care Teams Branch Billing Payroll Clerk Relationship Specialty Start Date End Date Luis Atkins DO [address] [place] [address] PCP - General Family Medicine 09/21/19 Thiago Martin MD Ophthalmology 12/26/16 Anais Garcia RN Operation Supervisor Registered Nurse 12/13/20 01/16/21 documented as of this encounter
--- OUTSIDE RECORDS SUMMARY | 2025-06-06 11:59 | XMS_ITS | Encounter Summary ---
Author Organization [place] [address] Care Team Providers Care National Investigative Producer Name Role Phone Johnny Michelle MD Primary Care Provider [phone] Thiago Martin MD Unavailable [phone] Luis Atkins DO Primary Care Provider [phone] Anais Garcia RN Unavailable Unavailable Encounter Details Date Type Department Care Team (Late st Contact Info) Description 07/30/2015 Orders Only [facility] 651 [facility] Building [address] [place] [address] Ryne Craven MD [address] [place] [address] Social History Tobacco Use Types Packs/Day [...] AM EDT) 07/30/2015 9:00 AM EDT Impressions [facility] - 07/30/2015 9:26 AM EDT Moderate diverticulosis of the distal descending colon and sigmoid colon. Plan: Screening Colonoscopy in 10 years. This section is an excerpt of the full report. us Ryne Craven MD GI PROCEDURE ORDERABLES Fin al Result Performing Organization Address City/State/[facility] Co de Phone Number [facility] [address] [place] [address] documented in this encounter Visit Diagnoses Not on filedocumented in this encounter Care Teams National Investigative Producer Relationship Specialty Start Date End Date Johnny Michelle MD PCP - General 07/23/11 09/20/19 Luis Atkins DO [address] [place] [address] PCP - General Family Medicine 09/21/19 Thiago Martin MD Ophthalmology 12/26/16 Anais Garcia RN Senior Maintenance Mechanic Registered Nurse 12/13/20 01/16/21 documented as of this encounter
--- OUTSIDE RECORDS SUMMARY | 2025-06-06 11:59 | XMS_ITS | Encounter Summary ---
Author Organization [place] [address] Care Team Providers Care Electronic Warfare Technical Name Role Phone Thiago Martin MD Unavailable [phone] Luis Atkins DO Primary Care Provider [phone] Encounter Details Date Type Department Care Team (Late st Contact Info) Description 03/02/2025 Results Follow-Up [facility] [address], [place] [id number] Luis Atkins DO [address], [place] [address] LIPID SCREEN, COMPREHENSIVE METABOLIC PANEL, CBC WITH [...] Date Recorded PHQ-2 Total Score 0 03/01/2025 [facility] [place] of Occupat ional Health - Occupational Stress [...] place to sleep or slept in a alf (including now)? No 09/20/2021 Sex and Gender [...] documented as of this encounter Care Teams Electronic Warfare Technical Relationship Specialty Start Date End Date Luis Atkins DO [address] [place] [address] [place] [address] PCP - General Family Medicine 09/21/19 Thiago Martin MD Ophthalmology 12/26/16 documented as of this encounter
--- OUTSIDE RECORDS SUMMARY | 2025-06-06 11:59 | XMS_ITS | Encounter Summary ---
Author Organization [place] [address] Care Team Providers Care Timber Selector Name Role Phone Thiago Martin MD Unavailable [phone] Luis Atkins DO Primary Care Provider [phone] Anais Garcia RN Unavailable Unavailable Encounter Details Date Type Department Care Team (Late st Contact Info) Description 12/02/2019 [facility] [id number] Khoa Vela MD [address] [place] [address] Dysphagia, unspecified Social History Tobacco Use Types [...] Assessment Author No 03/17/2019 9:20 AM Zach Carwtright CMA * Does this person have serious [...] PM EST) CASE REPORT Surgical Pathology Case: [id number] Authorizing Provider: Khoa Vela MD Collected: 12/02/2019 1330 Ordering Location: [facility] Received: 12/02/2019 1816 Pathologist: Angella Montiel MD Specimen: Gastric, Biopsy in the stomach and antrum 12/06/2019 9:35 AM EST [facility] CLINICAL HISTORY Dysphagia; odynophagia. 12/06/2019 9:35 AM EST [facility] FINAL DIAGNOSIS Stomach, biopsy: - Antral/oxyntic mucosa with focal chronic inflammation. 12/06/2019 9:35 AM EST [facility] at 0935 EST GROSS DESCRIPTION Received in formalin labeled with the patient s name and g astric biopsy in stomach and antrum are five fragments of sanchez tissue ranging from 0.2 to 0.5 cm in greatest dimension. Entirely submitted in one cassette./ TE 12/06/2019 9:35 AM EST [facility] MICROSCOPIC DESCRIPTION Microscopic examination is performed and the findings corroborate the diagnosis. 12/06/2019 9:35 AM EST [facility] FLOW CYTOMETRY SUMMARY 12/06/2019 9:35 AM EST [facility] EMBEDDED IMAGES 12/06/2019 9:35 AM EST [facility] Tissue STOMACH STRUCTURE / Unknown 12/02/2019 1:30 PM EST 12/02/2019 6:16 PM EST us Khoa Vela MD PATHOLOGY ORDERABLES Final Result [facility] [address] [place] [address] documented in this encounter Visit Diagnoses Diagnosis Dysphagia, unspecified documented in this encounter Care Teams Timber Selector Relationship Specialty Start Date End Date Luis Atkins DO [address] [place] [address] PCP - General Family Medicine 09/21/19 Thiago Martin MD Ophthalmology 12/26/16 Anais Garcia RN Apparel Manufacture Instructor Registered Nurse 12/13/20 01/16/21 documented as of this encounter
--- OUTSIDE RECORDS SUMMARY | 2025-06-06 11:59 | XMS_ITS | Encounter Summary ---
Author Organization [place] [address] Care Team Providers Care Mold Builder Name Role Phone Thiago Martin MD Unavailable [phone] Luis Atkins DO Primary Care Provider [phone] Reason for Visit * Reason Comments Medication Refill Encounter Details Date Type Department Care Team (Late st Contact Info) Description 04/16/2025 Refill [facility] [address] [place] [id number] Luis Atkins DO [address] [place] [address] Medication Refill Social History Tobacco Use Types [...] Date Recorded PHQ-2 Total Score 0 03/01/2025 [facility] [place] of Occupat ional Health - Occupational Stress [...] place to sleep or slept in a half-way (including now)? No 09/20/2021 Sex and Gender [...] Refills Last Filled Start Date End Date amLODIPine (NORVASC) 5 mg Oral TabletIndications:H ypertension associated with diabetes (HCC) Take 1 tablet by mouth once daily 90 Tablet 04/17/2025 losartan (COZAAR) 100 mg Oral Tablet Take 1 tablet by mouth once daily 100 Tablet 2 04/17/2025 documented in this encounter Miscellaneous Notes * Telephone Encounter - Ida Murrieta CPhT - 04/17/2025 2:07 PM EDT Amlodipine Refill request deferred to the office: Medication discontinued or inactive on the medication list Losartan Future Visit: N/A Last Assessed Visit: 03/01/25 Using Diabetes Follow-Up Date: 03/01/26 All protocols passed. Refills approved and sent to requesting pharmacy. Routed to [facility] if applicable. No Diagnosis Code Attached documented in this encounter Plan of Treatment [...] as of this encounter Visit Diagnoses Diagnosis Hypertension associated with diabetes (HCC) Type II or unspecified type diabetes mellitus with other specified manifestations, not stated as uncontrolled documented in this encounter Discontinued Medications Medication Sig Discontinue Reason Start Date End Da te losartan (COZAAR) 100 mg Oral Tablet Take 1 Tablet by mouth daily. 02/24/2024 04/17/2025 documented as of this encounter Additional Health Concerns Assessment Noted Time A fall risk assessment has been complete d for the patient 03/01/2025 1:13 PM EDT documented as of this encounter Care Teams Mold Builder Relationship Specialty Start Date End Date Luis Atkins DO [address] [place] [address] PCP - General Family Medicine 09/21/19 Thiago Martin MD Ophthalmology 12/26/16 documented as of this encounter
--- OUTSIDE RECORDS SUMMARY | 2025-06-06 12:01 | XMS_ITS | Continuity of Care Document ---
Author Organization [facility] Address [address], [place] [address] Phone Care Team Providers Care Superintendent Operations Division Name Role Phone Thiago Martin MD Unavailable [phone] Luis Atkins DO Primary Care Provider [phone] Encounters Date Type Department Care Team Description 04/16/2025 Refill [facility] [address] [place] [address] Luis Atkins, DO Medication Refill 03/29/2025 Patient Outreach [facility] [address] [place] [address] Melanie Lamb, ALPA CM- Telephonic Outreach; CM-Medication Assistance 03/15/2025 Refill [facility] [address] [place] [address] Malgorzata Woodruff APRN Medication Refill 03/13/2025 Telephone [facility] [address] [place] [address] Luis Atkins, DO Refill (lancets) 03/13/2025 Refill [facility] [address] [place] [address] Luis Atkins, DO Medication Refill 03/02/2025 Results Follow-Up [facility] [address] [place] [address] Luis Atkins, LIPID SCREEN, COMPREHENSIVE METABOLIC PANEL, CBC WITH DIFF, Additional followed-up results: 2 03/01/2025 1:00 PM EDT Office Visit [facility] [address] [place] [address] [phone] Luis Atkins, Medicare annual wellness visit, subsequent (Primary Dx); High risk medications (not anticoagulants) long-term use; Malaise and fatigue; Hyperlipidemia, unspecified hyperlipidemia type; Type 2 diabetes mellitus with diabetic nephropathy, with long-term current use of insulin (HCC); 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); Hypertension associated with diabetes (HCC); Hyperlipidemia associated with type 2 diabetes mellitus (HCC) 02/28/2025 Patient Outreach [facility] [address] [facility] [place] [address] Luis Atkins DO Central Patient Navigator Outreach (awv questionnaire) 02/11/2025 Refill [facility] [address] [place] [address] [address] Luis Atkins, Medication Refill 01/04/2025 Orders Only [facility] [address] [place] [address] [address] Luis Atkins, Acute bacterial sinusitis (Primary Dx) 01/03/2025 5:21 PM EST - 01/03/2025 11:59 PM EST Hospital Encounter [facility] [address] BPV (benign positional vertigo), unspecified laterality; Prostate cancer (HCC) Discharge Disposition: Home or Self Care 01/02/2025 2:15 PM EST Office Visit [facility] [address] [place] [address] [address] Luis Atkins, Blepharitis, unspecified laterality, unspecified type (Primary Dx); BPV (benign positional vertigo), unspecified laterality; Prostate cancer (HCC) 12/27/2024 Patient Outreach [facility] [address] App[place] [address] Melanie Lamb, ALPA CM- Telephonic Outreach; CM-Medication Assistance; Patient Returning Call 12/23/2024 Patient Outreach [facility] [place] [place] [facility]agment [address] [place] [address] [address] [place] [address] Clarita Thomason, ALPA CM-Medication Assistance 12/09/2024 Telephone [facility] Nurse Now [facility] [place] [address] Gail Perez RN Medication Refill 12/09/2024 Refill [facility] [address], [place] [address] Luis Atkins, DO Medication Refill 12/05/2024 1:00 PM EST Office Visit [facility] [address], [address] [place] [address] Comfort Schneider APRN Gastroesophageal reflux disease with esophagitis without hemorrhage (Primary Dx); Encounter for medication refill 11/29/2024 Refill [facility] [address] [place] [address] Luis Atkins, DO Medication Refill 11/25/2024 Refill [facility] [address] [place] [address] Luis Atkins, DO Medication Refill 11/01/2024 Refill [facility] [address], [address] [place] [address] Comfort Schneider APRN Medication Refill; Central Patient Navigator Outreach (med refills 100 G[facility]) 09/28/2024 Refill [facility] [address] [place] [address] Luis Atkins, DO Medication Refill 08/30/2024 Patient Outreach [facility] [address] [place] [address] Tamera Schroeder RN CM- Telephonic Outreach; CM-Medication Assistance 08/22/2024 1:00 PM EDT Clinical Support [facility] [address] [place] [address] [address] Tamera Schroeder, RN Encounter for support and coordination of transition of care (Primary Dx) 08/19/2024 Telephone [facility] [address] [place] [address] [address] Luis Atkins, DO Medication Refill; Central Patient Navigator Outreach (Med Refill 100/) 08/15/2024 Telephone [facility] [address] [place] [address] [address] Luis Atkins, DO Other ( call back ); Medication Management ([employer] called to get clarification on medication request they rec'd) 07/10/2024 Refill [facility] [address] [place] [address] [address] Luis Atkins, DO Medication Refill 06/08/2024 Telephone [facility] [address] [place] [address] [address] Luis Atkins, DO Medication Management (Lancets ICD 10 code ) 06/07/2024 Refill [facility] [address] [place] [address] [address] Luis Atkins, DO Medication Refill 05/09/2024 Telephone [facility] [address] [place] [address] [address] Luis Atkins, DO Medication Management (semaglutide (OZEMPIC) 0.25 mg or 0.5 mg(2 mg/1.5 mL) SubQ Pen Injector 1.5 mL 0 01/23/2023 - /Sig - Route: Subcutaneous (Inject under the skin) 0.5 mg once a week. - Subcutaneous /Sent to pharmacy as: semaglutide 0.25 mg or 0.5 mg (2 mg/1.5 mL) subcutaneous pen injector (Ozempic) /Notes to Pharmacy: Dispense once. Patient has voucher from [employer]. //) 02/28/2024 Refill [facility] [address] [place] [address] [address] Luis Atkins, DO Medication Refill 02/25/2024 Telephone [facility] [address] [place] [address] [address] Luis Atkins, DO Results (Microalbumin, TSH, CMP, CBC, Lipid) 02/24/2024 11:00 AM EDT Office Visit [facility] [address] [place] [address] [address] Luis Atkins, Medicare annual wellness visit, subsequent (Primary Dx); [...] with diabetes (HCC); 10 year risk of IA or stroke 7.5% or greater; Hypertension associated with diabetes (HCC); Type 2 diabetes mellitus without complication, unspecified whether fpc insulin use (HCC) 02/23/2024 Patient Outreach [facility] [address] [place] [address] Luis Atkins, Central Patient Navigator Outreach (AWV Questionnaire /) 02/17/2024 Refill [facility] [address] [place] [address] [address] Luis Atkins, Medication Refill 02/16/2024 Patient Outreach [facility] [address] [place] [address] [address] Tamera Schroeder RN CM-Medication Assistance 02/15/2024 Refill [facility] [address] [place] [address] [address] Luis Atkins, DO Medication Refill 12/03/2023 11:00 AM EST Office Visit [facility] [address], [address]RD [place] [address] Comfort Schneider APRN Gastroesophageal reflux disease with esophagitis without hemorrhage (Primary Dx); Encounter for medication refill 11/18/2023 Telephone [facility] [address], [address] [place] [address], [place] [address] Khoa Vela MD Other 11/18/2023 Orders Only [facility] [address], [address] [place] [address], [place] [phone] Zonia Restrepo LPN 11/11/2023 Refill [facility] [address], [address] [place] [address], [place] [address] Comfort Schneider APRN Medication Refill 11/10/2023 Patient Outreach [facility] [address], [place] [address] Tamera Schroeder RN CM-Medication Assistance (Ozempic, Novolog, Tresiba) 10/13/2023 Refill [facility] [address], [place] [address] Luis Atkins, DO Medication Refill 10/08/2023 2:00 PM EST Office Visit [facility] [address], [place] [address] Tamera Schroeder RN Encounter for support and coordination of transition of care (Primary Dx) 10/08/2023 Telephone [facility] [address], [place] [address] Luis Atkins, DO Other (Reschedule Care Management Appt) 09/17/2023 Patient Outreach [facility] [address], [place] [address] Tamera Schroeder, RN CM-Medication Assistance (Patient assistance renewal) 09/15/2023 Patient Outreach [facility] [address] [place] [address] [address] Tamera Schroeder RN CM-Medication Assistance (Patient assistance renewal) 08/29/2023 Refill [facility] [address], [place] [address] Luis Atkins, DO Medication Refill 08/19/2023 9:03 AM EDT - 08/19/2023 11:59 PM EDT Hospital Encounter [facility] [address] [place] [address] Khoa Vela MD Judge, Lisa M, MD Sommer, Kristin TELEMETRY NURSE Screening for colon cancer Discharge Disposition: Home or Self Care 08/19/2023 10:17 AM EDT Anesthesia Event [facility] [address] [place], [place] [id number] Christina Sneed MD Collins, Angela, APRN 08/18/2023 Travel 08/17/2023 Refill [facility] [address], [place] [address] Luis Atkins, DO Medication Refill 08/16/2023 Refill [facility] [address], [address] [place] [address] Comfort Schneider, YANICK Medication Refill 08/10/2023 Telephone [facility] [address], [place] [id number] Khoa Vela MD Other (Ozempic) 07/26/2023 Refill [facility] [address], [place] [address] Luis Atkins, DO Medication Refill; Central Patient Navigator Outreach (Med Refill ) 07/07/2023 Refill [facility] [address] [place] [address] Luis Atkins, DO Medication Refill 05/27/2023 Patient Outreach [facility] [address], [place] [address] Tamera Schroeder RN CM- Telephonic Outreach 05/11/2023 Telephone [facility] [address], [address] [place] [address] Khoa Vela MD Colonoscopy; Medication Management 04/14/2023 Telephone [facility] [address] [place] [address] [address] Luis Atkins, DO Other (freestyle lancets 28 gauge) 04/13/2023 Refill [facility] [address] [place] [address] [address] Luis Atkins, DO Medication Refill 04/12/2023 Refill [facility] [address] [place] [address] [address] Luis Atkins, DO Medication Refill 02/19/2023 11:15 AM EDT Office Visit [facility] [address] [place] [address] [phone] Luis Atkins, DO High risk medications (not anticoagulants) [...] Medicare annual wellness visit, subsequent 02/16/2023 Telephone [facility] [place] [place] [facility] [address] [address] [address] Luis Atkins, DO Other (Eye exam ) 02/16/2023 Patient Outreach [facility] [place] [place] [facility] [address] [place] [address] [address] Tamera Schroeder RN CM-Medication Assistance 02/13/2023 Telephone [facility] [address] [address] [address] Luis Atikns, DO Medication Management 02/10/2023 Telephone [facility] [address] [address] [address] Luis Atkins, DO Medication Refill (losartan (COZAAR) 100 [...] DAILY IN THE EVENING /) 01/23/2023 Telephone [facility] [address] [place] [address] [address] Luis Atkins, DO Medication Management (Ozempic) 01/22/2023 Patient Outreach [facility] [address] [address] [address] Tamera Schroeder, RN CM-Medication Assistance 01/17/2023 Refill [facility] [address] [place] [address] [address] Luis Atkins, DO Medication Refill 12/31/2022 11:00 AM EST Office Visit [facility] [address] [place] [address] [phone] Tamera Schroeder, RN Encounter for support and coordination of transition of care (Primary Dx); Type 2 diabetes mellitus with diabetic nephropathy, with long-term current use of insulin (HCC) 12/30/2022 Patient Outreach [facility] [address] [place] [address] Luis Atkins, DO Central Patient Navigator Outreach (AWV Questionnaire ) 12/29/2022 Patient Outreach [facility] [address] [place] [address] [phone] Tamera Shcroeder, RN CM- Telephonic Outreach; CM-Medication Assistance 12/24/2022 Patient Outreach [facility] [address] [place] [address] Luis Atkins, DO Central Patient Navigator Outreach (AWV A1C) 11/18/2022 Refill [facility] [address] [place], [place] [address] Luis Atkins, DO Medication Refill 11/16/2022 Refill [facility] [address] [place], [place] [address] Luis Atkins, DO Medication Refill 11/15/2022 Refill [facility] [address] [place], [place] [address] Luis Atkins, DO Medication Refill 11/04/2022 Refill [facility] [address] [place], [place] [address] Luis Atkins, DO Medication Refill 10/23/2022 Orders Only [facility] [address]bound [address] [place] [address] Provider, Unknown 10/23/2022 Orders Only [facility] [address] [place] [address] Provider, Unknown 10/15/2022 Telephone [facility] [address], [place] [address] Alanna Mobley MA Other 10/13/2022 Orders Only [facility] [address], [place] [address] Luis Atkins, DO Cough, unspecified type (Primary Dx) 10/08/2022 Orders Only [facility] [address] [place], [place] [address] Luis Atkins, DO 10/08/2022 Telephone [facility] [address] [place], [place] [address] Luis Atkins, DO Other 09/30/2022 12:30 PM EST Office Visit [facility] [address], [address] [place] [address] Comfort Schneider APRN Encounter for medication refill (Primary Dx); Gastroesophageal reflux disease with esophagitis without hemorrhage 08/23/2022 Refill [facility] [address], [place] [address] Luis Atkins, DO Medication Refill 08/22/2022 Orders Only [facility] [address], [address] [place] [address] Zonia Restrepo, MOVIE STUNT PERFORMER Gastroesophageal reflux disease with esophagitis without hemorrhage 08/21/2022 Telephone [facility] [address] [facility] [address] [place] [address] Khoa Vela MD Medication Refill; Medication Management 08/16/2022 Refill [facility] 651 [facility] [address] [place] [address] Khoa Vela MD Medication Refill 08/16/2022 Refill [facility] [address], [place] [address] Luis Atkins, DO Medication Refill 07/28/2022 Patient Outreach [facility] [address], [place] [address] Tamera Schroeder, RN CM-Medication Assistance ([facility]) 07/16/2022 Telephone [facility] [address] [place] [address] Luis Atkins, DO Medication Management (fluticasone furoate (ARNUITY ELLIPTA)) 07/09/2022 Refill [facility] [address] [place] [address] Luis Atkins, DO Medication Refill 07/08/2022 Telephone [facility] [address] [place] [address] Luis Atkins, DO Medication Refill (PULMICORT FLEXHALER 180 mcg/actuation Inhl Aerosol Powdr Breath Activated 1 Each 0 11/08/2021 /Sig: INHALE 1 PUFF BY MOUTH TWICE DAILY //) 06/25/2022 Telephone [facility] [place] [place] [facility] [address] [place] [address] Luis Atkins, DO Other (Needing results faxed gael.) 06/20/2022 1:54 PM EDT - 06/20/2022 11:59 PM EDT Hospital Encounter [facility] [address] [place] [address] [id number] 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) Discharge Disposition: Home or Self Care 06/20/2022 1:50 PM EDT - 06/20/2022 1:53 PM EDT Hospital Encounter [facility] [address], [place] [id number] 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) (Primary Dx) Discharge Disposition: Home or Self Care 05/15/2022 Refill [facility] [address], [place] [address] Luis Atknis, DO Medication Refill 05/13/2022 Patient Outreach [facility] [address], [place] [address] Tamera Schroeder, RN CM-Medication Assistance 04/24/2022 Patient Outreach [facility] [address] [address] Tamera Schroeder, RN CM-Medication Assistance; CM- Telephonic Outreach; CM- Longitudinal Continued 04/11/2022 Refill [facility] [address], [place] [address] Luis Atkins, DO Medication Refill 03/20/2022 Patient Outreach [facility] [address] [address] [address] Tamera Schroeder, RN CM-Medication Assistance 03/18/2022 Telephone [facility] [address], [place] [address] Luis Atkins, DO Medication Management (Blood Sugar Diagnostic (ONETOUCH ULTRA BLUE TEST STRIP) Misc Strip 300 Strip 2 12/11/2020 /Sig: Use to test up tp 3 times daily. DX: E11.9 /Sent to pharmacy as: OneTouch Ultra Blue Test Strip (Blood Sugar Diagnostic) /Notes to Pharmacy: Please consider 90 day supplies to promote better adherence /Cosign for Ordering: Accepted by Luis Atkins DO on 12/11/2020 5:19 PM /E-Prescribing Status: Receipt confirmed by pharmacy (12/11/2020 4:30 PM EST) //) 03/10/2022 Telephone [facility] [address] [place] [address] [address] Luis Atkins, Medication Refill (pravastatin (PRAVACHOL) 40 mg Oral Tablet 30 Tablet 0 02/03/2022 /Sig: TAKE 1 TABLET BY MOUTH ONCE DAILY IN THE EVENING /Sent to pharmacy as: pravastatin 40 mg tablet (PRAVACHOL) /Cosign for Ordering: Accepted by Luis Atkins DO on 02/03/2022 4:24 PM /E-Prescribing Status: Receipt confirmed by pharmacy (02/03/2022 2:57 PM EDT) //) 03/08/2022 Refill [facility] [address] [address] [address] Luis Atkins, DO Medication Refill 03/07/2022 Telephone [facility] [address] [place] [address] [address] Luis Atkins, Results (Bun, creatine blood work ) 02/24/2022 Telephone [facility] [address] [address] [address] Luis Atkins, DO Medication Refill (Metformin ) 02/17/2022 Refill [facility] [address], [place] [address] Luis Atkins, DO Medication Refill (multiple) 02/14/2022 Telephone [facility] [address], [place] [address] Luis Atkins, DO Other (call back ) 02/13/2022 Orders Only [facility] [address] [address] Luis Atkins, DO Elevated PSA (Primary Dx) 02/13/2022 Telephone [facility] [address] [address] [address] Alanna Mobley MA Results 02/12/2022 Travel 02/12/2022 11:15 AM EDT - 02/12/2022 11:59 PM EDT Hospital Encounter [facility] [address] [address] [id number] Hip pain Discharge Disposition: Home or Self Care 02/12/2022 10:30 AM EDT Office Visit [facility] [address] [phone] Luis Atkins DO Medicare annual wellness visit, subsequent [...] malignant neoplasm of prostate 02/11/2022 Patient Outreach [facility] [address] [place] [address] Luis Atkins, Central Patient Navigator Outreach (awv questionnaire) 02/07/2022 Patient Outreach [facility] [address] [address] Tamera Schroeder, ALPA CM-Medication Assistance (Wayne shipment) 02/03/2022 Patient Outreach SEP [facility] [address] [place] [address] Luis Atkins DO Central Patient Navigator Outreach (Medication Refill Appointment- maria eugenia) 02/01/2022 Refill [facility] [address] [address] Luis Atkins, DO Medication Refill 01/13/2022 Patient Outreach [facility] [address] [address] Tamera Schroeder, RN CM-Medication Assistance (Farxiga) 01/13/2022 Patient Outreach [facility] [address], [place] [address] Tamera Schroeder, RN CM-Medication Assistance 01/11/2022 Refill [facility] [address], [place] [address] Luis Atkins, DO Medication Refill 11/21/2021 Telephone [facility] [address], [place] [address] Luis Atkins, DO Symptom Call (sinus) 11/14/2021 Patient Outreach [facility] [address], [place] [address] Tamera Schroeder, RN CM-Medication Assistance 11/08/2021 Refill [facility] [address], [place] [address] Luis Atkins, DO Medication Refill 11/04/2021 Refill [facility] [address], [place] [address] Luis Atkins, DO Medication Refill 10/29/2021 Patient Outreach [facility] [address], [place] [address] Niyah Odom, marine firer; CM- Telephonic Outreach; CM-Medication Assistance 10/08/2021 Refill [facility] [address], [place] [address] Luis Atkins, DO Medication Refill 09/20/2021 11:00 AM EST Office Visit [facility] [address], [place] [address] Niyah Odom, RN Enrolled in chronic care management (Primary Dx); Type 2 diabetes mellitus without complication, unspecified whether longwall foreman insulin use (HCC) 09/12/2021 Telephone [facility] [address] [address] Luis Atkins, Other (requesting call from Beryl Garcia) 08/20/2021 Telephone [facility] [address] [address] Luis Atkins DO Referral (different certified breastfeeding educator) 08/19/2021 Refill [facility] [address] [address] Luis Atkins DO Medication Refill (amLODIPine (NORVASC) 5 mg Oral [id number] Tab37/11/2020) 08/18/2021 Refill [facility] [address] [address] Luis Atkins DO Medication Refill 08/14/2021 10:15 AM EDT Office Visit [facility] [address] [address] Luis Atkins DO Type 2 diabetes mellitus without complication, unspecified whether fpc insulin use (HCC) (Primary Dx); Needs flu shot; Hyperthyroidism; Hyperlipidemia, unspecified hyperlipidemia type; Screening, anemia, deficiency, iron; Ear lesion; Hypertension associated with diabetes (HCC); Type 2 diabetes mellitus with diabetic nephropathy, with long-term current use of insulin (HCC); Hyperlipidemia associated with type 2 diabetes mellitus (HCC) 08/13/2021 Patient Outreach SE[facility] [address] [place] [address] Luis Atkins DO Central Patient Navigator Outreach (awv questionnaire ) 08/05/2021 Orders Only [facility] [address] [address] Alanna Mobley MA Hyperlipidemia, unspecified hyperlipidemia type (Primary Dx); Screening, anemia, deficiency, iron; Hyperthyroidism; Type 2 diabetes mellitus without complication, unspecified whether fpc insulin use (HCC) 08/05/2021 Telephone [facility] [address] [address] Sharp, Luis L, DO Lab Orders (awn) 08/04/2021 Refill [facility] [address], [place] [address] Luis Atkins, DO Medication Refill 08/01/2021 Orders Only [facility] Inbound [address] [place] [address] Provider, Unknown 07/20/2021 Refill [facility] [address], [place] [address] Luis Atkins, DO Medication Refill 07/10/2021 Refill [facility] [address], [place] [address] Luis Atkins, DO Medication Refill 07/04/2021 Refill [facility] [address], [place] [address] Luis Atkins, DO Medication Refill 06/21/2021 Patient Outreach [place] [address] [place] [address] Amanda Troy Appointment Needed (Diabetic follow-up) 06/19/2021 Travel 06/19/2021 10:30 AM EDT Office Visit [facility] [address] [address] Khoa Vela MD Gastroesophageal reflux disease with esophagitis without hemorrhage (Primary Dx); Screening for colon cancer; Esophageal dysphagia 06/10/2021 Refill [facility] [address], [place] [address] Luis Atkins, DO Medication Refill 05/23/2021 Patient Outreach [facility] [address], [place] [address] Anais Garcia, marine firer; CM- Telephonic Outreach 05/02/2021 Orders Only [facility] [address], [place] [address] Elaine Buchanan, ODETTE Type 2 diabetes mellitus with diabetic nephropathy, with long-term current use of insulin (HCC) (Primary Dx) 05/02/2021 Telephone [facility] [address] [address] Luis Atkins, DO Medication Refill (metFORMIN XR (GLUCOPHAGE-XR) 500 mg Oral Tablet Sustained Release 24 hr) 05/02/2021 Refill [facility] [address] [address] Luis Atkins, DO Medication Refill 04/16/2021 Telephone [facility] [address] [facility] [address] [place] [address] Khoa Vela MD Other 04/16/2021 Refill [facility] [address] [address] Khoa Vela MD Medication Refill 04/13/2021 Refill [facility] [address] [place] [phone] Khoa Vela MD Medication Refill 04/09/2021 Refill [facility] [address], [place] [address] Luis Atkins, DO Medication Refill 04/02/2021 Refill [facility] [address], [place] [address] Luis Atkins, DO Medication Refill 03/31/2021 Refill [facility] [address], [place] [address] Luis Atkins, DO Medication Refill 03/18/2021 Patient Outreach [facility] [address] [address] Niyah Odom, marine firer; CM- Telephonic Outreach 03/13/2021 Telephone [facility] [address] [address] [address] Luis Atkins, DO Prior Authorization 03/11/2021 Refill [facility] [address] [address] [place] [address] Khoa Vela MD Medication Refill 03/11/2021 Refill [facility] [address], [place] [address] Luis Atkins, DO Medication Refill 03/11/2021 Patient Outreach [facility] [address], [place] [address] Niyah Odom, marine firer 03/11/2021 Patient Outreach [facility] [address], [place] [address] Niyah Odom, marine firer; CM- Telephonic Outreach 02/14/2021 Refill [facility] [address], [place] [address] Luis Atkins, DO Medication Refill 01/22/2021 Patient Outreach [facility] [address], [place] [address] Anais Garcia, marine firer; CM- Telephonic Outreach (contact made) 01/17/2021 10:00 AM EDT Telemedicine [facility] [address], [place] [address] Anais Garcia, RN Type 2 diabetes mellitus with diabetic nephropathy, with long-term current use of insulin (HCC) (Primary Dx); Enrolled in chronic care management 01/16/2021 Orders Only [facility] [address], [place] [address] Alanna Mobley MA BPH without urinary obstruction 01/16/2021 Refill [facility] [address] [place] [address] Luis Atkins, DO Medication Refill 12/20/2020 Refill [facility] [address], [place] [address] Luis Atkins, DO Medication Refill 12/13/2020 Telephone [facility] [address] [place] [address] Alanna Mobley MA Prior Authorization (One Touch Ultra Strips ) 12/13/2020 11:00 AM EST Office Visit [facility] [address] [place] [address] Anais Garcia, RN Type 2 diabetes mellitus with diabetic nephropathy, with long-term current use of insulin (HCC) (Primary Dx) 12/12/2020 Telephone [facility] [address] [place] [address] Luis Atkins, DO Other; Care Transition; CM- Telephonic Outreach (Contact made); CM-Resource Coordination (Contacted pt's pharmacy) 12/12/2020 Patient Outreach [facility] [address] [place] [address] Anais Garcia marine firer; CM- Telephonic Outreach (contact made) 12/12/2020 Orders Only [facility] [address], [place] [address] Ryann Correa MA 12/11/2020 Telephone [facility] [address], [place] [address] Luis Atkins, Medication Management (medication cost) 12/07/2020 Refill [facility] [address], [place] [address] Luis Atkins, DO Medication Refill; Medication Refill 12/05/2020 Refill [facility] [address], [place] [address] Luis Atkins, DO Medication Refill 12/05/2020 Telephone [facility] [address], [place] [address] Luis Atkins, DO Medication Change (need to change to lantus ) 11/21/2020 Telephone [facility] [address] [place] [address] Luis Atkins, DO Prior Authorization (all meds) 11/06/2020 Refill [facility] [address] [place] [address] Luis Atkins, DO Medication Refill; Medication Management (pt insurance change. pt on [place] they want pt on Lantus) 10/15/2020 9:15 AM EST Office Visit [facility] [address] [place] [address] Luis Atkins, 10 year risk of IA or stroke 7.5% or greater (Primary Dx); BPH without urinary obstruction; Hypertension associated with diabetes (HCC); Hyperlipidemia associated with type 2 diabetes mellitus (HCC); Type 2 diabetes mellitus with diabetic nephropathy, with long-term current use of insulin (HCC); Chronic left-sided low back pain with left-sided sciatica 10/10/2020 Refill [facility] [address] [place] [address] Luis Atkins, DO Medication Refill 10/10/2020 Orders Only [facility] [address] [place] [address] Luis Atkins, High risk medications (not anticoagulants) long-term use; Malaise and fatigue; Hyperlipidemia, unspecified hyperlipidemia type; Hyperglycemia; Vitamin D deficiency 10/10/2020 Travel 10/10/2020 9:40 AM EST Clinical Support [facility] [address] [place] [address] Melanie Ortiz Hyperlipidemia, unspecified hyperlipidemia type; High risk medications (not anticoagulants) long-term use; Hyperglycemia; Malaise and fatigue; Vitamin D deficiency 10/08/2020 Travel 10/04/2020 Refill [facility] [address] [place] [address] Luis Atkins, DO Medication Refill 10/03/2020 Refill [facility] [address] [place] [address] Luis Atkins, DO Medication Refill 09/06/2020 Telephone [facility] [address] [place] [address] Luis Atkins, DO Medication Management (leg cramps ) 08/17/2020 Refill [facility] [address] [place] [address] Luis Atkins, DO Medication Refill 08/11/2020 Refill [facility] [address], [place] [address] Johnny Michelle MD Medication Refill 07/27/2020 Patient Outreach [facility] [address], [place] [address] Dionne Benton PharmD Medication Management (Adherence Outreach) 07/23/2020 Abstract [facility] [address], [place] [address] Luis Atkins, DO 07/12/2020 Refill [facility] [address], [place] [address] Johnny Michelle MD Medication Refill 07/11/2020 Orders Only [facility] Inbound [address] [place] [address] Juan Jensen MD 07/11/2020 Travel 07/11/2020 9:00 AM EDT Office Visit [facility] [place] [place] [facility] [address], [place] [address] Luis Atkins, DO Type 2 diabetes mellitus with diabetic nephropathy, with long-term current use of insulin (HCC) (Primary Dx); Hypertension associated with diabetes (HCC); Hyperlipidemia associated with type 2 diabetes mellitus (HCC); Pain in both lower extremities 07/11/2020 10:20 AM EDT Office Visit [facility] [place] [place] [facility] [address] [place] [facility] [place] [address] Juan Jensen MD Neoplasm of unspecified behavior of bone, soft tissue, and skin (Primary Dx); Other viral warts; Disturbance of skin sensation 07/04/2020 9:30 AM EDT Clinical Support [facility] [address] [place] [address] Angel Melanie Maria Del Carmen Type 2 diabetes mellitus with diabetic nephropathy, with long-term current use of insulin ([facility]); Immunity status testing 07/03/2020 Refill [facility] [address] [place] [address] Luis Atkins, DO Medication Refill 07/02/2020 Refill [facility] [address] [place] [address] Luis Atkins, DO Medication Refill 06/20/2020 Refill [facility] [address], [place] [address] Luis Atkins, DO Medication Refill 06/14/2020 Telephone [facility] [address] [place] [address] Luis Atkins, DO Advice Only (wait for derm appt?) 06/08/2020 Telephone [facility] [address] [facility] Building [address] [place] [address] Khoa Vela MD Medication Question 05/29/2020 Telephone [facility] [address] [place] [address] Luis Atkins, DO Orders (lab ) 05/29/2020 Travel 04/19/2020 Travel 04/13/2020 Orders Only [facility] [address] [place] [address] Luis Atkins, DO Rash (Primary Dx) 04/12/2020 Telephone [facility] [address] [place] [address] Luis Atkins, DO Medication Management (KENALOG) 04/09/2020 11:45 AM EDT Office Visit [facility] [address] [place] [address] Luis Atkins, DO Skin lesion (Primary Dx); Pain, unspecified ; Localized swelling, mass and lump, trunk ; Benign lipomatous neoplasm of skin and subcutaneous tissue of left arm ; Pain in left arm 04/06/2020 Travel 02/15/2020 Refill [facility] [address] [address] Khoa Vela MD Medication Refill 02/14/2020 Telephone [facility] [address] [place] [address] Luis Atkins, DO Medication Refill (BASAGLAR KWIKPEN U-100 INSULIN 100 unit/mL (3 mL) SubQ Insulin Pen 45 mL 0 02/10/2020 ) 02/10/2020 Refill [facility] [address] [place] [address] Luis Atkins, DO Medication Refill 02/10/2020 Refill [facility] [address] [place] [address] Luis Atkins, DO Medication Refill 01/18/2020 Travel 01/18/2020 9:20 AM EDT Office Visit [facility] [address] [place] [address] Luis Atkins, Type 2 diabetes mellitus with diabetic nephropathy, with long-term current use of insulin (HCC) (Primary Dx); Tinea pedis of both feet 01/11/2020 Travel 01/11/2020 9:40 AM EDT Clinical Support [facility] [place] [place] [facility] [address] [place] [address] Melanie Ortiz Iron deficiency anemia, unspecified iron deficiency anemia type; Type 2 diabetes mellitus with diabetic nephropathy, with long-term current use of insulin (HCC) 01/10/2020 Telephone [facility] [address] [address] Khoa Vela MD Medication Question; Follow-up 01/02/2020 Telephone [facility] [address] [place] [address] Luis Atkins, DO Orders (labs) 01/02/2020 Travel 12/28/2019 Refill [facility] [address] [place] [address] Luis Atkins, DO Medication Refill 12/06/2019 Refill [facility] [address] [place] [address] Luis Atkins, DO Medication Refill 12/02/2019 Lab Requisition [facility] [place] [address] Khoa Vela MD Dysphagia, unspecified 12/02/2019 Orders Only [facility] [address] [facility] [address] [place] [address] Khoa Vela MD Gastroesophageal reflux disease with esophagitis (Primary Dx) 12/02/2019 Orders Only [facility] [address] [facility] [address] [place] [address] Khoa Vela MD 11/29/2019 1:00 PM EST Office Visit [facility] [address] [facility] [address] [place] [address] Comfort Schneider APRN Esophageal dysphagia (Primary Dx); Epigastric abdominal pain 11/28/2019 Telephone [facility] [address] [place] [address] [address] Luis Atkins, DO Medication Management 11/25/2019 Telephone [facility] [address] [facility] [address] [place] [address] Ryne Craven MD Dysphagia; EGD 09/21/2019 11:00 AM EST Office Visit [facility] [address] [place] [address] Luis Atkins, DO Esophageal dysfunction (Primary Dx); Type 2 diabetes mellitus with diabetic nephropathy, with long-term current use of insulin (HCC) 09/15/2019 9:40 AM EST Clinical Support [facility] [address], [place] [address] Melanie Ortiz Chronic fatigue; Hypertension associated with diabetes (HCC) 2019 Orders Only [facility] [address], [place] [address] Luis Atkins DO Hypertension associated with diabetes (HCC) (Primary Dx); Chronic fatigue 2019 Telephone [facility] [address], [place] [address] Johnny Michelle MD Medication Refill 09/12/2019 Refill [facility] [address], [place] [address] Johnny Michelle MD Medication Refill 08/24/2019 Refill [facility] [address], [place] [address] Johnny Michelle MD Medication Refill 07/05/2019 Refill [facility] [address], [place] [address] Johnny Michelle MD Medication Refill 06/23/2019 Refill [facility] [address], [place] [address] Johnny Michelle MD Medication Refill 06/01/2019 Telephone [facility] [address], [place] [address] Johnny Michelle MD Medication Refill (ointment) 05/18/2019 Abstract [facility] [address], [place] [address] Johnny Michelle MD 04/01/2019 Refill [facility] [address], [place] [address] Johnny Michelle MD Medication Refill 03/24/2019 Telephone [facility] [address], [place] [address] Johnny Michelle MD Visit Follow Up; Diabetes 03/17/2019 Telephone [facility] [address] [place] [address] Johnny Michelle MD Other; Visit Follow [...] type 2 diabetes mellitus (HCC) 03/16/2019 Telephone [facility] [address] [place] [address] [...] Home or Self Care 03/09/2019 Patient Outreach [facility] [address] [place] [phone] Johnny Michelle MD Medicare Annual Wellness (Pre-Visit Questionnaire) 03/08/2019 Telephone [facility] [address] [place] [address] Johnny Michelle MD Lab Orders 12/22/2018 Orders Only [facility] Interface Inbound [address] [place] [address] Provider, Unknown 11/24/2018 Refill [facility] [address] [place] [address] Johnny Michelle MD Medication Refill 10/05/2018 Refill [facility] [address], [place] [address] Estefania Guzman APRN Medication Refill 2018 Refill [facility] [address], [...] [facility] [address], [place] [address] Neela Aguilar, CPT, DRESSING MACHINE OPERATOR Hypertension associated with diabetes (HCC); Type 2 diabetes mellitus with diabetic nephropathy, with long-term current use of insulin (HCC); Hyperlipidemia associated with type 2 diabetes mellitus (HCC) 07/19/2018 Telephone [facility] [address], [place] [address] Johnny Michelle MD Orders 07/19/2018 Refill [facility] [address], [place] [address] Estefania Guzman APRN Medication [...] [address], [place] [address] Estefania Guzman, YANICK Medication Refill 03/05/2018 Refill [facility] [address], [place] [address] Johnny Michelle MD Medication Refill 02/04/2018 Refill [facility] [address] [place] [address] Estefania Guzman, YANICK Medication Refill 02/04/2018 Refill [facility] [address], [place] [address] Johnny Michelle MD Medication Refill 12/23/2017 Abstract [facility] [address], [place] [address] Franchesca Barrientos CMA 12/19/2017 Orders Only [facility] Interface Inbound [address] [place] [address] Provider, Unknown 12/18/2017 Orders Only [facility] [address], [place] [address] Franchesca Barrientos, BERNARDO Type 2 diabetes mellitus with diabetic nephropathy, with long-term current use of insulin (HCC) 12/18/2017 Telephone [facility] [address], [place] [address] Johnny Michelle MD Other 12/17/2017 Refill [facility] [address], [place] [address] Estefania Guzman, YANICK Medication Refill 12/17/2017 Telephone [facility] [address] [...] organic origin 12/01/2017 Orders Only [facility] [address] [place] [address] [address] Johnny Michelle MD Type 2 diabetes mellitus without complication, with long-term current use of insulin (HCC) (Primary Dx); Hyperlipidemia associated with type 2 diabetes mellitus (HCC) 12/01/2017 10:20 AM EST Clinical Support [facility] [address] [place] [address] Neela Aguilar, CPT, DRESSING MACHINE OPERATOR Screening for metabolic disorder (Primary Dx); Screening for thyroid disorder; Vitamin D deficiency; Screening for deficiency anemia; Screening for lipid disorders; Type 2 diabetes mellitus with diabetic nephropathy, unspecified fpc insulin use status (HCC); Type 2 diabetes mellitus without complication, with long-term current use of insulin (HCC); Hyperlipidemia associated with type 2 diabetes mellitus (HCC); Screening PSA (prostate specific antigen) 11/23/2017 Refill [facility] [address] [place] [address] Johnny Michelle MD Medication Refill 11/06/2017 Telephone [facility] [address] [place] [address] [address] Johnny Michelle MD Medication Refill 10/05/2017 Refill [facility] [address] [place] [address] [address] Johnny Michelle MD Medication Refill 10/05/2017 Refill [facility] [address] [place] [address] [address] Estefania Guzman APRN Medication Refill 09/28/2017 10:39 AM EST - 09/28/2017 11:59 PM EST Hospital Encounter [facility] Physical Therapy [address], [place] [address] Jv Caceres PTA Acute left-sided low back pain with left-sided sciatica Discharge Disposition: Home or Self Care 09/23/2017 10:08 AM EST - 09/23/2017 11:59 PM EST Hospital Encounter [facility] Physical Therapy [place] [place], [place] [address] Min Colón, PT Acute left-sided low back pain with left-sided sciatica Discharge Disposition: Home or Self Care 09/21/2017 10:35 AM EST - 09/21/2017 11:59 PM EST Hospital Encounter [facility] Physical Therapy [address] [place], [place] [address] Jv Caceres, FISH STRINGER ASSEMBLER Acute left-sided low back pain with left-sided sciatica Discharge Disposition: Home or Self Care 09/16/2017 2:02 PM EST - 09/16/2017 11:59 PM EST Hospital Encounter [facility] Physical Therapy [place], [place] [address] Jv Caceres FISH STRINGER ASSEMBLER Acute left-sided low back pain with left-sided sciatica Discharge Disposition: Home or Self Care 09/14/2017 10:27 AM EST - 09/14/2017 11:59 PM EST Hospital Encounter [facility] Physical Therapy [address], [place] [address] Jv Caceres, FISH STRINGER ASSEMBLER Acute left-sided low back pain with left-sided sciatica Discharge Disposition: Home or Self Care 09/10/2017 Refill [facility] [address], [place] [address] Johnny Michelle MD Medication Refill 09/09/2017 11:20 AM EST - 09/09/2017 11:59 PM EST Hospital Encounter [facility] [place] [address] Min Colón, PT Acute left-sided low back pain with left-sided sciatica Discharge Disposition: Home or Self Care 09/03/2017 Telephone [facility] [address], [place] [address] Johnny Michelle MD Orders 08/31/2017 Telephone [facility] [address], [place] [address] Johnny Michelle MD Other 08/26/2017 Telephone [facility] [address], [place] [address] Franchesca Barrientos, [facility] Visit Follow Up 08/25/2017 1:40 PM EDT - 08/25/2017 11:59 PM EDT Hospital Encounter [facility] [facility] [address] [place] [address] Johnny Michelle MD Abdominal pain, LLQ [...] 11:59 PM EDT Hospital Encounter [facility] [place] [address] Discharge Disposition: Home or Self Care 08/11/2017 9:40 AM EDT Office Visit [facility] [address] [address] [address] Estefania Guzman APRN Olecranon bursitis of left elbow (Primary Dx); Essential hypertension 08/10/2017 Telephone [facility] [address] [place] [address] [address] Johnny Michelle MD Results 08/07/2017 Telephone [facility] [address] [place] [address] [address] Johnny Michelle MD Medication Refill 08/06/2017 10:44 AM EDT - 08/06/2017 11:59 PM EDT Hospital Encounter [facility] [address] [place] [address] Left hip pain; Chronic midline posterior neck pain; Pain of both heels Discharge Disposition: Home or Self Care 08/04/2017 10:20 AM EDT Office Visit [facility] [address] [place] [address] [address] Johnny Michelle MD [...] EDT Hospital Encounter [facility] [place] [address] Hyperlipidemia associated with type 2 diabetes [...] Dx) 07/13/2017 Refill [facility] [address], [place] [address] Johnny Michelle MD Medication Refill 07/10/2017 Refill [facility] [address], [place] [address] Johnny Michelle MD Medication Refill 06/30/2017 4:00 PM EDT Office Visit [facility] [address], [place] [address] Johnny Michelle MD Hand, foot and mouth disease (Primary Dx) 06/30/2017 Telephone [facility] [address], [place] [address] Franchesca Barrientos CMA Foot Swelling 06/23/2017 Telephone [facility] [address], [place] [address] Johnny Michelle MD Orders 05/21/2017 Refill SE[facility] [...] [address], [place] [address] Franchesca Barrientos DRESSING MACHINE OPERATOR Prior Authorization 02/19/2017 Telephone [facility] [address], [place] [address] Johnny Michelle MD Other 02/17/2017 Telephone [facility] [address], [place] [address] Franchesca Barrientos, BERNARDO Prior Authorization (contour meter.) 02/16/2017 Telephone [facility] [address] [place], [place] [address] Johnny Michelle MD Diabetes 02/09/2017 Refill [facility] [address] [place] [address] Johnny Michelle MD Medication Refill 02/06/2017 Telephone [facility] [address] [place], [place] [address] Johnny Michelle MD Other 01/15/2017 Refill [facility] [address] [place], [place] [address] Johnny Michelle MD Medication Refill 12/26/2016 Abstract [facility] [address] [place] [address] Johnny Michelle MD 12/25/2016 Refill [facility] [address] [place], [place] [address] Johnny Michelle MD Medication Refill 12/10/2016 Telephone [facility] [address] [place], [place] [address] Johnny Michelle MD Visit Follow Up; Diabetes 12/04/2016 Telephone [facility] [address] [place], [place] [address] Johnny Michelle MD Visit Follow Up 12/04/2016 Telephone [facility] [address] [place], [place] [address] Johnny Michelle MD Visit Follow Up; Diabetes 11/25/2016 Orders Only [facility] Inbound [address] [place] [address] Provider, Unknown 11/24/2016 8:20 AM EST Office Visit [facility] [address] [place], [place] [address] Johnny Michelle MD Type 2 diabetes mellitus without complication, with long-term current use of insulin (HCC) (Primary Dx); Hyperlipidemia LDL goal < 100; Essential hypertension 11/18/2016 4:12 PM EST - 11/18/2016 11:59 PM EST Hospital Encounter [facility] [address] [place], [place] [id number] Type 2 diabetes mellitus without complication, unspecified longwall foreman insulin use status; Routine adult health maintenance Discharge Disposition: Home or Self Care 11/18/2016 10:40 AM EST Clinical Support [facility] [address] [place] [address] Daniela Clarke RPT Type 2 diabetes mellitus without complication, unspecified fpc insulin use status (Primary Dx) 11/17/2016 Telephone [facility] [address] [place] [address] Johnyn Michelle MD Other 10/31/2016 Refill [facility] [address] [place] [address] Johnny Michelle MD Medication Refill 10/14/2016 Telephone [facility] [address] [place] [address] Alanna Mobley MA Medication Question 10/04/2016 Refill [facility] [address], [place] [address] Johnny Michelle MD Medication Refill 09/11/2016 Telephone [facility] [address] [place] [address] Alanna Mobley MA Prior Authorization (Asmanex ) 08/25/2016 Refill [facility] [address] [place] [address] Johnny Michelle MD Medication Refill 08/07/2016 Refill [facility] [address] [place] [address] Johnny Michelle MD Medication Refill 07/17/2016 Refill [facility] [address], [place] [address] Johnny Michelle MD Medication Refill 06/08/2016 Refill [facility] [address], [place] [address] Johnny Michelle MD Medication Refill 06/02/2016 9:00 AM EDT Office Visit [facility] [address], [place] [address] Johnny Michelle MD Type 2 diabetes mellitus without complication (HCC) (Primary Dx); Hyperlipidemia LDL goal < 100; Essential hypertension 05/27/2016 Telephone [facility] [address], [place] [address] Johnny Michelle MD Medication Question 05/13/2016 3:18 PM EDT - 05/13/2016 11:59 PM EDT Hospital Encounter [facility] [place] [address] Essential hypertension; Type 2 diabetes mellitus without complication (HCC); Hyperlipidemia LDL goal < 100 Discharge Disposition: Home or Self Care 05/13/2016 9:30 AM EDT Clinical Support [facility] [address], [place] [address] Daniela Clarke RPT Essential hypertension (Primary Dx); Hyperlipidemia LDL goal < 100; Type 2 diabetes mellitus without complication (HCC); Screening for thyroid disorder 05/12/2016 Orders Only [facility] [address], [place] [address] Johnny Michelle MD Type 2 diabetes mellitus without complication (HCC) (Primary Dx); Hyperlipidemia LDL goal < 100; Essential hypertension 05/12/2016 Orders Only [facility] [address], [place] [address] Cait Goodman CCMA RAD (reactive airway disease), mild persistent, uncomplicated (Primary Dx); Type 2 diabetes mellitus without complication (HCC) 04/21/2016 Telephone [facility] [address], [place] [address] Johnny Michelle MD Medication Refill 04/17/2016 Telephone [facility] [address], [place] [address] Johnny Michelle MD Medication Refill 04/11/2016 Telephone [facility] [address], [place] [address] Johnny Michelle MD Medication Refill 04/02/2016 Refill [facility] [address], [place] [address] Johnny Mihcelle MD Medication Refill 03/26/2016 Telephone [facility] [address] [place], [place] [address] Johnny Michelle MD Medication Problem 03/14/2016 Refill [facility] [address] [place], [place] [address] Johnny Michelle MD Medication Refill 02/21/2016 Refill [facility] [address], [place] [address] Johnny Michelle MD Medication Refill 02/16/2016 Refill [facility] [address], [place] [address] Johnny Michelle MD Medication Refill 01/28/2016 Refill [facility] [address] [place], [place] [address] Johnny Michelle MD Medication Refill 01/16/2016 Telephone [facility] [address], [place] [address] Johnny Michelle MD Medication Refill 12/24/2015 Orders Only [facility] [address], [place] [address] Johnny Michelle MD Cough (Primary Dx) 12/06/2015 Refill [facility] [address], [place] [address] Johnny Michelle MD Medication Refill 12/06/2015 1:20 PM EST Office Visit [facility] [address], [place] [address] Johnny Michelle MD Type 2 diabetes mellitus without complication (HCC) (Primary Dx); Hyperlipidemia LDL goal < 100; Essential hypertension; RAD (reactive airway disease), mild persistent, uncomplicated 12/04/2015 Telephone [facility] [address], [place] [address] Johnny Michelle MD Medication Refill 12/03/2015 Telephone [facility] [address], [place] [address] Johnny Michelle MD Medication Management 12/03/2015 Telephone [facility] [address], [place] [address] Johnny Michelle MD Other 11/26/2015 Telephone [facility] [address], [place] [address] Johnny Michelle MD Medication Refill 10/20/2015 Refill [facility] [address], [place] [address] Johnny Michelle MD Medication Refill 10/09/2015 3:31 PM EST - 10/09/2015 11:59 PM EST Hospital Encounter [facility] LAB RICKEY PROCESSING [address] [place] [address] Type 2 diabetes mellitus without complication (HCC); Hyperlipidemia LDL goal < 100; Essential hypertension Discharge Disposition: Home or Self Care 10/09/2015 9:00 AM EST Clinical Support [facility] [address], [place] [address] Daniela Clarke RPT Type 2 diabetes mellitus without complication (HCC) (Primary Dx); Essential hypertension; Hyperlipidemia LDL goal < 100 10/02/2015 9:30 AM EST Office Visit [facility] [address] [place] [address] Phani Guthrie MD Postop check (Primary Dx) 09/20/2015 Telephone [facility] [address] [place] [phone] Johnny Michelle MD Other 09/20/2015 8:00 AM EST - 09/20/2015 8:45 AM EST Surgery EDG PERIOP [facility] [place] [address] Guille Allen MD LAPAROSCOPIC INGUINAL HERNIA REPAIR (TEP- TOTALLY EXTRAPERITONEAL) (COVERS POSSIBLE OPEN) 09/20/2015 8:10 AM EST Anesthesia Event [facility] PERIOP [facility] [place] [address] Brian Lao, Adriane Godfrey NP 09/20/2015 7:12 AM EST - 09/20/2015 11:00 AM EST Hospital Encounter [facility] SAME DAY SURGERY [facility] [place] [address] uGille Allen MD Discharge Disposition: Home or Self Care 09/15/2015 Refill [facility] [address] [facility] [place] [phone] Johnny Michelle MD Medication Refill 2015 1:46 PM EST - 2015 11:59 PM EST Hospital Encounter EDG PRE-ADMIT TESTING [facility] [place] [address] Essential hypertension (Primary Dx) Discharge Disposition: Home or Self Care 09/05/2015 Abstract [facility] [address] [place] [phone] Nanette Hsu, Macy 08/18/2015 Refill [facility] [address] [place] [phone] Johnny Michelle MD Medication Refill 08/09/2015 Telephone [facility] [address] [place] [address] Guille Allen MD Surgery; Visit Follow Up 08/07/2015 10:00 AM EDT Office Visit [facility] [address] [place] [address] Guille Allen MD Unilateral inguinal hernia without obstruction or gangrene, recurrence not specified (Primary Dx); Unilateral recurrent inguinal hernia without obstruction or gangrene 07/30/2015 Orders Only [facility] [address] [facility] [address] [place] [address] Ryne Craven MD 07/17/2015 4:39 PM EDT - 07/17/2015 11:59 PM EDT Hospital Encounter EDG LAB RICKEY PROCESSING [facility] [place] [address] Screening for prostate cancer Discharge Disposition: Home or Self Care 07/17/2015 Refill [facility] [address] [place] [address] Johnny Michelle MD Medication Refill 07/17/2015 9:00 AM EDT Clinical Support [facility] [address] [place] [address] Daniela Clarke RPT Essential hypertension (Primary Dx) 06/18/2015 Telephone [facility] [address] [facility] [address] [place] [address] Dexter Mcginnis MD Colonoscopy 06/18/2015 Orders Only [facility] [address] [place] [address] Johnny Michelle MD Screen for colon cancer (Primary Dx) 06/18/2015 Telephone [facility] [address] [place] [address] Johnny Michelle MD Other 06/11/2015 Refill [facility] [address] [place] [address] Johnny Michelle MD Medication [...] EDT Hospital Encounter EDG LAB RICKEY PROCESSING [facility] [place] [address] Hyperlipidemia LDL goal < 100; Type 2 [...] EDT Hospital Encounter EDG LAB RICKEY PROCESSING [facility] [place] [address] Blood in stool Discharge Disposition: Home or Self Care 05/01/2015 1:30 PM EDT Clinical Support [facility] [address], [place] [address] Clara Hinojosa RMA Occult blood in stools (Primary Dx) 05/01/2015 Refill [facility] [address], [place] [address] Johnny Michelle MD Medication Refill 04/30/2015 Telephone [facility] [address], [place] [address] Johnny Michelle MD Results 04/23/2015 3:42 PM EDT - 04/23/2015 11:59 PM EDT Hospital Encounter EDG LAB RICKEY PROCESSING [facility] [place] [address] Blood in stool Discharge Disposition: Home or [...] EDT Hospital Encounter EDG LAB RICKEY PROCESSING [facility] [place] [place] [address] HTN (hypertension); DM (diabetes mellitus), type 2 (HCC); Hyperlipidemia LDL goal < 100 Discharge Disposition: Home or Self Care 01/15/2015 Refill [facility] [address] [place], [place] [address] Johnny Michelle MD Medication Refill 01/15/2015 9:45 AM EDT Clinical Support [facility] [address] [place] [address] Clara Hinojosa RMA DM (diabetes mellitus), type 2 (HCC) (Primary Dx); Hyperlipidemia LDL goal < 100; HTN (hypertension) 01/11/2015 Telephone [facility] [address] [place], [place] [address] Johnny Michelle MD Other 01/09/2015 Telephone [facility] [address] [place], [place] [address] Johnny Michelle MD Other 12/26/2014 Refill [facility] [address] [place], [place] [address] Johnny Michelle MD Medication Refill 12/21/2014 Orders Only [facility] [address] [place] [address] Chin Lamb RMA DM (diabetes mellitus), type 2 (HCC) (Primary Dx) 12/21/2014 Refill [facility] [address] [place] [address] Johnny Michelle MD Medication Refill 12/21/2014 Orders Only [facility] [address] [place] [address] Chin Lamb RMA DM (diabetes mellitus), type 2 (HCC) (Primary Dx) 12/19/2014 Refill [facility] [address], [place] [address] Johnny Michelle MD Medication Refill 11/13/2014 Telephone [facility] [address], [place] [address] Johnny Michelle MD Diabetes 10/12/2014 [...] [place] [address] Johnny Michelle MD Medication Management 09/20/2014 Telephone SE[facility] [...] EST Hospital Encounter EDG LAB RICKEY PROCESSING [facility] [place] [address] HTN (hypertension); DM (diabetes mellitus), type 2 (HCC); Hyperlipidemia LDL goal < 100; Low testosterone Discharge Disposition: Home or Self Care 09/05/2014 9:15 AM EST Clinical Support [facility] [address], [place] [address] HsuNanette patel, RMA Low testosterone (Primary Dx); DM (diabetes mellitus), [...] [facility] [address], [place] [address] Johnny Michelle MD Medication Refill 06/15/2014 1:00 PM EDT Office Visit [facility] [address] [place] [address] Johnny Michelle MD Pre-op exam (Primary Dx) 06/05/2014 Telephone [facility] [address] [place] [address] Johnny Michelle MD Medication Refill 05/24/2014 Refill [facility] [address] [place] [address] Johnny Michelle MD Medication Refill 05/17/2014 4:18 PM EDT - 05/17/2014 11:59 PM EDT Hospital Encounter EDG LAB RICKEY PROCESSING [facility] [place] [address] Low testosterone Discharge Disposition: Home or Self Care 05/17/2014 9:00 AM EDT Clinical Support [facility] [address], [place] [address] Cindy Lau Low testosterone (Primary Dx) 05/10/2014 Telephone Adult Med [address] [place] [address] [place] [address] Johnny Michelle MD Labs Only 05/01/2014 Telephone [facility] [address] [place] [phone] Johnny Michelle MD Visit Follow Up; Diabetes 04/19/2014 Telephone [facility] [address] [place] [phone] Johnny Michelle MD Visit Follow Up; Diabetes 04/10/2014 2:50 PM EDT - 04/10/2014 11:59 PM EDT Hospital Encounter EDG LAB RICKEY PROCESSING [facility] [place] [address] Hyperlipidemia LDL goal < 100; FH: hemochromatosis; DM (diabetes mellitus), type 2 (HCC) Discharge Disposition: Home or Self Care 04/10/2014 9:15 AM EDT Office Visit [facility] [address], [place] [address] Johnny Michelle MD DM (diabetes mellitus), type 2 (HCC) (Primary Dx); FH: hemochromatosis; Low testosterone; Hyperlipidemia LDL goal < 100; HTN (hypertension); Constipation 03/16/2014 Refill [facility] [address], [...] Up 12/07/2013 Telephone [facility] [address], [place] [address] Johnny Michelle MD Visit Follow Up; Diabetes 12/01/2013 Refill [facility] [address], [place] [address] Johnny Michelle MD Medication Refill 12/01/2013 Refill [facility] [address], [place] [address] Johnny Michelle MD Medication Refill 11/30/2013 4:45 PM EST - 11/30/2013 11:59 PM EST Hospital Encounter EDG LAB RICKEY PROCESSING [facility] [place] [address] DM (diabetes mellitus), type 2 (HCC); Hyperlipidemia LDL goal < 100; Screening for prostate cancer; ED (erectile dysfunction) Discharge Disposition: Home or Self Care 11/30/2013 9:00 AM EST Office Visit [facility] [address], [place] [address] Johnny Michelle MD DM (diabetes mellitus), type 2 (HCC) (Primary Dx); Hyperlipidemia LDL goal < 100; HTN (hypertension); ED (erectile dysfunction); Screening for prostate cancer 08/23/2013 Telephone [facility] [address] [place] [address] Johnny Michelle MD Medication Refill 07/19/2013 Refill [facility] [address], [place] [address] Johnny Michelle MD Medication Refill 06/28/2013 Refill [facility] [address], [place] [address] Johnny Michelle MD Medication Refill 06/28/2013 Telephone [facility] [address], [place] [address] Johnyn Michelle MD Medication Refill 06/27/2013 Refill [facility] [address], [place] [address] Johnny Michelle MD Medication Refill 06/22/2013 3:36 PM EDT - 06/22/2013 11:59 PM EDT Hospital Encounter EDG LAB RICKEY PROCESSING [facility] [place] [address] HTN (hypertension); DM (diabetes mellitus), type 2 (HCC); Hyperlipidemia LDL goal < 100 Discharge Disposition: Home or Self Care 06/22/2013 9:00 AM EDT Office Visit [facility] [address] [place] [address] Johnny Michelle MD DM (diabetes mellitus), type 2 (HCC) (Primary Dx); HTN (hypertension); Hyperlipidemia LDL goal < 100; Wart; Skin lesion 01/04/2013 Refill [facility] [address], [place] [address] Gracy Murdock LPN Medication Refill 01/02/2013 Refill [facility] [address], [place] [address] Johnny Michelle MD Medication Refill 11/01/2012 Telephone [facility] [address], [place] [address] Johnny Michelle MD Other 11/01/2012 Telephone [facility] [address], [place] [address] Johnny Michelle MD Medication Refill 10/31/2012 Refill [facility] [address], [place] [address] Johnny Michelle MD Medication Refill 10/11/2012 Refill [facility] [address] [place] [address] Johnny Michelle MD Medication Refill 09/07/2012 Telephone [facility] [address], [place] [address] Johnny Michelle MD Other 08/28/2012 Refill [facility] [address], [place] [address] Johnny Michelle MD Medication Refill 07/28/2012 8:45 AM EDT Office Visit [facility] [address] [place] [phone] Johnny Michelle MD DM (diabetes mellitus), type 2 (HCC) (Primary Dx); HTN (hypertension); Hyperlipidemia LDL goal < 100; Eczema; ED (erectile dysfunction) 07/19/2012 2:56 PM EDT - 07/19/2012 11:59 PM EDT Hospital Encounter EDG LAB RICKEY PROCESSING [facility] [place] [address] DM (diabetes mellitus), type 2 (HCC); HTN (hypertension); Hyperlipidemia LDL goal < 100; Screening for prostate cancer Discharge Disposition: Home or Self Care 07/19/2012 8:30 AM EDT Clinical Support [facility] [address], [place] [address] Cindy Lau DM (diabetes mellitus), type 2 (HCC) (Primary Dx) 07/14/2012 Telephone [facility] [address], [place] [address] Johnny Michelle MD Other 07/07/2012 Refill [facility] [address], [place] [address] Johnny Michelle MD Medication Refill 07/07/2012 Telephone [facility] [address], [place] [address] Johnny Michelle MD Medication Refill 06/30/2012 Telephone [facility] [address], [place] [address] Johnny Michelle MD Other 06/18/2012 Telephone [facility] [address], [place] [address] Johnny Michelle MD Medication Refill 06/15/2012 Refill [facility] [address], [place] [address] Johnny Michelle MD Medication Refill 05/17/2012 Refill [facility] [address], [place] [address] Johnny Michelle MD Medication Refill 05/13/2012 Refill [facility] [address], [place] [address] Johnny Michelle MD Medication Refill 04/22/2012 Telephone [facility] [address], [place] [address] Johnny Michelle MD Other 04/05/2012 Telephone [facility] [address] [place] [address] Johnny Michelle MD Medication Management 04/01/2012 Refill [facility] [address] [place] [address] Sabi Vigil LPN Medication Refill 03/12/2012 Telephone [facility] [address] [place] [address] Johnny Michelle MD Other 03/11/2012 Telephone [facility] [address] [place] [address] Johnny Michelle MD Other 03/08/2012 Refill [facility] [address] [place] [address] Johnny Michelle MD Medication Refill 02/25/2012 Telephone [facility] [address] [place] [address] Johnny Michelle MD Medication Management 02/09/2012 Refill [facility] [address] [place] [address] Anais Bruno MD Medication Refill 02/09/2012 Refill [facility] [address] [place] [address] Johnny Michelle MD Medication Refill 01/26/2012 Telephone [facility] [address] [place] [address] Johnny Michelle MD Other 01/20/2012 Refill [facility] [address] [place] [address] Johnny Michelle MD Medication Refill 01/06/2012 Telephone [facility] [address] [place] [address] Johnny Michelle MD Other 01/05/2012 Refill [facility] [address] [place] [address] Johnny Michelle MD Medication Refill 12/02/2011 Telephone [facility] [address], [place] [address] Johnny Michelle MD Other 11/24/2011 Telephone [facility] [address], [place] [address] Johnny Michelle MD Other 11/18/2011 Orders Only [facility] [address], [place] [address] Anais Bruno MD HTN (hypertension) (Primary Dx) 11/18/2011 11:15 AM EST Clinical Support [facility] [address], [place] [address] Francesca Wray CMA HTN (hypertension) (Primary Dx) 11/18/2011 Telephone [facility] [address], [place] [address] Johnny Michelle MD Other (samples) 10/20/2011 Telephone [facility] [address] [place], [place] [phone] Johnny Michelle MD Medication Problem 10/06/2011 Telephone [facility] [address], [place] [address] Johnny Michelle MD Other (samples) 09/22/2011 Telephone [facility] [address], [place] [address] Johnny Michelle MD Medication Refill 08/25/2011 Telephone [facility] [address], [place] [address] Johnny Michelle MD Medication Management 07/23/2011 Refill [facility] [address], [place] [address] Adriane Del Castillo RMA Medication Refill 07/21/2011 Telephone [facility] [address], [place] [address] Tram Villar MD Other (samples) 06/26/2011 [...] [address] [place], [place] [address] Tram Villar MD Blood Sugar Problem [...] [place], [place] [address] Tram Villar MD Medication Problem 12/30/2010 Telephone [facility] [address] [place] [address] Tram Villar MD Medication Management 11/29/2010 Telephone [facility] [address] [place], [place] [address] Tram Villar MD Results 11/29/2010 12:30 PM EST - 11/29/2010 11:59 PM EST Hospital Encounter FTT XRAY [address] [place] [address] Asbestos exposure Discharge Disposition: Home or Self Care 11/26/2010 Abstract [facility] [address] [place], [place] [address] Tram Villar MD ED (erectile dysfunction) 11/26/2010 Refill [facility] [address] [place], [place] [address] Gracy Murdock LPN Other (fax of [facility] without comments) 11/26/2010 9:45 AM EST Office Visit [facility] [address] [place], [place] [address] Tram Villar MD Well [...] Results 08/30/2010 Telephone [facility] [address] [place] [address] Tram Villar MD Other (wants bw order) 08/23/2010 Abstract [facility] [address] [place] [address] [facility], Test Atm Manager DM (diabetes mellitus) (HCC); HTN (hypertension); Elevated cholesterol; RAD (reactive airway disease) 01/10/2009 3:57 PM EDT - 01/10/2009 11:59 PM EDT Hospital Encounter [facility] LAB [facility]G Malgorzata Leigh MD 01/03/2009 3:42 PM EST - 01/03/2009 11:59 PM EST Hospital Encounter [facility] LAB EDG Tram Villra MD 09/02/2008 4:04 PM EDT - 09/02/2008 [...] Medications GLUCOSAM & CHONDROIT-MV & MIN3 (GLUCOSAMINE &KINBRZTOC-LP-W IN3 ORAL) Take by mouth daily. Active vitamin E 400 unit capsule Take by mouth daily. Active Vitamin B Comp & C No.3 (B COMPLEX PLUS VITAMIN C) 65-67-47-5-300 mg Oral Capsule Take by mouth daily. Active aspirin 81 mg tablet Take 81 mg by mouth daily. Active VENTOLIN HFA 90 mcg/actuation Inhl HFA Aerosol Inhaler INHALE TWO PUFFS INTO THE LUNGS EVERY 4 HOURS NEEDED FOR WHEEZING 18 g 2 7 Active ONETOUCH ULTRA2 Misc Kit USE DIRECTED 1 Kit 7 Active ONE TOUCH DELICA 33 gauge Misc Misc USE ONE TO CHECK GLUCOSE 4 TIMES DAILY 100 Each 11 7 Active Insulin [place], Disposable, 31 gauge x 5/16 Misc Needle USE AT BEDTIME WITH INSULIN PEN 50 Each 11 0 Active Insulin [place], Disposable, (LEWIS PEN NEEDLE) 32 gauge x 5/32 Misc Needle Use to inject insulin 3 times daily 270 box 2 1 Active Blood Sugar Diagnostic (ONETOUCH ULTRA BLUE TEST STRIP) Misc Strip Use to test up tp 3 times daily. DX: E11.9 300 Strip 2 1 Active Lancets Misc Misc One touch ultra. Test up to 3 times daily. E11.9 300 Each 2 1 Active Insulin [place], Disposable, 31 gauge x 5/16 Misc Needle Use up to 3 times daily. DX:E11.9 300 Each 2 1 Active Coenzyme Q10 100 mg Oral Capsule Take by mouth. Activ e multivit-min/fo lic/vit K/lycop (ONE-A-DAY MEN'S 50 PLUS ORAL) Take [...] or 0.5 mg(2 mg/1.5 mL) SubQ Pen InjectorIndicat ions:Type 2 diabetes mellitus with diabetic nephropathy, with long-term current use of insulin (HCC) Subcutaneous (Inject under the skin) 0.5 mg once a week. 1.5 mL 3 Active Blood Sugar Diagnostic (ONETOUCH ULTRA TEST) Misc Strip USE TO TEST UP TO 3 TIMES DAILY 300 Each 3 Active Lancets Misc Misc Used to test blood sugar 3 times daily 1 Each 11 3 Active fluticasone furoate (ARNUITY ELLIPTA) 100 mcg/actuation Inhl Disk with Device INHALE 1 PUFF BY MOUTH ONCE DAILY AT 9AM, MUST MAKE APPOINTMENT FOR FURTHER REFILLS 30 Each 2 3 Active enzalutamide (XTANDI ORAL) Take by mouth. A ctive oxyCODONE-aceta minophen (PERCOCET) 10-325 mg Oral Tablet Take 1 Tablet by mouth every 4 hours as needed. Active insulin degludec (TRESIBA FLEXTOUCH U-100) 100 unit/mL (3 mL) SubQ Insulin PenIndications: Type 2 diabetes mellitus with diabetic nephropathy, with long-term current use of insulin (HCC) Subcutaneous (Inject under the skin) 60 Units nightly. 5 boxes received from patient assistance. 15 mL 4 Active insulin aspart U-100 (NOVOLOG FLEXPEN U-100 INSULIN) 100 unit/mL (3 mL) SubQ Insulin PenIndications: Type 2 diabetes mellitus with diabetic nephropathy, with long-term current use of insulin (HCC) Subcutaneous (Inject under the skin) 30 Units 2 times daily (with meals). 5 boxes received from patient assistance. 15 mL 4 Active hydrALAZINE (APRESOLINE) 25 mg Oral TabletIndicatio ns:Hypertension associated with diabetes (HCC) Take 1 Tablet by mouth 2 times daily. 180 Tablet 3 4 Active dapagliflozin propanediol (FARXIGA) 10 mg Oral TabletIndicatio ns:Type 2 diabetes mellitus with diabetic nephropathy, with long-term current use of insulin (HCC) Take 1 Tablet by mouth daily. 90 Tablet 3 4 Active pantoprazole (PROTONIX) 40 mg Oral Tablet, Delayed Release (E.C.) Take 1 Tablet by mouth daily. 90 Tablet 2 5 Active venlafaxine (EFFEXOR-XR) 37.5 mg Oral Capsule, Sust. Release 24 hr Take 37.5 mg by mouth daily. 5 Active dutasteride (AVODART) 0.5 mg Oral Capsule Take 0.5 mg by mouth daily. 5 Active meclizine (ANTIVERT) 25 mg Oral TabletIndicatio ns:BPV (benign positional vertigo), unspecified laterality Take 1 Tablet by mouth 3 times daily as needed for Dizziness. 60 Tablet 5 Active pravastatin (PRAVACHOL) 40 mg Oral TabletIndicatio ns:10 year risk of IA or stroke 7.5% or greater TAKE 1 TABLET BY MOUTH ONCE DAILY IN THE EVENING 100 Tablet 5 Active lancets (FREESTYLE LANCETS) 28 gauge Misc Misc Subcutaneous (Inject under the skin) 1 'box' 3 times daily. USE 1 LANCET TO CHECK GLUCOSE THREE TIMES DAILY 200 Each 2 5 Active metFORMIN (GLUCOPHAGE XR) 500 mg Oral ER 24 hr tablet TAKE 2 TABLETS BY MOUTH IN THE MORNING WITH BREAKFAST 200 Tablet 5 Active losartan (COZAAR) 100 mg Oral Tablet Take 1 tablet by mouth once daily 100 Tablet 2 5 Active amLODIPine (NORVASC) 5 mg Oral TabletIndicatio ns:Hypertension associated with diabetes (HCC) Take 1 tablet by mouth once daily 90 Tablet 5 Active Active Problems Patient Care Coordination No te [...] Overview (09/30/2022): Follows with Dr. Prather in [place], [place] Assessment & Plan (02/19/2023 1:08 PM [...] Grandfather Social History Smoking Status as of 06/06/2025 Tobacco Use Types Packs/Day Years Used Date Smoking Tobacco: Never Assessed Overall Financial Resource Strain (CARDIA) Answe r Date Recorded How hard is it for you to pa y for the very basics like food, housing, medical care, and heating? Not very hard 08/22/2024 PHQ-2 Answer Date Recorded PHQ-2 Total Score 0 03/01/2025 [facility]ational Stress Questionnaire Answer Date [...] place to sleep or slept in a usp (including now)? No 09/20/2021 Sex and Gender [...] on file Medical Devices Implanted Type Area Sueding Machine Tender Device Identifier Shelf Expiration Date Model / Serial / Lot Mesh 3d Right Large [id number] - [id number] Implanted:Qty: 1 on 09/20/2015 by Guille Allen MD at [facility] Right: Inguinal CR BARD:FLOYD 06/29/2020 [id number] / / [id number] Mesh 3d Left Large [id number] - [id number] Implanted:Qty: 1 on 09/20/2015 by Guille Allen MD at [facility] Left: Inguinal CR BARD:DAVOL 05/29/2020 [id number] / / [id number] Device Fixation Strap Absorbable 25 Straps Secure Strap 5mm - [id number] Implanted:Qty: 1 on 09/20/2015 by Guille Allen MD at [facility] Left: Inguinal J&J:ETHICON:ENDO -SURGERY 07/01/2017 [id number] / / [id number] Procedures Procedure Name Priority Date/Time Associated Diagnosis [...] 2 diabetes mellitus without complication, unspecified whether longwall foreman insulin use (HCC) LIPID SCREEN Routine 08/14/2021 [...] 2 diabetes mellitus without complication, unspecified whether fpc insulin use (HCC) DIABETIC RETINAL EXAM Routine [...] Type 2 diabetes mellitus without complication, unspecified fpc insulin use status DIFFERENTIAL Routine 11/18/2016 10:51 [...] obstruction or gangrene Special Needs XENA CPT; 04020, 83553DC 09/06 DT GLUCOSE METER POC Routine 09/20/2015 [...] 57.4 mg/L 03/01/2025 9:19 PM EDT [facility] [employer] Urine Creatinine 112.0 mg/dL 03/01/2025 9:19 PM EDT [employer] [facility] [employer] Ur Microalb/Creat 51(H) 0 - 30 mg/g 03/01/2025 9:19 PM EDT [employer] [facility] [employer] Urine STRUCTURE OF URINARY TRACT PROPER / Unknown 03/01/2025 1:55 PM EDT 03/01/2025 1:55 PM EDT us Luis Atkins DO URINE ORDERABLES Final Result [facility] [employer], [employer] [address] , [place] [address] * TSH REFLEX TO FT4 (03/01/2025 1:51 PM EDT) Only the most recent of8 resultswithin the time period is included. Pathologist [facility] TSH Reflex 3.620 0.270 - 4.200 mcIU/mL 03/01/2025 8:03 PM EDT [facility] Blood VENOUS BLOOD / Unknown Venipuncture / Unknown 03/01/2025 1:51 PM EDT 03/01/2025 1:51 PM EDT Narrative [facility] - 03/01/2025 8:03 PM EDT Ingestion of eduardo doses of biotin (>5 mg/day) taken within 8 hours of drawing blood sample can interfere with this immunoassay test. Luis Atkins DO CHEMISTRY ORDERABLES Final Res ult Performing Organization Address [facility]/ZIP Co de Phone Number [facility] [address] [address] , [place] [address] * (ABNORMAL) POCT GLYCATED HEMOGLOBIN, TOTAL (03/01/2025 1:51 PM EDT) Only the most recent of8 resultswithin the time period is included. Pathologist [facility] Hemoglobin A1C 7.4(A) 4 - 6 % SEP OFFICE Lot Number SEP OFFICE Expiration Date SEP OFFICE SeriAl # SEP OFFICE 03/01/2025 1:51 PM EDT Luis Atkins DO POINT OF CARE TEST ORDERABLES Final Result Performing Organization Address [facility] Co de Phone Number SEP OFFICE * CBC WITH DIFF (03/01/2025 1:51 PM EDT) Only the most recent of15 resultswithin the time period is included. Pathologist [facility] WBC 8.8 3.7 - 10.3 x10(3)/mcL 03/01/2025 7:59 PM EDT [facility] RBC 5.30 4.60 - 6.10 x10(6)/mcL 03/01/2025 7:59 PM EDT [facility] Hgb 16.4 13.7 - 17.5 g/dL 03/01/2025 7:59 PM EDT [facility] Hct 49.7 40.0 - 51.0 % 03/01/2025 7:59 PM EDT [facility] MCV 93.8 80.0 - 100.0 fL 03/01/2025 7:59 PM EDT [facility] MCH 30.9 26.0 - 34.0 pg 03/01/2025 7:59 PM EDT [facility] MCHC 33.0 30.7 - 35.5 g/dL 03/01/2025 7:59 PM EDT [facility] RDW 12.8 <=14.9 % 03/01/2025 7:59 PM EDT [facility] Platelet 322 155 - 369 x10(3)/mcL 03/01/2025 7:59 PM EDT [facility] MPV 10.0 8.8 - 12.5 fL 03/01/2025 7:59 PM EDT [facility] Neut Percent 68.1 % 03/01/2025 7:59 PM EDT [facility] Comment:Neutrophils equals s egs plus bands Imm Gran% 0.3 % 03/01/2025 7:59 PM EDT [facility] Comment:Automated count of m etamyelocytes, myelocytes and promyelocytes. Lymph Percent 15.5 % 03/01/2025 7:59 PM EDT [facility] Prowers Percent 10.1 % 03/01/2025 7:59 PM EDT [facility] Eos Percent 5.2 % 03/01/2025 7:59 PM EDT [facility] Baso Percent 0.8 % 03/01/2025 7:59 PM EDT [facility] Neut # 6.0 1.6 - 6.1 x10(3)/mcL 03/01/2025 7:59 PM EDT [facility] Comment:Neutrophils equals s egs plus bands IMMGRAN# 0.0 0.0 - 0.1 x10(3)/mcL 03/01/2025 7:59 PM EDT [facility] Comment:Automated count of m etamyelocytes, myelocytes and promyelocytes. An absolute IG <0.1 is reported as 0.0. Lymph # 1.4 1.2 - 3.9 x10(3)/mcL 03/01/2025 7:59 PM EDT [facility], [facility] Prowers # 0.9 0.3 - 0.9 x10(3)/mcL 03/01/2025 7:59 PM EDT [facility], [facility] Eos# 0.5 0.0 - 0.5 x10(3)/mcL 03/01/2025 7:59 PM EDT [facility], [facility] Baso # 0.1 0.0 - 0.1 x10(3)/mcL 03/01/2025 7:59 PM EDT [facility], [facility] Blood VENOUS BLOOD / Unknown Venipuncture / Unknown 03/01/2025 1:51 PM EDT 03/01/2025 1:51 PM EDT Luis Atkins DO HEMATOLOGY ORDERABLES Final Re sult [facility], [facility] [address] , [place] [address] * (ABNORMAL) LIPID SCREEN (03/01/2025 1:51 PM EDT) Only the most recent of12 resultswithin the time period is included. Cholesterol 192 <200 mg/dL 03/01/2025 8:03 PM EDT [facility] Comment: < 200 Desirable 200 - 239 Borderline High >= 240 High Triglyceride 250(H) <150 mg/dL 03/01/2025 8:03 PM EDT [facility] Comment: < 150 Normal 150 - 199 Borderline High 200 - 499 High >= 500 Very High HDL 41 >=40 mg/dL 03/01/2025 8:03 PM EDT [facility] [employer] [employer] Comment: > 60 Optimal 40 - 60 Acceptable < 40 Low LDL Calculated 108(H) <100 mg/dL 03/01/2025 8:03 PM EDT [facility] Comment: < 100 Optimal 100 - 129 [...] 025 8:03 PM EDT [facility] Blood VENOUS BLOOD / Unknown Venipuncture / Unknown 03/01/2025 1:51 PM EDT 03/01/2025 1:51 PM EDT us Luis Atkins DO CHEMISTRY ORDERABLES Final Res ult [facility] [address] [facility] , [address] [place] [phone] * (ABNORMAL) COMPREHENSIVE METABOLIC PANEL (03/01/2025 1:51 [...] gm/dL 03/01/2025 8:03 PM EDT [facility], [facility] Total Protein 7.9 6.4 - 8.3 gm/dL 03/01/2025 8:03 PM EDT [facility], [facility] Bili Total 0.4 0.2 - 1.4 mg/dL 03/01/2025 8:03 PM EDT [facility], [facility] ALT 26 <=41 U/L 03/01/2025 8:03 PM EDT [facility], [facility] AST 27 <=40 U/L 03/01/2025 8:03 PM EDT [facility] Alk Phos 135(H) 40 - 129 U/L 03/01/2025 8:03 PM EDT [facility], [facility] eGFR (CKD-EPIcr 2020) 94 >=60 mL/min/1.7 3 m2 03/01/2025 8:03 PM EDT [facility], [facility] Comment:Estimated GFR was ca lculated using the CKD-EPIcr (2020) equation refit without race. The equation is recommended by the National Kidney Foundation - [place] [employer] of Nephrology Task Force. Blood VENOUS BLOOD / Unknown Venipuncture / Unknown 03/01/2025 1:51 PM EDT 03/01/2025 1:51 PM EDT us Luis Atkins DO CHEMISTRY ORDERABLES Final Res ult [facility], [address] , [address] [place] [phone] * MRI BRAIN W WO CONTRAST (01/03/2025 [...] PM CLINICAL HISTORY: H81.10-Benign paroxysmal vertigo, unspecified qpk-MWK-82-CM J18-Qnabskvvk neoplasm of prostate (HCC)-ICD-10-CM. COMPARISON: None. PROCEDURE [...] 7:10 PM CLINICAL HISTORY: H81.10-Benign paroxysmal vertigo, rlktzlrbnigwas-OYD-54-CM L45-Abwuqsehp neoplasm of prostate (HCC)-ICD-10-CM. COMPARISON: None. PROCEDURE [...] contactthe office of the ordering clinician. us Luis Atkins DO IMG MRI ORDERABLES Final Resul [...] Provider Oly Farrar RN Endoscopy Nurse Ida Grey, extruding press operator Nurse Vanessa Nicole RN Ammonium Hydroxide Operator CARA Schmitz CRNA, MD Anesthesiologist Medications See [...] AIRWAY PLACEMENT (08/19/2023 10:21 AM EDT) Narrative [facility] - 08/19/2023 10:21 AM EDT Ludivina Haro CRNA 08/19/2023 10:23 AM Intraop Airway Placement: Date/Time: 08/19/2023 10:21 AM Airway type: Nasal cannula salter us Christina Sneed MD [place] ANESTHESIA Final Result [facility] [address] [place] [address] * (ABNORMAL) GLUCOSE METER POC (08/19/2023 10:01 AM EDT) Only the most recent of3 resultswithin the time period is included. Glucose Meter POC 180(H) 70 - 100 mg/dL 08/19/2023 10:03 AM EDT [facility] Sample Type Capillary 08/19/2023 10:03 AM EDT [facility] Patient Status Non-Critical Patient 08/19/2023 10:03 AM EDT [facility] Blood BLOOD SPECIMEN / Unknown 08/19/2023 10:01 AM EDT 08/19/2023 10:03 AM EDT Khoa Vela MD POINT OF CARE TEST ORDERABL ES Final Result Performing Organization Address [facility]/ZIP Co de Phone Number [address] [address] * (ABNORMAL) HEMOGLOBIN A1C (02/19/2023 11:53 AM EDT) Only the most recent of16 resultswithin the time period is included. Hgb A1C 7.2(H) 4.2 - 5.6 % 02/19/2023 5:17 PM EDT [facility]. Avg Glucose 160 mg/dL 02/19/2023 5:17 PM EDT [facility] Blood VENOUS BLOOD / Unknown Venipuncture / Unknown 02/19/2023 11:53 AM EDT 02/19/2023 11:53 AM EDT Narrative [facility] - 02/19/2023 5:17 PM EDT REFERENCE RANGE: Normal: 4.0-5.6% Pre-diabetes: 5.7-6.4% Provisional diagnosis of diabetes: >6.4% Hgb F>10% and anything which shortens red cell survival, such as hemolytic anemia, or unstable hemoglobin variants such as HbSS, HbSC, or HbCC, will lower the HbA1c value associated with a given level of glycemic control. Luis Atkins DO CHEMISTRY ORDERABLES Final Res ult Performing Organization Address [facility]/ZIP Co de Phone Number [facility] [address] [place] [address] , [place] [address] * DIABETIC RETINAL EXAM (10/23/2022 8:41 AM EST) VISUAL ACUITY SCREEN OS 20/20 10/23/2022 8:41 AM EST [facility] OCULAR BLOOD FLOW MEASURE OS 18 10/23/2022 8:41 AM EST [facility] DIABETIC RETINOPATHY NEGATIVE 10/23/2022 8:41 AM EST [facility] CATARACTS NEGATIVE 10/23/2022 8:41 AM EST [facility] GLAUCOMA NEGATIVE 10/23/2022 8:41 AM EST [facility] 10/23/2022 8:41 AM EST us Unknown Provider OPHTHALMOLOGY SERVICES ORDERABL ES Final Result Performing Organization Address City/[facility]/ZIP Co de Phone Number [facility] * DIABETIC RETINAL EXAM (10/23/2022 8:41 AM EST) VISUAL ACUITY SCREEN OD 20/20 10/23/2022 8:41 AM EST [facility] OCULAR BLOOD FLOW MEASURE OD 14 10/23/2022 8:41 AM EST [facility] 10/23/2022 8:41 AM EST us Unknown Provider OPHTHALMOLOGY SERVICES ORDERABL ES Final Result Performing Organization Address [facility] Co de Phone Number [facility] * XR ABDOMEN AP (06/20/2022 2:15 PM [...] ABDOMEN AP, 06/20/2022 2:15 PM CLINICAL HISTORY: 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 FINDINGS: Nonspecific, nonobstructive bowel gas pattern. No pathologic calcification. Skeleton grossly intact. Surgical clips in the bilateral inguinal regions, cholecystectomy clips.. 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 Testosterone Lvl <3(L) 300 - 720 ng/dL 06/20/2022 8:22 PM EDT [facility] Blood VENOUS BLOOD / Unknown Venipuncture / Unknown 06/20/2022 2:05 PM EDT 06/20/2022 2:05 PM EDT Narrative [facility] - 06/20/2022 8:22 PM EDT Values less than 12 ng/dL are not reliable as the intermediate precision coefficient of variation is > 20%. Ingestion of eduardo doses of biotin (>5 mg/day) taken within 8 hours of drawing blood sample can interfere with this immunoassay test. Alin Prather MD CHEMISTRY ORDERABLES Final Res ult Performing Organization Address [facility] Phone Number [facility] [address] [place] [address] , [place] [address] * XR HIPS BILATERAL AP LATERAL W AP PELVIS (02/12/2022 11:38 AM EDT) Anatomical Region Laterality Modality Hip Radiographic Meli ging 02/12/2022 11:3 8 AM EDT Impressions 02/12/2022 12:01 PM EDT 1. No acute osseous abnormality. Narrative 02/12/2022 12:01 PM EDT XR HIPS BILATERAL AP LATERAL W AP PELVIS CLINICAL HISTORY: M25.559-Pain in unspecified ntc-QDN-53-CM COMPARISON: None No significant osseous abnormality. No acute fracture or dislocation. No destructive lesions. Soft tissue and fat planes preserved. Procedure Note Melvin Leo MD - 02/12/2022 XR HIPS BILATERAL AP LATERAL W AP PELVIS CLINICAL HISTORY: M25.559-Pain in unspecified kco-KXG-24-CM COMPARISON: None No significant osseous abnormality. No acute fracture or dislocation. No destructive lesions. Soft tissue and fat planes preserved. IMPRESSION: 1. No acute osseous abnormality. us Luis Atkins DO IMG DIAGNOSTIC IMAGING ORDERAB LES Final Result * LYME AB TOTAL LATE (02/12/2022 10:55 AM EDT) Pathologist [facility] B burgdorferi Abs, Total Negative Negative, Equivocal 02/14/2022 11:49 AM EDT [facility] Blood VENOUS BLOOD / Unknown Venipuncture / Unknown 02/12/2022 10:55 AM EDT 02/12/2022 10:55 AM EDT us Luis Atkins DO IMMUNOLOGY ORDERABLES Final Re sult Performing Organization Address [facility] Co de Phone Number [facility] [address] [place] [address] , [place] [address] * THYROID STIMULATING HORMONE (08/14/2021 10:39 AM EDT) Only the most recent of12 resultswithin the time period is included. Pathologist [facility] TSH 1.860 0.270 - 4.200 mcIU/mL 08/14/2021 5:31 PM EDT [facility] Blood Venipuncture / Unknown 08/14/2021 10:39 AM EDT 08/14/2021 10:40 AM EDT Narrative [facility] - 08/14/2021 5:31 PM EDT Ingestion of eduardo doses of biotin (>5 mg/day) taken within 8 hours of drawing blood sample can interfere with this immunoassay test. us Luis Atkins DO CHEMISTRY ORDERABLES Final Res ult Performing Organization Address [facility]/ZIP Co de Phone Number [facility] [address] [place] [address] , [place] [address] * DIABETIC RETINAL EXAM (08/01/2021 4:40 PM EDT) [facility] VISUAL ACUITY SCREEN OD 20/20 08/01/2021 4:40 PM EDT [facility] VISUAL ACUITY SCREEN OS 20/20 08/01/2021 4:40 PM EDT [facility] OCULAR BLOOD FLOW MEASURE OD 19 08/01/2021 4:40 PM EDT [facility] OCULAR BLOOD FLOW MEASURE OS 19 08/01/2021 4:40 PM EDT [facility] DIABETIC RETINOPATHY NEGATIVE 08/01/2021 4:40 PM EDT [facility] CATARACTS NEGATIVE 08/01/2021 4:40 PM EDT [facility] GLAUCOMA NEGATIVE 08/01/2021 4:40 PM EDT [facility] 08/01/2021 4:40 PM EDT us Unknown Provider OPHTHALMOLOGY SERVICES ORDERABL ES Final Result Performing Organization Address [facility] de Phone Number [facility] * (ABNORMAL) VITAMIN D 25 HYDROXY (10/10/2020 9:25 AM EST) Only the most recent of2 resultswithin the time period is included. [facility] Vit D 25 OH 29.2(L) 30.0 - 120.0 ng/mL 10/10/2020 5:22 PM EST [facility] Comment: INTERPRETIVE INFORMATION: Vitamin D, 25-Hydroxy <20 [...] AM EST 10/10/2020 9:25 AM EST us Luis Atkins DO CHEMISTRY ORDERABLES Final Res ult Performing Organization Address City/[facility] Co de Phone Number [facility] [address] [facility] , [address] [place], [place] [id number] * DIABETES EYE EXAM (07/13/2020) Only the most recent of2 resultswithin the time period is included. Left Diabetic Retinopathy Not Present Present/Not Present SEP OFFICE Right Diabetic Retinopathy Not Present Present/Not Present SEP OFFICE Historical Provider HEALTH MAINTENANCE Final Res ult Performing Organization Address [facility] de Phone Number SEP OFFICE * DERMATOPATHOLOGY [...] Description: A specimen of skin was received [id number] Juan Jensen MD PATHOLOGY ORDERABLES Final Re sult Performing Organization Address [facility] de Phone Number DERMATOLOGY * SARS-COV-2 IGG (07/04/2020 9:13 AM EDT) SARS-CoV-2 IgG (Nucleocapsid) Negative 07/04/2020 4:21 PM EDT [facility] Blood VENOUS BLOOD / Unknown Venipuncture / Unknown 07/04/2020 9:13 AM EDT 07/04/2020 9:13 AM EDT Narrative [facility] - 07/04/2020 4:21 PM EDT The SARS-CoV-2 [...] protective immunity. Prieto IgG Provider Fact Sheet: https://www.fda.gov/media/039127/download [facility] IgG Patient Fact Sheet: https://www.fda.gov/media/651692/download us Luis Atkins DO IMMUNOLOGY ORDERABLES Final Re sult [facility] [address] [place] [address], [place] [address] * PATHOLOGY TISSUE REQUEST (04/09/2020 1:08 PM EDT) Only the most recent of2 resultswithin the time period is included. CASE REPORT Surgical Pathology Case: [id number] Authorizing Provider: Luis Atkins DO Collected: 04/09/2020 1308 Ordering Location: [facility] Received: 04/09/2020 1308 Pathologist: Angella Montiel MD Specimen: Back 04/12/2020 12:25 PM EDT [facility] FINAL DIAGNOSIS Skin, back, biopsy: - Pyogenic granuloma. 04/12/2020 12:[address] [facility] at 1225 EDT GROSS DESCRIPTION Received in formalin labeled with the patient's name and back is a 0.4 x 0.4 x 0.3 cm brown-red polypoid tissue. The margin is inked blue, bisected, and entirely submitted in cassette A1. /ZN 04/12/2020 12:[address] [facility] MICROSCOPIC DESCRIPTION Microscopic examination is performed and the findings corroborate the diagnosis. 04/12/2020 12:25 PM EDT [facility] EMBEDDED IMAGES 04/12/2020 12:25 PM EDT [facility] Tissue STRUCTURE OF BACK OF TRUNK / Unknown 04/09/2020 1:08 PM EDT 04/09/2020 1:08 PM EDT us Luis Atkins DO PATHOLOGY ORDERABLES Final Res ult [facility] [address] [place] [address] * IRON/UIBC (01/11/2020 9:27 AM EDT) Iron 100 50 - 170 mcg/dL 01/11/2020 4:21 PM EDT [facility] UIBC 200 112 - 347 mcg/dL 01/11/2020 4:21 PM EDT [facility] Transferrin Sat 33 20 - 50 % 0 4:21 PM EDT [facility] [employer] Blood VENOUS BLOOD / Unknown Venipuncture / Unknown 01/11/2020 9:27 AM EDT 01/11/2020 9:27 AM EDT us Luis Atkins DO CHEMISTRY ORDERABLES Final Res ult Performing Organization Address City/[facility]/ZIP Co de Phone Number [facility], [facility] [address] [facility], [address] [place] [phone] * (ABNORMAL) LIPID PANEL REFLEX (01/11/2020 9:27 AM EDT) Only the most recent of8 resultswithin the time period is included. Cholesterol 129 <200 mg/dL 01/11/2020 4:10 PM EDT [facility] Comment: < 200 Desirable 200 - 239 Borderline High >= 240 High Triglyceride 114 <150 mg/dL 01/11/2020 4:10 PM EDT [facility] Comment: < 150 Normal 150 - 199 Borderline High 200 - 499 High >= 500 Very High HDL 35(L) >=40 mg/dL 01/11/2020 4:10 PM EDT [facility] Comment: > 60 Optimal 40 - 60 Acceptable < 40 Low LDL Calculated 71 <100 mg/dL 01/11/2020 4:10 PM EDT [facility] Non-HDL-C Calculated 94 <=129 mg/dL 01/11/2020 4:10 PM EDT [facility] Comment: <130 Desirable 130-159 Above Desirable 160-189 Borderline High 190-219 High >= 220 Very High Fasting Specimen? Yes None 020 4:10 PM EDT [facility] Blood Venipuncture / Unknown 01/11/2020 9:27 AM EDT 01/11/2020 9:27 AM EDT us Luis Atkins DO CHEMISTRY ORDERABLES Final Res ult [facility] [address] [facility] , [place] [address] * CBC (01/11/2020 9:27 AM EDT) Only [...] - 12.5 fL 01/11/2020 3:48 PM EDT [facility] Blood Venipuncture / Unknown 01/11/2020 9:27 AM EDT 01/11/2020 9:27 AM EDT Luis Atkins DO HEMATOLOGY ORDERABLES Final Re sult Performing Organization Address [facility] de Phone Number [facility] [employer] [facility] [address] [facility] , [address] [place] [phone] * FERRITIN (01/11/2020 9:27 AM EDT) Only the most recent of2 resultswithin the time period is included. Ferritin 159 30 - 400 ng/mL 01/11/2020 4:16 PM EDT [facility] Blood VENOUS BLOOD / Unknown Venipuncture / Unknown 01/11/2020 9:27 AM EDT 01/11/2020 9:27 AM EDT Narrative [facility] - 01/11/2020 4:16 PM EDT Ingestion of eduardo doses of biotin (>5 mg/day) taken within 8 hours of drawing blood sample can interfere with this immunoassay test. Luis Atkins DO CHEMISTRY ORDERABLES Final Res ult Performing Organization Address [facility] Phone Number [facility] [employer] [facility] [address] [facility] , [place] [address] * GMED EGD (12/02/2019 1:30 PM EST) 12/02/2019 1:30 PM EST Impressions [facility] - 12/02/2019 2:11 PM EST Normal [...] ORDERABLES Fin al Result Performing Organization Address [facility]/ZIP Co de Phone Number [facility] [address] [place] [address] * DIABETIC RETINAL EXAM (12/22/2018 11:56 AM EST) VISUAL ACUITY SCREEN OD 20/20 12/22/2018 11:56 AM EST [facility] VISUAL ACUITY SCREEN OS 20/20 12/22/2018 11:56 AM EST [facility] OCULAR BLOOD FLOW MEASURE OD 14 12/22/2018 11:56 AM EST [facility] OCULAR BLOOD FLOW MEASURE OS 16 12/22/2018 11:56 AM EST [facility] DIABETIC RETINOPATHY NEGATIVE 12/22/2018 11:56 AM EST [facility] CATARACTS NEGATIVE 12/22/2018 11:56 AM EST [facility] GLAUCOMA NEGATIVE 12/22/2018 11:56 AM EST [facility] 12/22/2018 11:5 6 AM EST us Unknown Provider OPHTHALMOLOGY SERVICES ORDERABL ES Final Result [facility] * DIABETIC RETINOPATHY EXAM (12/19/2017 11:36 AM EST) VISUAL ACUITY SCREEN OD 20/20 12/19/2017 11:36 AM EST [facility] VISUAL ACUITY SCREEN OS 20/20 12/19/2017 11:36 AM EST [facility] OCULAR BLOOD FLOW MEASURE OD 16 12/19/2017 11:36 AM EST [facility] OCULAR BLOOD FLOW MEASURE OS 14 12/19/2017 11:36 AM EST [facility] DIABETIC RETINOPATHY NEGATIVE 12/19/2017 11:36 AM EST [facility] CATARACTS NEGATIVE 12/19/2017 11:36 AM EST [facility] GLAUCOMA NEGATIVE 12/19/2017 11:36 AM EST [facility] 12/19/2017 11:3 6 AM EST us Unknown Provider OPHTHALMOLOGY SERVICES ORDERABL ES Final Result [facility] * CREATINE KINASE (12/01/2017 10:34 AM EST) Only the most recent of7 resultswithin the time period is included. CK 77 39 - 308 IU/L 12/01/2017 9:46 PM EST [facility] Blood VENOUS BLOOD / Unknown Venipuncture / Unknown 12/01/2017 10:34 AM EST 12/01/2017 10:34 AM EST us Johnny Michelle MD CHEMISTRY ORDERABLES Final Res ult [facility] [address] [place] [address] * CT ABDOMEN PELVIS W CONTRAST (08/25/2017 [...] 61 years. Male . R10.32-Left lower quadrant vjjx-ZHS-01-CM R19.4-Change in bowel vjakx-XRZ-08-CM. . Prior bilateral inguinal hernia repairs. Prior [...] Clinical: 61 years. Male . R10.32-Left lower uqqdheysbdyz-WHM-21-CM R19.4-Change in bowel vqrrg-GZK-01-CM. . Prior bilateral inguinal hernia repairs. Prior [...] Freire Code Jot Stat Johnny Michelle MD [facility] ORDERABLES Final Result * CREATININE ISTAT (08/25/2017 3:47 PM EDT) Creatinine-iST AT 0.7 0.6 - 1.3 mg/dL 08/25/2017 3:51 PM EDT [facility] Blood BLOOD SPECIMEN / Unknown 08/25/2017 3:47 PM EDT 08/25/2017 3:51 PM EDT Johnny Michelle MD POINT OF CARE TEST ORDERABLES Final Result Performing Organization Address [facility] [place] [address] * BODY FLUID CULTURE (08/11/2017 10:44 AM EDT) Culture No Growth at 5 days. 08/16/2017 9:18 AM EDT [facility] Stain Rare WBCs 08/16/2017 9:18 AM EDT [facility] Stain No organisms seen 08/16/2017 9:18 AM EDT [facility] Bursal Fluid LEFT ELBOW REGION STRUCTURE / Unknown 08/11/2017 10:44 AM EDT 08/11/2017 10:44 AM EDT Estefania Guzman APRN MICROBIOLOGY - GENERAL ORDER MATHEW Final Result Performing Organization Address [facility] [place] [address] * PROCEDURE DOCUMENTATION - ASPIRATION (08/11/2017 9:40 [...] ORD ERABLES Final Result Performing Organization Address [facility] Co de Phone Number SEP [...] 08/06/2017 11:21 AM HISTORY: M79.671-Pain in right ebyk-JIA-71-CM M79.672-Pain in left tigz-TMF-79-CM Procedure Note Aaron Nelson MD - 08/06/2017 XR FOOT RIGHT AP LATERAL AND OBLIQUE 08/06/2017 11:21 AM HISTORY: M79.671-Pain in right sinx-SIZ-99-CM M79.672-Pain in left naui-EPJ-30-CM IMPRESSION: No significant osseous, joint or soft tissue abnormality is seen. us Johnny Michelle MD IMG DIAGNOSTIC IMAGING ORDERAB LES Final Result * XR FOOT LEFT AP LATERAL AND OBLIQUE (08/06/2017 11:21 AM EDT) Anatomical Region Laterality Modality Foot Radiographic Meli ging 08/06/2017 11:2 1 AM EDT Impressions 08/06/2017 4:01 PM EDT 1. No acute osseous abnormality. Narrative 08/06/2017 4:01 PM EDT XR FOOT LEFT AP LATERAL AND OBLIQUE CLINICAL HISTORY: M79.671-Pain in right wjye-ASI-03-CM M79.672-Pain in left jyly-ZMV-71-CM COMPARISON: None No significant osseous abnormality. No acute fracture or dislocation. No destructive lesions. Soft tissue and fat planes preserved. Procedure Note Melvin Leo MD - 08/06/2017 XR FOOT LEFT AP LATERAL AND OBLIQUE CLINICAL HISTORY: M79.671-Pain in right pkfr-FYP-74-CM M79.672-Pain in left dkfr-KFK-29-CM COMPARISON: None No significant osseous abnormality. No acute fracture or dislocation. No destructive lesions. Soft tissue and fat planes preserved. IMPRESSION: 1. No acute osseous abnormality. us Johnny Michelle MD [facility] DIAGNOSTIC IMAGING ORDERAB LES Final Result * [...] 08/06/2017 11:21 AM HISTORY: M25.552-Pain in left eyi-QPB-74-CM Procedure Note Aaron Nelson MD - 08/06/2017 XR HIP LEFT AP LATERAL W AP PELVIS 08/06/2017 11:21 AM HISTORY: M25.552-Pain in left rbm-KIN-13-CM IMPRESSION: No significant osseous, joint or soft tissue abnormality is seen. Johnny Michelle MD [facility] DIAGNOSTIC IMAGING ORDERAB LES Final Result * [...] LATERAL AND OBLIQUES Clinical: M25.552-Pain in left mgm-NOY-46-CM Procedure Note Melvin Leo MD - 08/06/2017 XR LUMBAR SPINE AP LATERAL AND OBLIQUES Clinical: M25.552-Pain in left qst-JSC-84-CM IMPRESSION: Mild bilateral facet joint degenerative changes L5-S1. Moderate L5-S1 degenerative disc disease. Johnny Michelle MD [facility] DIAGNOSTIC IMAGING ORDERAB LES Final Result * [...] SPINE AP LATERAL ODONTOID AND OBLIQUE Clinical: M54.8-Anxvsczafsu-PBS-10-CM G89.29-Other chronic gsog-UNH-40-CM Procedure Note Melvin Leo MD - 08/06/2017 XR CERVICAL SPINE AP LATERAL ODONTOID AND OBLIQUE Clinical: M54.0-Rcpznndltgb-UJX-10-CM G89.29-Other chronic hnjz-HZR-51-CM IMPRESSION: Mild degenerative disc disease C6-C7. Moderate foraminal stenosis on the right at C3-C4 and C4-C5. Moderate tosevere foraminal stenosis on the left at C4-C5. Johnny Michelle MD IMG DIAGNOSTIC IMAGING ORDERAB LES Final Result * HEPATITIS C ANTIBODY - SCREENING (07/22/2017 11:17 AM EDT) Pathologist [facility] Hep C Ab Negative Negative [facility] Blood specimen (specimen) 07/22/2017 11:17 AM EDT 07/22/2017 4:09 PM EDT Johnny Michelle MD HEMATOLOGY ORDERABLES Final Re sult [facility] [address] [place] [address] * LDL, CALCULATED (07/22/2017 11:17 AM EDT) Only the most recent of7 resultswithin the time period is included. Pathologist [facility] LDL Calculated 78 <=100 mg/dL [facility] Comment: < 100 Optimal 100 - 129 Near or above optimal 130 - 159 Borderline High 160 - 189 High >= 190 Very High Blood specimen (specimen) 07/22/2017 11:17 AM EDT 07/22/2017 4:09 PM EDT Johnny Michelle MD CHEMISTRY ORDERABLES Final Res ult Performing Organization Address [facility] de Phone Number [facility] [address] [place] [address] * HEPATIC FUNCTION PANEL (07/22/2017 11:17 AM EDT) [facility] Total Protein 7.8 6.4 - 8.3 gm/dL [facility] Albumin 4.5 3.2 - 4.6 gm/dL [facility] Bili Direct <0.2 0.0 - 0.3 mg/dL [facility] Bili Total 0.4 0.1 - 1.4 mg/dL [facility] AST 20 <=40 IU/L [facility] ALT 24 <=41 IU/L [facility] Alk Phos 74 40 - 129 IU/L [facility] Blood specimen (specimen) 07/22/2017 11:17 AM EDT 07/22/2017 4:09 PM EDT Johnny Michelle MD CHEMISTRY ORDERABLES Final Res ult Performing Organization Address [facility] Phone Number [facility] [address] [place] [address] * (ABNORMAL) BASIC METABOLIC PANEL (07/22/2017 11:17 AM EDT) Only the most recent of2 resultswithin the time period is included. [facility] Sodium 136 136 - 145 mmol/L [facility] Potassium 4.3 3.5 - 5.0 mmol/L [facility] Chloride 98 98 - 107 mmol/L [facility] Total CO2 25 22 - 29 mmol/L [facility] Anion Gap 13 7 - 16 mmol/L [facility] Calcium 9.8 8.8 - 10.2 mg/dL [facility] Glucose Lvl 237(H) 82 - 100 mg/dL [facility] BUN 16 8 - 23 mg/dL [facility] Creatinine 0.79 0.67 - 1.30 mg/dL [facility] GFR Afr Am >60 [facility] GFR Non Afr Am >60 [facility] Blood specimen (specimen) 07/22/2017 11:17 AM EDT 07/22/2017 4:09 PM EDT Johnny Michelle MD CHEMISTRY ORDERABLES Edited Re sult - Final [facility] [address] [place] [address] * DIABETIC RETINOPATHY EXAM (11/25/2016 8:15 AM EST) VISUAL ACUITY SCREEN OD 20/20 11/25/2016 8:15 AM EST [facility] VISUAL ACUITY SCREEN OS 20/20 11/25/2016 8:15 AM EST [facility] OCULAR BLOOD FLOW MEASURE OD 18 11/25/2016 8:15 AM EST [facility] OCULAR BLOOD FLOW MEASURE OS 18 11/25/2016 8:15 AM EST [facility] DIABETIC RETINOPATHY NEGATIVE 11/25/2016 8:15 AM EST [facility] CATARACTS NEGATIVE 11/25/2016 8:15 AM EST [facility] GLAUCOMA NEGATIVE 11/25/2016 8:15 AM EST [facility] 11/25/2016 8:15 AM EST Unknown Provider OPHTHALMOLOGY SERVICES ORDERABL ES Final Result [facility] * DIFFERENTIAL (11/18/2016 10:51 AM EST) Only the most recent of7 resultswithin the time period is included. Neut Percent 60.3 % [facility] Lymph Percent 22.2 % [facility] [place] Percent 9.7 % [facility] Eos Percent 7.2 % [facility] Baso Percent 0.6 % [facility] Neut# 3.6 1.8 - 7.7 x10(3)/[facility] Lymph# 1.3 0.6 - 4.8 x10(3)/[facility] Prowers# 0.6 0.0 - 1.3 x10(3)/[facility] Eos# 0.4 0.0 - 0.5 x10(3)/[facility] Baso# 0.0 0.0 - 0.2 x10(3)/[facility] Blood specimen (specimen) 11/18/2016 10:51 AM EST 11/18/2016 5:18 PM EST us Johnny Michelle MD HEMATOLOGY ORDERABLES Final Re sult [facility] [address] [place] [address] * SCANNED RHYTHM STRIPS (09/22/2015 10:47 PM [...] 2015 5:38 PM EST Stationary ECG Study [place] Interpretive Statements SINUS RHYTHM Normal Electronically Signed On 2015 17:38:54 EST by Nirmal Kay MD Narrative Procedure Note Nirmal Kay MD - 2015 IMPRESSION Stationary ECG Study [place] Interpretive Statements SINUS RHYTHM Normal Electronically Signed On 2015 17:38:54 EST by Nirmal Kay MD Jo Ann Evan CHIEF PAYROLL CLERK IMG ECG ORDERABLES Final Res ult * GMED COLONOSCOPY (07/30/2015 9:00 AM EDT) 07/30/2015 9:00 AM EDT Impressions [facility] - 07/30/2015 9:26 AM EDT Moderate diverticulosis of the distal descending colon and sigmoid colon. Plan: Screening Colonoscopy in 10 years. This section is an excerpt of the full report. Ryne Craven MD GI PROCEDURE ORDERABLES Fin al Result Performing Organization Address [facility] Co de Phone Number [facility] [address] [place] [address] * POCT HEMOCCULT 1-3 CARDS (05/01/2015 1:46 PM EDT) Fec Heme negative Pos/Neg [facility] Comment:negative x 3 Lot Number SEP OFFICE Expiration Date SEP OFFICE SeriAl # SEP OFFICE Stool specimen (specimen) 05/01/2015 1:46 PM EDT Johnny Michelle MD POINT OF CARE TEST ORDERABLES Final Result Performing Organization Address [facility] de Phone Number SEP OFFICE * OVA AND PARASITE BASIC (05/01/2015 1:25 PM EDT) Final Negative: Giardia lamblia antigen not detected. Negative: Cryptosporidi um antigen not detected. Internal QC ok The O and P vial will be saved for 1 week. If extended O and P is desired, please call Micro at . [facility] Stool specimen (specimen) 05/01/2015 1:25 PM EDT 05/01/2015 7:03 PM EDT Johnny Michelle MD MICROBIOLOGY - GENERAL ORDERAB LES Final Result Performing Organization Address [facility] Co de Phone Number [facility] [address] [place] [address] * (ABNORMAL) PSA, TOTAL AND FREE (09/05/2014 11:19 AM EST) PSA Total 2.61 <=4.00 ng/mL [facility] Comment: Test Methodology: ECLIA PSA (Electrochemiluminescence Immunoassay) For PSA values from 2.5-4.0, particularly in younger men <60 years old, the AUA and NCCN suggest testing for % Free PSA (3515) and evaluation of the rate of increase in PSA (PSA velocity). PSA, Free 0.44 ng/mL [facility] PSA, %Free 17(L) >25 % [facility] Comment: Probability of Prostate Cancer (For Men with Non-Suspicious CARRIE Results and PSA Between 4 and 10 ng/mL, By Patient Age) % free PSA Patient Age 50 to 59 Years 60 to 69 Years >70 Years <=10% 49.2% 57.5% 64.5% 11 - 18% 26.9% 33.9% 40.8% 19 - 25% 18.3% 23.9% 29.7% >25% 9.1% 12.2% 15.8% Performed at: [employer] [facility], [address] [place] [address] Blood specimen (specimen) UPPER LIMB STRUCTURE / Unknown 09/05/2014 11:19 AM EST 09/05/2014 7:19 PM EST us Johnny Michelle MD CHEMISTRY ORDERABLES Final Res ult [facility] [address] [place] [address] * HEMOGLOBIN AND HEMATOCRIT (05/17/2014 11:00 AM EDT) Hgb 16.1 13.5 - 17.1 gm/dL [facility] Hct 46.1 38.9 - 51.6 % [facility] Blood specimen (specimen) UPPER LIMB STRUCTURE / Unknown 05/17/2014 11:00 AM EDT 05/17/2014 5:30 PM EDT Johnny Michelle MD HEMATOLOGY ORDERABLES Final Re sult [facility] [address] [place] [address] * POCT OCCULT BLOOD STOOL (04/10/2014 1:12 PM EDT) Fec Heme negative Pos/Neg SEP OFFICE 04/10/2014 1:12 PM EDT us Johnny Mihcelle MD POINT OF CARE TEST ORDERABLES Final Result Performing Organization Address [facility] de Phone Number SEP OFFICE * ALANINE AMINOTRANSFERASE (04/10/2014 10:14 AM EDT) ALT 29 <=41 IU/L [facility] Blood specimen (specimen) UPPER LIMB STRUCTURE / Unknown 04/10/2014 10:14 AM EDT 04/10/2014 3:09 PM EDT us Johnny Michelle MD CHEMISTRY ORDERABLES Final Res ult Performing Organization Address [facility] Co de Phone Number [facility] [address] [place] [address] * ASPARTATE AMINOTRANSFERASE (04/10/2014 10:14 AM EDT) AST 25 <=40 IU/L [facility] Blood specimen (specimen) UPPER LIMB STRUCTURE / Unknown 04/10/2014 10:14 AM EDT 04/10/2014 3:09 PM EDT us Johnny Michelle MD CHEMISTRY ORDERABLES Final Res ult Performing Organization Address [facility] Co de Phone Number [facility] [address] [place] [address] * IRON LEVEL (04/10/2014 10:14 AM EDT) Iron 131 50 - 170 mcg/dL [facility] Blood specimen (specimen) UPPER LIMB STRUCTURE / Unknown 04/10/2014 10:14 AM EDT 04/10/2014 3:09 PM EDT us Johnny Michelle MD CHEMISTRY ORDERABLES Final Res ult Performing Organization Address [facility] de Phone Number [facility] [address] [place] [address] * MICROALBUMIN, URINE-ARUP (07/19/2012 8:38 AM EDT) Total Volume Random mL [facility] Hrs Case Random hr [facility] U Creatinine 120 mg/dL [facility] U24 Creat Not Applicable 800 - 2100 mg/day [facility] Microalbumin mg/dL-ARUP 0.9 mg/dL [facility] Microalbumin/Cre atinine Ratio-ARUP 8 0 - 30 mg/gm [facility] Microalbumin ug/minute-ARUP Not Applicable 0 - 20 mcg/min [facility] Microalbumin mg/day-ARUP Not Applicable 2 - 30 mg/day [facility] Urine specimen (specimen) 07/19/2012 8:38 AM EDT 07/19/2012 4:06 PM EDT us Johnny Michelle MD URINE ORDERABLES Final Result Performing Organization Address [facility] de Phone Number [facility] [address] [place] [address] * XR CHEST PA AND LATERAL (11/29/2010 [...] medical examination at a health care facility 11/26/2010 Rash Rash and other [...] Type 2 diabetes mellitus without complication, unspecified fpc insulin use status 11/18/2016 Routine adult health maintenance Routine general medical examination at a health care facility 11/18/2016 Type 2 diabetes mellitus without complication, unspecified fpc insulin use status 11/18/2016 Type 2 diabetes [...] Hyperlipidemia associated with type 2 diabetes mellitus ([facility]) 11/23/2017 Type 2 diabetes mellitus without complication, with long-term current use of insulin ([facility]) 12/01/2017 Hyperlipidemia associated with type 2 diabetes mellitus ([facility]) 12/01/2017 Screening for metabolic disorder 12/01/2017 Screening for thyroid disorder 12/01/2017 Vitamin D deficiency Unspecified vitamin D deficiency 12/01/2017 Screening for deficiency anemia Screening for other and unspecified deficiency anemia 12/01/2017 Screening for lipid disorders 12/01/2017 Type 2 diabetes mellitus with diabetic nephropathy, unspecified longwall foreman insulin use status 12/01/2017 Type 2 diabetes mellitus without complication, with long-term current use of insulin ([facility]) 12/01/2017 Hyperlipidemia associated with type 2 diabetes mellitus ([facility]) 12/01/2017 Screening PSA (prostate specific antigen) Special screening for malignant neoplasm of prostate 12/01/2017 Type 2 diabetes mellitus with diabetic nephropathy, with long-term current use of insulin ([facility]) 12/08/2017 Hypertension associated with diabetes ([facility]) Type II or unspecified type diabetes mellitus with other specified manifestations, not stated as uncontrolled 12/08/2017 Hyperlipidemia associated with type 2 diabetes mellitus ([facility]) 12/08/2017 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 of organic origin 12/08/2017 Essential hypertension Unspecified essential hypertension 12/17/2017 Type 2 diabetes mellitus with diabetic nephropathy, with long-term current use of insulin ([facility]) 12/17/2017 Type 2 diabetes mellitus with diabetic nephropathy, with long-term current use of insulin (HCC) 12/18/2017 Essential hypertension Unspecified essential hypertension 02/04/2018 [...] with long-term current use of insulin (HCC) 08/24/2019 Hypertension associated with diabetes (HCC) Type II or unspecified type diabetes mellitus with other specified manifestations, not stated as uncontrolled 09/12/2019 Type 2 diabetes mellitus with diabetic nephropathy, with long-term current use of insulin (HCC) 09/12/2019 Hyperlipidemia associated with type 2 diabetes mellitus (HCC) 09/12/2019 Hypertension associated with diabetes (HCC) Type II [...] nephropathy, with long-term current use of insulin ([facility]) 09/21/2019 Esophageal dysphagia Dysphagia, pharyngoesophageal phase 11/29/2019 Epigastric abdominal pain Abdominal pain, epigastric 11/29/2019 Dysphagia, unspecified 12/02/2019 Gastroesophageal reflux disease with esophagitis 12/02/2019 Hypertension associated with diabetes ([facility]) Type II or unspecified type diabetes mellitus with other specified manifestations, not stated as uncontrolled 12/06/2019 Hyperlipidemia associated with type 2 diabetes mellitus ([facility]) 12/06/2019 Type 2 diabetes mellitus with diabetic nephropathy, with long-term current use of insulin ([facility]) 12/28/2019 Type 2 diabetes mellitus with diabetic nephropathy, with long-term current use of insulin ([facility]) 01/02/2020 Iron deficiency anemia, unspecified iron deficiency anemia type 01/02/2020 Iron deficiency anemia, unspecified iron deficiency anemia type 01/11/2020 Type 2 diabetes mellitus with diabetic nephropathy, with long-term current use of insulin ([facility]) 01/11/2020 Type 2 diabetes mellitus with diabetic nephropathy, with long-term current use of insulin ([facility]) 01/18/2020 Tinea pedis of both feet 01/18/2020 Type 2 diabetes mellitus with diabetic nephropathy, with long-term current use of insulin ([facility]) 02/10/2020 Hyperlipidemia associated with type 2 diabetes mellitus ([facility]) 02/10/2020 Hypertension associated with diabetes ([facility]) Type II or unspecified type diabetes mellitus with other specified manifestations, not stated as uncontrolled 02/10/2020 Type 2 diabetes mellitus with diabetic nephropathy, with long-term current use of insulin ([facility]) 02/14/2020 Gastroesophageal reflux disease with esophagitis 02/15/2020 [...] nephropathy, with long-term current use of insulin ([facility]) 05/29/2020 Gastroesophageal reflux disease with esophagitis 06/08/2020 Type 2 diabetes mellitus with diabetic nephropathy, with long-term current use of insulin ([facility]) 06/20/2020 Type 2 diabetes mellitus with diabetic nephropathy, with long-term current use of insulin ([facility]) 07/02/2020 Hypertension associated with diabetes (HCC) Type II or unspecified type diabetes mellitus with other specified manifestations, not stated as uncontrolled 07/03/2020 Type 2 diabetes mellitus with diabetic nephropathy, with long-term current use of insulin ([facility]) 07/04/2020 Immunity status testing Antibody response examination 07/04/2020 Type 2 diabetes mellitus with diabetic nephropathy, with long-term current use of insulin ([facility]) 07/11/2020 Hypertension associated with diabetes (HCC) Type II or unspecified type diabetes mellitus with other specified manifestations, not stated as uncontrolled 07/11/2020 Hyperlipidemia associated with type 2 diabetes mellitus ([facility]) 07/11/2020 Pain in both lower extremities 07/11/2020 Neoplasm of unspecified behavior of bone, soft tissue, and skin 07/11/2020 Other viral warts 07/11/2020 Disturbance of skin sensation 07/11/2020 RAD (reactive airway disease), mild persistent, uncomplicated 08/11/2020 Type 2 diabetes mellitus with diabetic nephropathy, with long-term current use of insulin ([facility]) 10/03/2020 Hypertension associated with diabetes (HCC) Type II or unspecified type diabetes mellitus with other specified manifestations, not stated as uncontrolled 10/03/2020 Type 2 diabetes mellitus with diabetic nephropathy, with long-term current use of insulin ([facility]) 10/04/2020 Hypertension associated with diabetes (HCC) Type [...] D deficiency 10/10/2020 10 year risk of IA or stroke 7.5% or greater 10/15/2020 BPH without urinary obstruction Hypertrophy of prostate without urinary obstruction and other lower urinary tract symptoms (LUTS) 10/15/2020 Hypertension associated with diabetes ([facility]) Type II or unspecified type diabetes mellitus with other specified manifestations, not stated as uncontrolled 10/15/2020 Hyperlipidemia associated with type 2 diabetes mellitus (HCC) 10/15/2020 Type 2 diabetes mellitus with diabetic nephropathy, with long-term current use of insulin ([facility]) 10/15/2020 Chronic left-sided low back pain with left-sided sciatica 10/15/2020 Type 2 diabetes mellitus with diabetic nephropathy, with long-term current use of insulin ([facility]) 11/06/2020 Hypertension associated with diabetes ([facility]) Type II or unspecified type diabetes mellitus with other specified manifestations, not stated as uncontrolled 11/06/2020 Type 2 diabetes mellitus with diabetic nephropathy, with long-term current use of insulin ([facility]) 12/05/2020 Hypertension associated with diabetes ([facility]) Type II or unspecified type diabetes mellitus with other specified manifestations, not stated as uncontrolled 12/05/2020 Type 2 diabetes mellitus with diabetic nephropathy, with long-term current use of insulin ([facility]) 12/07/2020 Type 2 diabetes mellitus with diabetic nephropathy, with long-term current use of insulin ([facility]) 12/13/2020 Hypertension associated with diabetes ([facility]) Type II or unspecified type diabetes mellitus with other specified manifestations, not stated as uncontrolled 12/20/2020 BPH without urinary obstruction Hypertrophy of prostate without urinary obstruction and other lower urinary tract symptoms (LUTS) 01/16/2021 BPH without urinary obstruction Hypertrophy of prostate without urinary obstruction and other lower urinary tract symptoms (LUTS) 01/16/2021 10 year risk of IA or stroke 7.5% or greater 01/16/2021 Type 2 diabetes mellitus with diabetic nephropathy, with long-term current use of insulin ([facility]) 01/17/2021 Enrolled in chronic care management 01/17/2021 Gastroesophageal reflux disease with esophagitis 03/11/2021 Hypertension associated with diabetes ([facility]) Type II or unspecified type diabetes mellitus with other specified manifestations, not stated as uncontrolled 03/31/2021 BPH without urinary obstruction Hypertrophy of prostate without urinary obstruction and other lower urinary tract symptoms (LUTS) 04/09/2021 10 year risk of IA or stroke 7.5% or greater 04/09/2021 Gastroesophageal [...] symptoms (LUTS) 08/04/2021 10 year risk of IA or stroke 7.5% or greater 08/04/2021 Hyperlipidemia, unspecified hyperlipidemia type 08/05/2021 Screening, anemia, deficiency, iron Screening for iron deficiency anemia 08/05/2021 Hyperthyroidism Thyrotoxicosis without mention of goiter or other cause, without mention of thyrotoxic crisis or storm 08/05/2021 Type 2 diabetes mellitus without complication, unspecified whether longwall foreman insulin use ([facility]) 08/05/2021 Needs flu shot Need for prophylactic vaccination and inoculation against influenza 08/14/2021 Type 2 diabetes mellitus without complication, unspecified whether fpc insulin use ([facility]) 08/14/2021 Hyperthyroidism Thyrotoxicosis without mention of goiter [...] 2 diabetes mellitus without complication, unspecified whether fpc insulin use (HCC) 09/20/2021 Hypertension associated with diabetes (HCC) Type II or unspecified type diabetes mellitus with other specified manifestations, not stated as uncontrolled 10/08/2021 BPH without urinary obstruction Hypertrophy of prostate without urinary obstruction and other lower urinary tract symptoms (LUTS) 11/04/2021 10 year risk of IA or stroke 7.5% or greater 11/04/2021 RAD [...] of care 01/13/2022 10 year risk of IA or stroke 7.5% or greater 02/01/2022 Encounter [...] as uncontrolled 03/07/2022 10 year risk of IA or stroke 7.5% or greater 03/08/2022 10 year risk of IA or stroke 7.5% or greater 03/10/2022 Encounter [...] as uncontrolled 11/15/2022 10 year risk of IA or stroke 7.5% or greater 11/16/2022 Hypertension [...] as uncontrolled 02/10/2023 10 year risk of IA or stroke 7.5% or greater 02/10/2023 Encounter [...] care facility 02/24/2024 10 year risk of IA or stroke 7.5% or greater 02/24/2024 Type 2 diabetes mellitus without complication, unspecified whether longwall foreman insulin use (HCC) 02/24/2024 Encounter for support [...] sinusitis, unspecified 01/04/2025 10 year risk of IA or stroke 7.5% or greater 02/11/2025 High [...] and coordination of transition of care 03/29/2025 Hypertension associated with diabetes (HCC) Type II or unspecified type diabetes mellitus with other specified manifestations, not stated as uncontrolled 04/16/2025 Goals Goal Patient Goal Type Associated Problems [...] 7.4(03/01/20 1:51 PM EDT) Johnny Gtz MD Care Teams Superintendent Operations Division Relationship Specialty Start Date End Date Luis Atkins DO [address] [place] [address] PCP - General Family Medicine 09/21/19 Thiago Martin MD Ophthalmology 12/26/16
== END 2025-06-06 23:59 | disposition home or self-care (01) ==
LOC: LAB 11:56
PROVIDERS: PCP Student in an Organized Health Care Education/Training Program; Visit Provider Urology
DX: C61 Malignant neoplasm of prostate (principal)
CPT/HCPCS: 36415; 74018; G0103

== ENCOUNTER 2025-07-19 13:08 | Outpatient (CLI) | payer MEDICARE, SELFPAY | END 2025-07-19 23:59 | disposition home or self-care (01) | LOC: LAB 13:09 | PROVIDERS: PCP Student in an Organized Health Care Education/Training Program; Visit Provider Urology | DX: C61 Malignant neoplasm of prostate (principal) | CPT/HCPCS: 36415; G0103 ==

== ENCOUNTER 2025-09-08 15:41 | Outpatient (CLI) | payer MEDICARE, SELFPAY ==
--- OUTSIDE RECORDS SUMMARY | 2025-08-15 12:00 | XMS_ITS | Encounter Summary ---
Author Organization [place] [address] Care Team Providers Care Web Engineer Name Role Phone Thiago Martin MD Unavailable [phone] Luis Atkins DO Primary Care Provider [phone] Reason for Visit * Reason Comments Care Management - Face To Face Care Transition CM-SDOH CM-Medication Assistance Acp Conversation Declined Encounter Details Date Type Department Care Team (Latest Contact Info) Description 08/15/2025 1:00 PM EDT Clinical Support [facility] [address] [place] [address] Tamera Schroeder RN Encounter for support and coordination of transition of care (Primary Dx) Social History Tobacco Use Types Packs/Day Years Used Date Smoking Tobacco: Never Smokeless Tobacco: Never Alcohol Use Standard Drinks/Week Comments No 0 (1 standard drink = 0.6 oz pur e alcohol) PHQ-2 Answer Date Recorded PHQ-2 Total Score 0 03/01/2025 PRAPARE - Transportation Answer Date Re corded [...] place to sleep or slept in a care home (including now)? No 09/20/2021 Overall Financial Resource Strain (CARDIA) Answe r Date Recorded How hard is it for you to pa y for the very basics like food, housing, medical care, and heating? Not very hard 08/21/2025 [facility] - Occupational Stress Questionnaire Answer Date Recorded Do you feel stress - tense, restless, nervous, or anxious, or unable to sleep at night because your mind is troubled all the time - these days? Only a little 08/21/2025 Exercise Vital Sign Answer Date Recorde d On average, how many days pe r week do you engage in moderate to strenuous exercise (like a brisk walk)? 0 days 08/21/2025 On average, how many minutes do you engage in exercise at this level? 0 min 08/21/2025 Hunger Vital Sign Answer Date Recorded Within the past 12 months, y ou worried that your food would run out before you got the money to buy more. Never true 08/21/20 Within the past 12 months, t he food you bought just didn't last and you didn't have money to get more. Never true 08/21/2025 PRAPARE - Transportation Answer Date Re corded In the past 12 months, has l ack of transportation kept you from medical appointments or from getting medications? No 08/03 In the past 12 months, has l ack of transportation kept you from meetings, work, or from getting things needed for daily living? No 08/21/2025 Sex and Gender Information Value Date Recorded [...] documented in this encounter Progress Notes * Tamera Schroeder RN - 08/15/2025 1:00 PM EDT Care Management (CM):One-time Assessment Visit Type: Face to Face Reason for visit: Medication Assistance Spoke with: Patient Spouse: Yuliya Patient assessment: patient presents today to complete patient assistance paperwork with RN Monument Mason. Patient currently receives Farxiga through [employer], and Ozempic, Novolog, & Tresibathrough [facility]. Patient reports taking medications as prescribed. Almost out of Ozempic. Recently received a shipment of Novolog and Tresiba but Ozempic was not in the shipment. RN Monument Mason will print an Ozempic refill request, ask Provider to sign, and fax to [employer] patient assistance program. RN Monument Mason reviewed upcoming 2025 patient assistance changes for [facility] and Ozempic.Patient and verbalized understanding. Encouraged patient to apply for Medicare ExtraHelp, which will lower the cost of name brand medications at the pharmacy, if patient qualifies. RN Monument Mason also instructed patient to follow-up with Primary Care Provider who manages his diabetes medications to discuss alternative options to Ozempic if needed. Ability to complete activities of daily living (ADL's): Patient Resides: with Yuliya Patient is able to complete ADLs independently. Patient is currently using the following DME: [employer] Social Drivers of Health (SDOH): Social Drivers of Health assessment(s) completed and updated : Transportation , Financial need , Food Insecurity , Activity , and Stress Need(s) identified: Activity Interventions for identified need(s): encouraged daily walking/exercise. Patient reports they have never smoked. Medications: Medications reviewed with patient in full During visit, patient completed and signed patient assistance applications for [employer], [employer], and [employer]. Will ask Provider to sign documents and RN Monument Mason will fax to patient assistance companies. Education: The following handouts were provided in person : Nurse Now Helpline Educated patient on: Role of RN Monument Mason (RN CC). Importance of close follow-up with Providers as directed. Continue to take medications as prescribed. Patient assistance applications can take 2-3 weeks to process and receive a response once faxed. How to apply for Medicare ExtraHel program. Nurse-Now line for questions/concerns. Advance Care Planning (ACP): See Advance Care Planning Note Goals: One-time assessment Next Steps: Monument Mason contact information given / reviewed Reviewed when to call Primary Care Provider (PCP) office, urgent care, or [facility] Monument Mason will not follow at this time. PCP: Luis Atkins DO documented in this encounter Miscellaneous Notes * ACP (Advance Care Planning) - Tamera Schroeder RN - 08/15/2025 1:00 PM EDT Advance Care Planning discussion: ACP discussion: Introduced the topic of Advance Care Planning to the patientand offered to explore further. Patient declined at this time. Patient agrees to reach out if questions/concerns or changes related to Advance Care Planning (ACP)arise. * Patient Instructions - Tamera Schroeder RN - 08/15/2025 1:00 PM EDT Images from the original note were not included. Below is a summary of the most recent test results related to your diabetes. These tests help manage your health and direct your care. Any discrepancies should be brought to the attention of your provider's office Diabetic Report Card for [facility] Diabetic Management Labs/Vitals Recommendations Date of Result Result Score Hemoglobin A1c Recommended every 3-6 months Results should be less than 7 03/01/2025 7.4 LDL Cholesterol Recommended yearly Results should be less than 100 mg/dl 03/01/2025 108 Blood Pressure Blood pressure reading should be less than 140/90 03/01/2025 BP Readings from Last 1 Encounters: 03/01/25 120/80 Kidney Monitoring Microalbumin test recommended yearly Results should be less than 30 mg/g 03/01/2025 57.4 Legend: - Results are within recommended range and timeframe. - Results are outside of recommended value range. - Results do not exist or are outside of recommended timeframe. Diabetic Management Exams Recommendations Last Completion Date Result Score Diabetic Eye Exam Exam recommended every 2 years unless positive, then recommended annually. 10/23/2022 DIABETIC RETINAL EXAM Value Ref Range VISUAL ACUITY SCREEN OS 20/20 OCULAR BLOOD FLOW MEASURE OS 18 DIABETIC RETINOPATHY NEGATIVE CATARACTS NEGATIVE GLAUCOMA NEGATIVE Neuropathy Evaluation Exam recommended annually. 01/18/2020 01/18/2020 9:00 AM DIABETIC MONOFILAMENT R Monofilament Present L Monofilament Present Legend: - Exam completed within recommended timeframe. - Exam not completed within recommended timeframe. *This report is informational only. Your individual goals may vary based on age and/or other healthconditions. Please consult your primary care provider for your personalized goals. documented in this encounter Plan of Treatment Not on file documented as of this encounter Goals Goal Patient Goal Type Associated Problems Recent Progress Patient-Stated? Author Blood Pressure < 140/90 Blood Pressure 130/80(2024 11:01 AM EDT) No Johnny Michelle MD BMI (Calculated) < 30 General 29.5(08/22/20 11:01 AM EDT) No Alanna Mobley MA Maintain a healthy diet, exercise regularly and maintain an ideal body weight General No Phuong Vazquez RMA LDL CALC < 100 Result Component 108( 1:51 PM EDT) Johnny Gtz MD HEMOGLOBIN A1C < 7.1 Result Component 7.4( 11:14 AM EDT) Johnny Gtz MD documented as of this encounter Visit Diagnoses Diagnosis Encounter for support and coordination of transition of care- Primary documented in this encounter Additional Health Concerns Assessment Noted Time A fall risk assessment has been complete d for the patient 03/01/2025 1:13 PM EDT documented as of this encounter Care Teams Web Engineer Relationship Specialty Start Date End Date Luis Atkins DO [address] [place] [address] PCP - General Family Medicine 09/21/19 Thiago Martin MD Ophthalmology 12/26/16 documented as of this encounter
--- OUTSIDE RECORDS SUMMARY | 2025-08-22 10:00 | XMS_ITS | Encounter Summary ---
Author Organization [place] [address] Care Team Providers Care Decorative Engraver Apprentice Name Role Phone Thiago Martin MD Unavailable [phone] Luis Atkins DO Primary Care Provider [phone] Reason for Visit * Reason Comments Diabetes Encounter Details Date Type Department Care Team (Late Contact Info) Description 08/22/2025 11:00 AM EDT Office Visit [facility] [address], [place] [phone] Luis Atkins DO [address] [place], [place] [address] Type 2 diabetes mellitus with diabetic nephropathy, [...] place to sleep or slept in a mcc (including now)? No 09/20/2021 Overall Financial Resource Strain (CARDIA) Answe r Date Recorded How hard is it for you to pa y for the very basics like food, housing, medical care, and heating? Not very hard 08/21/2025 [facility] Occupat ional Health - Occupational Stress [...] (Chronic) Overview: Follows with Dr. Prather in [place], [place] Hypertension associated with diabetes (HCC) (Chronic) [...] The provider educated the patient (or legal customer development representative) on the use of the ambient listening artificial intelligence tool, [employer]. They were informed that this AI tool [...] of such information, the patient (or legal customer development representative), and each individual in attendance with [...] documented as of this encounter Care Teams Decorative Engraver Apprentice Relationship Specialty Start Date End Date Luis Atkins DO [address] [place] [address] PCP - General Family Medicine 09/21/19 Thiago Martin MD Ophthalmology 12/26/16 documented as of this encounter
--- OUTSIDE RECORDS SUMMARY | 2025-09-08 15:44 | XMS_ITS | Encounter Summary ---
Author Organization [place] [address] Care Team Providers Care Signal Apprentice Name Role Phone Thiago Martin MD Unavailable [phone] Luis Atkins DO Primary Care Provider [phone] Reason for Visit * Reason Onset Date Comments CM- Telephonic Outreach 08/15/2025 CM-Medication Assistance 08/15/2025 CM-SDOH 08/15/2025 Encounter Details Date Type Department Care Team (Late st Contact Info) Description 08/15/2025 Patient Outreach [facility] [address] [place] [address] Tamera Schroeder, RN CM- Telephonic Outreach; CM-Medication Assistance; CM-SDOH Social History Tobacco Use Types Packs/Day Years [...] Date Recorded PHQ-2 Total Score 0 03/01/2025 [facility] [place] of Occupat ional Health - Occupational Stress [...] Assessment Author No 02/19/2023 11:19 AM Clara Bean RMA * Is the person blind or does he/she have serious difficulty seeing even when wearing glasses? Answer Date of Assessment Author No 02/19/2023 11:19 AM Clara Bean RMA * Does this person have serious difficulty walking or climbing stairs? Answer Date of Assessment Author No 02/19/2023 11:19 AM Clara Bean RMA * Does this person have difficulty dressing or bathing? Answer Date of Assessment Author No 02/19/2023 11:19 AM EDClara Lee RMA * Because of a physical, mental or emotional condition, does this person have difficulty doing errands alone such as visiting a doctor's office or shopping? Answer Date of Assessment Author No 02/19/2023 11:19 AM EDT Hinojosa Clara RMA documented as of this encounter Mental Status * Because of a physical, mental or emotional condition, does this person have serious difficulty concentrating, remembering or making decisions? Answer Entry Date Author No 02/19/2023 11:19 AM EDT Hinojosa Clara KAIDEN documented in this encounter Progress Notes * Tamera Schroeder RN - 08/15/2025 3:09 PM EDT Patient currently enrolled in [employer] patient assistance program through 10/2025. Patient reports he is almost out of Ozempic. States he recently received a shipment of Novolog and Tresiba, but not Ozempic. Ozempic refill request printed, signed by Provider, and faxed to [employer] patient assistance program. documented in this encounter Plan of Treatment [...] documented as of this encounter Care Teams Signal Apprentice Relationship Specialty Start Date End Date Luis Atkins DO [address] [facility] [place] [address] PCP - General Family Medicine 09/21/19 Thiago Martin MD Ophthalmology 12/26/16 documented as of this encounter
--- OUTSIDE RECORDS SUMMARY | 2025-09-08 15:44 | XMS_ITS | Encounter Summary ---
Author Organization [place] [address] Care Team Providers Care Senior Adults Director Name Role Phone Thiago Martin MD Unavailable [phone] Luis Atkins DO Primary Care Provider [phone] Anais Garcia RN Unavailable Unavailable Encounter Details Date Type Department Care Team (Late st Contact Info) Description 12/02/2019 Lab Requisition [facility] [address] [place], [place] [id number] Khoa Vela MD [address] [place] [address] Dysphagia, unspecified Social History Tobacco Use Types [...] 9:20 AM EDT Zach Barrientos CMA * Is the person [...] PM EST) CASE REPORT Surgical Pathology Case: [id number] Authorizing Provider: Khoa Vela MD Collected: 12/02/2019 1330 Ordering Location: [facility] Received: 12/02/2019 1816 Pathologist: Angella Montiel MD Specimen: Gastric, Biopsy in the stomach and antrum 12/06/2019 9:35 AM EST [facility] CLINICAL HISTORY Dysphagia; odynophagia. 12/06/2019 9:35 AM EST [facility] FINAL DIAGNOSIS Stomach, biopsy: - Antral/oxyntic mucosa with focal chronic inflammation. 12/06/2019 9:35 AM EST [facility] at 0935 EST GROSS DESCRIPTION Received in formalin labeled with the patient s name and g astric biopsy in stomach and antrum are five fragments of sanchez tissue ranging from 0.2 to 0.5 cm in greatest dimension. Entirely submitted in one cassette./ TE 12/06/2019 9:35 AM EST [facility] MICROSCOPIC DESCRIPTION Microscopic examination is performed and the findings corroborate the diagnosis. 12/06/2019 9:35 AM EST [facility] FLOW CYTOMETRY SUMMARY 12/06/2019 9:35 AM EST [facility] EMBEDDED IMAGES 12/06/2019 9:35 AM EST [facility] Tissue STOMACH STRUCTURE / Unknown 12/02/2019 1:30 PM EST 12/02/2019 6:16 PM EST Khoa Vela MD PATHOLOGY ORDERABLES Final Result [facility] [address] [place] [address] documented in this encounter Visit Diagnoses Diagnosis Dysphagia, unspecified documented in this encounter Care Teams Senior Adults Director Relationship Specialty Start Date End Date Luis Atkins DO [address] [place] [address] PCP - General Family Medicine 09/21/19 Thiago Martin MD Ophthalmology 12/26/16 Anais Garcia RN Heel Emery Buffer Registered Nurse 12/13/20 01/16/21 documented as of this encounter
--- OUTSIDE RECORDS SUMMARY | 2025-09-08 15:44 | XMS_ITS | Encounter Summary ---
Author Organization [place] [address] Care Team Providers Care Merchandise Manager Name Role Phone Thiago Martin MD Unavailable [phone] Luis Atkins DO Primary Care Provider [phone] Reason for Visit * Reason Onset Date Comments CM- Telephonic Outreach 08/28/2025 CM-Medication Assistance 08/28/2025 CM-SDOH 08/28/2025 Encounter Details Date Type Department Care Team (Late st Contact Info) Description 08/28/2025 [facility] [address] [place] [address] Tamera Schroeder, RN CM- Telephonic [...] in a chcf (including now)? No 09/20/2021 Overall Financial Resource Strain (CARDIA) Answe r Date Recorded How hard is it for you to pa y for the very basics like food, housing, medical care, and heating? Not very hard 08/21/2025 [facility] - Occupational Stress Questionnaire Answer Date [...] Progress Notes * Tamera Schroeder RN - 08/28/2025 10:48 AM EDT Ozempic shipment received today from [employer] patient assistance program. Called and notified patients Yuliya who states they will shrimp picker from office. documented in this encounter Plan of Treatment [...] 100 Result Component 108( 1:51 PM EDT) No Johnny Michelle MD [...] documented as of this encounter Care Teams Merchandise Manager Relationship Specialty Start Date End Date Luis Atkins DO [address] [place] [address] PCP - General Family Medicine 09/21/19 Thiago Martin MD Ophthalmology 12/26/16 documented as of this encounter
--- OUTSIDE RECORDS SUMMARY | 2025-09-08 15:44 | XMS_ITS | Encounter Summary ---
Author Organization [place] [address] Care Team Providers Care Lapel Padder Blindstitch Name Role Phone Thiago Martin MD Unavailable [phone] Luis Atkins DO Primary Care Provider [phone] Reason for Visit * Reason Comments Medication Refill Encounter Details Date Type Department Care Team (Late st Contact Info) Description 07/18/2025 Refill [facility] [address] [place] [id number] Luis Atkins DO [address] [email or web address] [address] Medication Refill Social History Tobacco Use Types [...] Date Recorded PHQ-2 Total Score 0 03/01/2025 [facility] Occupat ional Health - Occupational Stress [...] Author No 02/19/2023 11:19 AM EDT Clara Hionjosa RMA * Does this person have difficulty [...] by mouth once daily 100 Tablet 2 07/19/2025 documented in this encounter Miscellaneous Notes * Telephone Encounter - Liya lCarke CPhT - 07/19/2025 7:58 AM EDT Amlodipine Future Visit: N/A Last Assessed Visit: 03/01/25 Follow-Up Date: 03/01/26 All protocols passed. Refills approved and sent to requesting pharmacy. Routed to [facility] if an appointment is needed. documented in this encounter Plan of Treatment [...] ension associated with diabetes (HCC) Take 1 tablet by mouth once daily 04/17/2025 07/19/2025 documented as of this encounter Additional Health Concerns Assessment Noted Time A fall risk assessment has been complete d for the patient 03/01/2025 1:13 PM EDT documented as of this encounter Care Teams Lapel Padder Blindstitch Relationship Specialty Start Date End Date Luis Atkins DO [address] [email or web address] [address] PCP - General Family Medicine 09/21/19 Thiago Martin MD Ophthalmology 12/26/16 documented as of this encounter
--- OUTSIDE RECORDS SUMMARY | 2025-09-08 15:44 | XMS_ITS | Encounter Summary ---
Author Organization [place] [address] Care Team Providers Care Jewelry Designer Name Role Phone Johnny Michelle MD Primary Care Provider [phone] Thiago Martin MD Unavailable [phone] Luis Atkins DO Primary Care Provider [phone] Anais Garcia RN Unavailable Unavailable Encounter Details Date Type Department Care Team (Late st Contact Info) Description 07/30/2015 Orders Only [facility] [address] [facility] [address] [place] [address] Ryne Craven MD [address] [place], [place] [id number] Social History Tobacco Use Types Packs/Day Years [...] 140/90 Blood Pressure 130/80(2024 11:01 AM EDT) Johnny Gtz MD LDL CALC < 100 Result Component 108( 1:51 PM EDT) Johnny Gtz MD HEMOGLOBIN A1C < 7.1 Result Component 7.4( 5 11:14 AM EDT) No Johnny Michelle MD documented as of this encounter Procedures Procedure Name Priority Date/Time Associated Diagnosis Comments [facility] COLONOSCOPY Routine 07/30/2015 9:00 AM EDT documented in this encounter Results * [facility] COLONOSCOPY (07/30/2015 9:00 AM EDT) 07/30/2015 9:00 AM EDT Impressions [facility] - 07/30/2015 9:26 AM EDT Moderate diverticulosis of the distal descending colon and sigmoid colon. Plan: Screening Colonoscopy in 10 years. This section is an excerpt of the full report. us Ryne Craven MD GI PROCEDURE ORDERABLES Fin al Result Performing Organization Address City/State/[facility] Co de Phone Number [facility] [address] [place] [address] documented in this encounter Visit Diagnoses Not on filedocumented in this encounter Care Teams Jewelry Designer Relationship Specialty Start Date End Date Johnny Michelle MD PCP - General 07/23/11 09/20/19 Luis Atkins DO [address] [place] [address] PCP - General Family Medicine 09/21/19 Thiago Martin MD Ophthalmology 12/26/16 Anais Garcia RN Battalion Fire Chief Registered Nurse 12/13/20 01/16/21 documented as of this encounter
--- OUTSIDE RECORDS SUMMARY | 2025-09-08 15:44 | XMS_ITS | Encounter Summary ---
Author Organization [place] [address] Care Team Providers Care Mechanical Test Technician Name Role Phone Thiago Martin MD Unavailable [phone] Luis Atkins DO Primary Care Provider [phone] Anais Garcia RN Unavailable Unavailable Encounter Details Date Type Department Care Team (Late st Contact Info) Description 12/02/2019 Orders Only [facility] [address] [facility] [address] [place] [address] Khoa Vela MD [address] [place] [address] Social History Tobacco Use Types Packs/Day Years [...] Barrientos CMA * Does this person have difficulty dressing or bathing? Answer Date of Assessment Author No 03/17/2019 9:20 AM Zach Cartwright CMA * Because of a physical, mental or emotional condition, does this person have difficulty doing errands alone such as visiting a doctor's office or shopping? Answer Date of Assessment Author No 03/17/2019 9:20 AM EDT Zach Barrientos CMA documented as of this encounter Mental [...] PM EST) 12/02/2019 1:30 PM EST Impressions [facility] - 12/02/2019 2:11 PM EST [...] MD GI PROCEDURE ORDERABLES Fin al Result [place] [id number] documented in this encounter Visit Diagnoses Not on filedocumented in this encounter Care Teams Mechanical Test Technician Relationship Specialty Start Date End Date Luis Atkins DO [address] [place] [address] PCP - General Family Medicine 09/21/19 Thiago Martin MD Ophthalmology 12/26/16 Anais Garcia RN Console Operator Registered Nurse 12/13/20 01/16/21 documented as of this encounter
--- OUTSIDE RECORDS SUMMARY | 2025-09-08 15:44 | XMS_ITS | Encounter Summary ---
Author Organization [place] [address] Care Team Providers Care Yard Rigger Name Role Phone Thiago Martin MD Unavailable [phone] Luis Atkins DO Primary Care Provider [phone] Reason for Visit * Reason Onset Date Comments Medication Management 08/01/2025 Encounter Details Date Type Department Care Team (Late st Contact Info) Description 08/01/2025 Telephone [facility] [address] [place] [id number] Luis Atkins DO [address] [place] [address] Medication Management Social History Tobacco Use Types Packs/Day Years [...] Date Recorded PHQ-2 Total Score 0 03/01/2025 [facility] [place] [facility] Occupat ional Health - Occupational Stress [...] place to sleep or slept in a assisted (including now)? No 09/20/2021 Sex and Gender [...] of Assessment Author No 02/19/2023 11:19 AM [facility] Clara Hinojosa RMA * Does this person have serious difficulty walking or climbing stairs? Answer Date of Assessment Author No 02/19/2023 11:19 AM EDClara Lee RMA * Does this person have difficulty dressing or bathing? Answer Date of Assessment Author No 02/19/2023 11:19 AM EDT Hinojosa , Clara, RMA * Because of a physical, mental [...] Clara Hinojosa RMA documented in this encounter Miscellaneous Notes * Telephone Encounter - Sapna Guzman MA - 08/01/2025 11:03 AM EDT Received pt assistance of [employer]. Called to inform pt. Yuliya() asking for [employer] to give her a call. They received something from [employer] and wanted todiscuss with her. documented in this encounter Plan of Treatment [...] documented as of this encounter Care Teams Yard Rigger Relationship Specialty Start Date End Date Luis Atkins DO [address] [employer] [place] [address] PCP - General Family Medicine 09/21/19 Thiago Martin MD Ophthalmology 12/26/16 documented as of this encounter
--- NOTE | 2025-09-08 15:45 | XR_ITS ---
FINAL REPORT CLINICAL HISTORY: PROSTATE CANCER FINDINGS: ABDOMEN SINGLE VIEW There is a nonspecific, nonobstructive bowel gas pattern. No abnormal dilatation is identified. There is a large amount of retained stool throughout the colon. There is no abnormal calcification. Surgical clips are seen in the right upper quadrant. IMPRESSION: Large stool burden. Reviewed, Interpreted and Dictated by Brock Adams MD Transcribed by Tiffany Osborn Authenticated and [facility]
--- OUTSIDE RECORDS SUMMARY | 2025-09-08 15:45 | XMS_ITS | Continuity of Care Document ---
Author Organization [facility] Address [address], [place] [address] Phone Care Team Providers Care Training Generalist Name Role Phone Thiago Martin MD Unavailable [phone] Neema Atkins DO Primary Care Provider [phone] Encounters Date Type Department Care Team Description 08/28/2025 Patient Outreach [facility] [address], [place] [phone] Tamera Schroeder RN CM- Telephonic Outreach; CM-Medication Assistance; -[facility] 08/22/2025 11:00 AM EDT Office Visit [facility] [address], [place] [address] Neema Atkins, Type 2 diabetes mellitus with diabetic nephropathy, with long-term current use of insulin (HCC) (Primary Dx); 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); Hypertension associated with diabetes (HCC) 08/15/2025 Patient Outreach [facility] [address] [place] [address] [address] Tamera Schroeder, RN CM- Telephonic Outreach; CM-Medication Assistance; -[facility] 08/15/2025 1:00 PM EDT Clinical Support [facility] [address], [place] [address] Tamera Schroeder, RN Encounter for support and coordination of transition of care (Primary Dx) 08/01/2025 Telephone [facility] [address], [place] [phone] Neema Atkins, DO Medication Management 07/18/2025 Refill [facility] [address], [place] [address] Neema Atkins, DO Medication Refill 06/27/2025 Patient Outreach [facility] [address], [place] [address] Tamera Schroeder RN CM- Telephonic Outreach; CM-Medication Assistance; CM-SDOH 06/22/2025 Refill [facility] [address] [place] [address] Malgorzata Woodruff APRN Medication Refill 06/09/2025 Refill [facility] [address], [place] [address] Neema Atkins, DO Medication Refill; Central Patient Navigator Outreach (med refill 100/) 04/16/2025 Refill [facility] [address], [place] [address] Neema Atkins, DO Medication Refill 03/29/2025 Patient Outreach [facility] [address], [place] [address] Melanie Lamb RN CM- Telephonic Outreach; CM-Medication Assistance 03/15/2025 Refill [facility] [address] [place] [address] Malgorzata Woodruff APRN Medication Refill 03/13/2025 Telephone [facility] [address], [place] [address] Neema Atkins, DO Refill (lancets) 03/13/2025 Refill [facility] [address], [place] [phone] Neema Atkins, DO Medication Refill 03/02/2025 Results Follow-Up [facility] [address] [place] [address] [phone] Neema Atkins, LIPID SCREEN, COMPREHENSIVE METABOLIC PANEL, CBC WITH DIFF, Additional followed-up results: 2 03/01/2025 1:00 PM EDT Office Visit [facility] [address] [place] [address] [phone] Neema Atkins, Medicare annual wellness visit, subsequent (Primary Dx); High risk medications (not anticoagulants) long-term use; Malaise and fatigue; Hyperlipidemia, unspecified hyperlipidemia type; Type 2 diabetes mellitus with diabetic nephropathy, with long-term current use of insulin (HCC); 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); Hypertension associated with diabetes (HCC); Hyperlipidemia associated with type 2 diabetes mellitus (HCC) 02/28/2025 Patient Outreach [facility] [address] [place] [address] Neema Atkins DO Central Patient Navigator Outreach (awv questionnaire) 02/11/2025 Refill [facility] [address] [place] [address] [phone] Neema Atkins, Medication Refill 01/04/2025 Orders Only [facility] [address] [place] [address] [phone] Neema Atkins, Acute bacterial sinusitis (Primary Dx) 01/03/2025 5:21 PM EST - 01/03/2025 11:59 PM EST Hospital Encounter [facility] [place] [address] BPV (benign positional vertigo), unspecified laterality; Prostate cancer (HCC) Discharge Disposition: Home or Self Care 01/02/2025 2:15 PM EST Office Visit [facility] [address] [place] [address] [phone] Neema Atkins, Blepharitis, unspecified laterality, unspecified type (Primary Dx); BPV (benign positional vertigo), unspecified laterality; Prostate cancer (HCC) 12/27/2024 Patient Outreach [facility] [address] [place] [address] Dr. [address] Appointment [place] [address] Melanie Lamb, ALPA CM- Telephonic Outreach; CM-Medication Assistance; Patient Returning Call 12/23/2024 Patient Outreach [facility] [address] [place] [address] Dr. [address] Appointment [place] [address] Clarita Thomason, ALPA CM-Medication Assistance 12/09/2024 Telephone [facility] [address] [place] [address] Gail Perez RN Medication Refill 12/09/2024 Refill [facility] [address], [place] [phone] Neema Atkins, DO Medication Refill 12/05/2024 1:00 PM EST Office Visit [facility] [address] [place] [address] Comfort Schneider APRN Gastroesophageal reflux disease with esophagitis without hemorrhage (Primary Dx); Encounter for medication refill 11/29/2024 Refill [facility] [address], [place] [phone] Neema Atkins, DO Medication Refill 11/25/2024 Refill [facility] [address] [place] [address] Neema Atkins, DO Medication Refill 11/01/2024 Refill [facility] [address] [place] [address] Comfort Schneider APRN Medication Refill; Central Patient Navigator Outreach (med refills 100 [facility]) 09/28/2024 Refill [facility] [address] [place] [address] Neema Atkins, DO Medication Refill 08/30/2024 Patient Outreach [facility] [address], [place] [address] Tamera Schroeder, RN CM- Telephonic Outreach; CM-Medication Assistance 08/22/2024 1:00 PM EDT Clinical Support [facility] [address] [place] [address] [phone] Tamera Schroeder, RN Encounter for support and coordination of transition of care (Primary Dx) 08/19/2024 Telephone [facility] [address] [place] [address] [phone] Neema Atkins, DO Medication Refill; Central Patient Navigator Outreach (Med Refill 100/) 08/15/2024 Telephone [facility] [address] [place] [address] [phone] Neema Atkins, DO Other ( call back ); Medication Management (Wayne Nordisk called to get clarification on medication request they rec'd) 07/10/2024 Refill [facility] [address] [place] [address] [phone] Neema Atkins, DO Medication Refill 06/08/2024 Telephone [facility] [address] [place] [address] [phone] Neema Atkins, DO Medication Management (Lancets ICD 10 code ) 06/07/2024 Refill [facility] [address] [place] [address] [phone] Neema Atkins, DO Medication Refill 05/09/2024 Telephone [facility] [address] [place] [address] [phone] Neema Atkins, [...] Pharmacy: Dispense once. Patient has voucher from [employer]. //) 02/28/2024 Refill [facility] [address] [place] [address] [phone] Neema Atkins, DO Medication Refill 02/25/2024 Telephone [facility] [address] [place] [address] [phone] Neema Atkins, DO Results (Microalbumin, TSH, CMP, CBC, Lipid) 02/24/2024 11:00 AM EDT Office Visit [facility] [address] [place] [...] with diabetes (HCC); 10 year risk of VT or stroke 7.5% or greater; Hypertension associated with diabetes (HCC); Type 2 diabetes mellitus without complication, unspecified whether watch supervisor insulin use (HCC) 02/23/2024 Patient Outreach [facility] [address] [place] [address] Neema Atkins DO Central Patient Navigator Outreach (AWV Questionnaire /) 02/17/2024 Refill [facility] [address] [place] [address] [phone] Neema Atkins, DO Medication Refill 02/16/2024 Patient Outreach [facility] [address] [place] [address] [phone] Tamera Schroeder RN CM-Medication Assistance 02/15/2024 Refill [facility] [address] [place] [address] [phone] Neema Atkins, DO Medication Refill 12/03/2023 11:00 AM EST Office Visit [facility] [address], [address] [address] Comfort Schneider APRN Gastroesophageal reflux disease with esophagitis without hemorrhage (Primary Dx); Encounter for medication refill 11/18/2023 Telephone [facility] [address], [address] [place] [address] Khoa Vela MD Other 11/18/2023 Orders Only [facility] [address], [address] [place] [address] Zonia Restrepo LPN 11/11/2023 Refill [facility] [address], [address] [place] [address] Comfort Schneider APRN Medication Refill 11/10/2023 Patient Outreach [facility] [address] [place] [address] [phone] Tamera Schroeder, RN CM-Medication Assistance (Ozempic, [...] renewal) 08/29/2023 Refill [facility] [address], [place] [phone] Neema Atkins, DO Medication Refill 08/19/2023 9:03 AM EDT - 08/19/2023 11:59 PM EDT Hospital Encounter [facility] [address] [place] [address] Khoa Vela MD Judge, Lisa M, MD Sommer, Kristin, CRNA Screening for colon cancer Discharge Disposition: Home or Self Care 08/19/2023 10:17 AM EDT Anesthesia Event [facility] [address] [place] [address] Christina Sneed MD Collins, Angela, APRN 08/18/2023 Travel 08/17/2023 Refill [facility] [address], [place] [address] Neema Atkins, DO Medication Refill 08/16/2023 Refill [facility] [address], [address] [address] Comfort Schneider APRN Medication Refill 08/10/2023 Telephone [facility] [address] [place] [address] Khoa Vela MD Other (Ozempic) 07/26/2023 Refill [facility] [address], [place] [address] Neema Atkins, DO Medication Refill; Central Patient Navigator Outreach (Med Refill ) 07/07/2023 Refill [facility] [address], [place] [address] Neema Atkins, DO Medication Refill 05/27/2023 Patient Outreach [facility] [address] [place] [address] [phone] Tamera Schroeder RN CM- Telephonic Outreach 05/11/2023 Telephone [facility] [address], [address] [place] [address] Khoa Vela MD Colonoscopy; Medication Management 04/14/2023 Telephone [facility] [address], [place] [address] Neema Atkins, DO Other (freestyle lancets 28 gauge) 04/13/2023 Refill [facility] [address], [place] [address] Neema Atkins, DO Medication Refill 04/12/2023 Refill [facility] [address], [place] [address] Neema Atkins, DO Medication Refill 02/19/2023 11:15 AM EDT Office Visit [facility] [address], [place] [address] Neema Atkins, DO High risk medications [...] Medicare annual wellness visit, subsequent 02/16/2023 Telephone [facility] [address], [place] [address] Neema Atkins, DO Other (Eye exam ) 02/16/2023 Patient Outreach [facility] [address], [place] [address] Tamera Schroeder RN CM-Medication Assistance 02/13/2023 Telephone [facility] [address], [place] [address] Neema Atkins, DO Medication Management 02/10/2023 Telephone [facility] [address], [place] [address] Neema Atkins, DO Medication Refill (losartan [...] use of insulin (HCC) 12/30/2022 Patient Outreach [facility] [address] [place] [address] Neema Atkins, Central Patient Navigator Outreach (AWV Questionnaire ) 12/29/2022 Patient Outreach [facility] [address] [place] [address] [phone] Tamera Schroeder, RN CM- Telephonic Outreach; CM-Medication Assistance 12/24/2022 Patient Outreach [facility] [address] [place] [address] Neema Atkins, DO Central Patient Navigator Outreach (AWV A1C) 11/18/2022 Refill [facility] [address], [place] [id number] Neema Atkins, DO Medication Refill 11/16/2022 Refill [facility] [address], [place] [address] Neema Atkins, DO Medication Refill 11/15/2022 Refill [facility] [address], [place] [phone] Neema Atkins, DO Medication Refill 11/04/2022 Refill [facility] [address], [place] [phone] Neema Atkins, DO Medication Refill 10/23/2022 Orders Only [facility] [address] [place] [address] Provider, Unknown 10/23/2022 Orders Only [facility] [address] [place] [address] Provider, Unknown 10/15/2022 Telephone [facility] [address], [place] [address] Alanna Mobley MA Other 10/13/2022 Orders Only [facility] [address], [place] [address] Neema Atkins, DO Cough, unspecified type (Primary Dx) 10/08/2022 Orders Only [facility] [address], [place] [address] Neema Atkins, DO 10/08/2022 Telephone [facility] [address], [place] [address] Neema Atkins, DO Other 09/30/2022 12:30 PM EST Office Visit [facility] [address], [address] [place] [address] Comfort Schneider APRN Encounter for medication refill (Primary Dx); Gastroesophageal reflux disease with esophagitis without hemorrhage 08/23/2022 Refill [facility] [address], [place] [address] Neema Atkins, DO Medication Refill 08/22/2022 Orders Only [facility] [address], [address] [place] [address] Zonia Restrepone, DANNA Gastroesophageal reflux disease with esophagitis without hemorrhage 08/21/2022 Telephone [facility] [address] [facility] [address] [place] [address] Khoa Vela MD Medication Refill; Medication Management 08/16/2022 Refill [facility] [address] [facility] [address] [place] [address] Khoa Vela MD Medication Refill 08/16/2022 Refill [facility] [address], [place] [phone] Neema Atkins, DO Medication Refill 07/28/2022 Patient Outreach [facility] [address], [place] [phone] Tamera Schroeedr RN CM-Medication Assistance ([facility]) 07/16/2022 Telephone [facility] [address], [place] [address] Neema Atkins, DO Medication Management (fluticasone furoate (ARNUITY ELLIPTA)) 07/09/2022 Refill [facility] [address], [place] [address] Neema Atikns, DO Medication Refill 07/08/2022 Telephone [facility] [address], [place] [address] Neema Atkins, DO Medication Refill (PULMICORT FLEXHALER 180 mcg/actuation Inhl Aerosol Powdr Breath Activated 1 Each 0 11/08/2021 /Sig: INHALE 1 PUFF BY MOUTH TWICE DAILY //) 06/25/2022 Telephone [facility] [address] [place] [address] [phone] Neema Atkins, DO Other (Needing results faxed gael.) 06/20/2022 1:54 PM EDT - 06/20/2022 11:59 PM EDT Hospital Encounter [facility] [address] [place] [address] [id number] 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) Discharge Disposition: Home or Self Care 06/20/2022 1:50 PM EDT - 06/20/2022 1:53 PM EDT Hospital Encounter [facility] [address], [place] [id number] 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) (Primary Dx) Discharge Disposition: Home or Self Care 05/15/2022 Refill [facility] [address] [place] [address] [phone] Neema Atkins, DO Medication Refill 05/13/2022 Patient Outreach [facility] [address], [place] [address] Tamera Schroeder, ALPA CM-Medication Assistance 04/24/2022 Patient Outreach [facility] [address] [address] [phone] Tamera Schroeder, RN CM-Medication Assistance; CM- Telephonic Outreach; CM- Longitudinal Continued 04/11/2022 Refill [facility] [address], [place] [address] Neema Atkins, DO Medication Refill 03/20/2022 Patient Outreach [facility] [address] [address] [phone] Tamera Schroeder, RN CM-Medication Assistance 03/18/2022 Telephone [facility] [address] [place] [address] [phone] Neema Atkins, DO Medication Management (Blood Sugar Diagnostic [...] EST) //) 03/10/2022 Telephone [facility] [address] [place] [address] Neema Atkins, Medication Refill (pravastatin (PRAVACHOL) 40 mg Oral Tablet 30 Tablet 0 02/03/2022 /Sig: TAKE 1 TABLET BY MOUTH ONCE DAILY IN THE EVENING /Sent to pharmacy as: pravastatin 40 mg tablet (PRAVACHOL) /Cosign for Ordering: Accepted by Neema Atkins DO on 02/03/2022 4:24 PM /E-Prescribing Status: Receipt confirmed by pharmacy (02/03/2022 2:57 PM EDT) //) 03/08/2022 Refill [facility] [address] [place] [address] Neema Atkins, DO Medication Refill 03/07/2022 Telephone [facility] [address] [place] [address] Neema Atkins, DO Results (Bun, creatine blood work ) 02/24/2022 Telephone [facility] [address] [place] [address] Neema Atkins, DO Medication Refill (Metformin ) 02/17/2022 Refill [facility] [address] [place] [address] Neema Atkins, DO Medication Refill (multiple) 02/14/2022 Telephone [facility] [address] [place] [address] Neema Atkins, DO Other (call back ) 02/13/2022 Orders Only [facility] [address] [address] [phone] Neema Atkins, DO Elevated PSA (Primary Dx) 02/13/2022 Telephone [facility] [address] [address] [phone] Alanna Mobley MA Results 02/12/2022 Travel 02/12/2022 11:15 AM EDT - 02/12/2022 11:59 PM EDT Hospital Encounter [facility] [address] [address] [address] Hip pain Discharge Disposition: Home or Self Care 02/12/2022 10:30 AM EDT Office Visit [facility] [address] [place] [...] malignant neoplasm of prostate 02/11/2022 Patient Outreach [facility] [address] [place] [address] Neema Atkins, Central Patient Navigator Outreach (awv questionnaire) 02/07/2022 Patient Outreach [facility] [address] [phone] Tamera Schroeder, RN CM-Medication Assistance (Wayne shipment) 02/03/2022 Patient Outreach [facility] [address] [place] [address] Neema Atkins, DO Central Patient Navigator Outreach (Medication Refill Appointment-1st maria eugenia) 02/01/2022 Refill [facility] [address] [phone] Neema Atkins, DO Medication Refill 01/13/2022 Patient Outreach [facility] [address], [place] [phone] Tamera Schroeder, RN [facility] 01/13/2022 Patient Outreach [facility] [address], [place] [phone] Tamera Schroeder, RN CM-Medication Assistance 01/11/2022 Refill [facility] [address], [place] [phone] Neema Atkins, DO Medication Refill 11/21/2021 Telephone [facility] [address], [place] [phone] Neema Atkins, DO Symptom Call (sinus) 11/14/2021 Patient Outreach [facility] [address], [place] [address] Tamera Schroeder, ALPA CM-Medication Assistance 11/08/2021 Refill [facility] [address], [place] [address] Neema Atkins, DO Medication Refill 11/04/2021 Refill [facility] [address], [place] [address] Neema Atkins, DO Medication Refill 10/29/2021 Patient Outreach [facility] [address], [place] [address] Niyah Odom, chief dog license inspector; CM- Telephonic Outreach; CM-Medication Assistance 10/08/2021 Refill [facility] [address], [place] [address] Neema Atkins, DO Medication Refill 09/20/2021 11:00 AM EST Office Visit [facility] [address], [place] [address] Niyah Odom, [place] Enrolled in chronic care management (Primary Dx); Type 2 diabetes mellitus without complication, unspecified whether watch supervisor insulin use (HCC) 09/12/2021 Telephone [facility] [address] [phone] Neema Atkins, DO Other (requesting call from Beryl Garcia) 08/20/2021 Telephone [facility] [address] [phone] Neema Atkins, Referral (different mice raiser) 08/19/2021 Refill [facility] [address] [phone] Neema Atkins, Medication Refill (amLODIPine (NORVASC) 5 mg Oral [id number] Tab37/11/2020) 08/18/2021 Refill [facility] [address], [place] [address] Neema Atkins, DO Medication Refill 08/14/2021 10:15 AM EDT Office Visit [facility] [address], [place] [address] Neema Atkins, Type 2 diabetes mellitus without complication, unspecified whether watch supervisor insulin use (HCC) (Primary Dx); Needs flu shot; Hyperthyroidism; Hyperlipidemia, unspecified hyperlipidemia type; Screening, anemia, deficiency, iron; Ear lesion; Hypertension associated with diabetes (HCC); Type 2 diabetes mellitus with diabetic nephropathy, with long-term current use of insulin (HCC); Hyperlipidemia associated with type 2 diabetes mellitus (HCC) 08/13/2021 Patient Outreach [facility] [address] [facility] [place] [place] [facility] [place] [address] Neema Atkins DO Central Patient Navigator Outreach (awv questionnaire ) 08/05/2021 Orders Only [facility] [address], [place] [address] Alanna Mobley MA Hyperlipidemia, unspecified hyperlipidemia type (Primary Dx); Screening, anemia, deficiency, iron; Hyperthyroidism; Type 2 diabetes mellitus without complication, unspecified whether watch supervisor insulin use (HCC) 08/05/2021 Telephone [facility] [address], [place] [address] Neema Atkins, DO Lab Orders (awn) 08/04/2021 Refill [facility] [address], [place] [phone] Neema Atkins, DO Medication Refill 08/01/2021 Orders Only [facility] [address] [place] [address] Provider, Unknown 07/20/2021 Refill [facility] [address], [place] [address] Neema Atkins, DO Medication Refill 07/10/2021 Refill [facility] [address], [place] [address] Neema Atkins, DO Medication Refill 07/04/2021 Refill [facility] [address], [place] [address] Neema Atkins, DO Medication Refill 06/21/2021 Patient Outreach [facility] [address] [place] [address] Amanda Troy Appointment Needed (Diabetic follow-up) 06/19/2021 Travel 06/19/2021 10:30 AM EDT Office Visit [facility] Gastro [facility] [address] [facility] [address] [place] [address] Koha Vela MD Gastroesophageal reflux disease with esophagitis without hemorrhage (Primary Dx); Screening for colon cancer; Esophageal dysphagia 06/10/2021 Refill [facility] [address], [place] [address] Neema Atkins, DO Medication Refill 05/23/2021 Patient Outreach [facility] [address], [place] [address] Anais Garcia RNchief dog license inspector; CM- Telephonic Outreach 05/02/2021 Orders Only [facility] [address], [place] [address] Elaine Buchanan, TAMIKOA Type 2 diabetes mellitus with diabetic nephropathy, with long-term current use of insulin (HCC) (Primary Dx) 05/02/2021 Telephone [facility] [address], [place] [address] Neema Atkins, DO Medication Refill (metFORMIN XR (GLUCOPHAGE-XR) 500 mg Oral Tablet Sustained Release 24 hr) 05/02/2021 Refill [facility] [address], [place] [address] Neema Atkins, DO Medication Refill 04/16/2021 Telephone [facility] [address] [place], [place] [id number] Khoa Vela MD Other 04/16/2021 Refill [facility] [address] [place], [place] [id number] Khoa Vela MD Medication Refill 04/13/2021 Refill [facility] [address] [place], [place] [id number] Khoa Vela MD Medication Refill 04/09/2021 Refill [...] PC [address] [phone] Niyah Odom, chief dog license inspector; CM- Telephonic Outreach 03/13/2021 Telephone [facility] [address] [place] [phone] Neema Atkins, DO Prior Authorization 03/11/2021 Refill [facility] [address] [facility] [address] [place] [address] Khoa Vela MD Medication Refill 03/11/2021 Refill [facility] [address], [place] [phone] Neema Atkins, DO Medication Refill 03/11/2021 Patient Outreach [facility] [address], [place] [phone] Niyah Odom, chief dog license inspector 03/11/2021 Patient Outreach [facility] [address], [place] [phone] Niyah Odom, chief dog license inspector; CM- Telephonic Outreach 02/14/2021 Refill [facility] [address], [place] [address] Neema Atkins, DO Medication Refill 01/22/2021 Patient Outreach [facility] [address], [place] [phone] Anais Garcia RNchief dog license inspector; CM- Telephonic Outreach (contact made) 01/17/2021 10:00 AM EDT Telemedicine [facility] [address], [place] [address] Anais Garcia RN Type 2 diabetes mellitus with diabetic nephropathy, with long-term current use of insulin (HCC) (Primary Dx); Enrolled in chronic care management 01/16/2021 Orders Only [facility] [address], [place] [address] Alanna Mobley MA BPH without urinary obstruction 01/16/2021 Refill [facility] [address], [place] [address] Neema Atkins, DO Medication Refill 12/20/2020 Refill [facility] [address] [place] [address] [phone] Ne[place] Atkins, DO Medication Refill 12/13/2020 Telephone [facility] [address] [address] [phone] Alanna Mobley MA Prior Authorization (One Touch Ultra Strips ) 12/13/2020 11:00 AM EST Office Visit [facility] [address] [place] [address] [phone] Anais Garcia, RN Type 2 diabetes mellitus with diabetic nephropathy, with long-term current use of insulin (HCC) (Primary Dx) 12/12/2020 Telephone [facility] [address] [place] [address] [phone] Neema Atkins, DO Other; Care Transition; CM- Telephonic Outreach (Contact made); CM-Resource Coordination (Contacted pt's pharmacy) 12/12/2020 Patient Outreach [facility] [address] [place] [address] [phone] Anais Garcia, chief dog license inspector; CM- Telephonic Outreach (contact made) 12/12/2020 Orders Only [facility] [address] [place] [address] [phone] Ryann Correa MA 12/11/2020 Telephone [facility] [address], [place] [address] Neema Atkins, Medication Management (medication cost) 12/07/2020 Refill [facility] [address] [place] [address] [phone] Ne[place] Atkins, DO Medication Refill; Medication Refill 12/05/2020 Refill [facility] [address], [place] [phone] Ne[place] Atkins, DO Medication Refill 12/05/2020 Telephone [facility] [address] [place] [address] [phone] Ne[place] Atkins, Medication Change (need to change to lantus ) 11/21/2020 Telephone [facility] [address] [place] [address] [phone] Ne[place] Atkins, DO Prior Authorization (all meds) 11/06/2020 Refill [facility] [address] [place] [address] [phone] Ne[place] Atkins, DO Medication Refill; Medication Management (pt insurance change. pt on [place] they want pt on Lantus) 10/15/2020 9:15 AM EST Office Visit [facility] [address] [place] [address] [phone] Ne[place] Atkins, 10 year risk of VT or stroke 7.5% or greater (Primary Dx); BPH without urinary obstruction; Hypertension associated with diabetes (HCC); Hyperlipidemia associated with type 2 diabetes mellitus (HCC); Type 2 diabetes mellitus with diabetic nephropathy, with long-term current use of insulin (HCC); Chronic left-sided low back pain with left-sided sciatica 10/10/2020 Refill [facility] [address] [place] [address] [phone] Ne[place] Atkins, DO Medication Refill 10/10/2020 Orders Only [facility] [address] [place] [address] [phone] Neema Atkins, High [...] Refill 10/03/2020 Refill [facility] [address], [place] [phone] Ne[place] Atkins, DO Medication Refill 09/06/2020 Telephone [facility] [address], [place] [address] Ne[place] Atkins, DO Medication Management (leg cramps ) 08/17/2020 Refill [facility] [address], [place] [phone] Ne[place] Atkins, DO Medication Refill 08/11/2020 Refill [facility] [address], [place] [phone] Johnny Michelle MD Medication Refill 07/27/2020 Patient Outreach [facility] [address], [place] [phone] Dionne Benton PharmD Medication Management (Adherence Outreach) 07/23/2020 Abstract [facility] [address], [place] [phone] Ne[place] Atkins, DO 07/12/2020 Refill [facility] [address], [place] [address] Johnny Michelle MD Medication Refill 07/11/2020 Orders Only [facility] [address] [place] [address] Juan Jensen 07/11/2020 Travel 07/11/2020 9:00 AM EDT Office Visit [facility] [address], [place] [phone] Ne[place] Atkins, DO Type 2 diabetes mellitus with diabetic nephropathy, with long-term current use of insulin (HCC) (Primary Dx); Hypertension associated with diabetes (HCC); Hyperlipidemia associated with type 2 diabetes mellitus (HCC); Pain in both lower extremities 07/11/2020 10:20 AM EDT Office Visit [facility] [address] [place] [address] Juan Jensen Neoplasm of unspecified behavior of bone, soft tissue, and skin (Primary Dx); Other viral warts; Disturbance of skin sensation 07/04/2020 9:30 AM EDT Clinical Support [facility] [address], [place] [address] Melanie Ortiz Type 2 diabetes mellitus with diabetic nephropathy, with long-term current use of insulin (HCC); Immunity status testing 07/03/2020 Refill [facility] [address] [place] [address] [phone] Ne[place] Atkins, DO Medication Refill 07/02/2020 Refill [facility] [address] [place] [address] [phone] Ne[place] Atkins, DO Medication Refill 06/20/2020 Refill [facility] [address] [place] [address] [phone] Ne[place] Atkins, DO Medication Refill 06/14/2020 Telephone [facility] [address], [place] [phone] Ne[place] Atkins, DO Advice Only (wait for derm appt?) 06/08/[address] [facility] [place] [address] Khoa Vela MD Medication Question 05/29/2020 Telephone [facility] [address], [place] [phone] Ne[place] Atkins, DO Orders (lab ) 05/29/2020 Travel 04/19/2020 Travel 04/13/2020 Orders Only [facility] [address] [place] [address] [phone] Ne[place] Atkins, DO Rash (Primary Dx) 04/12/2020 Telephone [facility] [address] [place] [address] [phone] Ne[place] Atkins, DO Medication Management ([place]) 04/09/2020 11:45 AM EDT Office Visit [facility] [address], [place] [address] Ne[place] Atkins, DO Skin lesion (Primary Dx); Pain, unspecified ; Localized swelling, mass and lump, trunk ; Benign lipomatous neoplasm of skin and subcutaneous tissue of left arm ; Pain in left arm 04/06/2020 Travel 02/15/2020 Refill [facility] [address] [facility] [address] [facility], [place] [id number] Khoa Vela MD Medication Refill 02/14/2020 Telephone [facility] [address], [place] [phone] Ne[place] Atkins, DO Medication Refill (BASAGLAR KWIKPEN U-100 INSULIN 100 unit/mL (3 mL) SubQ Insulin Pen 45 mL 0 02/10/2020 ) 02/10/2020 Refill [facility] [address], [place] [address] Neema Atkins, DO Medication Refill 02/10/2020 Refill [facility] [address] [...] [facility] [address] [place] [phone] Melanie Ortiz Iron deficiency anemia, unspecified iron deficiency anemia type; Type 2 diabetes mellitus with diabetic nephropathy, with long-term current use of insulin (HCC) 01/10/2020 Telephone [facility] [address] [facility] [address] [facility] [place] [address] Khoa Vela MD Medication Question; Follow-up 01/02/2020 Telephone [facility] [address], [place] [phone] Neema Atkins, DO Orders (labs) 01/02/2020 Travel 12/28/2019 Refill [facility] [address], [place] [address] Neema Atkins, DO Medication Refill 12/06/2019 Refill [facility] [address], [place] [id number] Ne[place] Atkins, DO Medication Refill 12/02/2019 Lab Requisition [facility] [place] [address] Khoa Vela MD Dysphagia, unspecified 12/02/2019 Orders Only [facility] [address] [place] [address] Khoa Vela MD Gastroesophageal reflux disease with esophagitis (Primary Dx) 12/02/2019 Orders Only [facility] [address] [facility] [address] [facility], [place] [id number] Khoa Vela MD 11/29/2019 1:00 PM EST Office Visit [facility] [address] [facility] [address] [facility], [place] [id number] Comfort Schneider APRN Esophageal dysphagia (Primary Dx); Epigastric abdominal pain 11/28/2019 Telephone [facility] [address], [place] [address] Ne[place] Atkins, DO Medication Management 11/25/2019 Telephone [facility] [address] [facility] [address] [facility] [place] [address] Ryne Craven MD Dysphagia; EGD 09/21/2019 11:00 AM EST Office Visit [facility] [address], [place] [address] Ne[place] Atkins, DO Esophageal dysfunction (Primary Dx); Type 2 diabetes mellitus with diabetic nephropathy, with long-term current use of insulin ([facility]) 09/15/2019 9:40 AM EST Clinical Support [facility] [address], [place] [address] ShahabMelanie fatima Maria Del Carmen Chronic fatigue; Hypertension associated with diabetes ([facility]) 2019 Orders Only [facility] [address], [place] [phone] Ne[place] Atkins, Hypertension associated with diabetes ([facility]) (Primary Dx); Chronic fatigue 2019 Telephone SE[facility] [...] Johnny Michelle MD Medication Refill 03/24/2019 Telephone [facility] [address] [place] [address] [phone] Johnny Michelle MD Visit Follow Up; Diabetes 03/17/2019 Telephone [facility] [address] [place] [address] [...] 2 diabetes mellitus (HCC) 03/16/2019 Telephone [facility] [address] [place] [address] [phone] Johnny Michelle [...] Michelle MD Lab Orders 12/22/2018 Orders Only [facility] [address] [place] [address] Provider, Unknown 11/24/2018 Refill [facility] [address] [place] [address] [address] Johnny Michelle MD Medication Refill 10/05/2018 Refill [facility] [address], [place] [address] Estefania Guzman, ALARM INSTALLER Medication Refill 2018 Refill [facility] [address] [...] PC [address], [place] [address] Neeal Aguilar, CPT, SHEARER HELPER Hypertension associated with diabetes (HCC); Type 2 diabetes mellitus with diabetic nephropathy, with long-term current use of insulin (HCC); Hyperlipidemia associated with type 2 diabetes mellitus (HCC) 07/19/2018 Telephone [facility] [address], [place] [address] Johnny Michelle MD Orders 07/19/2018 Refill [facility] [address], [place] [address] Estefania Guzman, ALARM INSTALLER Medication Refill 07/19/2018 Refill [facility] [...] [place] [address] Estefania Guzman, YANICK Medication Refill 03/05/2018 Refill [facility] [address] [place] [address] Johnny Michelle MD Medication Refill 02/04/2018 Refill [facility] [address] [place] [address] Estefania Guzman, YANICK Medication Refill 02/04/2018 Refill [facility] [address], [place] [address] Johnny Michelle MD Medication Refill 12/23/2017 Abstract [facility] [address], [place] [address] Franchesca Barrientos CMA 12/19/2017 Orders Only [facility] [address] [place] [address] Provider, Unknown 12/18/2017 Orders Only [facility] [address], [place] [address] Franchesca Barrientos CMA Type 2 diabetes mellitus with diabetic nephropathy, with long-term current use of insulin (HCC) 12/18/2017 Telephone [facility] [address], [place] [address] Johnny Michelle MD Other 12/17/2017 Refill [facility] [address] [place] [address] Estefania Guzman APRN Medication Refill 12/17/2017 Telephone [facility] [...] 12/01/2017 Orders Only [facility] [address], [place] [address] Johnny Michelle MD Type 2 diabetes mellitus without complication, with long-term current use of insulin (HCC) (Primary Dx); Hyperlipidemia associated with type 2 diabetes mellitus (HCC) 12/01/2017 10:20 AM EST Clinical Support [facility] [address], [place] [address] Neela Aguilar, CPT, SHEARER HELPER Screening for metabolic disorder (Primary Dx); Screening for thyroid disorder; Vitamin D deficiency; Screening for deficiency anemia; Screening for lipid disorders; Type 2 diabetes mellitus with diabetic nephropathy, unspecified longterm insulin use status (HCC); Type 2 diabetes mellitus without complication, with long-term current use of insulin (HCC); Hyperlipidemia associated with type 2 diabetes mellitus (HCC); Screening PSA (prostate specific antigen) 11/23/2017 Refill [facility] [address] [place], [place] [id number] Johnny Michelle MD Medication Refill 11/06/2017 Telephone [facility] [address], [place] [address] Johnny Michelle MD Medication Refill 10/05/2017 Refill [facility] [address], [place] [address] Johnny Michelle MD Medication Refill 10/05/2017 Refill [facility] [address], [place] [address] Estefania Guzman APRN Medication Refill 09/28/2017 10:39 AM EST - 09/28/2017 11:59 PM EST Hospital Encounter [facility] Physical Therapy [place], [place] [address] Jv Caceres, KATHLEEN Acute left-sided low back pain with left-sided sciatica Discharge Disposition: Home or Self Care 09/23/2017 10:08 AM EST - 09/23/2017 11:59 PM EST Hospital Encounter [facility] Physical Therapy [place], [place] [address] Min Colón, PT Acute left-sided low back pain with left-sided sciatica Discharge Disposition: Home or Self Care 09/21/2017 10:35 AM EST - 09/21/2017 11:59 PM EST Hospital Encounter [facility] Physical Therapy [place] [address], [place] [address] Jv Caceres, PROMOTIONS ASSOCIATE Acute left-sided low back pain with left-sided sciatica Discharge Disposition: Home or Self Care 09/16/2017 2:02 PM EST - 09/16/2017 11:59 PM EST Hospital Encounter [facility] Physical Therapy [place], [place] [address] Jv Caceres, PROMOTIONS ASSOCIATE Acute left-sided low back pain with left-sided sciatica Discharge Disposition: Home or Self Care 09/14/2017 10:27 AM EST - 09/14/2017 11:59 PM EST Hospital Encounter [facility] Physical Therapy [place], [place] [address] Jv Caceres, PROMOTIONS ASSOCIATE Acute left-sided low back pain with left-sided sciatica Discharge Disposition: Home or Self Care 09/10/2017 Refill [facility] [address], [place] [address] Johnny Michelle MD Medication Refill 09/09/2017 11:20 AM EST - 09/09/2017 11:59 PM EST Hospital Encounter [facility] [place] [address] Min Colón, PT Acute left-sided low back pain with left-sided sciatica Discharge Disposition: Home or Self Care 09/03/2017 Telephone [facility] [address], [place] [address] Johnny Michelle MD Orders 08/31/2017 Telephone [facility] [address], [place] [address] Johnny Michelle MD Other 08/26/2017 Telephone [facility] [address], [place] [address] Franchesca Barrientos [facility] Visit Follow Up 08/25/2017 1:40 PM EDT - 08/25/2017 11:59 PM EDT Hospital Encounter [facility] [place] [facility] [address] [address] Johnny Michelle MD Abdominal pain, LLQ [...] 11:59 PM EDT Hospital Encounter [facility] [place] [address] Discharge Disposition: Home or Self Care 08/11/2017 9:40 AM EDT Office Visit [facility] [address] [address] [address] Estefania Guzman APRN Olecranon bursitis of left elbow (Primary Dx); Essential hypertension 08/10/2017 Telephone [facility] [address] [address] [address] Johnny Michelle MD Results 08/07/2017 Telephone [facility] [address] [address] [address] Johnny Michelle MD Medication Refill 08/06/2017 10:44 AM EDT - 08/06/2017 11:59 PM EDT Hospital Encounter [facility] [address] [place] [address] Left hip pain; Chronic midline posterior [...] EDT Hospital Encounter [facility] [place] [address] Hyperlipidemia associated with type 2 diabetes mellitus (HCC); Screening for prostate cancer; Screening for thyroid disorder; Vitamin D deficiency; Essential hypertension; Need for hepatitis C screening test; Type 2 diabetes mellitus without complication, with long-term current use of insulin (HCC) Discharge Disposition: Home or Self Care 07/22/2017 11:00 AM EDT Clinical Support [facility] [address] [address] [address] Alanna Mobley MA Hyperlipidemia, unspecified hyperlipidemia type (Primary Dx) 07/13/2017 Refill [facility] [address], [place] [address] Johnny Michelle MD Medication Refill 07/10/2017 Refill [facility] [address] [place] [address] Johnny Michelle MD Medication Refill 06/30/2017 4:00 PM EDT Office Visit [facility] [address] [place] [address] Johnny Michelle MD Hand, foot and mouth disease (Primary Dx) 06/30/2017 Telephone [facility] [address] [place] [address] Franchesca Barrientos CMA Foot Swelling 06/23/2017 Telephone [facility] [address] [place] [address] Johnny Michelle MD Orders 05/21/2017 Refill [facility] [address] [place] [address] Johnny Michelle MD Medication Refill 04/20/2017 Refill [facility] [address] [place] [address] Johnny Michelle MD Medication Refill 03/10/2017 Telephone [facility] [address] [place] [address] Johnny Michelle MD Other 02/23/2017 Telephone [facility] [address], [place] [address] Franchesca Barrientos, SHEARER HELPER Prior Authorization 02/19/2017 Telephone [facility] [address] [place] [address] Johnny Michelle MD Other 02/17/2017 Telephone [facility] [address] [place] [address] Franchesca Barrientos CMA Prior Authorization (contour meter.) 02/16/2017 Telephone [facility] [address] [place], [place] [address] Johnny Michelle MD Diabetes 02/09/2017 Refill [facility] [address] [place], [place] [address] Johnny Michelle MD Medication Refill 02/06/2017 Telephone [facility] [address] [place], [place] [address] Johnny Michelle MD Other 01/15/2017 Refill [facility] [address] [place], [place] [address] Johnny Michelle MD Medication Refill 12/26/2016 Abstract [facility] [address] [place], [place] [address] Johnny Michelle MD 12/25/2016 Refill [...] 11/25/2016 Orders Only [facility] [address] [place] [address] Provider, Unknown 11/24/2016 8:20 AM EST Office Visit [facility] [address], [place] [address] Johnny Michelle MD Type 2 diabetes mellitus without complication, with long-term current use of insulin (HCC) (Primary Dx); Hyperlipidemia LDL goal < 100; Essential hypertension 11/18/2016 4:12 PM EST - 11/18/2016 11:59 PM EST Hospital Encounter [facility] [place] [address] Type 2 diabetes mellitus without complication, unspecified watch supervisor insulin use status; Routine adult health maintenance Discharge Disposition: Home or Self Care 11/18/2016 10:40 AM EST Clinical Support [facility] [address], [place] [address] Daniela Clarke RPT Type 2 diabetes mellitus without complication, unspecified watch supervisor insulin use status (Primary Dx) 11/17/2016 Telephone [...] Refill [facility] [address] [place], [place] [address] Johnny Michelle MD Medication Refill 07/17/2016 Refill [facility] [address], [place] [address] Johnny Michelle MD Medication Refill 06/08/2016 Refill [facility] [address], [place] [address] Johnny Michelle MD Medication Refill 06/02/2016 9:00 AM EDT Office Visit [facility] [address], [place] [address] Johnny Michelle MD Type 2 diabetes mellitus without complication (HCC) (Primary Dx); Hyperlipidemia LDL goal < 100; Essential hypertension 05/27/2016 Telephone [facility] [address], [place] [address] Johnny Michelle MD Medication Question 05/13/2016 3:18 PM EDT - 05/13/2016 11:59 PM EDT Hospital Encounter [facility] [place] [address] Essential hypertension; Type 2 diabetes mellitus without complication (HCC); Hyperlipidemia LDL goal < 100 Discharge Disposition: Home or Self Care 05/13/2016 9:30 AM EDT Clinical Support [facility] [address], [place] [address] Daniela Clarke, STEPHEN Essential hypertension (Primary Dx); Hyperlipidemia LDL goal < 100; Type 2 diabetes mellitus without complication (HCC); Screening for thyroid disorder 05/12/2016 Orders Only [facility] [address], [place] [address] Johnny Michelle MD Type 2 diabetes mellitus without complication (HCC) (Primary Dx); Hyperlipidemia LDL goal < 100; Essential hypertension 05/12/2016 Orders Only [facility] [address], [place] [address] Goodman, Cait Loretta, CCMA RAD (reactive airway disease), mild persistent, uncomplicated (Primary Dx); Type 2 diabetes mellitus without complication (HCC) 04/21/2016 Telephone [facility] [address], [place] [address] Johnny Michelle MD Medication Refill 04/17/2016 Telephone [facility] [address], [place] [address] Johnny Michelle MD Medication Refill 04/11/2016 Telephone [facility] [address] [place] [address] Johnny Michelle MD Medication Refill 04/02/2016 Refill [facility] [address], [place] [address] Johnny Michelle MD Medication Refill 03/26/2016 Telephone [facility] [address], [place] [address] Johnny Michelle MD Medication Problem 03/14/2016 Refill [facility] [address] [place] [address] Johnny Michelle MD Medication Refill 02/21/2016 Refill [facility] [address] [place] [address] Johnny Michelle MD Medication Refill 02/16/2016 Refill [facility] [address], [place] [address] Johnny Michelle MD Medication Refill 01/28/2016 Refill [facility] [address] [place] [address] Johnny Michelle MD Medication Refill 01/16/2016 Telephone [facility] [address], [place] [address] Johnny Michelle MD Medication Refill 12/24/2015 Orders Only [facility] [address], [place] [address] Johnny Michelle MD Cough [...] uncomplicated 12/04/2015 Telephone [facility] [address] [address] Johnny Michelle MD Medication Refill 12/03/2015 Telephone [facility] [address], [place] [address] Johnny Michelle MD Medication Management 12/03/2015 Telephone [facility] [address] [address] Johnny Michelle MD Other 11/26/2015 Telephone [facility] [address], [place] [address] Johnny Michelle MD Medication Refill 10/20/2015 Refill [facility] [address], [place] [address] Johnny Michelle MD Medication Refill 10/09/2015 3:31 PM EST - 10/09/2015 11:59 PM EST Hospital Encounter [facility] [place] [address] Type 2 diabetes mellitus without complication (HCC); Hyperlipidemia LDL goal < 100; Essential hypertension Discharge Disposition: Home or Self Care 10/09/2015 9:00 AM EST Clinical Support [facility] [address], [place] [address] Daniela Clarke RPT Type 2 diabetes mellitus without complication (HCC) (Primary Dx); Essential hypertension; Hyperlipidemia LDL goal < 100 10/02/2015 9:30 AM EST Office Visit [facility] [address] [place] [id number] Phani Guthrie MD Postop check (Primary Dx) 09/20/2015 Telephone [facility] [address], [place] [address] Johnny Michelle MD Other 09/20/2015 8:00 AM EST - 09/20/2015 8:45 AM EST Surgery [facility] [place] [address] Guille Allen MD LAPAROSCOPIC INGUINAL HERNIA REPAIR (TEP- TOTALLY EXTRAPERITONEAL) (COVERS POSSIBLE OPEN) 09/20/2015 8:10 AM EST Anesthesia Event [facility] [place] [address] Brian Lao, Adriane Godfrey NP 09/20/2015 7:12 AM EST - 09/20/2015 11:00 AM EST Hospital Encounter EDG SAME DAY SURGERY [facility] [place] [address] Guille Allen MD Discharge Disposition: Home or Self Care 09/15/2015 Refill [facility] [address] [facility] [place] [phone] Johnny Michelle MD Medication Refill 2015 1:46 PM EST - 2015 11:59 PM EST Hospital Encounter EDG PRE-ADMIT TESTING [facility] [place] [address] Essential hypertension (Primary Dx) Discharge Disposition: Home or Self Care 09/05/2015 Abstract [facility] [address], [place] [address] Nanette Hsu RMA 08/18/2015 Refill [facility] [address] [place] [phone] Johnny Michelle MD Medication Refill 08/09/2015 Telephone SEP Gen Surg EDG [address] [place] [address] Guille Allen MD Surgery; Visit Follow Up 08/07/2015 10:00 AM EDT Office Visit SEP Gen Surgery [address] [place] [address] Guille Allen MD Unilateral inguinal hernia without obstruction or gangrene, recurrence not specified (Primary Dx); Unilateral recurrent inguinal hernia without obstruction or gangrene 07/30/2015 Orders Only SEP Gastro CV [address] [facility] [address] [facility], [facility], [place] Ryne Craven MD 07/17/2015 4:39 PM EDT - 07/17/2015 11:59 PM EDT Hospital Encounter EDG LAB RICKEY PROCESSING [facility] [place] [id number] Screening for prostate cancer Discharge Disposition: Home or Self Care 07/17/2015 Refill [facility] [address] [place], [place] [address] Johnny Michelle MD Medication Refill 07/17/2015 9:00 AM EDT Clinical Support [facility] [address], [place] [phone] Daniela Clarke RPT Essential hypertension (Primary Dx) 06/18/2015 Telephone [facility] Gastro CV [address] [facility] [address] [facility] [place] [address] Dexter Mcginnis MD Colonoscopy 06/18/2015 Orders Only [facility] [address] [place], [place] [phone] Johnny Michelle MD Screen for colon cancer (Primary Dx) 06/18/2015 Telephone [facility] [address] [place], [place] [address] Johnny Michelle MD Other 06/11/2015 Refill [facility] [address], [place] [address] Johnny Michelle MD Medication Refill 06/07/2015 2:40 PM EDT Office Visit [facility] [address], [place] [phone] Johnny Michelle MD Type 2 diabetes mellitus without complication (HCC) (Primary Dx); Hyperlipidemia LDL goal < 100; Essential hypertension 05/28/2015 Telephone [facility] [place] [address], [place] [address] Johnny Michelle MD Other 05/22/2015 4:14 PM EDT - 05/22/2015 11:59 PM EDT Hospital Encounter EDG LAB RICKEY PROCESSING [facility] [place] [address] Hyperlipidemia LDL goal < 100; Type 2 diabetes mellitus without complication (HCC) Discharge Disposition: Home or Self Care 05/22/2015 8:45 AM EDT Clinical Support [facility] [place] [address], [place] [phone] Jennifer Hussein RMMacy Type 2 diabetes mellitus without complication (HCC) (Primary Dx); Essential hypertension; Hyperlipidemia LDL goal < 100 05/21/2015 Telephone [facility] [place] [address], [place] [address] Johnny Michelle MD Orders 05/01/2015 6:42 PM EDT - 05/01/2015 11:59 PM EDT Hospital Encounter EDG LAB RICKEY PROCESSING [facility] [place] [address] Blood in stool Discharge Disposition: Home or Self Care 05/01/2015 1:30 PM EDT Clinical Support [facility] [address] [place], [place] [address] Clara Hinojosa RMA Occult blood in stools (Primary Dx) 05/01/2015 Refill [facility] [address], [place] [phone] Johnny Michelle MD Medication Refill 04/30/2015 Telephone [facility] [address], [place] [phone] Johnny Michelle MD Results 04/23/2015 3:42 PM EDT - 04/23/2015 11:59 PM EDT Hospital Encounter EDG LAB RICKEY PROCESSING [facility] [place] [address] Blood in stool Discharge Disposition: Home [...] Refill 01/26/2015 Telephone [facility] [address], [...] EDT Hospital Encounter EDG LAB RICKEY PROCESSING [facility] [address] [place], [place] [id number] HTN (hypertension); DM (diabetes mellitus), type 2 (HCC); Hyperlipidemia LDL goal < 100 Discharge Disposition: Home or Self Care 01/15/2015 Refill [facility] [address] [place], [place] [address] Johnny Michelle MD Medication Refill 01/15/2015 9:45 AM EDT Clinical Support [facility] [address], [place] [phone] Clara Hinojosa RMA DM (diabetes mellitus), [...] PC [address] [place], [place] [phone] Chin Lamb RMA DM (diabetes mellitus), type 2 (HCC) (Primary Dx) 12/21/2014 Refill [facility] [address] [place], [place] [phone] Johnny Michelle MD Medication Refill 12/21/2014 Orders Only [facility] [address] [place], [place] [phone] Chin Lamb RMA DM (diabetes mellitus), type 2 (HCC) (Primary Dx) 12/19/2014 Refill [facility] [address] [place] [address] Johnny Michelle MD Medication Refill 11/13/2014 Telephone [facility] [address] [place] [address] Johnny Michelle MD Diabetes 10/12/2014 Orders Only [facility] [address] [place] [address] Laura Nair MA DM (diabetes mellitus), type 2 (HCC) (Primary Dx) 10/12/2014 Refill [facility] [address] [place] [address] Johnny Michelle MD Medication Refill 10/04/2014 Telephone [facility] [address] [place] [address] Johnny Michelle MD Visit Follow Up; Diabetes 09/20/2014 Telephone [facility] [address] [place] [address] Johnny Michelle MD Medication Management 09/20/2014 Telephone [facility] [address] [place] [address] Johnny Michelle MD Other 09/18/2014 Telephone [facility] [address] [place] [address] Johnny Michelle MD Diabetes 09/15/2014 Refill [facility] [address] [place] [address] Johnny Michelle MD Medication Refill 09/07/2014 Orders Only [facility] [address] [place] [address] Johnny Michelle MD Elevated PSA (Primary Dx) 09/05/2014 6:13 PM EST - 09/05/2014 11:59 PM EST Hospital Encounter EDG LAB RICKEY PROCESSING [facility] [place] [address] HTN (hypertension); DM (diabetes mellitus), type 2 (HCC); Hyperlipidemia LDL goal < 100; Low testosterone Discharge Disposition: Home or Self Care 09/05/2014 9:15 AM EST Clinical Support [facility] [address], [place] [address] Nanette Hsu, KAIDEN Low testosterone (Primary Dx); DM (diabetes mellitus), [...] Refill 06/15/2014 Refill [facility] [address], [place] [phone] Johnny Michelle MD Medication Refill 06/15/2014 1:00 PM EDT Office Visit [facility] [address], [place] [phone] Johnny Michelle MD Pre-op exam (Primary Dx) 06/05/2014 Telephone [facility] [address], [place] [phone] Johnny Michelle MD Medication Refill 05/24/2014 Refill [facility] [address], [place] [address] Johnny Michelle MD Medication Refill 05/17/2014 4:18 PM EDT - 05/17/2014 11:59 PM EDT Hospital Encounter EDG LAB RICKEY PROCESSING [facility] [place] [address] Low testosterone Discharge Disposition: Home or Self Care 05/17/2014 9:00 AM EDT Clinical Support [facility]INE NUNE[facility] [address], [place] [address] Cindy Lau MacyAbbey Low testosterone (Primary Dx) 05/10/2014 Telephone Adult Med [address] [facility] [place] [address] Johnny Michelle MD Labs Only 05/01/2014 Telephone [facility] [address] [place] [phone] Johnny Michelle MD Visit Follow Up; Diabetes 04/19/2014 Telephone [facility] [address], [place] [phone] Johnny Michelle MD Visit Follow Up; Diabetes 04/10/2014 2:50 PM EDT - 04/10/2014 11:59 PM EDT Hospital Encounter EDG LAB RICKEY PROCESSING [facility] [place] [address] Hyperlipidemia LDL goal < 100; FH: [...] Refill [facility] [address] [place], [place] [address] Johnny Michelle MD Medication Refill [...] EST Hospital Encounter EDG LAB RICKEY PROCESSING [facility] [place] [address] DM (diabetes mellitus), type 2 (HCC); Hyperlipidemia LDL goal < 100; Screening for prostate cancer; ED (erectile dysfunction) Discharge Disposition: Home or Self Care 11/30/2013 9:00 AM EST Office Visit [facility]INE NUNEZ [address] [place] [phone] Johnny Michelle MD DM (diabetes mellitus), type 2 (HCC) (Primary Dx); Hyperlipidemia LDL goal < 100; HTN (hypertension); ED (erectile dysfunction); Screening for prostate cancer 08/23/2013 Telephone [facility] [address], [place] [address] Johnny Michelle MD Medication Refill 07/19/2013 Refill [facility] [address] [place] [phone] Johnny Michelle MD Medication Refill 06/28/2013 Refill [facility] NUNEZ [address] [place] [phone] Johnny Michelle MD Medication Refill 06/28/2013 Telephone [facility] [address] [place] [phone] Johnny Michelle MD Medication Refill 06/27/2013 Refill [facility] [address], [place] [address] Johnny Michelle MD Medication Refill 06/22/2013 3:36 PM EDT - 06/22/2013 11:59 PM EDT Hospital Encounter EDG LAB RICKEY PROCESSING [facility] [place] [address] HTN (hypertension); DM (diabetes mellitus), type 2 (HCC); Hyperlipidemia LDL goal < 100 Discharge Disposition: Home or Self Care 06/22/2013 9:00 AM EDT Office Visit ANGELINE Garrison [...] Refill 10/11/2012 Refill [facility] [address], [place] [address] Johnny Michelle MD Medication Refill 09/07/2012 [...] EDT Hospital Encounter EDG LAB RICKEY PROCESSING [facility] [place] [address] DM (diabetes mellitus), type 2 (HCC); HTN (hypertension); Hyperlipidemia LDL goal < 100; Screening for prostate cancer Discharge Disposition: Home or Self Care 07/19/2012 8:30 AM EDT Clinical Support [facility] [address], [place] [phone] Judi Cindy MacyAbbey DM (diabetes mellitus), type 2 (HCC) (Primary [...] Refill 04/22/2012 Telephone [facility] [address], [place] [address] Johnny Michelle MD Other 04/05/2012 Telephone [facility] [address] [place] [address] Johnny Michelle MD Medication Management 04/01/2012 Refill [facility] [address] [place] [address] Sabi Vigil LPN Medication Refill 03/12/2012 Telephone [facility] [address] [place] [address] Johnny Michelle MD Other 03/11/2012 Telephone [facility] [address] [place] [address] Johnny Michelle MD Other 03/08/2012 Refill [facility] [address] [place] [address] Johnny Michelle MD Medication Refill 02/25/2012 Telephone [facility] [address] [place] [address] Johnny Michelle MD Medication Management 02/09/2012 Refill [facility] [address] [place] [address] Anais Bruno MD Medication Refill 02/09/2012 Refill [facility] [address] [place], [place] [address] Johnny Michelle MD Medication Refill 01/26/2012 Telephone [facility] [address] [place] [address] Johnny Michelel MD Other 01/20/2012 Refill [facility] [address] [place] [address] Johnny Michelle MD Medication Refill 01/06/2012 Telephone [facility] [address] [place], [place] [address] Johnny Michelle MD Other 01/05/2012 Refill [...] PC [address], [place] [address] Francesca Wray CMA HTN [...] [place], [place] [address] Tram Villar MD Other 01/27/2011 Refill [facility] [address] [place] [address] Gracy Murdock LPN Medication Refill 01/24/2011 [...] [place] [address] Tram Villar MD Medication Management 11/29/2010 Telephone [facility] [address] [place], [place] [address] Tram Villar MD Results 11/29/2010 12:30 PM EST - 11/29/2010 11:59 PM EST Hospital Encounter FTT XRAY [address] 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 Active vitamin E 400 unit capsule Take by mouth daily. Active Vitamin B Comp & C No.3 (B COMPLEX PLUS VITAMIN C) 76-03-32-5-300 mg Oral Capsule Take by mouth daily. [...] DAILY 100 Each 11 7 Active Insulin [place], Disposable, 31 gauge x 5/16 Misc Needle USE AT BEDTIME WITH INSULIN PEN 50 Each 11 0 Active Insulin [place], Disposable, (LEWIS PEN NEEDLE) 32 gauge x [...] E11.9 300 Each 2 1 Active Insulin [place], Disposable, 31 gauge x 5/16 Misc Needle [...] Active Blood Sugar Diagnostic (ONETOUCH ULTRA TEST) [facility] [place] USE TO TEST UP TO 3 TIMES DAILY [address] Each [address] [facility] [place] [place] Used to test blood sugar 3 [...] needed for Dizziness. 60 Tablet 5 Active lancets (FREESTYLE LANCETS) 28 gauge Misc Misc Subcutaneous (Inject under the skin) 1 'box' 3 times daily. USE 1 LANCET TO CHECK GLUCOSE THREE TIMES DAILY 200 Each 2 5 Active losartan (COZAAR) 100 mg Oral Tablet Take 1 tablet by mouth once daily 100 Tablet 2 5 Active pravastatin (PRAVACHOL) 40 mg Oral TabletIndicatio ns:10 year risk of VT or stroke 7.5% or greater TAKE 1 TABLET BY MOUTH ONCE DAILY IN THE EVENING 100 Tablet 5 Active metFORMIN (GLUCOPHAGE XR) 500 mg Oral ER 24 hr tablet TAKE 2 TABLETS BY MOUTH IN THE MORNING WITH BREAKFAST 200 Tablet 5 Active amLODIPine (NORVASC) 5 mg Oral TabletIndicatio ns:Hypertension associated with diabetes (HCC) Take 1 tablet by mouth once daily 100 Tablet 2 5 Active Active Problems Patient Care Coordination No te Formatting of this note migh t be different from the original. Retroactive HCC audit completed by Cait Rader, ALPA on 04/22/2024. Aneesh: no record 08/04/17 bp 130/80. LDL <100. A1C 7 or less. DM Eye Exam-11/24/16 No Dm retinopathy present. Dr. Colby Martin Problem Noted Date Diagnosed Date Screening for colon cancer 08/19/2023 Malignant neoplasm of prostate metastatic to bon e 09/30/2022 Overview (09/30/2022): Follows with Dr. Prather in [place], [place] Assessment & Plan (02/19/2023 1:08 PM [...] Grandfather Social History Smoking Status as of 09/08/2025 Tobacco Use Types Packs/Day Years Used Date Smoking Tobacco: Never Assessed PHQ-2 Answer Date Recorded PHQ-2 Total Score [...] place to sleep or slept in a retirement (including now)? No 09/20/2021 Overall Financial Resource Strain (CARDIA) Answe r Date Recorded How hard is it for you to pa y for the very basics like food, housing, medical care, and heating? Not very hard 08/21/2025 [facility] - Occupational Stress [...] F) 08/22/2025 11:01 AM EDT Respiratory Rate 16 08/19/2023 11:25 AM EDT Oxygen Saturation 93% 08/22/2025 11:01 AM EDT Inhaled Oxygen Concentration - - Weight 102.5 kg (226 lb) 08/22/2025 11:01 AM EDT Height 186.7 cm (6' 1.5 ) 08/22/2025 11:01 AM ED T Body Mass Index 29.41 08/22/2025 11:01 AM EDT Plan of Treatment Not on file Medical Devices Implanted Type Area Die Caster Device Identifier Shelf Expiration Date Model / Serial / Lot Mesh 3d Right Large [id number] - [id number] Implanted:Qty: 1 on 09/20/2015 by Guille Allen MD at [facility] Right: Inguinal CR BARD:DEBBIOL 06/29/2020 [id number] / / [id number] Mesh 3d Left Large [id number] - [id number] Implanted:Qty: 1 on 09/20/2015 by Guille Allen MD at [facility] Left: Inguinal CR BARD:DAVOL 05/29/2020 [id number] / / [id number] Device Fixation Strap Absorbable 25 Straps Secure Strap 5mm - [id number] Implanted:Qty: 1 on 09/20/2015 by Guille Allen MD at [facility] Left: Inguinal J&J:ETHICON:ENDO -SURGERY 07/01/2017 [id number] / / [id number] Procedures Procedure Name Priority Date/Time Associated Diagnosis Comments POCT GLYCATED HEMOGLOBIN, TOTAL Routine 08/22/2025 11:14 AM EDT Type 2 diabetes mellitus with diabetic nephropathy, with long-term current use of insulin (HCC) SCANNED LABS 07/26/2025 3:17 PM EDT ALBUMIN/CREATININE RATIO, RANDOM URINE Routine 03/01/2025 1:55 PM EDT Hyperlipidemia, [...] positional vertigo), unspecified laterality Prostate cancer (HCC) ALBUMIN/CREATININE RATIO, RANDOM URINE Routine 02/24/2024 11:40 AM EDT Type [...] High risk medications (not anticoagulants) long-term use ALBUMIN/CREATININE RATIO, RANDOM URINE Routine 08/14/2021 10:49 AM EDT Type 2 diabetes mellitus without complication, unspecified whether watch supervisor insulin use (HCC) LIPID SCREEN Routine 08/14/2021 [...] 2 diabetes mellitus without complication, unspecified whether watch supervisor insulin use (HCC) DIABETIC RETINAL EXAM Routine [...] OUT RESULT Routine 07/11/2020 2:05 PM EDT ALBUMIN/CREATININE RATIO, RANDOM URINE Routine 07/04/2020 9:33 AM EDT Type [...] Routine 09/15/2019 9:12 AM EST Chronic fatigue ALBUMIN/CREATININE RATIO, RANDOM URINE Routine 03/17/2019 10:34 AM EDT Type [...] with long-term current use of insulin (HCC) ALBUMIN/CREATININE RATIO, RANDOM URINE Routine 12/01/2017 10:34 AM EST Type [...] with long-term current use of insulin (HCC) ALBUMIN/CREATININE RATIO, RANDOM URINE Routine 11/18/2016 10:54 AM EST Type 2 diabetes mellitus without complication, unspecified longterm insulin use status DIFFERENTIAL Routine 11/18/2016 10:51 [...] Routine 05/13/2016 9:34 AM EDT Essential Hypertension ALBUMIN/CREATININE RATIO, RANDOM URINE Routine 10/09/2015 8:57 AM EST Type [...] obstruction or gangrene Special Needs XENA CPT; 98242, [id number] 09/06 DT GLUCOSE METER POC Routine 09/20/2015 [...] LDL, CALCULATED Routine 01/15/2015 9:38 AM EDT ALBUMIN/CREATININE RATIO, RANDOM URINE Routine 01/15/2015 9:38 AM EDT DM [...] AM EDT Hyperlipidemia LDL goal < 100 ALBUMIN/CREATININE RATIO, RANDOM URINE Routine 04/10/2014 10:01 AM EDT DM [...] EDT DIFFERENTIAL Routine 06/22/2013 9:20 AM EDT ALBUMIN/CREATININE RATIO, RANDOM URINE Routine 06/22/2013 9:20 AM EDT DM [...] 02/26/2010 12:00 AM EDT Results * (ABNORMAL) POCT GLYCATED HEMOGLOBIN, TOTAL (08/22/2025 11:14 AM EDT) Only the most recent of9 resultswithin the time period is included. Hemoglobin A1C 7.4(A) 4 - 6 % SEP OFFICE Lot Number SEP OFFICE Expiration Date SEP OFFICE SeriAl # SEP OFFICE 08/22/2025 11:1 4 AM EDT Neema Atkins DO POINT OF CARE TEST ORDERABLES Final Result Performing Organization Address City/[facility] Co de Phone Number SEP OFFICE * SCANNED LABS (07/26/2025 3:17 PM EDT) Only the most recent of12 resultswithin the time period is included. 07/26/2025 3:17 PM EDT us Unknown Provider HEMATOLOGY ORDERABLES Final Res ult * (ABNORMAL) MICROALBUMIN/CREATININE RATIO URINE (03/01/2025 1:55 PM EDT) Only the most recent of11 resultswithin the time period is included. Urine Albumin 57.4 mg/L 03/01/2025 9:19 PM EDT [email or web address] [place] Urine Creatinine 112.0 mg/dL 03/01/2025 9:19 PM EDT [email or web address], [place] Ur Albumin/Creat Ratio 51(H) 0 - 30 mg/g 03/01/2025 9:19 PM EDT [email or web address] [place] Urine STRUCTURE OF URINARY TRACT PROPER / Unknown 03/01/2025 1:55 PM EDT 03/01/2025 1:55 PM EDT us Neema Atkins DO URINE ORDERABLES Final Result Performing Organization Address City/[facility] Co de Phone Number [facility] [place], [place] [address] [facility] , [place] [address] * TSH REFLEX TO FT4 (03/01/2025 1:51 PM EDT) Only the most recent of8 resultswithin the time period is included. TSH Reflex 3.620 0.270 - 4.200 mcIU/mL 03/01/2025 8:03 PM EDT [email or web address] [place] Blood VENOUS BLOOD / Unknown Venipuncture / Unknown 03/01/2025 1:51 PM EDT 03/01/2025 1:51 PM EDT Narrative [email or web address] - 03/01/2025 8:03 PM EDT Ingestion of eduardo doses of biotin (>5 mg/day) taken within 8 hours of drawing blood sample can interfere with this immunoassay test. us Neema Atkins DO CHEMISTRY ORDERABLES Final Res ult [facility] [address] [facility] , [address] [place] [id number] * CBC WITH DIFF (03/01/2025 1:51 PM EDT) Only the most recent of15 resultswithin the time period is included. WBC 8.8 3.7 - 10.3 x10(3)/mcL 03/01/2025 [...] 7:59 PM EDT [facility] [place] Percent 10.1 % 03/01/2025 7:59 PM EDT [facility] Eos Percent 5.2 % 03/01/2025 7:59 PM EDT [facility] Baso Percent 0.8 % 03/01/2025 7:59 PM EDT [facility] Neut # 6.0 1.6 - 6.1 x10(3)/mcL 03/01/2025 7:59 PM EDT [facility] Comment:Neutrophils equals s egs plus bands IMMGRAN# 0.0 0.0 - 0.1 x10(3)/mcL 03/01/2025 7:59 PM EDT [facility] Comment:Automated count of m etamyelocytes, myelocytes and promyelocytes. An absolute IG <0.1 is reported as 0.0. Lymph # 1.4 1.2 - 3.9 x10(3)/mcL 03/01/2025 7:59 PM EDT [facility] [place] # 0.9 0.3 - 0.9 x10(3)/mcL 03/01/2025 7:59 PM EDT [facility] Eos# 0.5 0.0 - 0.5 x10(3)/mcL 03/01/2025 7:59 PM EDT [facility], [facility] Baso # 0.1 0.0 - 0.1 x10(3)/mcL 03/01/2025 7:59 PM EDT [facility], [facility] Blood VENOUS BLOOD / Unknown Venipuncture / Unknown 03/01/2025 1:51 PM EDT 03/01/2025 1:51 PM EDT us Neema Atkins DO HEMATOLOGY ORDERABLES Final Re sult [facility] [address] [facility] , [place] [address] * (ABNORMAL) LIPID SCREEN (03/01/2025 1:51 PM EDT) Only the most recent of12 resultswithin the time period is included. Cholesterol 192 <200 mg/dL 03/01/2025 8:03 PM EDT [facility] Comment: < 200 Desirable 200 - 239 Borderline High >= 240 High Triglyceride 250(H) <150 mg/dL 03/01/2025 8:03 PM EDT [facility] [employer] [facility] Comment: < 150 Normal 150 - 199 Borderline High 200 - 499 High >= 500 Very High HDL 41 >=40 mg/dL 03/01/2025 8:03 PM EDT [facility] [employer] Comment: > 60 Optimal 40 - 60 Acceptable < 40 Low LDL Calculated 108(H) <100 mg/dL 03/01/2025 8:03 PM EDT [facility] Comment: < 100 Optimal 100 - 129 Near or above optimal 130 - 159 Borderline High 160 - 189 High >= 190 Very High The National Institutes of Health (NIH) equation is used for all lipid panels that report calculated LDL (LDL-C). Non-HDL-C Calculated 151(H) <=129 mg/dL 03/01/2025 8:03 PM EDT [facility] [employer] Comment: <130 Desirable 130-159 Above Desirable 160-189 Borderline High 190-219 High >= 220 Very High Fasting Specimen? Yes None 025 8:03 PM EDT [facility] [employer] Blood VENOUS BLOOD / Unknown Venipuncture / Unknown 03/01/2025 1:51 PM EDT 03/01/2025 1:51 PM EDT us Neema Atkins DO CHEMISTRY ORDERABLES Final Res ult [facility] [employer] [facility] [address] [facility] , [place] [address] * (ABNORMAL) COMPREHENSIVE METABOLIC PANEL (03/01/2025 1:51 [...] recommended by the National Kidney Foundation - [place] [employer] of Nephrology Task Force. Blood VENOUS BLOOD / Unknown Venipuncture / Unknown 03/01/2025 1:51 PM EDT 03/01/2025 1:51 PM EDT us Neema Atkins DO CHEMISTRY ORDERABLES Final Res ult [facility] [address] [facility] , [place] [address] * MRI BRAIN W WO CONTRAST (01/03/2025 [...] PM CLINICAL HISTORY: H81.10-Benign paroxysmal vertigo, unspecified yqe-RMC-24-CM Y45-Mcymdvdia neoplasm of prostate (HCC)-ICD-10-CM. COMPARISON: None. PROCEDURE [...] 7:10 PM CLINICAL HISTORY: H81.10-Benign paroxysmal vertigo, mihbqzafoabhqm-BOS-80-CM V15-Ymtbirhgo neoplasm of prostate (HCC)-ICD-10-CM. COMPARISON: None. PROCEDURE [...] please contactthe office of the ordering clinician. Neema Atkins DO IMG MRI ORDERABLES Final Resul t * COLONOSCOPY (08/19/2023 10:46 AM EDT) Anatomical [...] Role Khoa Vela MD Performing Provider Oly Farrar, hangar attendant Nurse Ida Grey, hangar attendant Nurse Vanessa Nicole, [place] Glue Spreader CARA Schmitz CRNA, MD Anesthesiologist Medications See [...] AIRWAY PLACEMENT (08/19/2023 10:21 AM EDT) Narrative [facility] - 08/19/2023 10:21 AM EDT Ludivina Haro CRNA 08/19/2023 10:23 AM Intraop Airway Placement: Date/Time: 08/19/2023 10:21 AM Airway type: Nasal cannula salter us Christina Sneed MD [place] ANESTHESIA Final Result Performing Organization Address City/[facility]/ZIP Co de Phone Number [facility] [address] [place] [address] * (ABNORMAL) GLUCOSE METER POC (08/19/2023 10:01 AM EDT) Only the most recent of3 resultswithin the time period is included. Glucose Meter POC 180(H) 70 - 100 mg/dL 08/19/2023 10:03 AM EDT [facility] Sample Type Capillary 08/19/2023 10:03 AM EDT [facility] Patient Status Non-Critical Patient 08/19/2023 10:03 AM EDT [facility] Blood BLOOD SPECIMEN / Unknown 08/19/2023 10:01 AM EDT 08/19/2023 10:03 AM EDT us Khoa Vela MD POINT OF CARE TEST ORDERABL ES Final Result Performing Organization Address [facility]/ZIP Co de Phone Number [facility] [address] [place] [address] * (ABNORMAL) HEMOGLOBIN A1C (02/19/2023 11:53 AM EDT) Only the most recent of16 resultswithin the time period is included. Hgb A1C 7.2(H) 4.2 - 5.6 % 02/19/2023 5:17 PM EDT [email or web address] Est. Avg Glucose 160 mg/dL 02/19/2023 5:17 PM EDT [email or web address] Blood VENOUS BLOOD / Unknown Venipuncture / Unknown 02/19/2023 11:53 AM EDT 02/19/2023 11:53 AM EDT Narrative [email or web address] - 02/19/2023 5:17 PM EDT REFERENCE RANGE: Normal: 4.0-5.6% Pre-diabetes: 5.7-6.4% Provisional diagnosis of diabetes: >6.4% Hgb F>10% and anything which shortens red cell survival, such as hemolytic anemia, or unstable hemoglobin variants such as HbSS, HbSC, or HbCC, will lower the HbA1c value associated with a given level of glycemic control. us Neema Atkins DO CHEMISTRY ORDERABLES Final Res ult [facility] [address] [facility] , [place] [address] * DIABETIC RETINAL EXAM (10/23/2022 8:41 AM EST) VISUAL ACUITY SCREEN OS 20/20 10/23/2022 8:[address] [facility] OCULAR BLOOD FLOW MEASURE OS 18 10/23/2022 8:[address] [facility] DIABETIC RETINOPATHY NEGATIVE 10/23/2022 8:[address] [facility] CATARACTS NEGATIVE 10/23/2022 8:[address] [facility] GLAUCOMA NEGATIVE 10/23/2022 8:[address] [facility] 10/23/2022 8:41 AM EST us Unknown Provider OPHTHALMOLOGY SERVICES ORDERABL ES Final Result Performing Organization Address [facility] Co de Phone Number [facility] * DIABETIC RETINAL EXAM (10/23/2022 8:41 AM EST) VISUAL ACUITY SCREEN OD 20/20 10/23/2022 8:[address] [facility] OCULAR BLOOD FLOW MEASURE OD 14 10/23/2022 8:[address] 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 FINDINGS: Nonspecific, nonobstructive bowel gas pattern. No pathologic calcification. Skeleton grossly intact. Surgical clips in the bilateral inguinal regions, cholecystectomy clips.. 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 COMPARISON: CT [...] 16.60(H) <=4.00 ng/mL 06/20/2022 8:14 PM EDT [facility] Blood VENOUS BLOOD / Unknown Venipuncture / Unknown 06/20/2022 2:05 PM EDT 06/20/2022 2:05 PM EDT Narrative [facility] - 06/20/2022 8:14 PM EDT Prostate cancer [...] ORDERABLES Final Res ult Performing Organization Address [facility] Co de Phone Number [facility] [address] [place] [address] , [place] [address] * (ABNORMAL) TESTOSTERONE LEVEL TOTAL (06/20/2022 2:05 PM EDT) Only the most recent of3 resultswithin the time period is included. Testosterone Lvl <3(L) 300 - 720 ng/dL 06/20/2022 8:22 PM EDT [facility] Blood VENOUS BLOOD / Unknown Venipuncture / Unknown 06/20/2022 2:05 PM EDT 06/20/2022 2:05 PM EDT Narrative [facility] - 06/20/2022 8:22 PM EDT Values less than 12 ng/dL are not reliable as the intermediate precision coefficient of variation is > 20%. Ingestion of eduardo doses of biotin (>5 mg/day) taken within 8 hours of drawing blood sample can interfere with this immunoassay test. us Alin Prather MD CHEMISTRY ORDERABLES Final Res ult Performing Organization Address [facility] Co de Phone Number [facility] [address] [place] [address] , [place] [address] * XR HIPS BILATERAL AP LATERAL W AP PELVIS (02/12/2022 11:38 AM EDT) Anatomical Region Laterality Modality Hip Radiographic Meli ging 02/12/2022 11:3 8 AM EDT Impressions 02/12/2022 12:01 PM EDT 1. No acute osseous abnormality. Narrative 02/12/2022 12:01 PM EDT XR HIPS BILATERAL AP LATERAL W AP PELVIS CLINICAL HISTORY: M25.559-Pain in unspecified plw-XKI-72-CM COMPARISON: None No significant osseous abnormality. No acute fracture or dislocation. No destructive lesions. Soft tissue and fat planes preserved. Procedure Note Melvin Leo MD - 02/12/2022 XR HIPS BILATERAL AP LATERAL W AP PELVIS CLINICAL HISTORY: M25.559-Pain in unspecified jsy-LYQ-47-CM COMPARISON: None No significant osseous abnormality. No acute fracture or dislocation. No destructive lesions. Soft tissue and fat planes preserved. IMPRESSION: 1. No acute osseous abnormality. us Neema Atkins DO IMG DIAGNOSTIC IMAGING ORDERAB LES Final Result * LYME AB TOTAL LATE (02/12/2022 10:55 AM EDT) Pathologist [facility] B burgdorferi Abs, Total Negative Negative, Equivocal 02/14/2022 11:49 AM EDT [facility] Blood VENOUS BLOOD / Unknown Venipuncture / Unknown 02/12/2022 10:55 AM EDT 02/12/2022 10:55 AM EDT us Neema Atkins DO IMMUNOLOGY ORDERABLES Final Re sult [facility] [address] [place] [address] [address], [place] [address] * THYROID STIMULATING HORMONE (08/14/2021 10:39 AM EDT) Only the most recent of12 resultswithin the time period is included. Pathologist [facility] TSH 1.860 0.270 - 4.200 mcIU/mL 08/14/2021 5:31 PM EDT [facility] Blood Venipuncture / Unknown 08/14/2021 10:39 AM EDT 08/14/2021 10:40 AM EDT Narrative [facility] - 08/14/2021 5:31 PM EDT Ingestion of eduardo doses of biotin (>5 mg/day) taken within 8 hours of drawing blood sample can interfere with this immunoassay test. us Neema Atkisn DO CHEMISTRY ORDERABLES Final Res ult [facility] [address] [facility] , [place] [address] * DIABETIC RETINAL EXAM (08/01/2021 4:40 PM EDT) VISUAL ACUITY SCREEN OD 20/20 08/01/2021 4:[address] [facility] VISUAL ACUITY SCREEN OS 20/20 08/01/2021 4:[address] [facility] OCULAR BLOOD FLOW MEASURE OD 19 08/01/2021 4:[address] [facility] OCULAR BLOOD FLOW MEASURE OS 19 08/01/2021 4:[address] [facility] DIABETIC RETINOPATHY NEGATIVE 08/01/2021 4:[address] [facility] CATARACTS NEGATIVE 08/01/2021 4:[address] [facility] GLAUCOMA NEGATIVE 08/01/2021 4:[address] [facility] 08/01/2021 4:40 PM EDT Unknown Provider OPHTHALMOLOGY SERVICES ORDERABL ES Final Result [facility] * (ABNORMAL) VITAMIN D 25 HYDROXY (10/10/2020 9:25 AM EST) Only the most recent of2 resultswithin the time period is included. Vit D 25 OH 29.2(L) 30.0 - 120.0 ng/mL 10/10/2020 5:22 PM EST [facility] Comment: INTERPRETIVE INFORMATION: Vitamin D, 25-Hydroxy <20 [...] 9:25 AM EST 10/10/2020 9:25 AM EST Neema Atkins DO CHEMISTRY ORDERABLES Final Res ult Performing Organization Address [facility] Co de Phone Number [facility] [address] [facility] , [address] [place] [id number] * DIABETES EYE EXAM (07/13/2020) Only the most recent of2 resultswithin the time period is included. Left Diabetic Retinopathy Not Present Present/Not Present SEP OFFICE Right Diabetic Retinopathy Not Present Present/Not Present SEP OFFICE Historical Provider HEALTH MAINTENANCE Final Res ult Performing Organization Address [facility] Co de Phone Number SEP OFFICE * [...] Description: A specimen of skin was received [id number] Juan Jensen PATHOLOGY ORDERABLES Final Resul t DERMATOLOGY * SARS-COV-2 IGG (07/04/2020 9:13 AM EDT) SARS-CoV-2 IgG (Nucleocapsid) Negative 07/04/2020 4:21 PM EDT [facility] Blood VENOUS BLOOD / Unknown Venipuncture / Unknown 07/04/2020 9:13 AM EDT 07/04/2020 9:13 AM EDT Narrative [facility] - 07/04/2020 4:21 PM EDT The SARS-CoV-2 [...] protective immunity. Prieto IgG Provider Fact Sheet: https://www.fda.gov/media/604003/download Prieto IgG Patient Fact Sheet: https://www.fda.gov/media/314830/download us Neema Atkins DO IMMUNOLOGY ORDERABLES Final Re sult Performing Organization Address City/[facility]/ZIP Co de Phone Number [facility] [address] [place] [address] , [place] [address] * PATHOLOGY TISSUE REQUEST (04/09/2020 1:08 PM EDT) Only the most recent of2 resultswithin the time period is included. CASE REPORT Surgical Pathology Case: [id number] Authorizing Provider: Neema Atkins DO Collected: 04/09/2020 1308 Ordering Location: [facility] Received: 04/09/2020 1308 Pathologist: Angella Montiel MD Specimen: Back 04/12/2020 12:25 PM EDT [facility] FINAL DIAGNOSIS Skin, back, biopsy: - Pyogenic granuloma. 04/12/2020 12:25 PM EDT [facility] at 1225 EDT GROSS DESCRIPTION Received in formalin labeled with the patient's name and back is a 0.4 x 0.4 x 0.3 cm brown-red polypoid tissue. The margin is inked blue, bisected, and entirely submitted in cassette A1. /ZN 04/12/2020 12:25 PM EDT [facility] MICROSCOPIC DESCRIPTION Microscopic examination is performed and the findings corroborate the diagnosis. 04/12/2020 12:25 PM EDT [facility] EMBEDDED IMAGES 04/12/2020 12:25 PM EDT [facility] Tissue STRUCTURE OF BACK OF TRUNK / Unknown 04/09/2020 1:08 PM EDT 04/09/2020 1:08 PM EDT us Neema Atkins DO PATHOLOGY ORDERABLES Final Res ult Performing Organization Address City/[facility]/ZIP Co de Phone Number [facility] [address] [place] [phone] * IRON/UIBC (01/11/2020 9:27 AM EDT) Iron 100 50 - 170 mcg/dL 01/11/2020 4:21 PM EDT [email or web address] [place] UIBC 200 112 - 347 mcg/dL 01/11/2020 4:21 PM EDT [email or web address] [place] Transferrin Sat 33 20 - 50 % 0 4:21 PM EDT [email or web address] [place] Blood VENOUS BLOOD / Unknown Venipuncture / Unknown 01/11/2020 9:27 AM EDT 01/11/2020 9:27 AM EDT us Neema Atkins DO CHEMISTRY ORDERABLES Final Res ult Performing Organization Address City/[facility]/ZIP Co de Phone Number [email or web address], [facility] [address] [facility], [place] [address] * (ABNORMAL) LIPID PANEL REFLEX (01/11/2020 9:27 AM EDT) Only the most recent of8 resultswithin the time period is included. Cholesterol 129 <200 mg/dL 01/11/2020 4:10 PM EDT [email or web address] [place] Comment: < 200 Desirable 200 - 239 Borderline High >= 240 High Triglyceride 114 <150 mg/dL 01/11/2020 4:10 PM EDT [email or web address] [place] Comment: < 150 Normal 150 - 199 Borderline High 200 - 499 High >= 500 Very High HDL 35(L) >=40 mg/dL 01/11/2020 4:10 PM EDT [email or web address] Comment: > 60 Optimal 40 - 60 Acceptable < 40 Low LDL Calculated 71 <100 mg/dL 01/11/2020 4:10 PM EDT [email or web address] [place] Non-HDL-C Calculated 94 <=129 mg/dL 01/11/2020 4:10 PM EDT [email or web address] [place] Comment: <130 Desirable 130-159 Above Desirable 160-189 Borderline High 190-219 High >= 220 Very High Fasting Specimen? Yes None 020 4:10 PM EDT [facility] [place] Blood Venipuncture / Unknown 01/11/2020 9:27 AM EDT 01/11/2020 9:27 AM EDT Neema Atkins DO CHEMISTRY ORDERABLES Final Res ult [facility] [address] [facility] , [place] [address] * CBC (01/11/2020 9:27 AM EDT) Only the most recent of4 resultswithin the time period is included. WBC 7.0 3.7 - 10.3 x10(3)/mcL 01/11/2020 3:48 PM EDT [email or web address] RBC 5.11 4.60 - 6.10 x10(6)/mcL 01/11/2020 3:48 PM EDT [email or web address] [place] Hgb 15.9 13.7 - 17.5 g/dL 01/11/2020 3:48 PM EDT [email or web address] [place] Hct 46.6 40.0 - 51.0 % 01/11/2020 3:48 PM EDT [facility] MCV 91.2 80.0 - 100.0 fL 01/11/2020 3:48 PM EDT [facility] MCH 31.1 26.0 - 34.0 pg 01/11/2020 3:48 PM EDT [facility] MCHC 34.1 30.7 - 35.5 g/dL 01/11/2020 3:48 PM EDT [facility] RDW 12.7 <=14.9 % 01/11/2020 3:48 PM EDT [email or web address], [facility] Platelet 261 155 - 369 x10(3)/mcL 01/11/2020 3:48 PM EDT [facility] MPV 10.4 8.8 - 12.5 fL 01/11/2020 3:48 PM EDT [email or web address], [facility] Blood Venipuncture / Unknown 01/11/2020 9:27 AM EDT 01/11/2020 9:27 AM EDT Neema Atkins DO HEMATOLOGY ORDERABLES Final Re sult Performing Organization Address [facility] Co de Phone Number [facility], [facility] [address] [facility] , [place] [address] * FERRITIN (01/11/2020 9:27 AM EDT) Only the most recent of2 resultswithin the time period is included. Ferritin 159 30 - 400 ng/mL 01/11/2020 4:16 PM EDT [email or web address], [facility] Blood VENOUS BLOOD / Unknown Venipuncture / Unknown 01/11/2020 9:27 AM EDT 01/11/2020 9:27 AM EDT Narrative [email or web address], [facility] - 01/11/2020 4:16 PM EDT Ingestion of eduardo doses of biotin (>5 mg/day) taken within 8 hours of drawing blood sample can interfere with this immunoassay test. Neema Atkins DO CHEMISTRY ORDERABLES Final Res ult Performing Organization Address [facility] Co de Phone Number [email or web address], [facility] [address] [facility] , [place] [address] * GMED EGD (12/02/2019 1:30 PM EST) 12/02/2019 1:30 PM EST Impressions [facility] - 12/02/2019 2:11 PM EST Normal [...] MD GI PROCEDURE ORDERABLES Fin al Result [facility] [address] [place] [address] * DIABETIC RETINAL EXAM (12/22/2018 11:56 AM EST) VISUAL ACUITY SCREEN OD 20/20 12/22/2018 11:[address] [facility] VISUAL ACUITY SCREEN OS 20/20 12/22/2018 11:[address] [facility] OCULAR BLOOD FLOW MEASURE OD 14 12/22/2018 11:[address] [facility] OCULAR BLOOD FLOW MEASURE OS 16 12/22/2018 11:[address] [facility] DIABETIC RETINOPATHY NEGATIVE 12/22/2018 11:[address] [facility] CATARACTS NEGATIVE 12/22/2018 11:[address] [facility] GLAUCOMA NEGATIVE 12/22/2018 11:[address] [facility] 12/22/2018 11:5 6 AM EST us Unknown Provider OPHTHALMOLOGY SERVICES ORDERABL ES Final Result [facility] * DIABETIC RETINOPATHY EXAM (12/19/2017 11:36 AM EST) VISUAL ACUITY SCREEN OD 20/20 12/19/2017 11:[address] [facility] VISUAL ACUITY SCREEN OS 20/20 12/19/2017 11:[address] [facility] OCULAR BLOOD FLOW MEASURE OD 16 12/19/2017 11:[address] [facility] OCULAR BLOOD FLOW MEASURE OS 14 12/19/2017 11:[address] [facility] DIABETIC RETINOPATHY NEGATIVE 12/19/2017 11:[address] [facility] CATARACTS NEGATIVE 12/19/2017 11:[address] [facility] GLAUCOMA NEGATIVE 12/19/2017 11:[address] [facility] 12/19/2017 11:3 6 AM EST us Unknown Provider OPHTHALMOLOGY SERVICES ORDERABL ES Final Result [facility] * CREATINE KINASE (12/01/2017 10:34 AM EST) Only the most recent of7 resultswithin the time period is included. CK 77 39 - 308 IU/L 12/01/2017 9:46 PM EST [facility] Blood VENOUS BLOOD / Unknown Venipuncture / Unknown 12/01/2017 10:34 AM EST 12/01/2017 10:34 AM EST us Johnny Michelle MD CHEMISTRY ORDERABLES Final Res ult [facility] [address] [place] [address] * CT ABDOMEN PELVIS W CONTRAST (08/25/2017 [...] patient status post cholecystectomy and appendectomy. Nas Shetty Jot Stat Narrative 08/25/2017 4:[address] ABDOMEN PELVIS W CONTRAST 08/25/2017 History: Clinical: 61 years. Male . R10.32-Left lower quadrant lqio-UHB-83-CM R19.4-Change in bowel zqkpn-CFD-96-CM. . Prior bilateral inguinal hernia repairs. Prior [...] Clinical: 61 years. Male . R10.32-Left lower vxjqipbdqdus-XRX-62-CM R19.4-Change in bowel povsa-FUU-24-CM. . Prior bilateral inguinal hernia repairs. Prior [...] Freire Code Jot Stat Johnny Michelle MD IMG CT ORDERABLES Final Result * CREATININE ISTAT (08/25/2017 3:47 PM EDT) Creatinine-iST AT 0.7 0.6 - 1.3 mg/dL 08/25/2017 3:51 PM EDT [facility] Blood BLOOD SPECIMEN / Unknown 08/25/2017 3:47 PM EDT 08/25/2017 3:51 PM EDT Johnny Michelle MD POINT OF CARE TEST ORDERABLES Final Result Performing Organization Address [facility] Co de Phone Number [facility] [address] [place] [address] * BODY FLUID CULTURE (08/11/2017 10:44 AM EDT) Culture No Growth at 5 days. 08/16/2017 9:18 AM EDT [facility] Stain Rare WBCs 08/16/2017 9:18 AM EDT [facility] Stain No organisms seen 08/16/2017 9:18 AM EDT [facility] Bursal Fluid LEFT ELBOW REGION STRUCTURE / Unknown 08/11/2017 10:44 AM EDT 08/11/2017 10:44 AM EDT us Estefania Guzman APRN MICROBIOLOGY - GENERAL ORDER MATHEW Final Result Performing Organization Address City/[facility]/[place] [address] * PROCEDURE DOCUMENTATION - ASPIRATION (08/11/2017 9:40 [...] with no immediate complications us Estefania Guzman ALARM INSTALLER PROCEDURE/MINOR SURGICAL ORD ERABLES Final Result [facility] * XR FOOT RIGHT AP LATERAL AND OBLIQUE (08/06/2017 11:21 AM EDT) Anatomical Region Laterality Modality Foot Radiographic Meli ging 08/06/2017 11:2 1 AM EDT Impressions 08/06/2017 4:34 PM EDT No significant osseous, joint or soft tissue abnormality is seen. Narrative 08/06/2017 4:34 PM EDT XR FOOT RIGHT AP LATERAL AND OBLIQUE 08/06/2017 11:21 AM HISTORY: M79.671-Pain in right deoo-GCL-64-CM M79.672-Pain in left zcoc-TPA-78-CM Procedure Note Aaron Nelson MD - 08/06/2017 XR FOOT RIGHT AP LATERAL AND OBLIQUE 08/06/2017 11:21 AM HISTORY: M79.671-Pain in right ouoa-LGO-10-CM M79.672-Pain in left mbfz-YPJ-35-CM IMPRESSION: No significant osseous, joint or soft [...] AND OBLIQUE CLINICAL HISTORY: M79.671-Pain in right rapr-BCV-15-CM M79.672-Pain in left bfhi-BHV-01-CM COMPARISON: None No significant osseous abnormality. No acute fracture or dislocation. No destructive lesions. Soft tissue and fat planes preserved. Procedure Note Melvin Leo MD - 08/06/2017 XR FOOT LEFT AP LATERAL AND OBLIQUE CLINICAL HISTORY: M79.671-Pain in right yrsq-VDH-44-CM M79.672-Pain in left sapz-QQZ-31-CM COMPARISON: None No significant osseous abnormality. No acute fracture or dislocation. No destructive lesions. Soft tissue and fat planes preserved. IMPRESSION: 1. No acute osseous abnormality. Johnny Michelle MD [facility] DIAGNOSTIC IMAGING ORDERAB LES Final Result * [...] 08/06/2017 11:21 AM HISTORY: M25.552-Pain in left nsd-UGT-99-CM Procedure Note Aaron Nelson MD - 08/06/2017 XR HIP LEFT AP LATERAL W AP PELVIS 08/06/2017 11:21 AM HISTORY: M25.552-Pain in left kwe-LZA-46-CM IMPRESSION: No significant osseous, joint or soft tissue abnormality is seen. Johnny Michelle MD [facility] DIAGNOSTIC IMAGING ORDERAB LES Final Result * [...] LATERAL AND OBLIQUES Clinical: M25.552-Pain in left zcn-ADF-58-CM Procedure Note Melvin Leo MD - 08/06/2017 XR LUMBAR SPINE AP LATERAL AND OBLIQUES Clinical: M25.552-Pain in left wst-UBT-08-CM IMPRESSION: Mild bilateral facet joint degenerative changes L5-S1. Moderate L5-S1 degenerative disc disease. us Johnny Michelle MD [facility] DIAGNOSTIC IMAGING ORDERAB LES Final Result * [...] SPINE AP LATERAL ODONTOID AND OBLIQUE Clinical: M54.9-Mhkekkmwfbl-GVF-10-CM G89.29-Other chronic ykxm-GGD-23-CM Procedure Note Melvin Leo MD - 08/06/2017 XR CERVICAL SPINE AP LATERAL ODONTOID AND OBLIQUE Clinical: M54.8-Efvdiiwfyfv-XLQ-10-CM G89.29-Other chronic qmwd-LVD-74-CM IMPRESSION: Mild degenerative disc disease C6-C7. Moderate foraminal stenosis on the right at C3-C4 and C4-C5. Moderate tosevere foraminal stenosis on the left at C4-C5. us Johnny [facility] DI[facility]NO[facility] IMAGING ORDERAB LES Final Result * HEPATITIS C ANTIBODY - SCREENING (07/22/2017 11:17 AM EDT) Pathologist [facility] Hep C Ab Negative Negative [facility] Blood specimen (specimen) 07/22/2017 11:17 AM EDT 07/22/2017 4:09 PM EDT us Johnny Michelle MD HEMATOLOGY ORDERABLES Final Re sult Performing Organization Address [facility] [place] [address] * LDL, CALCULATED (07/22/2017 11:17 AM EDT) Only the most recent of7 resultswithin the time period is included. Pathologist [facility] LDL Calculated 78 <=100 mg/dL [facility] Comment: < 100 Optimal 100 - 129 Near or above optimal 130 - 159 Borderline High 160 - 189 High >= 190 Very High Blood specimen (specimen) 07/22/2017 11:17 AM EDT 07/22/2017 4:09 PM EDT us Johnny Michelle MD CHEMISTRY ORDERABLES Final Res ult Performing Organization Address [facility] [place] [address] * HEPATIC FUNCTION PANEL (07/22/2017 11:17 AM EDT) [facility] [facility] Total Protein 7.8 6.4 - 8.3 gm/dL [facility] Albumin 4.5 3.2 - 4.6 gm/dL [facility] Bili Direct <0.2 0.0 - 0.3 mg/dL [facility] Bili Total 0.4 0.1 - 1.4 mg/dL [facility] AST 20 <=40 IU/L [facility] ALT 24 <=41 IU/L [facility] Alk Phos 74 40 - 129 IU/L [facility] Blood specimen (specimen) 07/22/2017 11:17 AM EDT 07/22/2017 4:09 PM EDT us Johnny Michelle MD CHEMISTRY ORDERABLES Final Res ult Performing Organization Address [facility] [place] [address] * (ABNORMAL) BASIC METABOLIC PANEL (07/22/2017 11:17 AM EDT) Only the most recent of2 resultswithin the time period is included. [facility] Sodium 136 136 - 145 mmol/L [facility] Potassium 4.3 3.5 - 5.0 mmol/L [facility] Chloride 98 98 - 107 mmol/L [facility] Total CO2 25 22 - 29 mmol/L [facility] Anion Gap 13 7 - 16 mmol/L [facility] Calcium 9.8 8.8 - 10.2 mg/dL [facility] Glucose Lvl 237(H) 82 - 100 mg/dL [facility] BUN 16 8 - 23 mg/dL [facility] Creatinine 0.79 0.67 - 1.30 mg/dL [facility] GFR Afr Am >[facility] GFR Non Afr Am >60 [facility] Blood specimen (specimen) 07/22/2017 11:17 AM EDT 07/22/2017 4:09 PM EDT us Johnny Michelle MD CHEMISTRY ORDERABLES Edited Re sult - Final [facility] [address] [place] [address] * DIABETIC RETINOPATHY EXAM (11/25/2016 8:15 AM EST) VISUAL ACUITY SCREEN OD 20/20 11/25/2016 8:15 AM EST [facility] VISUAL ACUITY SCREEN OS 20/20 11/25/2016 8:[address] [facility] OCULAR BLOOD FLOW MEASURE OD 18 11/25/2016 8:[address] [facility] OCULAR BLOOD FLOW MEASURE OS 18 11/25/2016 8:[address] [facility] DIABETIC RETINOPATHY NEGATIVE 11/25/2016 8:[address] [facility] CATARACTS NEGATIVE 11/25/2016 8:[address] [facility] GLAUCOMA NEGATIVE 11/25/2016 8:[address] [facility] 11/25/2016 8:15 AM EST us Unknown Provider OPHTHALMOLOGY SERVICES ORDERABL ES Final Result Performing Organization Address City/[facility]/ZIP Co de Phone Number [facility] * DIFFERENTIAL (11/18/2016 10:51 AM EST) Only the most recent of7 resultswithin the time period is included. Neut Percent 60.3 % [facility] Lymph Percent 22.2 % [facility] [place] Percent 9.7 % [facility] Eos Percent 7.2 % [facility] Baso Percent 0.6 % [facility] Neut# 3.6 1.8 - 7.7 x10(3)/mcL [facility] Lymph# 1.3 0.6 - 4.8 x10(3)/mcL [facility] [place]# 0.6 0.0 - 1.3 x10(3)/[facility] Eos# 0.4 0.0 - 0.5 x10(3)/mcL [facility] Baso# 0.0 0.0 - 0.2 x10(3)/[facility] Blood specimen (specimen) 11/18/2016 10:51 AM EST 11/18/2016 5:18 PM EST us Johnyn Michelle MD HEMATOLOGY [place] [address] * SCANNED RHYTHM STRIPS (09/22/2015 10:47 PM [...] 2015 5:38 PM EST Stationary ECG Study [place] Interpretive Statements SINUS RHYTHM Normal Electronically Signed On 2015 17:38:54 EST by Nirmal Kay MD Narrative Procedure Note Nirmal Kay MD - 2015 IMPRESSION Stationary ECG Study [place] Interpretive Statements SINUS RHYTHM Normal Electronically Signed On 2015 17:38:54 EST by Nirmal Kay MD us Jo Annmacy Gordon ALARM INSTALLER IMG ECG ORDERABLES Final Res ult * GMED COLONOSCOPY (07/30/2015 9:00 AM EDT) 07/30/2015 9:00 AM EDT Impressions [facility] - 07/30/2015 9:26 AM EDT Moderate diverticulosis of the distal descending colon and sigmoid colon. Plan: Screening Colonoscopy in 10 years. This section is an excerpt of the full report. us Ryne Craven MD GI PROCEDURE ORDERABLES Fin al Result [facility] [address] [place] [address] * POCT HEMOCCULT 1-3 CARDS (05/01/2015 1:46 PM EDT) Fec Heme negative Pos/Neg SEP OFFICE Comment:negative x 3 Lot Number SEP OFFICE Expiration Date SEP OFFICE SeriAl # SEP OFFICE Stool specimen (specimen) 05/01/2015 1:46 PM EDT us Johnny Michelle MD POINT OF CARE TEST ORDERABLES Final Result SEP OFFICE * OVA AND PARASITE BASIC (05/01/2015 1:25 PM EDT) Final Negative: Giardia lamblia antigen not detected. Negative: Cryptosporidi um antigen not detected. Internal QC ok The O and P vial will be saved for 1 week. If extended O and P is desired, please call Micro at . [facility] Stool specimen (specimen) 05/01/2015 1:25 PM EDT 05/01/2015 7:03 PM EDT us Johnny Michelle MD MICROBIOLOGY - GENERAL ORDERAB LES Final Result [facility] [address] [place] [address] * (ABNORMAL) PSA, TOTAL AND FREE (09/05/2014 11:19 AM EST) PSA Total 2.61 <=4.00 ng/mL [facility] Comment: Test Methodology: ECLIA PSA (Electrochemiluminescence Immunoassay) For PSA values from 2.5-4.0, particularly in younger men <60 years old, the AUA and NCCN suggest testing for % Free PSA (3515) and evaluation of the rate of increase in PSA (PSA velocity). PSA, Free 0.44 ng/mL [facility] PSA, %Free 17(L) >25 % [facility] Comment: Probability of Prostate Cancer (For Men with Non-Suspicious CARRIE Results and PSA Between 4 and 10 ng/mL, By Patient Age) % free PSA Patient Age 50 to 59 Years 60 to 69 Years >70 Years <=10% 49.2% 57.5% 64.5% 11 - 18% 26.9% 33.9% 40.8% 19 - 25% 18.3% 23.9% 29.7% >25% 9.1% 12.2% 15.8% Performed at: [facility] [address], [address] [place] [address] Blood specimen (specimen) UPPER LIMB STRUCTURE / Unknown 09/05/2014 11:19 AM EST 09/05/2014 7:19 PM EST us Johnny Michelle MD CHEMISTRY ORDERABLES Final Res ult Performing Organization Address [facility] Co de Phone Number [facility] [address] [place] [address] * HEMOGLOBIN AND HEMATOCRIT (05/17/2014 11:00 AM EDT) Hgb 16.1 13.5 - 17.1 gm/dL [facility] Hct 46.1 38.9 - 51.6 % [facility] Blood specimen (specimen) UPPER LIMB STRUCTURE / Unknown 05/17/2014 11:00 AM EDT 05/17/2014 5:30 PM EDT us Johnny Michelle MD HEMATOLOGY ORDERABLES Final Re sult Performing Organization Address [facility] Co de Phone Number [facility] [address] [place] [address] * POCT OCCULT BLOOD STOOL (04/10/2014 1:12 PM EDT) Pathologist [facility] Fec Heme negative Pos/Neg SEP OFFICE 04/10/2014 1:12 PM EDT us Johnny Michelle MD POINT OF CARE TEST ORDERABLES Final Result Performing Organization Address [facility] Co de Phone Number SEP OFFICE * ALANINE AMINOTRANSFERASE (04/10/2014 10:14 AM EDT) ALT 29 <=41 IU/L [facility] Blood specimen (specimen) UPPER LIMB STRUCTURE / Unknown 04/10/2014 10:14 AM EDT 04/10/2014 3:09 PM EDT us Johnny Michelle MD CHEMISTRY ORDERABLES Final Res ult Performing Organization Address [facility] Co de Phone Number [facility] [address] [place] [address] * ASPARTATE AMINOTRANSFERASE (04/10/2014 10:14 AM EDT) AST 25 <=40 IU/L [facility] Blood specimen (specimen) UPPER LIMB STRUCTURE / Unknown 04/10/2014 10:14 AM EDT 04/10/2014 3:09 PM EDT Johnny Michelle MD CHEMISTRY ORDERABLES Final Res ult Performing Organization Address [facility] Co de Phone Number [facility] [address] [place] [address] * IRON LEVEL (04/10/2014 10:14 AM EDT) Iron 131 50 - 170 mcg/dL [facility] Blood specimen (specimen) UPPER LIMB STRUCTURE / Unknown 04/10/2014 10:14 AM EDT 04/10/2014 3:09 PM EDT Johnny Michelle MD CHEMISTRY ORDERABLES Final Res ult Performing Organization Address [facility] de Phone Number [facility] [address] [place] [address] * MICROALBUMIN, URINE-ARUP (07/19/2012 8:38 AM EDT) Total Volume Random mL [facility] Hrs Case Random hr [facility] U Creatinine 120 mg/dL [facility] U24 Creat Not Applicable 800 - 2100 mg/day [facility] Microalbumin mg/dL-ARUP 0.9 mg/dL [facility] Microalbumin/Cre atinine Ratio-ARUP 8 0 - 30 mg/gm [facility] Microalbumin ug/minute-ARUP Not Applicable 0 - 20 mcg/min [facility] Microalbumin mg/day-ARUP Not Applicable 2 - 30 mg/day [facility] Urine specimen (specimen) 07/19/2012 8:38 AM EDT 07/19/2012 4:06 PM EDT Johnny Michelle MD URINE ORDERABLES Final Result Performing Organization Address [facility] Co de Phone Number [facility] [address] [place] [address] * XR CHEST PA AND LATERAL (11/29/2010 12:59 PM EST) Anatomical Region Laterality Modality Chest Radiographic Meli ging 11/29/2010 Impressions 11/29/2010 1:14 PM EST IMPRESSION: No acute thoracic disease. No calcified pleural plaques are seen, no pulmonary fibrosis. Narrative 11/29/2010 1:14 PM EST PA lateral chest, 11/21/2010 COMPARISON: None HISTORY: Cough, history of asbestos exposure Procedure Note Landen Reagan - 11/29/2010 PA lateral chest, 11/21/2010 COMPARISON: [...] 05/21/2015 Type 2 diabetes mellitus without complication 05/21/2015 Hyperlipidemia LDL goal < 100 Other and unspecified hyperlipidemia 05/22/2015 Type 2 diabetes mellitus without complication 05/22/2015 Type 2 diabetes mellitus without complication 05/22/2015 Essential hypertension Unspecified essential hypertension 05/22/2015 Hyperlipidemia LDL goal < 100 Other and unspecified hyperlipidemia 05/22/2015 Type 2 diabetes mellitus without complication 06/07/2015 Hyperlipidemia LDL goal < 100 Other [...] 2015 Type 2 diabetes mellitus without complication 09/20/2015 Hyperlipidemia LDL goal < 100 Other and unspecified hyperlipidemia 09/20/2015 Essential hypertension Unspecified essential hypertension 09/20/2015 Unilateral inguinal hernia without obstruction or gangrene, recurrence not specified 09/20/2015 Unilateral recurrent inguinal hernia without obstruction or gangrene Inguinal hernia without mention of obstruction or gangrene, recurrent unilateral or unspecified 09/20/2015 Postop check Follow-up examination, following unspecified surgery 10/02/2015 Type 2 diabetes mellitus without complication 10/09/2015 Hyperlipidemia LDL goal < 100 Other and unspecified hyperlipidemia 10/09/2015 Essential hypertension Unspecified essential hypertension 10/09/2015 Type 2 diabetes mellitus without complication 10/09/2015 Essential hypertension Unspecified essential hypertension 10/09/2015 Hyperlipidemia LDL goal < 100 Other and unspecified hyperlipidemia 10/09/2015 RAD (reactive airway disease), mild intermittent, uncomplicated 12/03/2015 Type 2 diabetes mellitus without complication 12/03/2015 Type 2 diabetes mellitus without complication 12/06/2015 Hyperlipidemia LDL goal < 100 Other and unspecified hyperlipidemia 12/06/2015 Essential hypertension Unspecified essential hypertension 12/06/2015 RAD (reactive airway disease), mild persistent, uncomplicated 12/06/2015 Cough 12/24/2015 RAD (reactive airway disease), mild persistent, uncomplicated 03/26/2016 Type 2 diabetes mellitus without complication 04/11/2016 RAD (reactive airway disease), mild persistent, uncomplicated 04/11/2016 RAD (reactive airway disease), mild persistent, uncomplicated 04/17/2016 Type 2 diabetes mellitus without complication 04/17/2016 Type 2 diabetes mellitus without complication 05/12/2016 Hyperlipidemia LDL goal < 100 Other and unspecified hyperlipidemia 05/12/2016 Essential hypertension Unspecified essential hypertension 05/12/2016 RAD (reactive airway disease), mild persistent, uncomplicated 05/12/2016 Type 2 diabetes mellitus without complication 05/12/2016 Essential hypertension Unspecified essential hypertension 05/13/2016 Type 2 diabetes mellitus without complication 05/13/2016 Hyperlipidemia LDL goal < 100 Other and unspecified hyperlipidemia 05/13/2016 Essential hypertension Unspecified essential hypertension 05/13/2016 Hyperlipidemia LDL goal < 100 Other and unspecified hyperlipidemia 05/13/2016 Type 2 diabetes mellitus without complication 05/13/2016 Screening for thyroid disorder 05/13/2016 Type 2 diabetes mellitus without complication 06/02/2016 Hyperlipidemia LDL goal < 100 Other and unspecified hyperlipidemia 06/02/2016 Essential hypertension Unspecified essential hypertension 06/02/2016 Type 2 diabetes mellitus without complication 10/31/2016 Routine adult health maintenance Routine general medical examination at a health care facility 11/17/2016 Type 2 diabetes mellitus without complication, unspecified watch supervisor insulin use status 11/18/2016 Routine adult health maintenance Routine general medical examination at a health care facility 11/18/2016 Type 2 diabetes mellitus without complication, unspecified watch supervisor insulin use status 11/18/2016 Type 2 diabetes [...] with long-term current use of insulin (HCC) 12/01/2017 Hyperlipidemia associated with type 2 diabetes mellitus (HCC) 12/01/2017 Screening for metabolic disorder 12/01/2017 Screening for thyroid disorder 12/01/2017 Vitamin D deficiency Unspecified vitamin D deficiency 12/01/2017 Screening for deficiency anemia Screening for other and unspecified deficiency anemia 12/01/2017 Screening for lipid disorders 12/01/2017 Type 2 diabetes mellitus with diabetic nephropathy, unspecified watch supervisor insulin use status 12/01/2017 Type 2 diabetes mellitus without complication, with long-term current use of insulin (HCC) 12/01/2017 Hyperlipidemia associated with type 2 diabetes mellitus (HCC) 12/01/2017 Screening PSA (prostate specific antigen) Special screening for malignant neoplasm of prostate 12/01/2017 Type 2 diabetes mellitus with diabetic nephropathy, with long-term current use of insulin (HCC) 12/08/2017 Hypertension associated with diabetes (HCC) Type II or unspecified type diabetes mellitus with other specified manifestations, not stated as uncontrolled 12/08/2017 Hyperlipidemia associated with type 2 diabetes mellitus (HCC) 12/08/2017 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 of organic origin 12/08/2017 Essential hypertension Unspecified essential hypertension 12/17/2017 Type 2 diabetes mellitus with diabetic nephropathy, with long-term current use of insulin (HCC) 12/17/2017 Type 2 diabetes mellitus with diabetic [...] nephropathy, with long-term current use of insulin ([facility]) 2019 Hyperlipidemia associated with type 2 diabetes mellitus ([facility]) 2019 Chronic fatigue Other malaise and fatigue 09/15/2019 Hypertension associated with diabetes ([facility]) Type II or unspecified type diabetes mellitus with other specified manifestations, not stated as uncontrolled 09/15/2019 Esophageal dysfunction Dyskinesia of esophagus 09/21/2019 Type 2 diabetes mellitus with diabetic nephropathy, with long-term current use of insulin ([facility]) 09/21/2019 Esophageal dysphagia Dysphagia, pharyngoesophageal phase 11/29/2019 Epigastric abdominal pain Abdominal pain, epigastric 11/29/2019 Dysphagia, unspecified 12/02/2019 Gastroesophageal reflux disease with esophagitis 12/02/2019 Hypertension associated with diabetes ([facility]) Type II or unspecified type diabetes mellitus with other specified manifestations, not stated as uncontrolled 12/06/2019 Hyperlipidemia associated with type 2 diabetes mellitus ([facility]) 12/06/2019 Type 2 diabetes mellitus with diabetic nephropathy, with long-term current use of insulin ([facility]) 12/28/2019 Type 2 diabetes mellitus with diabetic nephropathy, with long-term current use of insulin ([facility]) 01/02/2020 Iron deficiency anemia, unspecified iron deficiency anemia type 01/02/2020 Iron deficiency anemia, unspecified iron deficiency anemia type 01/11/2020 Type 2 diabetes mellitus with diabetic nephropathy, with long-term current use of insulin ([facility]) 01/11/2020 Type 2 diabetes mellitus with diabetic nephropathy, with long-term current use of insulin ([facility]) 01/18/2020 Tinea pedis of both feet 01/18/2020 Type 2 diabetes mellitus with diabetic nephropathy, with long-term current use of insulin ([facility]) 02/10/2020 Hyperlipidemia associated with type 2 diabetes mellitus ([facility]) 02/10/2020 Hypertension associated with diabetes ([facility]) Type II or unspecified type diabetes mellitus with other specified manifestations, not stated as uncontrolled 02/10/2020 Type 2 diabetes mellitus with diabetic nephropathy, with long-term current use of insulin ([facility]) 02/14/2020 Gastroesophageal reflux disease with [...] nephropathy, with long-term current use of insulin ([facility]) 05/29/2020 Gastroesophageal reflux disease with esophagitis 06/08/2020 Type 2 diabetes mellitus with diabetic nephropathy, with long-term current use of insulin ([facility]) 06/20/2020 Type 2 diabetes mellitus with diabetic nephropathy, with long-term current use of insulin ([facility]) 07/02/2020 Hypertension associated with diabetes (HCC) Type II or unspecified type diabetes mellitus with other specified manifestations, not stated as uncontrolled 07/03/2020 Type 2 diabetes mellitus with diabetic nephropathy, with long-term current use of insulin ([facility]) 07/04/2020 Immunity status testing Antibody response examination 07/04/2020 Type 2 diabetes mellitus with diabetic nephropathy, with long-term current use of insulin ([facility]) 07/11/2020 Hypertension associated with diabetes (HCC) Type [...] nephropathy, with long-term current use of insulin ([facility]) 10/03/2020 Hypertension associated with diabetes (HCC) Type II or unspecified type diabetes mellitus with other specified manifestations, not stated as uncontrolled 10/03/2020 Type 2 diabetes mellitus with diabetic nephropathy, with long-term current use of insulin ([facility]) 10/04/2020 Hypertension associated with diabetes [...] D deficiency 10/10/2020 10 year risk of VT or stroke 7.5% or greater 10/15/2020 BPH [...] nephropathy, with long-term current use of insulin ([facility]) 10/15/2020 Chronic left-sided low back pain with left-sided sciatica 10/15/2020 Type 2 diabetes mellitus with diabetic nephropathy, with long-term current use of insulin ([facility]) 11/06/2020 Hypertension associated with diabetes (HCC) Type II or unspecified type diabetes mellitus with other specified manifestations, not stated as uncontrolled 11/06/2020 Type 2 diabetes mellitus with diabetic nephropathy, with long-term current use of insulin ([facility]) 12/05/2020 Hypertension associated with diabetes (HCC) Type II or unspecified type diabetes mellitus with other specified manifestations, not stated as uncontrolled 12/05/2020 Type 2 diabetes mellitus with diabetic nephropathy, with long-term current use of insulin ([facility]) 12/07/2020 Type 2 diabetes mellitus with diabetic nephropathy, with long-term current use of insulin ([facility]) 12/13/2020 Hypertension associated with diabetes (HCC) Type II or unspecified type diabetes mellitus with other specified manifestations, not stated as uncontrolled 12/20/2020 BPH without urinary obstruction Hypertrophy of prostate without urinary obstruction and other lower urinary tract symptoms (LUTS) 01/16/2021 BPH without urinary obstruction Hypertrophy of prostate without urinary obstruction and other lower urinary tract symptoms (LUTS) 01/16/2021 10 year risk of VT or stroke 7.5% or greater 01/16/2021 Type 2 diabetes mellitus with diabetic nephropathy, with long-term current use of insulin (HCC) 01/17/2021 Enrolled in chronic care management 01/17/2021 Gastroesophageal reflux disease with esophagitis 03/11/2021 Hypertension associated with diabetes (HCC) Type II or unspecified type diabetes mellitus with other specified manifestations, not stated as uncontrolled 03/31/2021 BPH without urinary obstruction Hypertrophy of prostate without urinary obstruction and other lower urinary tract symptoms (LUTS) 04/09/2021 10 year risk of VT or stroke 7.5% or greater 04/09/2021 Gastroesophageal reflux disease with esophagitis 04/13/2021 Gastroesophageal reflux disease with esophagitis 04/16/2021 RAD (reactive airway disease), mild persistent, uncomplicated 04/16/2021 Gastroesophageal reflux disease with esophagitis 04/16/2021 Type 2 diabetes mellitus with diabetic nephropathy, with long-term current use of insulin ([facility]) 05/02/2021 Hypertension associated with diabetes (HCC) Type [...] symptoms (LUTS) 08/04/2021 10 year risk of VT or stroke 7.5% or greater 08/04/2021 Hyperlipidemia, unspecified hyperlipidemia type 08/05/2021 Screening, anemia, deficiency, iron Screening for iron deficiency anemia 08/05/2021 Hyperthyroidism Thyrotoxicosis without mention of goiter or other cause, without mention of thyrotoxic crisis or storm 08/05/2021 Type 2 diabetes mellitus without complication, unspecified whether longterm insulin use 08/05/2021 Needs flu shot Need for prophylactic vaccination and inoculation against influenza 08/14/2021 Type 2 diabetes mellitus without complication, unspecified whether watch supervisor insulin use 08/14/2021 Hyperthyroidism Thyrotoxicosis without mention of goiter [...] 2 diabetes mellitus without complication, unspecified whether watch supervisor insulin use 09/20/2021 Hypertension associated with diabetes (HCC) Type II or unspecified type diabetes mellitus with other specified manifestations, not stated as uncontrolled 10/08/2021 BPH without urinary obstruction Hypertrophy of prostate without urinary obstruction and other lower urinary tract symptoms (LUTS) 11/04/2021 10 year risk of VT or stroke 7.5% or greater 11/04/2021 RAD [...] of care 01/13/2022 10 year risk of VT or stroke 7.5% or greater 02/01/2022 Encounter [...] as uncontrolled 03/07/2022 10 year risk of VT or stroke 7.5% or greater 03/08/2022 10 year risk of VT or stroke 7.5% or greater 03/10/2022 Encounter [...] as uncontrolled 11/15/2022 10 year risk of VT or stroke 7.5% or greater 11/16/2022 Hypertension [...] as uncontrolled 02/10/2023 10 year risk of VT or stroke 7.5% or greater 02/10/2023 Encounter [...] care facility 02/24/2024 10 year risk of VT or stroke 7.5% or greater 02/24/2024 Type 2 diabetes mellitus without complication, unspecified whether longterm insulin use 02/24/2024 Encounter for support and coordination of [...] sinusitis, unspecified 01/04/2025 10 year risk of VT or stroke 7.5% or greater 02/11/2025 High [...] specified manifestations, not stated as uncontrolled 04/16/2025 10 year risk of VT or stroke 7.5% or greater 06/09/2025 Encounter for support and coordination of transition of care 06/27/2025 Hypertension associated with diabetes (HCC) Type II or unspecified type diabetes mellitus with other specified manifestations, not stated as uncontrolled 07/18/2025 Encounter for support and coordination of transition of care 08/15/2025 Encounter for support and coordination of transition of care 08/15/2025 Type 2 diabetes mellitus with diabetic nephropathy, with long-term current use of insulin (HCC) 08/22/2025 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) Malignant neoplasm of prostate 08/22/2025 Hypertension associated with diabetes (HCC) Type II or unspecified type diabetes mellitus with other specified manifestations, not stated as uncontrolled 08/22/2025 Encounter for support and coordination of transition of care 08/28/2025 Goals Goal Patient Goal Type Associated Problems Recent Progress Patient-Stated? Author Blood Pressure < 140/90 Blood Pressure 130/80(2024 11:01 AM EDT) No Johnny Michelle MD BMI (Calculated) < 30 General 29.5(08/22/20 11:01 AM EDT) No Alanna Mobley MA Maintain a healthy diet, exercise regularly and maintain an ideal body weight General No Phuong Vazquez, RMA LDL CALC < 100 Result Component 108( 1:51 PM EDT) Johnny Gtz MD HEMOGLOBIN A1C < 7.1 Result Component 7.4( 11:14 AM EDT) No Johnny Michelle MD Care Teams Training Generalist Relationship Specialty Start Date End Date Neema Atkins DO [address] [place] [address] PCP - General Family Medicine 09/21/19 Thiago Martin MD Ophthalmology 12/26/16
[2025-09-08 16:02] LABS: Microscopic, Urine URINE MICROSCOPIC (MICROSCOPIC)
[2025-09-08 16:29] LABS: Bilirubin,Urine Negative (Negative); Color,Urine YELLOW (Yellow); Glucose,Urine (UA) 3+ (Negative); Ketones,Urine Negative (Negative); Leukocyte Esterase,Urine Negative (Negative); PH,Urine 6.0 (5.0-8.5); Protein,Urine Negative (Negative); Specific Gravity, Urine 1.010 (1.005-1.030); Urobilinogen,Urine 0.2 EU/dl (0.2)
[2025-09-08 16:36] LABS: Alanine Aminotransferase 22 U/L (12-78); Albumin Level 4.3 g/dl (3.5-5.0); Albumin/Globulin Ratio 1.2 (1.1-1.8); Alkaline Phosphatase 135 U/L (38-126); Anion Gap 13.0 mEq/L (5-15); Aspartate Amino Transferase 25 U/L (17-59); Bilirubin,Total 0.5 mg/dl (0.2-1.3); Blood Urea Nitrogen 20 mg/dl (9-20); Calcium 9.8 mg/dl (8.4-10.2); Carbon Dioxide 25 mmol/L (22.0-30.0); Chloride 101 mmol/L (98-107); Creatinine,Serum 0.70 mg/dl (0.66-1.25); Estimated Glomerular Filt Rate 111 ml/min (>60); GFR (African American) 135 ML/MIN (>60); Globulin 3.5 g/dL (1.3-3.2); Glucose 124 mg/dl (74-100); Potassium 4.0 mmoL/L (3.5-5.1); Sodium 135 mmol/L (136-145); Total Protein,Serum 7.8 g/dl (6.3-8.2)
[2025-09-08 17:07] LABS: Prostate Specific Ag, Diagnost 5.64 ng/ml (0.0-4.0)
[2025-09-08 17:16] LABS: RBC,Urine Occasional #/hpf (0-3); WBC,Urine Occasional #/hpf (0-3)
== END 2025-09-08 23:59 ==
LOC: RAD 15:42
PROVIDERS: PCP Student in an Organized Health Care Education/Training Program; Visit Provider Urology
DX: C61 Malignant neoplasm of prostate (principal); R19.5 Other fecal abnormalities
CPT/HCPCS: 36415; 74018; 80053; 81001; 84153

== ENCOUNTER 2025-10-17 15:06 | Outpatient (CLI) | payer MEDICARE, SELFPAY ==
--- OUTSIDE RECORDS SUMMARY | 2025-08-22 10:00 | XMS_ITS | Encounter Summary ---
Author Organization [place] [address] Care Team Providers Care Car Head Liner Installer Name Role Phone Thiago Martin MD Unavailable [phone] Luis Atkins DO Primary Care Provider [phone] Reason for Visit * Reason Comments Diabetes Encounter Details Date Type Department Care Team (Late Contact Info) Description 08/22/2025 11:00 AM EDT Office Visit [facility] [address], [place] [phone] Luis Atkins DO [address], [place] [address] Type 2 diabetes mellitus with diabetic nephropathy, with long-term current use of insulin (HCC) (Primary Dx); 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 No 09/20/2021 Overall Financial Resource Strain (CARDIA) Answe r Date Recorded How hard is it for you to pa y for the very basics like food, housing, medical care, and heating? Not very hard 08/21/2025 [facility]at [facility] - Occupational Stress [...] money to buy more. Never true 08/21/20 25 Within the past 12 months, t he [...] Sign Reading Time Taken Comments Blood Pressure 130/80 08/22/2025 11:01 AM EDT Pulse 68 08/22/2025 11:01 AM EDT Temperature 36.3 C (97.3 F) 08/22/2025 11:01 AM EDT Respiratory Rate - - Oxygen Saturation 93% 08/22/2025 11:01 AM EDT Inhaled Oxygen Concentration - - Weight 102.5 kg (226 lb) 08/22/2025 11:01 AM EDT Height 186.7 cm (6' 1.5 ) 08/22/2025 11:01 AM ED T Body Mass Index 29.41 08/22/2025 11:01 AM EDT documented in this encounter Functional Status [...] Author No 02/19/2023 11:19 AM EDT Clara Hinjoosa RMA documented in this encounter Progress Notes * Luis Atkins, - 08/22/2025 11:00 AM EDT Assessment & Plan 1. Diabetes Mellitus: - Blood glucose level has slightly increased to 7.4. - Currently taking Tresiba 45 units at night and NovoLog 30 units at night, with a sliding scale of5-40 units in the morning. - Advised to reduce fruit intake to help lower blood sugar levels. - No changes will be made to the current medication regimen. Dx/Orders: Diagnoses and all orders for this visit: Type 2 diabetes mellitus with diabetic nephropathy, with long-term current use of insulin (HCC) (Chronic) Overview: Microalbuminuria diagnosed Nov 2017. Tests sugar 4-5 times a day. 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 Prather in [place], [place] Hypertension associated with diabetes (HCC) (Chronic) Overview: At goal continue current medications Return in about 6 months (around 02/20/2026) for Diabetes, Annual wellness. Subjective Mil Johnston is a 69 y.o. male Chief Complaint Patient presents with ??? Diabetes History of Present Illness The patient is a 70-year-old male who presents for evaluation of diabetes. He reports an increase in his blood sugar levels to 7.4, which he attributes to his consumption of fruits such as apples, grapes, and bananas. He is concerned about potential hypoglycemic episodes atnight, which he fears may be misinterpreted as hot flashes. He describes experiencing nausea, cold sweats, and a general aversion to touch during these episodes. He also notes that while hot flashes typically last around 5 minutes, hypoglycemic episodes can persist for up to an hour and a half. His current medication regimen includes Tresiba 45 units at night and NovoLog 30 units at night, with a variable morning dose ranging from 5 to 40 units based on a sliding scale. He has been using a chart to monitor his insulin levels over time but expresses difficulty in distinguishing between hypoglycemic episodes and hot flashes. Diet: Consumes fruits such as apples, grapes, and bananas Review of Systems See HPI as above for pertinent positives. Other systems reviewed as negative. Objective Blood pressure 130/80, pulse 68, temperature 97.3 ??F (36.3 ??C), temperature source Temporal, height 6' 1.5 (1.867 m), weight 226 lb (102.5 kg), SpO2 93%. Body mass index is 29.41 kg/m??. Physical Exam Physical Exam Results Labs - Blood glucose test: 7.4 Results for orders placed or performed in visit on 08/22/25 POCT GLYCATED HEMOGLOBIN, TOTAL Result Value Ref Range Hemoglobin A1C 7.4 (A) 4 - 6 % Lot Number Expiration Date SeriAl # The provider educated the patient (or legal exhibit display representative) on the use of the ambient listening artificial intelligence tool, [employer]. They were informed that this AI tool [...] of such information, the patient (or legal exhibit display representative), and each individual in attendance with the patient, verbally consented to the use of the AI tool. documented in this encounter Plan of Treatment [...] 7.1 Result Component 7.4( 11:14 AM EDT) No Johnny Michelle MD documented as of this encounter Procedures Procedure Name Priority Date/Time Associated Diagnosis Comments POCT GLYCATED HEMOGLOBIN, TOTAL Routine 08/22/2025 11:14 AM EDT Type 2 diabetes mellitus with diabetic nephropathy, with long-term current use of insulin (HCC) documented in this encounter Results * (ABNORMAL) POCT GLYCATED HEMOGLOBIN, TOTAL (08/22/2025 11:14 AM EDT) Hemoglobin A1C 7.4(A) 4 - 6 % SEP OFFICE Lot Number SEP OFFICE Expiration Date SEP OFFICE SeriAl # SEP OFFICE 08/22/2025 11:1 4 AM EDT us Luis Atkins DO POINT OF CARE TEST ORDERABLES Final Result SEP OFFICE documented in this encounter Visit Diagnoses Diagnosis Type 2 diabetes mellitus with diabetic nephropathy, with long-term current use of insulin (HCC)- Primary 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) Malignant neoplasm of prostate Hypertension associated with diabetes (HCC) Type II or unspecified type diabetes mellitus with other specified manifestations, not stated as uncontrolled documented in this encounter Additional Health Concerns Assessment Noted Time A fall risk assessment has been complete d for the patient 03/01/2025 1:13 PM EDT documented as of this encounter Care Teams Car Head Liner Installer Relationship Specialty Start Date End Date Luis Atkins DO [address] [place] [address] PCP - General Family Medicine 09/21/19 Thiago Martin MD Ophthalmology 12/26/16 documented as of this encounter
--- OUTSIDE RECORDS SUMMARY | 2025-09-27 13:06 | XMS_ITS | Encounter Summary ---
Author Organization [facility] Address [address] [place] [id number] Care Team Providers Care Chip Crusher Operator Name Role Phone Wilbert SÁNCHEZ DO, [place] Primary Care Provider + Reason for Referral * MRI/CAT/PET Scan (Routine) - Authorized Specialty Diagnoses / Procedures Referred By Contac t Referred To Contact Radiology Diagnoses Cancer of prostate Procedures NM PET/CT Skull Base to Mid Thigh Alin Prather MD [address] [place] [address] Phone: tel: fax: Referral ID Status Reason Start Date Expiration Date V isits Requested Visits Authorized [id number] Authorized 09/11/2025 12/11/2026 4 4 Reason for Visit * MRI/CAT/PET Scan (Routine) - Authorized Specialty Diagnoses / Procedures Referred By Contac t Referred To Contact Radiology Diagnoses Cancer of prostate Procedures NM PET/[place]ull [place] [address] [place] [address] Phone: tel: fax: Referral ID Status Reason Start Date Expiration Date V isits Requested Visits Authorized [id number] Authorized 09/11/2025 12/11/2026 4 4 Encounter Details Date Type Department Care Team (Latest Contact Info) Description 09/27/2025 1:06 PM EST - 09/27/2025 11:59 PM EST Hospital Encounter [facility] PET 100 [facility] [place] [address] Cancer of prostate Discharge Disposition: Home or Self Care Social History Tobacco Use Types Packs/Day Years Used Date Smoking Tobacco: Never Assessed Sex and Gender Information Value Date Recorded Sex Assigned at Not on file Legal Sex Male 4:20 PM EST Gender Identity Not on file Sexual Orientation Not on file documented as of this encounter Plan of Treatment Upcoming Encounters Date Type Department Care Team (Late st Contact Info) Description 10/18/2025 1:00 PM EST Office Visit [facility] [address] [place] [address] Josh Gonzalez MD [address] [place] [address] documented as of this encounter Procedures Procedure Name Priority Date/Time Associated Diagnosis Comments NM PET/CT SKULL BASE TO MID THIGH Routine 09/27/2025 2:55 PM EST Cancer of prostate documented in this encounter Results * NM PET/CT Skull Base to Mid Thigh (09/27/2025 2:55 PM EST) Anatomical Region Laterality Modality Head and Neck, Spine, Abdome n, Chest, Pelvis, Lower Leg, Thigh N/A Nuclear Medicine 09/27/2025 6:42 PM EST Impressions 09/27/2025 6:48 PM EST 1.There is widespread osseous metastatic disease throughout the axial and appendicular skeleton. 2.There is increased metabolic activity in the prostate gland at the left aspect of the mid body. Electronically Signed: Beryl Tejeda MD 09/27/2025 6:48 PM EST Workstation ID: [id number] Narrative 09/27/2025 6:48 PM EST PSMA NM PET/CT SKULL BASE TO MID THIGH Date of Exam: 09/27/2025 1:10 PM EST Indication: C61. Prostate cancer with diffuse pain. Comparison: None available. Technique: 5.95 mCi of If18-GPPF-53 was administered intravenously. PET imaging was obtained from the vertex to mid-thigh approximately 60 minutes after radiotracer injection. A low dose non contrast CT was obtained for attenuation correction and anatomic localization. Fused PET-CT and 3D MIP reconstructions were utilized for image interpretation. Findings: Head/Neck: No suspicious metabolic activity. Physiologic activity is present. Thorax: No suspicious metabolic activity. Physiologic activity is present. Abdomen and Pelvis: There is increased metabolic activity in the prostate gland at the periphery left aspect of the mid body. On image 313 the metabolic activity measures maximally 5.7 SUV. Physiologic activity is present. Musculoskeletal System and Extremities: There is widespread diffuse osseous metastatic disease. Hypermetabolic foci are seen throughout the axial and appendicular skeleton. For reference hypermetabolic activity along the posterior right rib on image 144 measures maximally 44.9 SUV there is mixed lytic sclerotic appearance at this location. This is the seventh rib. Reference lesion in the posterior left iliac bone on image 216 measures maximally 27.9 SUV there is sclerosis in this location. Reference lesion at the anterior right femoral neck on image 303 measures maximally 15.8 SUV. Physiologic activity is present. Miscellaneous CT Findings: Background mediastinal blood pool activity measures maximally 1.7 SUV. There is a small right pleural effusion. There are findings of prior granulomatous disease exposure. Patient status post cholecystectomy. There are diverticuli in the sigmoid colon. None are acutely inflamed. Prostate gland is not pathologically enlarged. There are subtle sclerotic foci seen throughout the bones. Procedure Note Beryl Tejeda MD - 09/27/2025 PSMA NM PET/CT SKULL BASE TO MID THIGH Date of Exam: 09/27/2025 1:10 PM EST Indication: C61. Prostate cancer with diffuse pain. Comparison: None available. Technique: 5.95 mCi of Ga44-FGSB-44 was administered intravenously. PETimaging was obtained from the vertex to mid-thigh approximately 60 minutesafter radiotracer injection. A low dose non contrast CT was obtained forattenuation correction and anatomic localization. Fused PET-CT and 3D MIP reconstructions wereutilized for image interpretation. Findings: Head/Neck: No suspicious metabolic activity. Physiologic activity ispresent. Thorax: No suspicious metabolic activity. Physiologic activity ispresent. Abdomen and Pelvis: There is increased metabolic activity in the prostategland at the periphery left aspect of the mid body. On image 313 themetabolic activity measures maximally 5.7 SUV. Physiologic activity ispresent. Musculoskeletal System and Extremities: There is widespread diffuseosseous metastatic disease. Hypermetabolic foci are seen throughout theaxial and appendicular skeleton. For reference hypermetabolic activityalong the posterior right rib on image 144 measures maximally 44.9 SUV there is mixed lytic sclerotic appearance atthis location. This is the seventh rib. Reference lesion in the posteriorleft iliac bone on image 216 measures maximally 27.9 SUV there issclerosis in this location. Reference lesion at the anterior right femoral neck on image 303 measures eyloksade93.8 SUV. Physiologic activity is present. Miscellaneous CT Findings: Background mediastinal blood pool activitymeasures maximally 1.7 SUV. There is a small right pleural effusion. Thereare findings of prior granulomatous disease exposure. Patient status postcholecystectomy. There are diverticuli in the sigmoid colon. None are acutely inflamed. Prostategland is not pathologically enlarged. There are subtle sclerotic foci seenthroughout the bones. IMPRESSION: 1.There is widespread osseous metastatic disease throughout the axial andappendicular skeleton. 2.There is increased metabolic activity in the prostate gland at the leftaspect of the mid body. Electronically Signed: Beryl Tejeda MD 09/27/2025 6:48 PM EST Workstation ID: [id number] Alin Prather MD [facility] ORDERABLES Final Result documented in this encounter Visit Diagnoses Diagnosis Cancer of prostate Malignant neoplasm of prostate documented in this encounter Administered Medications Inactive Administered Medications - up to 3 most recent administrations Medication Order MAR Action Action Date Dose Rate Site Gallium Ga 68 Gozetotide (ILLUCCIX) injection 1 dose 1 dose, Intravenous, Once in Imaging, On Thu09/27/25 at 1331, For 1 dose, Millicuries: 5.95 Given 09/27/2025 1:20 PM EST 1 dose documented in this encounter Care Teams Chip Crusher Operator Relationship Specialty Start Date End Date Luis Atkins II, DO [address] [place], [place] [address] PCP - General Family Medicine 09/20/25 documented as of this encounter
--- OUTSIDE RECORDS SUMMARY | 2025-09-27 13:10 | XMS_ITS | Encounter Summary ---
Author Organization [facility] Address [address] [place] [address] Care Team Providers Care Pump Operator Name Role Phone Wilbert SÁNCHEZ DO, [place] Primary Care Provider + Reason for Visit * MRI/CAT/PET Scan (Routine) - Authorized Specialty Diagnoses / Procedures Referred By Contac t Referred To Contact Radiology Diagnoses Cancer of prostate Procedures NM PET/CT Skull Base to Mid Thigh Alin Prather MD [address] [address] Phone: tel: fax: Referral ID Status Reason Start Date Expiration Date V isits Requested Visits Authorized [id number] Authorized 09/11/2025 12/11/2026 4 4 Encounter Details Date Type Department Care Team (Latest Contact Info) Description 09/27/2025 1:10 PM EST - 09/27/2025 11:59 PM EST Hospital Encounter [facility] PET 100 [facility] [phone] Discharge Disposition: Home or Self Care Social [...] [facility] [address] [place] [address] Josh Gonzalez MD [address] [place] [address] documented as of this encounter Procedures Procedure [...] MD 09/27/2025 6:48 PM EST Workstation ID: [id number] Narrative 09/27/2025 6:48 PM EST PSMA NM PET/CT SKULL BASE TO MID THIGH Date of Exam: 09/27/2025 1:10 PM EST Indication: C61. Prostate cancer with diffuse pain. Comparison: None available. Technique: 5.95 mCi of Gi53-CYWJ-06 was administered intravenously. PET imaging was obtained [...] Comparison: None available. Technique: 5.95 mCi of Nm10-QAWM-31 was administered intravenously. PETimaging was obtained from [...] right femoral neck on image 303 measures [id number] SUV. Physiologic activity is present. Miscellaneous CT [...] MD 09/27/2025 6:48 PM EST Workstation ID: [id number] us Alin Prather MD IMG NM ORDERABLES Final Result documented in this encounter Visit Diagnoses Not on filedocumented in this encounter Care Teams Pump Operator Relationship Specialty Start Date End Date Luis Atkins II, DO [address] [place] [address] PCP - General Family Medicine 09/20/25 documented as of this encounter
--- OUTSIDE RECORDS SUMMARY | 2025-10-17 15:12 | XMS_ITS | Clinical Summary ---
Author Organization [facility] Address [address] [place] [id number] Phone Care Team Providers Care Transmission Rebuilder Name Role Phone Zuleima Arreola APRN Primary Care Physician [phone] Conditions or Problems No information available. Medications No information available. Medications Administered No information available. Allergies, Adverse Reactions, Alerts No information available. Results No information available. Plan of Care No information available. Procedures No information available. Vital Signs No information available. Immunizations No information available. Advance Directives No information available.
--- OUTSIDE RECORDS SUMMARY | 2025-10-17 15:13 | XMS_ITS | Encounter Summary ---
Author Organization [place] [address] Care Team Providers Care Nurse Substance Abuse Name Role Phone Thiago Martin MD Unavailable [phone] Luis Atkins DO Primary Care Provider [phone] Reason for Visit * Reason Comments Medication Refill Encounter Details Date Type Department Care Team (Late st Contact Info) Description 09/29/2025 Refill [facility] [address] [place] [phone] Malgorzata Woodruff APRN [address] [place], [place] [id number] Medication Refill Social History Tobacco Use Types [...] care, and heating? Not very hard 08/21/2025 [facility] - Occupational Stress Questionnaire Answer Date [...] AM EDT Hinojosa , Clara, RMA * Does this person have serious [...] IN THE MORNING WITH BREAKFAST 200 Tablet 09/29/2025 documented in this encounter Plan of Treatment [...] BY MOUTH IN THE MORNING WITH BREAKFAST 06/22/2025 09/29/2025 documented as of this encounter Additional Health Concerns Assessment Noted Time A fall risk assessment has been complete d for the patient 03/01/2025 1:13 PM EDT documented as of this encounter Care Teams Nurse Substance Abuse Relationship Specialty Start Date End Date Luis Atkins DO [address] [facility] [place] [address] PCP - General Family Medicine 09/21/19 Thiago Martin MD Ophthalmology 12/26/16 documented as of this encounter
--- OUTSIDE RECORDS SUMMARY | 2025-10-17 15:13 | XMS_ITS | Encounter Summary ---
Author Organization [facility] [place] [address] Care Team Providers Care Lining Maker Name Role Phone Thiago Martin MD Unavailable [phone] Luis Atkins DO Primary Care Provider Anais Garcia RN Unavailable Unavailable Encounter Details Date Type Department Care Team (Late st Contact Info) Description 12/02/2019 Orders Only SEP Gastro [facility] [address] [facility] [address] [place] [address] Khoa Vela MD [address] [place] [address] Social History Tobacco Use Types Packs/Day Years [...] PM EST) 12/02/2019 1:30 PM EST Impressions [facility] - 12/02/2019 2:11 PM EST Normal [...] MD GI PROCEDURE ORDERABLES Fin al Result [place] [id number] documented in this encounter Visit Diagnoses Not on filedocumented in this encounter Care Teams Lining Maker Relationship Specialty Start Date End Date Luis Atkins DO [address] [place] [address] PCP - General Family Medicine 09/21/19 Thiago Martin MD Ophthalmology 12/26/16 Anais Garcia RN Senior Product Consultant Registered Nurse 12/13/20 01/16/21 documented as of this encounter
--- OUTSIDE RECORDS SUMMARY | 2025-10-17 15:13 | XMS_ITS | Encounter Summary ---
Author Organization [facility] Address [address] [place] [address] Care Team Providers Care Rod Puller And Coiler Name Role Phone Wilbert SÁNCHEZ DO, [place] Primary Care Provider + Encounter Details Date Type Department Care Team (Latest Contact Info) Description 09/26/2025 Travel Social History Tobacco Use Types Packs/Day Years [...] [facility] [address] [place] [address] Josh Gonzalez MD [address] [place] [address] documented as of this encounter Visit Diagnoses Not on filedocumented in this encounter Care Teams Rod Puller And Coiler Relationship Specialty Start Date End Date Luis Atkins II, DO [address] [place] [address] PCP - General Family Medicine 09/20/25 documented as of this encounter
--- OUTSIDE RECORDS SUMMARY | 2025-10-17 15:13 | XMS_ITS | Encounter Summary ---
Author Organization [place] [address] Care Team Providers Care Assistant Executive Housekeeper Name Role Phone Thiago Martin MD Unavailable [phone] Luis Atkins DO Primary Care Provider Reason for Visit * Reason Comments Medication Refill Encounter Details Date Type Department Care Team (Late Contact Info) Description 09/17/2025 Refill [facility] [address] [place] [phone] Luis Atkisn DO [address] [place] [address] Medication Refill Social History Tobacco Use Types [...] in a penitentiary (including now)? No 09/20/2021 Overall Financial Resource Strain (CARDIA) Answe r Date Recorded How hard is it for you to pa y for the very basics like food, housing, medical care, and heating? Not very hard 08/21/2025 [facility] - Occupational Stress Questionnaire Answer Date Recorded [...] Date Author No 02/19/2023 11:19 AM EDT Sharda Hinojosailey KAIDEN documented in this encounter Ordered Prescriptions Prescription Sig Dispense Quantity Refills Last Filled Start Date End Date pravastatin (PRAVACHOL) 40 mg Oral TabletIndications: 10 year risk of DE or stroke 7.5% or greater TAKE 1 TABLET BY MOUTH ONCE DAILY IN THE EVENING 100 Tablet 09/20/2025 documented in this encounter Plan of Treatment [...] BY MOUTH ONCE DAILY IN THE EVENING 06/12/2025 09/20/2025 documented as of this encounter Additional Health Concerns Assessment Noted Time A fall risk assessment has been complete d for the patient 03/01/2025 1:13 PM EDT documented as of this encounter Care Teams Assistant Executive Housekeeper Relationship Specialty Start Date End Date Luis Atkins DO [address] [place] [address] PCP - General Family Medicine 09/21/19 Thiago Martin MD Ophthalmology 12/26/16 documented as of this encounter
--- OUTSIDE RECORDS SUMMARY | 2025-10-17 15:13 | XMS_ITS | Clinical Summary ---
Author Organization [facility] Address [address] [place] [phone] Care Team Providers Care Awning Erector Name Role Phone Wilbert SÁNCHEZ DO, [place] Primary Care Provider + Allergies No known active allergies Encounters Date Type Department Care Team Description 10/17/2025 Telephone [facility] [address] [place] [address] Joy Beverly RegSched Rep Recent Labs (within past 2 weeks) (Deanna needed labs that was done in past 2 weeks prior to new consult 10/19/25) 09/27/2025 1:10 PM EST - 09/27/2025 11:59 PM EST Hospital Encounter [facility] PET 100 [facility] [place] [phone] Discharge Disposition: Home or Self Care 09/27/2025 1:06 PM EST - 09/27/2025 11:59 PM EST Hospital Encounter [facility] PET 100 [facility] [place] [phone] Cancer of prostate Discharge Disposition: Home or Self Care 09/27/2025 Travel 09/26/2025 Travel 09/18/2025 Telephone [facility] [address] [place] [address] Deanna Kauffman RN from Last 3 Months Social History Tobacco Use Types Packs/Day Years Used Date Smoking Tobacco: Never Assessed Sex and Gender Information Value Date Recorded Sex Assigned at Not on file Legal Sex Male 4:20 PM EST Gender Identity Not on file Sexual Orientation Not on file Plan of Treatment Upcoming Encounters Date Type Department Care Team (Late st Contact Info) Description 10/18/2025 1:00 PM EST Office Visit [facility] [address] [place] [phone] Josh Gonzalez MD [address] [place] [address] Health Maintenance Due Date Last Done Comments DIABETIC EYE EXAM 1964 DIABETIC FOOT EXAM 1964 TDAP/TD VACCINES (1 - Tdap) 1973 COLOGUARD 1999 COLON CANCER SCREENING 5 YEA R SIGMOIDOSCOPY 1999 CT COLONOGRAPHY 1999 FECAL OCCULT BLOOD TEST 1999 FIT Testing (1 year) 1999 ZOSTER VACCINE (1 of 2) 2004 INFLUENZA VACCINE 06/02/2025 08/21/2023, , 08/14/2021, Additional history exists COVID-19 Vaccine (2 - 2024-2 6 season) 2025 02/01/2021 ANNUAL WELLNESS VISIT 09/18/2025 HEPATITIS C SCREENING 09/18/2025 HEMOGLOBIN A1C 02/20/2026 08/22/2025, 02/01, 02/12/2022, Additional history exists URINE MICROALBUMIN-CREATININ E RATIO (uACR) 03/01/2026 03/01/2025, 02/24/2024, 08/14/2021, Additional history exists COLONOSCOPY 08/19/2033 08/19/2023, 08/19/2023 COLORECTAL CANCER SCREENING 08/19/2033 AAA SCREEN ONCE Completed 08/25/2017 Pneumococcal Vaccine 50+ Completed 023, 07/11/2020, 11/02/2006 Procedures Procedure Name Priority Date/Time Associated Diagnosis Comments NM PET/CT SKULL BASE TO MID THIGH Routine 09/27/2025 2:55 PM EST Cancer of prostate from Last 3 Months Results * NM PET/CT Skull Base to [...] MD 09/27/2025 6:48 PM EST Workstation ID: [id number] Narrative 09/27/2025 6:48 PM EST PSMA NM PET/CT SKULL BASE TO MID THIGH Date of Exam: 09/27/2025 1:10 PM EST Indication: C61. Prostate cancer with diffuse pain. Comparison: None available. Technique: 5.95 mCi of Ml35-ITLF-74 was administered intravenously. PET imaging was obtained [...] Comparison: None available. Technique: 5.95 mCi of Yu24-XXML-18 was administered intravenously. PETimaging was obtained from [...] right femoral neck on image 303 measures [id number] SUV. Physiologic activity is present. Miscellaneous CT [...] MD 09/27/2025 6:48 PM EST Workstation ID: [id number] us Alin Prather MD IMG NM ORDERABLES Final Result from Last 3 Months Insurance [facility] HMO Care Teams Awning Erector Relationship Specialty Start Date End Date Luis Atkins II, DO [address] [place] [id number] PCP - General Family Medicine 09/20/25
--- OUTSIDE RECORDS SUMMARY | 2025-10-17 15:13 | XMS_ITS | Encounter Summary ---
Author Organization [place] [address] Care Team Providers Care Boat Detailer Name Role Phone Johnny Michelle MD Primary Care Provider [phone] Thiago Martin MD Unavailable [phone] Luis Atkins DO Primary Care Provider [phone] Anais Garcia RN Unavailable Unavailable Encounter Details Date Type Department Care Team (Late st Contact Info) Description 07/30/2015 Orders Only SEP Gastro [facility] [address] [facility] [address] [place] [address] Ryne Craven MD [address] [place], [place] [phone] Social History Tobacco Use Types Packs/Day Years [...] AM EDT) 07/30/2015 9:00 AM EDT Impressions [facility] - 07/30/2015 9:26 AM EDT Moderate diverticulosis of the distal descending colon and sigmoid colon. Plan: Screening Colonoscopy in 10 years. This section is an excerpt of the full report. us Ryne Craven MD GI PROCEDURE ORDERABLES Fin al Result Performing Organization Address City/State/[facility] Co de Phone Number [facility] [address] [place] [address] documented in this encounter Visit Diagnoses Not on filedocumented in this encounter Care Teams Boat Detailer Relationship Specialty Start Date End Date Johnny Michelle MD PCP - General 07/23/11 09/20/19 Luis Atkins DO [address] [place] [address] PCP - General Family Medicine 09/21/19 Thiago Martin MD Ophthalmology 12/26/16 Anais Garcia RN Horologist Apprentice Registered Nurse 12/13/20 01/16/21 documented as of this encounter
--- OUTSIDE RECORDS SUMMARY | 2025-10-17 15:13 | XMS_ITS | Encounter Summary ---
Author Organization [facility] Address [address] [place] [phone] Care Team Providers Care Slab Depiler Operator Name Role Phone Wilbert SÁNCHEZ DO, [place] Primary Care Provider + Encounter Details Date Type Department Care Team (Latest Contact Info) Description 09/27/2025 Travel Social History Tobacco Use Types Packs/Day [...] [facility] [address] [place] [address] Josh Gonzalez MD [address] [place] [address] documented as of this encounter Visit Diagnoses Not on filedocumented in this encounter Care Teams Slab Depiler Operator Relationship Specialty Start Date End Date Luis Atkins II, DO [address] [place] [address] PCP - General Family Medicine 09/20/25 documented as of this encounter
--- OUTSIDE RECORDS SUMMARY | 2025-10-17 15:13 | XMS_ITS | Encounter Summary ---
Author Organization [facility] Address [address] [place] [id number] Care Team Providers Care Structural Steel Worker Name Role Phone Provider, No Known Primary Care Provider Unavail able Encounter Details Date Type Department Care Team (Late st Contact Info) Description 09/18/2025 Telephone [facility] [address] [facility] [place] [phone] Deanna Kauffman, RN Social History Tobacco Use Types Packs/Day Years Used Date Smoking Tobacco: Never Assessed Sex and Gender Information Value Date Recorded Sex Assigned at Not on file Legal Sex Male 4:20 PM EST Gender Identity Not on file Sexual Orientation Not on file documented as of this encounter Miscellaneous Notes * Telephone Encounter - Deanna Kauffman RN - 09/18/2025 3:01 PM EST Spoke with pt's notified of appointment with Dr. Gonzalez on 10/18/2025 @ 1:00 pm [facility] [address] [place] [address] of the cancer center. Directions provide and I explained that a new ptpacket was being mailed to them with more information and papers to be filled out. verbalized understanding of date, time and location of appointment. documented in this encounter Plan of Treatment Upcoming Encounters Date Type Department Care Team (Late st Contact Info) Description 10/18/2025 1:00 PM EST Office Visit [facility] [address] [place] [phone] Josh Gonzalez MD [address] [place] [address] documented as of this encounter Visit Diagnoses Not on filedocumented in this encounter Care Teams Structural Steel Worker Relationship Specialty Start Date End Date Provider, [place] [address] PCP - General 09/18/25 09/19/25 documented as of this encounter
--- OUTSIDE RECORDS SUMMARY | 2025-10-17 15:13 | XMS_ITS | Encounter Summary ---
Author Organization [facility] Address [address] [place] [address] Care Team Providers Care Lens Coating Technician Name Role Phone Wilbert SÁNCHEZ DO, Thomas Lee Primary Care Provider + Reason for Visit * Reason Onset Date Comments Recent Labs (within past 2 weeks) 10/17/2025 Deanna needed labs that was done in past 2 weeks prior to new consult 10/19/25 Encounter Details Date Type Department Care Team (Late st Contact Info) Description 10/17/2025 Telephone [facility] [address] [place] [address] Joy Beverly RegSched Rep Recent Labs (within past 2 weeks) (Deanna needed labs that was done in past 2 weeks prior to new consult 10/19/25) Social History Tobacco Use Types Packs/Day Years Used Date Smoking Tobacco: Never Assessed Sex and Gender Information Value Date Recorded Sex Assigned at Not on file Legal Sex Male 4:20 PM EST Gender Identity Not on file Sexual Orientation Not on file documented as of this encounter Miscellaneous Notes * Telephone Encounter - Joy Beverly RegSched Rep - 10/17/2025 9:55 AM EST Deanna requested to get patient lab results that should have been done within past weeks; lookingfor CBC, PSA, CMP prior to Pluvicto consult with Dr. Gonzalez on 10.19.25. Requested labs from Dr. Prather office, they have not done any labs recently. Called patient , LVM requesting a return call so I can request lab results. Will attempt another call later today. documented in this encounter Plan of Treatment Upcoming Encounters Date Type Department Care Team (Late st Contact Info) Description 10/18/2025 1:00 PM EST Office Visit [facility] [address] [place] [phone] Josh Gonzalez MD [address] [place] [address] documented as of this encounter Visit Diagnoses Not on filedocumented in this encounter Care Teams Lens Coating Technician Relationship Specialty Start Date End Date Luis Atkins II, DO [address] [place] [address] PCP - General Family Medicine 09/20/25 documented as of this encounter
--- OUTSIDE RECORDS SUMMARY | 2025-10-17 15:13 | XMS_ITS | Encounter Summary ---
Author Organization [place] [address] Care Team Providers Care Scallop Cutter Machine Name Role Phone Thiago Martin MD Unavailable [phone] Luis Atkins DO Primary Care Provider [phone] Anais Garcia RN Unavailable Unavailable Encounter Details Date Type Department Care Team (Late st Contact Info) Description 12/02/2019 Lab Requisition [facility] [address] [place], [place] [id number] Khoa Vela MD [address] [place] [address] Dysphagia, unspecified Social History Tobacco Use Types [...] PM EST) CASE REPORT Surgical Pathology Case: [id number] Authorizing Provider: Khoa Vela MD Collected: 12/02/2019 1330 Ordering Location: [facility] Received: 12/02/2019 1816 Pathologist: Angella Montiel MD Specimen: Gastric, Biopsy in the stomach and antrum 12/06/2019 9:35 AM EST [facility] Dysphagia; odynophagia. 12/06/2019 9:35 AM EST [facility] FINAL DIAGNOSIS Stomach, biopsy: - Antral/oxyntic mucosa with focal chronic inflammation. 12/06/2019 9:35 AM EST [facility] at 0935 EST GROSS DESCRIPTION Received in formalin labeled with the patient s name and g astric biopsy in stomach and antrum are five fragments of sanchez tissue ranging from 0.2 to 0.5 cm in greatest dimension. Entirely submitted in one cassette./ TE 12/06/2019 9:35 AM EST [facility] MICROSCOPIC DESCRIPTION Microscopic examination is performed and the findings corroborate the diagnosis. 12/06/2019 9:35 AM EST [facility] FLOW CYTOMETRY SUMMARY 12/06/2019 9:35 AM EST [facility] EMBEDDED IMAGES 12/06/2019 9:35 AM EST [facility] Tissue STOMACH STRUCTURE / Unknown 12/02/2019 1:30 PM EST 12/02/2019 6:16 PM EST Khoa Vela MD PATHOLOGY ORDERABLES Final Result [facility] [address] [place] [address] documented in this encounter Visit Diagnoses Diagnosis Dysphagia, unspecified documented in this encounter Care Teams Scallop Cutter Machine Relationship Specialty Start Date End Date Luis Atkins DO [address] [place] [address] PCP - General Family Medicine 09/21/19 Thiago Martin MD Ophthalmology 12/26/16 Anais Garcia RN Green Plumber Registered Nurse 12/13/20 01/16/21 documented as of this encounter
--- OUTSIDE RECORDS SUMMARY | 2025-10-17 15:14 | XMS_ITS | Encounter Summary ---
Author Organization [place] [address] Care Team Providers Care Storekeeper Steward Name Role Phone Thiago Martin MD Unavailable [phone] Luis Atkins DO Primary Care Provider [phone] Reason for Visit * Reason Onset Date Comments CM- Telephonic Outreach 08/28/2025 CM-Medication Assistance 08/28/2025 CM-SDOH 08/28/2025 Encounter Details Date Type Department Care Team (Late st Contact Info) Description 08/28/[facility] [address] [place] [address] Tamera Schroeder, RN CM- Telephonic [...] place to sleep or slept in a nursing home (including now)? No 09/20/2021 Overall Financial Resource Strain (CARDIA) Answe r Date Recorded How hard is it for you to pa y for the very basics like food, housing, medical care, and heating? Not very hard 08/21/2025 [facility] - Occupational Stress Questionnaire Answer Date Recorded [...] AM EDT Ozempic shipment received today from [employer] patient assistance program. Called and notified patients Yuliya who states they will parts picker from office. documented in this encounter [...] documented as of this encounter Care Teams Storekeeper Steward Relationship Specialty Start Date End Date Luis Atkins DO [address] [place] [address] PCP - General Family Medicine 09/21/19 Thiago Martin MD Ophthalmology 12/26/16 documented as of this encounter
--- OUTSIDE RECORDS SUMMARY | 2025-10-17 15:15 | XMS_ITS | Continuity of Care Document ---
Author Organization [facility] Address [address] [place] [address] Phone Care Team Providers Care Human Service Specialist Name Role Phone Thiago Martin MD Unavailable [phone] Neema Atkins DO Primary Care Provider Encounters Date Type Department Care Team Description 09/29/2025 Refill [facility] [address] [place] [address] Malgorzata Woodruff APRN Medication Refill 09/17/2025 Refill [facility] [address], [place] [address] Neema Atkins, DO Medication Refill 08/28/2025 Patient Outreach [facility] [address], [place] [address] Tamera Schroeder, RN CM- Telephonic Outreach; CM-Medication Assistance; CM-SDOH 08/22/2025 11:00 AM EDT Office Visit [facility] [address], [place] [address] Neema Atkins, DO Type 2 diabetes mellitus with diabetic nephropathy, with long-term current use of insulin (HCC) (Primary Dx); 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); Hypertension associated with diabetes (HCC) 08/15/2025 Patient Outreach [facility] [address] [address] [address] Tamera Schroeder, RN CM- Telephonic Outreach; CM-Medication Assistance; CM-SDOH 08/15/2025 1:00 PM EDT Clinical Support [facility] [address] [phone] Tamera Schroeder, RN Encounter for support and coordination of transition of care (Primary Dx) 08/01/2025 Telephone [facility] [address] [phone] Neema Atkins, DO Medication Management 07/18/2025 Refill [facility] [address] [address] [phone] Neema Atkins, DO Medication Refill 06/27/2025 Patient Outreach [facility] [address] [phone] Tamera Schroeder, RN CM- Telephonic Outreach; CM-Medication Assistance; -SDOH 06/22/2025 Refill [facility] [address] [place] [address] Malgorzata Woodruff APRN Medication Refill 06/09/2025 Refill [facility] [address] [phone] Neema Atkins, DO Medication Refill; Central Patient Navigator Outreach (med refill 100/) 04/16/2025 Refill [facility] [address] [phone] Neema Atkins, DO Medication Refill 03/29/2025 Patient Outreach [facility] [address] [place] [address] Melanie Lamb RN CM- Telephonic Outreach; CM-Medication Assistance 03/15/2025 Refill [facility] [address] [place] [address] Malgorzata Woodruff APRN Medication Refill 03/13/2025 Telephone [facility] [address] [address] [phone] Neema Atkins, DO Refill (lancets) 03/13/2025 Refill [facility] [address] [phone] Neema Atkins, DO Medication Refill 03/02/2025 [...] 2 diabetes mellitus (HCC) 02/28/2025 Patient Outreach [facility] [address] [facility] [address] [place] [address] Neema Atkins DO Central Patient Navigator Outreach (awv questionnaire) 02/11/2025 Refill [facility] [address] [phone] Neema Atkins, Medication Refill 01/04/2025 Orders Only [facility] [address] [phone] Neema Atkins, Acute bacterial sinusitis (Primary Dx) 01/03/2025 5:21 PM EST - 01/03/2025 11:59 PM EST Hospital Encounter [facility] [place] [address] BPV (benign positional vertigo), unspecified laterality; Prostate cancer (HCC) Discharge Disposition: Home or Self Care 01/02/2025 2:15 PM EST Office Visit [facility] [address], [place] [address] Neema Atkins, DO Blepharitis, unspecified laterality, unspecified type (Primary Dx); BPV (benign positional vertigo), unspecified laterality; Prostate cancer (HCC) 12/27/2024 Patient Outreach [facility]agment [address] [place] [address] Dr. Herron [address] Appoint[place] [address] Melanie Lamb, [place] CM- Telephonic Outreach; CM-Medication Assistance; Patient Returning Call 12/23/2024 Patient Outreach [facility] [address] [place] [address] Dr. Herron 200 App[place] [address] Clarita Thomason, [place] CM-Medication Assistance 12/09/2024 Telephone [facility] Nurse Now [address] [place] [address] Gail Perez, lens hardener Refill 12/09/2024 Refill [facility] [address], [place] [phone] Neema Atkins, DO Medication Refill 12/05/2024 1:00 PM EST Office Visit [facility] [address], [address] [place] [address] Comfort Schneider APRN Gastroesophageal reflux disease with esophagitis without hemorrhage (Primary Dx); Encounter for medication refill 11/29/2024 Refill [facility] [address] [place] [address] Neema Atkins, DO Medication Refill 11/25/2024 Refill [facility] [address] [place] [address] Neema Atkins, DO Medication Refill 11/01/2024 Refill [facility] [address], [address] [place] [address] Comfort Schneider APRN Medication Refill; Central Patient Navigator Outreach (med refills 100 Gastro) 09/28/2024 Refill [facility] [address] [phone] Neema Atkins, DO Medication Refill 08/30/2024 Patient Outreach [facility] [address] [phone] Tamera Schroeder, RN CM- Telephonic Outreach; CM-Medication Assistance 08/22/2024 1:00 PM EDT Clinical Support [facility] [address] [phone] Tamera Schroeder, RN Encounter for support and coordination of transition of care (Primary ) 08/19/2024 Telephone [facility] [address] [phone] Neema Atkins, DO Medication Refill; Central Patient Navigator Outreach (Med Refill 100/) 08/15/2024 Telephone [facility] [address] [phone] Neema Atkins, DO Other ([facility] call back ); Medication Management (Wayne Nordisk called to get clarification on medication request they rec'd) 07/10/2024 Refill [facility] [address] [address] Nemea Atkins, DO Medication Refill 06/08/2024 Telephone [facility] [address] [phone] Neema Atkins, DO Medication Management (Lancets ICD 10 code ) 06/07/2024 Refill [facility] [address] [phone] Neema Atkins, DO Medication Refill 05/09/2024 Telephone [facility] [address] [phone] Neema Atkins, [...] Pharmacy: Dispense once. Patient has voucher from [employer]. //) 02/28/2024 Refill [facility] [address] [employer] [place] [phone] Neema Atkins, DO Medication Refill 02/25/2024 Telephone [facility] [address] [employer] [place] [address] Neema Atkins DO Results (Microalbumin, TSH, CMP, CBC, Lipid) 02/24/2024 11:00 AM EDT Office Visit [facility] [address] [employer] [place] [phone] Neema Atkins DO Medicare annual wellness [...] with diabetes (HCC); 10 year risk of MN or stroke 7.5% or greater; Hypertension associated with diabetes (HCC); Type 2 diabetes mellitus without complication, unspecified whether correction insulin use (HCC) 02/23/2024 Patient Outreach [facility] [address] [place] [address] Neema Atkins DO Central Patient Navigator Outreach (AWV Questionnaire /) 02/17/2024 Refill [facility] [address] [employer] [place] [address] Sharp, Neema L, DO Medication Refill 02/16/2024 Patient Outreach [facility] [address], [place] [address] Tamera Schroeder RN CM-Medication Assistance 02/15/2024 Refill [facility] [address], [place] [address] Neema Atkins, DO Medication Refill 12/03/2023 11:00 AM EST Office Visit [facility] [address]TR[address], 3[place] [address] oCmfort Schneider APRN Gastroesophageal reflux disease with esophagitis without hemorrhage (Primary Dx); Encounter for medication refill 11/18/2023 Telephone [facility] [address]TR[address], 3RD [place] [address] Khoa Vela MD Other 11/18/2023 Orders Only [facility] [address]TR[address], [address]RD [place] [address] Zonia Restrepo LPN 11/11/2023 Refill [facility] [address]TR[address], 3[address] [place] [address] Comfort Schneider APRN Medication Refill 11/10/2023 Patient [...] Dx) 10/08/2023 Telephone [facility] [address] [phone] Neema Atkins, DO Other (Reschedule Care [...] PM EDT Hospital Encounter [facility] [address] [place], [place] [id number] Khoa Vela MD Judge, Lisa M, MD Sommer, Kristin, [facility] Screening for colon cancer Discharge Disposition: Home or Self Care 08/19/2023 10:17 AM EDT Anesthesia Event [facility] [address] [place] [address] Christina Sneed MD Collins, Angela, APRN 08/18/2023 Travel 08/17/2023 Refill [facility] [address] [place] [address] Neema Atkins, DO Medication Refill 08/16/2023 Refill [facility] [address]TR[address], 3[address] [place] [address] Comfort Schneider, YANICK Medication Refill 08/10/[address] [facility] [address] [place] [address] Khoa Vela MD Other (Ozempic) 07/26/2023 Refill [facility] [address] [place] [address] Neema Atkins, DO Medication Refill; Central Patient Navigator Outreach (Med Refill ) 07/07/2023 Refill [facility] [address] [place] [address] [phone] Neema Atkins, DO Medication Refill 05/27/2023 Patient Outreach [facility] [address] [address] [phone] Tamera Schroeder RN CM- Telephonic Outreach 05/11/2023 Telephone [facility] [address]TR[address], 3[address] [place] [address] Khoa Vela MD Colonoscopy; Medication Management 04/14/2023 Telephone [facility] [address], [place] [address] Neema Atkins, DO Other (freestyle lancets 28 gauge) 04/13/2023 Refill [facility] [address] [place] [address] [address] Neema Atkins, DO Medication Refill 04/12/2023 Refill [facility] [address], [place] [address] Neema Atkins, DO Medication Refill 02/19/2023 11:15 AM EDT Office Visit [facility] [address] [address] [phone] Neema Atkins, [...] subsequent 02/16/2023 Telephone [facility] [address] [phone] Neema Atkins, DO Other (Eye exam ) 02/16/2023 Patient Outreach [facility] [address] [address] [phone] Tamera Schroeder, RN CM-Medication Assistance 02/13/2023 Telephone [facility] [address] [phone] Neema Atkins, DO Medication Management 02/10/2023 Telephone [facility] [address] [phone] Neema Atkins, [...] DAILY IN THE EVENING /) 01/23/2023 Telephone [facility] [address] [phone] Neema Atkins, DO Medication Management (Ozempic) 01/22/2023 Patient Outreach [facility] [address] [phone] Tamera Schroeder RN CM-Medication Assistance 01/17/2023 Refill [facility] [address] [phone] Neema Atkins, DO Medication Refill 12/31/2022 11:00 AM EST Office Visit [facility] [address] [phone] Tamera Schroeder, RN Encounter for support and coordination of transition of care (Primary Dx); Type 2 diabetes mellitus with diabetic nephropathy, with long-term current use of insulin (HCC) 12/30/2022 Patient Outreach [facility] [address] [facility] [address] [place] [address] Neema Atkins, DO Central Patient Navigator Outreach (AWV Questionnaire ) 12/29/2022 Patient Outreach [facility] [address] [place] [address] Tamera Schroeder, [place] CM- Telephonic Outreach; CM-Medication Assistance 12/24/2022 Patient Outreach [facility] [address] [facility] [place] [address] Neema Atkins, Central Patient Navigator Outreach (AWV A1C) 11/18/2022 Refill [facility] [address] [place] [address] Neema Atkins, DO Medication Refill 11/16/2022 Refill [facility] [address] [place] [address] Neema Atkins, DO Medication Refill 11/15/2022 Refill [facility] [address] [place] [address] Neema Atkins, DO Medication Refill 11/04/2022 Refill [facility] [address] [place] [address] Neema Atkins, DO Medication Refill 10/23/2022 Orders Only [facility] [address] [place] [address] Provider, Unknown 10/23/2022 Orders Only [facility] [address] [place] [address] Provider, Unknown 10/15/2022 Telephone [facility] [address] [place] [address] Alanna Mobley MA Other 10/13/2022 Orders Only [facility] [address] [place] [address] Neema Atkins, DO Cough, unspecified type (Primary Dx) 10/08/2022 Orders Only [facility] [address] [place] [address] Neema Atkins, DO 10/08/2022 Telephone [facility] [address], [place] [address] Neema Atkins, DO Other 09/30/2022 12:30 PM EST Office Visit [facility] [address]TR[address], 3[address] [place] [address] Comfort Schneider APRN Encounter for medication refill (Primary Dx); Gastroesophageal reflux disease with esophagitis without hemorrhage 08/23/2022 Refill [facility] [address], [place] [address] Neema Atkins, DO Medication Refill 08/22/2022 Orders Only [facility] [address], 3[address] [place] [address] Zonia Restrepo LPN Gastroesophageal reflux disease with esophagitis without hemorrhage 08/21/2022 Telephone [facility] [address] [facility] [address] [facility] [place] [address] Khoa Vela MD Medication Refill; Medication Management 08/16/2022 Refill [facility] [address] [facility] [address] [place] [address] Khoa Vela MD Medication Refill 08/16/2022 Refill [facility] [address], [place] [address] Neema Atkins, DO Medication Refill 07/28/2022 Patient Outreach [facility] [address], [place] [address] Tamera Schroeder, RN CM-Medication Assistance (Farxiga) 07/16/2022 Telephone [facility] [address], [place] [address] Neema Atkins, DO Medication Management (fluticasone furoate (ARNUITY ELLIPTA)) 07/09/2022 Refill [facility] [address], [place] [address] Neema Atkins, DO Medication Refill 07/08/2022 Telephone [facility] [address] [address] Neema Atkins, DO Medication Refill (PULMICORT FLEXHALER 180 mcg/actuation Inhl Aerosol Powdr Breath Activated 1 Each 0 11/08/2021 /Sig: INHALE 1 PUFF BY MOUTH TWICE DAILY //) 06/25/2022 Telephone [facility] [address] [address] Neema Atkins, DO Other (Needing results faxed gael.) 06/20/2022 1:54 PM EDT - 06/20/2022 11:59 PM EDT Hospital Encounter [facility] [address] [id number] 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) Discharge Disposition: Home or Self Care 06/20/2022 1:50 PM EDT - 06/20/2022 1:53 PM EDT Hospital Encounter [facility] [address], [place] [address] 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) (Primary Dx) Discharge Disposition: Home or Self Care 05/15/2022 Refill [facility] [address] [address] Neema Atkins, DO Medication Refill 05/13/2022 Patient Outreach [facility] [address] [address] Tamera Schroeder, RN CARLOS ENRIQUE-Medication Assistance 04/24/2022 Patient Outreach [facility] [address] [phone] Tamera Schroeder, RN CM-Medication Assistance; CM- Telephonic Outreach; CM- Longitudinal Continued 04/11/2022 Refill [facility] [address] [address] Neema Atkins, DO Medication Refill 03/20/2022 Patient Outreach [facility] [address] [phone] Tamera Schroeder RN CM-Medication Assistance 03/18/2022 Telephone [facility] [address] [address] Neema Atkins DO Medication Management (Blood Sugar Diagnostic (ONETOUCH ULTRA BLUE TEST STRIP) [facility] Strip 300 Strip 2 12/11/2020 /Sig: Use [...] [facility] [address] [address] Neema Atkins DO Medication Refill (pravastatin (PRAVACHOL) 40 mg [...] [facility] [address] [address] Neema Atkins DO Medication Refill 03/07/2022 Telephone [facility] [address] [address] Neema Atkins DO Results (Bun, creatine blood work ) 02/24/2022 Telephone [facility] [address] [address] Neema Atkins DO Medication Refill (Metformin ) 02/17/2022 Refill [facility] [address] [address] Neema Atkins, Medication Refill (multiple) 02/14/2022 Telephone [facility] [address] [address] Neema Atkins, DO Other (call back ) 02/13/2022 Orders Only [facility] [address] [address] Neema Atkins, Elevated PSA (Primary Dx) 02/13/2022 Telephone [facility] [address] [address] Alanna Mobley MA Results 02/12/2022 Travel 02/12/2022 11:15 AM EDT - 02/12/2022 11:59 PM EDT Hospital Encounter [facility] [address] [facility]01 Hip pain Discharge Disposition: Home or Self Care 02/12/2022 10:30 AM EDT Office Visit [place] [address] Neema Atkins, Medicare annual wellness visit, [...] neoplasm of prostate 02/11/[address] [facility] [address] [place] [address] Neema Atkins DO Central Patient Navigator Outreach (awv questionnaire) 02/07/2022 Patient Outreach [facility] [address] [phone] Tamera Schroeder, RN CM-Medication Assistance (Wayne shipment) 02/03/[address] [facility] [address] [place], [place] [address] Neema Atkins, DO Central Patient Navigator Outreach (Medication Refill Appointment- maria eugenia) 02/01/2022 Refill [facility] [address], [place] [address] Neema Atkins, DO Medication Refill 01/13/2022 Patient Outreach [facility] [address], [place] [address] Tamera Schroeder, RN CM-Medication Assistance ([facility]) 01/13/2022 Patient Outreach [facility] [address], [place] [address] Tamera Schroeder, RN CM-Medication Assistance 01/11/2022 Refill [facility] [address], [place] [address] Neema Atkins, DO Medication Refill 11/21/2021 Telephone [facility] [address], [place] [address] Neema Atkins, DO Symptom Call (sinus) 11/14/2021 Patient Outreach [facility] [address], [place] [address] Tamera Schroeder, RN CM-Medication Assistance 11/08/2021 Refill [facility] [address], [place] [address] Neema Atkins, DO Medication Refill 11/04/2021 Refill [facility] [address], [place] [address] Neema Atkins, DO Medication Refill 10/29/2021 Patient Outreach [facility] [address], [place] [address] Niyah Odom, filling hauler weaving; CM- Telephonic Outreach; CM-Medication Assistance 10/08/2021 Refill [facility] [address] [phone] Neema Atkins, DO Medication Refill 09/20/2021 11:00 AM EST Office Visit [facility] [address] [address] Niyah Odom, [place] Enrolled in chronic care management (Primary Dx); Type 2 diabetes mellitus without complication, unspecified whether medical terminologist insulin use (HCC) 09/12/2021 Telephone [facility] [address] [address] Neema Atkins, DO Other (requesting call from Beryl Garcia) 08/20/2021 Telephone [facility] [address] [address] Neema Atkins, Referral (different senior technical support engineer) 08/19/2021 Refill [facility] [address] [address] Neema Atkins, Medication Refill (amLODIPine (NORVASC) 5 mg Oral Avrffu89 Tab37/11/2020) 08/18/2021 Refill [facility] [address] [address] Neema Atkins, Medication Refill 08/14/2021 10:15 AM EDT Office Visit [facility] [address] [address] Neema Atkins, Type 2 diabetes mellitus without complication, unspecified whether correction insulin use (HCC) (Primary Dx); Needs flu shot; Hyperthyroidism; Hyperlipidemia, unspecified hyperlipidemia type; Screening, anemia, deficiency, iron; Ear lesion; Hypertension associated with diabetes (HCC); Type 2 diabetes mellitus with diabetic nephropathy, with long-term current use of insulin (HCC); Hyperlipidemia associated with type 2 diabetes mellitus (HCC) 08/13/[address] [facility] [address] [place] [address] Neema Atkins DO Central Patient Navigator Outreach (awv questionnaire ) 08/05/2021 Orders Only [facility] [address], [place] [address] Alanna Mobley MA Hyperlipidemia, unspecified hyperlipidemia type (Primary Dx); Screening, anemia, deficiency, iron; Hyperthyroidism; Type 2 diabetes mellitus without complication, unspecified whether correction insulin use (HCC) 08/05/2021 Telephone [facility] [address], [place] [address] Neema Atkins, DO Lab Orders (awn) 08/04/2021 Refill [facility] [address], [place] [address] Neema Atkins, DO Medication Refill 08/01/2021 Orders Only [facility] [address] [place] [address] Provider, Unknown 07/20/2021 Refill [facility] [address], [place] [address] Neema Atkins, DO Medication Refill 07/10/2021 Refill [facility] [address], [place] [address] Neema Atkins, DO Medication Refill 07/04/2021 Refill [facility] [address], [place] [address] Neema Atkins, DO Medication Refill 06/21/2021 Patient Outreach [facility] [address] [place] [address] Amanda Troy Appointment Needed (Diabetic follow-up) 06/19/2021 Travel 06/19/2021 10:30 AM EDT Office Visit SEP [facility] [address] [facility] [address] [facility] [place] [address] Khoa Vela MD Gastroesophageal reflux disease with esophagitis without hemorrhage (Primary Dx); Screening for colon cancer; Esophageal dysphagia 06/10/2021 Refill [facility] [address], [place] [address] Neema Atkins, DO Medication Refill 05/23/2021 Patient Outreach [facility] [address], [place] [address] Anais Garcia, filling hauler weaving; CM- Telephonic Outreach 05/02/2021 Orders Only [facility] [address], [place] [address] [facility] Buchanan[facility] Type 2 diabetes mellitus with diabetic nephropathy, with long-term current use of insulin (HCC) (Primary Dx) 05/02/2021 Telephone [facility] [address], [place] [address] Neema Atkins, DO Medication Refill (metFORMIN XR (GLUCOPHAGE-XR) 500 mg Oral Tablet Sustained Release 24 hr) 05/02/2021 Refill [facility] [address], [place] [address] Neema Atkins, DO Medication Refill 04/16/[address] [facility] [address] [facility] [address] [facility] [place] [address] Khoa Vela MD Other 04/16/2021 Refill [facility]astro [facility] [address] [facility] [address] [facility] [place] [address] Khoa Vela MD Medication Refill 04/13/2021 Refill [facility] [address] [facility] [address] [facility] Khoa Vela MD Medication Refill 04/09/2021 Refill [facility] [address], [place] [address] Neema Atkins, DO Medication Refill 04/02/2021 Refill [facility] [address], [place] [address] Neema Atkins, DO Medication Refill 03/31/2021 Refill [facility] [address], [place] [address] Neema Atkins, DO Medication Refill 03/18/2021 Patient Outreach [facility] [address], [place] [address] Niyah Odom, filling hauler weaving; CM- Telephonic Outreach 03/13/2021 Telephone [facility] [address], [place] [phone] Neema Atkins, DO Prior Authorization 03/11/[address] [facility] [address] [facility] [address] [place] [address] Khoa Vela MD Medication Refill 03/11/2021 Refill [facility] [address], [place] [address] Neema Atkins, DO Medication Refill 03/11/2021 Patient Outreach [facility] [address], [place] [address] Niyah Odom, filling hauler weaving 03/11/2021 Patient Outreach [facility] [address], [place] [address] Niyah Odom, filling hauler weaving; CM- Telephonic Outreach 02/14/2021 Refill [facility] [address], [place] [address] Neema Atkins, DO Medication Refill 01/22/2021 Patient Outreach [facility] [address], [place] [address] Anais Garcia filling hauler weaving; CM- Telephonic Outreach (contact made) 01/17/2021 10:00 AM EDT Telemedicine [facility] [address] [place] [address] [address] Anais Garcia, RN Type 2 diabetes mellitus with diabetic nephropathy, with long-term current use of insulin (HCC) (Primary Dx); Enrolled in chronic care management 01/16/2021 Orders Only [facility] [address] [place] [address] [address] Alanna Mobley MA BPH without urinary obstruction 01/16/2021 Refill [facility] [address] [place] [address] Neema Atkins, DO Medication Refill 12/20/2020 Refill [facility] [address], [place] [address] Neema Atkins, DO Medication Refill 12/13/2020 Telephone [facility] [address] [place] [address] [address] Alanna Mobley MA Prior Authorization (One Touch Ultra Strips ) 12/13/2020 11:00 AM EST Office Visit [facility] [address] [place] [address] [phone] Anais Garcia, RN Type 2 diabetes mellitus with diabetic nephropathy, with long-term current use of insulin (HCC) (Primary Dx) 12/12/2020 Telephone [facility] [address] [place] [address] [phone] Neema Atkins, Other; Care Transition; CM- Telephonic Outreach (Contact made); CM-Resource Coordination (Contacted pt's pharmacy) 12/12/2020 Patient Outreach [facility] [address] [place] [address] [phone] Anais Garcia filling hauler weaving; CM- Telephonic Outreach (contact made) 12/12/2020 Orders Only [facility] [address] [place] [address] [phone] Ryann Correa MA 12/11/2020 Telephone [facility] [address] [place] [address] [phone] Neema Atkins, Medication Management (medication cost) 12/07/2020 Refill [facility] [address] [place] [address] [phone] Neema Atkins, DO Medication Refill; Medication Refill 12/05/2020 Refill [facility] [address] [place] [address] [phone] Neema Atkins, DO Medication Refill 12/05/2020 Telephone [place] [phone] Neema Atkins, DO Medication Change (need to change to lantus ) 11/21/2020 Telephone [facility] [address] [place] [address] [phone] Neema Atkins, DO Prior Authorization (all meds) 11/06/2020 Refill [place] [phone] Neema Atkins, DO Medication Refill; Medication Management (pt insurance change. pt on Victoria Vera they want pt on Lantus) 10/15/2020 9:15 AM EST Office Visit [place] [phone] Neema Atkins, DO 10 year risk of MN or stroke 7.5% or greater (Primary Dx); BPH without urinary obstruction; Hypertension associated with diabetes (HCC); Hyperlipidemia associated with type 2 diabetes mellitus ([facility]); Type 2 diabetes mellitus with diabetic nephropathy, with long-term current use of insulin ([facility]); Chronic left-sided low back pain with left-sided sciatica 10/10/2020 Refill [facility] [address] [place] [address] [phone] Neema Atkins, DO Medication Refill 10/10/2020 Orders Only [place] [phone] Neema Atkins, DO High risk medications (not anticoagulants) long-term use; Malaise and fatigue; Hyperlipidemia, unspecified hyperlipidemia type; Hyperglycemia; Vitamin D deficiency 10/10/2020 Travel 10/10/2020 9:40 AM EST Clinical Support [address], [place] [address] Melanie Ortiz Hyperlipidemia, unspecified hyperlipidemia type; High risk medications (not anticoagulants) long-term use; Hyperglycemia; Malaise and fatigue; Vitamin D deficiency 10/08/2020 Travel 10/04/2020 Refill [facility] [address], [place] [phone] Neema Atkins, DO Medication Refill 10/03/2020 Refill [facility] [address], [place] [phone] Neema Atkins, DO Medication Refill 09/06/2020 Telephone [facility] [address], [place] [phone] Neema Atkins, DO Medication Management (leg cramps ) 08/17/2020 Refill [facility] [address], [place] [phone] Neema Atkins, DO Medication Refill 08/11/2020 Refill [facility] [address], [place] [address] Johnny Michelle MD Medication Refill 07/27/2020 Patient Outreach [facility] [address] [place] [address] [phone] Dionne Benton PharmD Medication Management (Adherence Outreach) 07/23/2020 Abstract [facility] [address], [place] [phone] Neema Atkins, DO 07/12/2020 Refill [facility] [address], [place] [address] Johnny Michelle MD Medication Refill 07/11/2020 Orders Only [facility] [address] [place] [address] Juan Jensen 07/11/2020 Travel 07/11/2020 9:00 AM EDT Office Visit [facility] [address] [place] [address] [phone] Neema Atkins, DO Type 2 diabetes mellitus with diabetic nephropathy, with long-term current use of insulin (HCC) (Primary Dx); Hypertension associated with diabetes (HCC); Hyperlipidemia associated with type 2 diabetes mellitus (HCC); Pain in both lower extremities 07/11/2020 10:20 AM EDT Office Visit [facility] [address] [place] [address] Juan Jensen Neoplasm of unspecified behavior of bone, soft tissue, and skin (Primary Dx); Other viral warts; Disturbance of skin sensation 07/04/2020 9:30 AM EDT Clinical Support [facility] [address], [place] [phone] Melanie Ortiz Type 2 diabetes mellitus with diabetic nephropathy, with long-term current use of insulin ([facility]); Immunity status testing 07/03/2020 Refill [facility] [address], [place] [phone] Neema Atkins, DO Medication Refill 07/02/2020 Refill [facility] [address], [place] [phone] Neema Atkins, DO Medication Refill 06/20/2020 Refill [facility] [address], [place] [address] Neema Atkins, DO Medication Refill 06/14/2020 Telephone [facility] [address], [place] [address] Neema Atkins, DO Advice Only (wait for derm appt?) 06/08/[address] [facility] [address] [facility] [address] [place] [address] Khoa Vela MD Medication Question 05/29/2020 Telephone [facility] [address], [place] [phone] Neema Atkins, DO Orders (lab ) 05/29/2020 Travel 04/19/2020 Travel 04/13/2020 Orders Only [facility] [address] [place] [address] Neema Atkins, DO Rash (Primary Dx) 04/12/2020 Telephone [facility] [address] [place] [address] [phone] Neema Atkins, DO Medication Management (KENALOG) 04/09/2020 11:45 AM EDT Office Visit [facility] [address] [place] [phone] Neema Atkins, Skin lesion (Primary Dx); Pain, unspecified ; Localized swelling, mass and lump, trunk ; Benign lipomatous neoplasm of skin and subcutaneous tissue of left arm ; Pain in left arm 04/06/2020 Travel 02/15/2020 Refill [facility] [address] [facility] [address] [facility] [address] Khoa Vela MD Medication Refill 02/14/2020 Telephone [address] [address] [place] [phone] Neema Atkins, DO Medication Refill (BASAGLAR KWIKPEN U-100 INSULIN 100 unit/mL (3 mL) SubQ Insulin Pen 45 mL 0 02/10/2020 ) 02/10/2020 Refill [facility] [address] [place] [phone] Neema tAkins, DO Medication Refill 02/10/2020 Refill [facility] [address] [place] [address] [phone] Neema Atkins, DO Medication Refill 01/18/2020 Travel 01/18/2020 9:20 AM EDT Office Visit [facility] [address] [place] [phone] Neema Atkins, DO Type 2 diabetes mellitus with diabetic nephropathy, with long-term current use of insulin (HCC) (Primary Dx); Tinea pedis of both feet 01/11/2020 Travel 01/11/2020 9:40 AM EDT Clinical Support [facility] [address] [place] [address] [phone] Angel Melanie Maria Del Carmen Iron deficiency anemia, unspecified iron deficiency anemia type; Type 2 diabetes mellitus with diabetic nephropathy, with long-term current use of insulin ([facility]) 01/10/[address] [facility] [address] [facility] [address] [facility] [place] [address] Khoa Vela MD Medication Question; Follow-up 01/02/2020 Telephone [facility] [address], [place] [phone] Neema Atkins, DO Orders (labs) 01/02/2020 Travel 12/28/2019 Refill [facility] [address] [place] [phone] Neema Atkins, DO Medication Refill 12/06/2019 Refill [facility] [address] [facility] [place] [phone] Neema Atkins, DO Medication Refill 12/02/2019 Lab Requisition [facility] [address] [place], [place] [id number] Khoa Vela MD Dysphagia, unspecified 12/02/2019 Orders Only [facility] [address] [facility] [address] [place] [address] Khoa Vela MD Gastroesophageal reflux disease with esophagitis (Primary Dx) 12/02/[address] Orders [address] [facility] [address] [facility] [address] [facility] [place] [address] Khoa Vela MD 11/29/2019 1:00 PM EST Office Visit SEP [facility] [address] [facility] [address] [facility] [place] [address] Comfort Schneider APRN Esophageal dysphagia (Primary Dx); Epigastric abdominal pain 11/28/2019 Telephone [facility] [address] [facility] [place] [phone] Neema Atkins, DO Medication Management 11/25/[address] [facility] [address] [facility] [address] [place], [place] [id number] Ryne Craven MD Dysphagia; EGD 09/21/2019 11:00 AM EST Office Visit [facility] [address], [place] [phone] Neema Atkins, Esophageal dysfunction (Primary Dx); Type 2 diabetes mellitus with diabetic nephropathy, with long-term current use of insulin (HCC) 09/15/2019 9:40 AM EST Clinical Support [facility] [address] [place] [address] Melanie Ortiz Chronic fatigue; Hypertension associated with diabetes (HCC) 2019 Orders Only [facility] [address] [place] [address] Neema Atkins, Hypertension associated with diabetes (HCC) (Primary Dx); Chronic fatigue 2019 Telephone [facility] [address] [place] [address] Johnny Michelle MD Medication Refill 09/12/2019 Refill [facility] [address] [place] [address] Johnny Michelle MD Medication Refill 08/24/2019 Refill [facility] [address] [place] [address] Johnny Michelle MD Medication Refill 07/05/2019 Refill [facility] [address] [place] [address] Johnny Michelle MD Medication Refill 06/23/2019 Refill [facility] [address] [place] [address] Johnny Michelle MD Medication Refill 06/01/2019 Telephone [facility] [address] [place] [address] Johnny Michelle MD Medication Refill (ointment) 05/18/2019 Abstract [facility] [address], [place] [address] Johnny Michelle MD 04/01/2019 Refill [facility] [address], [place] [address] Johnny Michelle MD Medication Refill 03/24/2019 Telephone [facility] [address], [place] [address] Johnny Michelle MD Visit Follow Up; Diabetes 03/17/2019 Telephone [facility] [address] [place] [address] [phone] Johnny Michelle MD Other; Visit Follow Up 03/17/2019 9:40 AM EDT Office Visit [facility] [address] [address] [place] [address] [phone] Johnny Michelle MD Routine general medical examination at a health care facility (Primary Dx); Type 2 diabetes mellitus with diabetic nephropathy, with long-term current use of insulin (HCC); Hypertension associated with diabetes (HCC); Hyperlipidemia associated with type 2 diabetes mellitus (HCC) 03/16/2019 Telephone [facility] [address] [place] [address] [phone] [...] Questionnaire) 03/08/2019 Telephone [facility] [address], [place] [address] Johnny Michelle MD Lab Orders 12/22/2018 Orders Only [facility] [address] [place] [address] Provider, Unknown 11/24/2018 Refill [facility] [address], [place] [address] Johnny Michelle MD Medication Refill 10/05/2018 [...] [address], [place] [address] Neela Aguilar, CPT, ZYGLO TECHNICIAN Hypertension associated with diabetes (HCC); Type 2 diabetes mellitus with diabetic nephropathy, with long-term current use of insulin (HCC); Hyperlipidemia associated with type 2 diabetes mellitus (HCC) 07/19/2018 Telephone [facility] [address], [place] [address] Johnny Michelle MD Orders 07/19/2018 Refill [facility] [address] [place] [address] Estefania Guzman APRN Medication Refill 07/19/2018 [...] [address], [place] [address] Estefania Guzman, MINCEMEAT MAKER Medication Refill 03/05/2018 Refill [facility] [address], [place] [address] Johnny Michelle MD Medication Refill 02/04/2018 Refill [facility] [address], [place] [address] Estefania Guzman, MINCEMEAT MAKER Medication Refill 02/04/2018 Refill [facility] [address], [place] [address] Johnny Michelle MD Medication Refill 12/23/2017 Abstract [facility] [address], [place] [address] Franchesca Barrientos, BERNARDO 12/19/2017 Orders Only [facility] [address] [place] [address] Provider, Unknown 12/18/2017 Orders Only [facility] [address], [place] [address] Franchesca Barrientos, BERN[place]O Type 2 diabetes mellitus with diabetic nephropathy, with long-term current use of insulin (HCC) 12/18/2017 Telephone [facility] [address], [place] [address] Johnny Michelle MD Other 12/17/2017 Refill [facility] [address] [place] [address] [address] Estefania Guzman APRN Medication Refill 12/17/2017 Telephone [facility] [address] [place] [address] [address] Johnny Michelle MD Medication Change 12/08/2017 9:00 AM EST Office Visit [facility] [address] [place] [address] [phone] Johnny Michelle MD Type 2 diabetes mellitus with diabetic nephropathy, with long-term current use of insulin (HCC) (Primary Dx); Hypertension associated with diabetes (HCC); Hyperlipidemia associated with type 2 diabetes mellitus (HCC); ED (erectile dysfunction) of organic origin 12/01/2017 Orders Only [facility] [address] [place] [address] [phone] Johnny Michelle MD Type 2 diabetes mellitus without complication, with long-term current use of insulin (HCC) (Primary Dx); Hyperlipidemia associated with type 2 diabetes mellitus (HCC) 12/01/2017 10:20 AM EST Clinical Support [facility] [address] [place] [address] [phone] Neela Aguilar, CPT, ZYGLO TECHNICIAN Screening for metabolic disorder (Primary Dx); Screening for thyroid disorder; Vitamin D deficiency; Screening for deficiency anemia; Screening for lipid disorders; Type 2 diabetes mellitus with diabetic nephropathy, unspecified medical terminologist insulin use status (HCC); Type 2 diabetes mellitus without complication, with long-term current use of insulin (HCC); Hyperlipidemia associated with type 2 diabetes mellitus (HCC); Screening PSA (prostate specific antigen) 11/23/2017 Refill [facility] [address] [place] [address] Johnny Michelle MD Medication Refill 11/06/2017 Telephone [facility] [address] [place] [address] [address] Johnny Michelle MD Medication Refill 10/05/2017 Refill [facility] [address], [place] [address] Johnny Michelle MD Medication Refill 10/05/2017 Refill [facility] [address], [place] [address] Estefania Guzman APRN Medication Refill 09/28/2017 10:39 AM EST - 09/28/2017 11:59 PM EST Hospital Encounter [facility] [place] [address] Jv Caceres, METAL PICKLING EQUIPMENT OPERATOR Acute left-sided low back pain with left-sided sciatica Discharge Disposition: Home or Self Care 09/23/2017 10:08 AM EST - 09/23/2017 11:59 PM EST Hospital Encounter [facility] [place] [place] [address] Min Colón, PT Acute left-sided low back pain with left-sided sciatica Discharge Disposition: Home or Self Care 09/21/2017 10:35 AM EST - 09/21/2017 11:59 PM EST Hospital Encounter [facility] [place] [place] [address] Jv Caceres, METAL PICKLING EQUIPMENT OPERATOR Acute left-sided low back pain with left-sided sciatica Discharge Disposition: Home or Self Care 09/16/2017 2:02 PM EST - 09/16/2017 11:59 PM EST Hospital Encounter [facility] [place] [place] [address] Jv Caceres, METAL PICKLING EQUIPMENT OPERATOR Acute left-sided low back pain with left-sided sciatica Discharge Disposition: Home or Self Care 09/14/2017 10:27 AM EST - 09/14/2017 11:59 PM EST Hospital Encounter [facility] [place] [place] [address] Jv Caceres, METAL PICKLING EQUIPMENT OPERATOR Acute left-sided low back pain with left-sided sciatica Discharge Disposition: Home or Self Care 09/10/2017 Refill [facility] [address], [place] [address] Johnny Michelle MD Medication Refill 09/09/2017 11:20 AM EST - 09/09/2017 11:59 PM EST Hospital Encounter [facility] Physical Therapy [address] [place], [place] [id number] Min Colón, PT Acute left-sided low back pain with left-sided sciatica Discharge Disposition: Home or Self Care 09/03/2017 Telephone [facility] [address], [place] [address] Johnny Michelle MD Orders 08/31/2017 Telephone [facility] [address], [place] [address] Johnny Michelle MD Other 08/26/2017 Telephone [facility] [address], [place] [address] Franchesca Barrientos, [facility] Visit Follow Up 08/25/2017 1:40 PM EDT - 08/25/2017 11:59 PM EDT Hospital Encounter [facility] [facility] [address] [place] [address] Johnny Michelle MD Abdominal pain, LLQ (left lower quadrant); Change in bowel function Discharge Disposition: Home or Self Care 08/25/2017 11:40 AM EDT Office Visit [facility] [address], [place] [address] Johnny Mcihelle MD Abdominal pain, LLQ (left lower quadrant) (Primary Dx); Change in bowel function 08/21/2017 Telephone [facility] [address], [place] [address] Johnny Michelle MD Other 08/20/2017 Telephone [facility] [address], [place] [address] Estefania Guzman, MINCEMEAT MAKER Visit Follow Up 08/14/2017 Telephone [facility] [address] [place] [phone] Johnny Michelle MD Visit Follow Up; Diabetes 08/11/2017 8:56 PM EDT - 08/11/2017 11:59 PM EDT Hospital Encounter [facility] [place] [address] Discharge Disposition: Home or Self Care 08/11/2017 9:40 AM EDT Office Visit [facility] [address] [facility] [place] [address] Estefania Guzman APRN Olecranon bursitis of left elbow (Primary Dx); Essential hypertension 08/10/2017 Telephone [facility] [address] [facility] [place] [address] Johnny Michelle MD Results 08/07/2017 Telephone [facility] [address] [facility] [place] [address] Johnny Michelle MD Medication Refill 08/06/2017 10:44 AM EDT - 08/06/2017 11:59 PM EDT Hospital Encounter [facility] [address] [place] [address] Left hip pain; Chronic midline posterior neck pain; Pain of both heels Discharge Disposition: Home or Self Care 08/04/2017 10:20 AM EDT Office Visit [facility] [address] [facility] [place] [phone] Johnny Michelle MD Type 2 diabetes [...] EDT Hospital Encounter [facility] [place] [address] Hyperlipidemia associated with type 2 diabetes [...] [address] [place], [place] [address] Alanna Mobley MA Hyperlipidemia, [...] [address] [place], [place] [address] Franchesca Barrientos, BERNARDO Foot Swelling 06/23/2017 Telephone [facility] [...] Telephone [facility] [address] [place] [address] Franchesca Barrientos [facility] Prior Authorization 02/19/2017 Telephone [facility] [address] [place] [address] Johnny Michelle MD Other 02/17/2017 Telephone [facility] [address] [place] [address] Franchesca Barrientos, [facility] Prior Authorization (contour meter.) 02/16/2017 Telephone [facility] [address] [place] [address] Johnny Michelle MD Diabetes 02/09/2017 Refill [facility] [address] [place] [address] Johnny Michelle MD Medication Refill 02/06/2017 Telephone [facility] [address] [place] [address] Johnny Michelle MD Other 01/15/2017 Refill [facility] [address] [place] [address] Johnny Michelle MD Medication Refill 12/26/2016 Abstract [facility] [address] [place] [address] Johnny Michelle MD 12/25/2016 Refill [facility] [address] [place] [address] Johnny Michelle MD Medication Refill 12/10/2016 Telephone [facility] [address] [place] [address] Johnny Michelle MD Visit Follow Up; Diabetes 12/04/2016 Telephone [facility] [address] [place] [address] Johnny Michelle MD Visit Follow Up 12/04/2016 Telephone [facility] [address], [place] [address] Johnny Michelle MD Visit Follow Up; Diabetes 11/25/2016 Orders Only [facility] [address] [facility] [place] [address] Provider, Unknown 11/24/2016 8:20 AM EST Office Visit [facility] [address], [place] [address] Johnny Michelle MD Type 2 diabetes mellitus without complication, with long-term current use of insulin (HCC) (Primary Dx); Hyperlipidemia LDL goal < 100; Essential hypertension 11/18/2016 4:12 PM EST - 11/18/2016 11:59 PM EST Hospital Encounter [facility] [address] [place], [place] [id number] Type 2 diabetes mellitus without complication, unspecified correction insulin use status; Routine adult health maintenance Discharge Disposition: Home or Self Care 11/18/2016 10:40 AM EST Clinical Support [facility] [address] [place], [place] [address] Daniela Clarke RPT Type 2 diabetes mellitus without complication, unspecified correction insulin use status (Primary Dx) 11/17/2016 Telephone [...] ) 08/25/2016 Refill [facility] [address] [place] [address] [address] Johnny Michelle MD Medication Refill 08/07/2016 Refill [facility] [address] [place] [address] Johnny Michelle MD Medication Refill 07/17/2016 [...] EDT Hospital Encounter [facility] [place] [address] Essential hypertension; Type 2 diabetes mellitus [...] Orders Only [facility] [address] [place], [place] [address] Johnny Michelle MD Type 2 diabetes mellitus without complication (HCC) (Primary Dx); Hyperlipidemia LDL goal < 100; Essential hypertension 05/12/2016 Orders Only [facility] [address], [place] [address] Goodman, Caitlisa Burgos, CCMA RAD (reactive airway disease), mild persistent, uncomplicated (Primary Dx); Type 2 diabetes mellitus without complication (HCC) 04/21/2016 Telephone [facility] [address] [place], [place] [address] Johnny Michelle MD Medication Refill 04/17/2016 Telephone [facility] [address] [place], [place] [address] Johnny Michelle MD Medication Refill 04/11/2016 Telephone [facility] [address] [place], [place] [address] Johnny Michelle MD Medication Refill 04/02/2016 Refill [facility] [address] [place], [place] [address] Johnny Michelle MD Medication Refill 03/26/2016 Telephone [facility] [address] [place], [place] [address] Johnny Michelle MD Medication Problem 03/14/2016 Refill [facility] [address] [place], [place] [address] Johnny Michelle MD Medication Refill 02/21/2016 Refill [facility] [address] [place], [place] [address] Johnny Michelle MD Medication Refill 02/16/2016 Refill [facility] [address] [place], [place] [address] Johnny Michelle MD Medication Refill 01/28/2016 Refill [facility] [address] [place], [place] [address] Johnny Michelle MD Medication Refill 01/16/2016 Telephone [facility] [address] [place], [place] [address] Johnny Michelle MD Medication Refill 12/24/2015 Orders Only [facility] [address], [place] [phone] Johnny Michelle MD Cough (Primary Dx) 12/06/2015 Refill [facility] [address], [place] [phone] Johnny Michelle MD Medication Refill 12/06/2015 1:20 PM EST Office Visit [facility] [address], [place] [phone] Johnny Michelle MD Type 2 diabetes mellitus without complication (HCC) (Primary Dx); Hyperlipidemia LDL goal < 100; Essential hypertension; RAD (reactive airway disease), mild persistent, uncomplicated 12/04/2015 Telephone [facility] [address], [place] [phone] Johnny Michelle MD Medication Refill 12/03/2015 Telephone [facility] [address], [place] [phone] Johnny Michelle MD Medication Management 12/03/2015 Telephone [facility] [address] [place], [place] [phone] Johnny Michelle MD Other 11/26/2015 Telephone [facility] [address] [place], [place] [phone] Johnny Michelle MD Medication Refill 10/20/2015 Refill [facility] [address] [place], [place] [phone] Johnny Michelle MD Medication Refill 10/09/2015 3:31 PM EST - 10/09/2015 11:59 PM EST Hospital Encounter EDG LAB RICKEY PROCESSING [facility] [address] [place] [address] Type 2 diabetes mellitus without complication (HCC); Hyperlipidemia LDL goal < 100; Essential hypertension Discharge Disposition: Home or Self Care 10/09/2015 9:00 AM EST Clinical Support [facility] [address] [place] [address] [phone] Daniela Clarke RPT Type 2 diabetes mellitus without complication (HCC) (Primary Dx); Essential hypertension; Hyperlipidemia LDL goal < 100 10/02/2015 9:30 AM EST Office Visit [facility] Surg [facility] [address] [place] [address] [address] [place] [address] Phani Guthrie MD Postop check (Primary Dx) 09/20/2015 Telephone [facility] [address] [facility] [place] [phone] Johnny Michelle MD Other 09/20/2015 8:00 AM EST - 09/20/2015 8:45 AM EST Surgery EDG PERIOP [facility] [place] [address] Guille Allen MD LAPAROSCOPIC INGUINAL HERNIA REPAIR (TEP- TOTALLY EXTRAPERITONEAL) (COVERS POSSIBLE OPEN) 09/20/2015 8:10 AM EST Anesthesia Event EDG PERIOP [facility] [place] [address] Brian Lao, Adriane Godfrey NP 09/20/2015 7:12 AM EST - 09/20/2015 11:00 AM EST Hospital Encounter EDG SAME DAY SURGERY [facility] [place] [address] Guille Allen MD Discharge Disposition: Home or Self Care 09/15/2015 Refill [facility] [address] [place] [address] [phone] Johnny Michelle MD Medication Refill 2015 1:46 PM EST - 2015 11:59 PM EST Hospital Encounter EDG PRE-ADMIT TESTING [facility] [place] [address] Essential hypertension (Primary Dx) Discharge Disposition: Home or Self Care 09/05/2015 Abstract [facility] [address], [place] [phone] Nanette Hsu, RMA 08/18/2015 Refill [facility] [address], [place] [phone] Johnny Michelle MD Medication Refill 08/09/2015 Telephone [facility] [address] [facility] [address] [place] [address] Guille Allen MD Surgery; Visit Follow Up 08/07/2015 10:00 AM EDT Office Visit SEP Gen Surgery [facility] [address] [place] [address] Guille Allen MD Unilateral inguinal hernia without obstruction or gangrene, recurrence not specified (Primary Dx); Unilateral recurrent inguinal hernia without obstruction or gangrene 07/30/2015 Orders Only [facility] [address] [facility] [address] [facility] Ryne Craven MD 07/17/2015 4:39 PM EDT - 07/17/2015 11:59 PM EDT Hospital Encounter EDG LAB RICKEY PROCESSING [facility] [place] [address] Screening for prostate cancer Discharge Disposition: Home or Self Care 07/17/2015 Refill [facility] [address], [place] [phone] Johnny Michelle MD Medication Refill 07/17/2015 9:00 AM EDT Clinical Support [facility] [address], [place] [phone] Daniela Clarke RPT Essential hypertension (Primary Dx) 06/18/2015 Telephone [facility] [address] [facility] [address] [facility] [place] [address] Dexter Mcginnis MD Colonoscopy 06/18/2015 Orders Only [facility] [address] [place] [address] [phone] Johnny Michelle MD Screen for colon cancer (Primary Dx) 06/18/2015 Telephone [facility] [place] [address] [place] [phone] Johnny Michelle MD Other 06/11/2015 Refill [facility] [address] [place] [phone] Johnny Michelle MD Medication Refill 06/07/2015 2:40 PM EDT Office Visit [facility] [address] [place] [address] [phone] Johnny Michelle MD Type 2 diabetes mellitus without complication (HCC) (Primary Dx); Hyperlipidemia LDL goal < 100; Essential hypertension 05/28/2015 Telephone [facility] [address] [place] [phone] Johnny Michelle MD Other 05/22/2015 4:14 PM EDT - 05/22/2015 11:59 PM EDT Hospital Encounter EDG LAB RICKEY PROCESSING [facility] [place] [address] Hyperlipidemia LDL goal < 100; Type 2 diabetes mellitus without complication (HCC) Discharge Disposition: Home or Self Care 05/22/2015 8:45 AM EDT Clinical Support [facility] [address] [place] [address] [phone] Jennifer Hussein, Macy Type 2 diabetes mellitus without complication (HCC) (Primary Dx); Essential hypertension; Hyperlipidemia LDL goal < 100 05/21/2015 Telephone [facility] [address] [place] [phone] Johnny Michelle MD Orders 05/01/2015 6:42 PM EDT - 05/01/2015 11:59 PM EDT Hospital Encounter EDG LAB RICKEY PROCESSING [facility] [place] [address] Blood in stool Discharge Disposition: Home or [...] Hospital Encounter EDG LAB RICKEY PROCESSING [address] [facility] [place] [address] Blood in stool Discharge Disposition: Home [...] Johnny Michelle MD Diabetes 01/26/2015 Refill [facility] [address], [place] [phone] Johnny Michelle MD Medication Refill 01/26/2015 Telephone [facility] [address], [place] [phone] Johnny Michelle MD Medication Refill 01/26/2015 Refill [facility] [address], [place] [phone] Johnny Michelle MD Medication Refill 01/25/2015 2:00 PM EDT Office Visit [facility] [address] [place] [phone] Johnny Michelle MD Type II or unspecified type diabetes mellitus without mention of complication, not stated as uncontrolled (HCC) (Primary Dx); HTN (hypertension); Hyperlipidemia LDL goal < 100; DM (diabetes mellitus), type 2 (HCC) 01/15/2015 3:14 PM EDT - 01/15/2015 11:59 PM EDT Hospital Encounter EDG LAB RICKEY PROCESSING [facility] [place] [address] HTN (hypertension); DM (diabetes mellitus), type 2 (HCC); Hyperlipidemia LDL goal < 100 Discharge Disposition: Home or Self Care 01/15/2015 Refill [facility] [address], [place] [phone] Johnny Michelle MD Medication Refill 01/15/2015 9:45 AM EDT Clinical Support [facility] [address], [place] [phone] Clara Hinojosa RMA DM (diabetes mellitus), type 2 (HCC) (Primary Dx); Hyperlipidemia LDL goal < 100; HTN (hypertension) 01/11/2015 Telephone [facility] [address], [place] [phone] Johnny Michelle MD Other 01/09/2015 Telephone [facility] [address], [place] [phone] Johnny Michelle MD Other 12/26/2014 Refill [facility] [address], [place] [phone] Johnny Michelle MD Medication Refill 12/21/2014 Orders Only [facility] [address], [place] [phone] Adonis, Chin A., RMA DM (diabetes mellitus), type 2 (HCC) (Primary Dx) 12/21/2014 Refill [facility] [address] [place] [address] Johnny Michelle MD Medication Refill 12/21/2014 Orders Only [facility] [address] [place] [address] AdonisChin MacyAbbey, RMA DM (diabetes mellitus), type 2 (HCC) (Primary Dx) 12/19/2014 Refill [facility] [address] [place] [address] Johnny Mcihelle MD Medication Refill 11/13/2014 Telephone [facility] [...] Telephone [facility] [address] [place] [address] Johnny Michelle MD Medication Management 09/20/2014 Telephone [facility] [address] [place] [address] Johnny Michelle MD Other 09/18/2014 [...] EST Hospital Encounter EDG LAB RICKEY PROCESSING [facility] [place] [address] HTN (hypertension); DM (diabetes mellitus), type 2 (HCC); Hyperlipidemia LDL goal < 100; Low testosterone Discharge Disposition: Home or Self Care 09/05/2014 9:15 AM EST Clinical Support [facility] [address], [place] [phone] Nanette Hsu RMA Low testosterone (Primary Dx); DM (diabetes mellitus), type 2 (HCC) 08/31/2014 Telephone [facility] [address], [place] [phone] Johnny Michelle MD Medication Refill 08/28/2014 [...] Refill 06/20/2014 Telephone [facility] [address], [place] [phone] Johnny Michelle MD Other 06/15/2014 Refill [facility] [address] [...] Hospital Encounter EDG LAB RICKEY PROCESSING [address] [facility] [place] [address] Low testosterone Discharge Disposition: Home or Self Care 05/17/2014 9:00 AM EDT Clinical Support [facility] [address], [place] [phone] Cindy Lau Low testosterone (Primary Dx) 05/10/2014 Telephone Adult Med [address] [facility] [place] [address] Johnny Michelle MD Labs Only 05/01/2014 Telephone [facility] [address], [place] [phone] Johnny Michelle MD Visit Follow Up; Diabetes 04/19/2014 Telephone [facility] [address], [place] [phone] Johnny Michelle MD Visit Follow Up; Diabetes 04/10/2014 2:50 PM EDT - 04/10/2014 11:59 PM EDT Hospital Encounter EDG LAB RICKEY PROCESSING [facility] [place] [address] Hyperlipidemia LDL goal < 100; FH: hemochromatosis; DM (diabetes mellitus), type 2 (HCC) Discharge Disposition: Home or Self Care 04/10/2014 9:15 AM EDT Office Visit [facility] [address] [place], [place] [phone] Johnny Michelle MD DM (diabetes mellitus), type 2 (HCC) (Primary Dx); FH: hemochromatosis; Low testosterone; Hyperlipidemia LDL goal < 100; HTN (hypertension); Constipation 03/16/2014 Refill [facility] [address] [place], [place] [phone] Johnny Michelle MD Medication Refill 01/06/2014 Telephone [facility] [address] [place], [place] [phone] Johnny Michelle MD Other 12/20/2013 [...] EST Hospital Encounter EDG LAB RICKEY PROCESSING [facility] [address] [place], [place] [address] DM (diabetes mellitus), type 2 (HCC); Hyperlipidemia LDL goal < 100; Screening for prostate cancer; ED (erectile dysfunction) Discharge Disposition: Home or Self Care 11/30/2013 9:00 AM EST Office Visit [facility] [facility] [address], [place] [phone] Johnny Michelle MD DM (diabetes mellitus), type 2 (HCC) (Primary Dx); Hyperlipidemia LDL goal < 100; HTN (hypertension); ED (erectile dysfunction); Screening for prostate cancer 08/23/2013 Telephone [facility] [address] [place] [phone] Johnny Michelle MD Medication Refill 07/19/2013 Refill [facility] [address] [place] [phone] Johnny Michelle MD Medication Refill 06/28/2013 Refill [facility] [address] [place] [phone] Johnny Michelle MD Medication Refill 06/28/2013 Telephone [facility] [address], [place] [phone] Johnny Michelle MD Medication Refill 06/27/2013 Refill [facility] [address] [place] [phone] Johnny Michelle MD Medication Refill 06/22/2013 3:36 PM EDT - 06/22/2013 11:59 PM EDT Hospital Encounter EDG LAB RICKEY PROCESSING [facility] [place] [address] HTN (hypertension); DM (diabetes mellitus), type 2 [...] Refill 10/31/2012 Refill [facility] [address], [place] [phone] Johnny Michelle MD Medication Refill 10/11/2012 Refill [facility] [address], [place] [phone] Johnny Michelle MD Medication Refill 09/07/2012 Telephone [facility] [address], [place] [phone] Johnny Michelle MD Other 08/28/2012 Refill [facility] [address], [place] [phone] Johnny Michelle MD Medication Refill 07/28/2012 8:45 AM EDT Office Visit [facility] [address], [place] [phone] Johnny Michelle MD DM (diabetes mellitus), type 2 (HCC) (Primary Dx); HTN (hypertension); Hyperlipidemia LDL goal < 100; Eczema; ED (erectile dysfunction) 07/19/2012 2:56 PM EDT - 07/19/2012 11:59 PM EDT Hospital Encounter EDG LAB RICKEY PROCESSING [facility] [place] [address] DM (diabetes mellitus), type 2 (HCC); HTN (hypertension); Hyperlipidemia LDL goal < 100; Screening for prostate cancer Discharge Disposition: Home or Self Care 07/19/2012 8:30 AM EDT Clinical Support [facility] [address] [place] [address] Cindy Lau DM (diabetes mellitus), type 2 (HCC) (Primary Dx) 07/14/2012 Telephone [facility] [address] [place] [address] Johnny Michelle MD Other 07/07/2012 Refill [facility] [address] [place] [address] Johnny Michelle MD Medication Refill 07/07/2012 Telephone [facility] [address] [place] [address] Johnny Michelle MD Medication Refill 06/30/2012 Telephone [facility] [address] [place], [place] [phone] Johnny Michelle MD Other 06/18/2012 Telephone [facility] [address] [place] [address] Johnny Michelle MD Medication Refill 06/15/2012 Refill [facility] [address] [place] [address] Johnny Michelle MD Medication Refill 05/17/2012 Refill [facility] [address] [place] [address] Johnny Michelle MD Medication Refill 05/13/2012 Refill [facility] [address], [place] [phone] Johnny Michelle MD Medication Refill 04/22/2012 Telephone [facility] [address], [place] [phone] Johnny Michelle MD Other 04/05/2012 Telephone [facility] [address], [place] [phone] Johnny Mcihelle MD Medication Management 04/01/2012 Refill [facility] [address], [place] [phone] Sabi Vigil LPN Medication Refill 03/12/2012 Telephone [facility] [address], [place] [phone] Johnny Michelle MD Other 03/11/2012 Telephone [facility] [address], [place] [phone] Johnny Michelle MD Other 03/08/2012 Refill [facility] [address], [place] [phone] Johnny Michelle MD Medication Refill 02/25/2012 Telephone [facility] [address], [place] [phone] Johnny Michelle MD Medication Management 02/09/2012 Refill [facility] [address] [place] [address] Anais Bruno MD Medication Refill 02/09/2012 Refill [facility] [address], [place] [phone] Johnny Michelle MD Medication Refill 01/26/2012 Telephone [facility] [address] [place], [place] [phone] Johnny Michelle MD Other 01/20/2012 Refill SEP [...] [place], [place] [phone] Johnny Michelle MD Other 11/24/2011 Telephone [facility] [address], [place] [phone] Johnny Michelle MD Other 11/18/2011 Orders Only [facility] [address] [place] [address] Anais Bruno MD HTN (hypertension) (Primary Dx) 11/18/2011 11:15 AM EST Clinical Support [facility] [address], [place] [phone] Francesca Wray CMA HTN (hypertension) (Primary Dx) 11/18/2011 Telephone [facility] [address] [place] [address] Johnny Michelle MD Other (samples) 10/20/2011 Telephone [facility] [address] [place] [address] Johnny Michelle MD Medication Problem 10/06/2011 Telephone [facility] [address] [place] [address] Johnny Michelle MD Other (samples) 09/22/2011 [...] [place] [address] Tram Villar MD Other (samples) 06/26/2011 Telephone [facility] [address] [place], [place] [phone] Johnny Michelle MD Results 06/24/2011 8:15 AM EDT Office Visit [facility] [address] [place], [place] [phone] Johnny Michelle MD DM (diabetes mellitus), type 2 (HCC) (Primary Dx) 05/02/2011 Refill [facility] [address] [place], [place] [phone] [...] Refill 01/24/2011 Refill [facility] [address] [place] [phone] Tram Villar MD Medication Refill 01/21/2011 Telephone [facility] [address] [place] [phone] Tram Villar MD Other 01/01/2011 Telephone [facility] [address], [place] [phone] Tram Villar MD Medication Problem 12/30/2010 Telephone [facility] [address], [place] [phone] Tram Villar MD Medication Management 11/29/2010 Telephone [facility] [address] [place] [address] [phone] Tram Villar MD Results 11/29/2010 12:30 PM EST - 11/29/2010 11:59 PM EST Hospital Encounter FTT XRAY [address] [place] [place] [address] Asbestos exposure Discharge Disposition: Home or Self Care 11/26/2010 Abstract [facility] [address] [place] [address] [phone] Tram Villar MD ED (erectile dysfunction) 11/26/2010 Refill [facility] [address] [place] [address] [phone] Gracy Murdock LPN Other (fax of [facility] without comments) 11/26/2010 9:45 AM EST Office Visit [facility] [address] [place] [address] [phone] Tram Villar MD Well adult exam (Primary Dx); DM (diabetes mellitus), type 2 (HCC); Hyperlipidemia LDL goal < 100; Rash; RAD (reactive airway disease); HTN (hypertension) 11/20/2010 Refill [facility] [address] [place] [address] [phone] Tram Villar MD Medication Refill 10/29/2010 Telephone [facility] [address] [place] [address] [phone] Tram Villar MD Medication Management 09/10/2010 Telephone [facility] [address] [place] [address] [phone] Tram Villar MD Results 08/30/2010 Telephone [facility] [address] [place] [address] [phone] Tram Villar MD Other (wants bw order) 08/23/2010 Abstract [facility] [address] [place] [address] [phone] [employer], [employer] Demonstrator DM (diabetes mellitus) (HCC); HTN (hypertension); Elevated [...] C No.3 (B COMPLEX PLUS VITAMIN C) [id number] mg Oral Capsule Take by mouth daily. [...] GLUCOSE 4 TIMES DAILY 100 Each 11 07/10/20 17 Active Insulin [place], Disposable, 31 gauge x 5/16 Misc Needle USE AT BEDTIME WITH INSULIN PEN 50 Each 07/12/20 20 Active Insulin [place], Disposable, (LEWIS PEN NEEDLE) 32 gauge x 5/32 Misc Needle Use to inject insulin 3 times daily 270 box 2 12/10/19 21 Active Blood Sugar Diagnostic (ONETOUCH ULTRA BLUE TEST STRIP) [facility] Strip Use to test up tp 3 times daily. DX: E11.9 300 Strip 2 12/11/19 21 Active Lancets [facility] One touch ultra. Test up to 3 times daily. E11.9 300 Each 2 12/11/19 21 Active Insulin [place], Disposable, 31 gauge x 5/16 Misc Needle Use up to 3 times daily. DX:E11.9 300 Each 2 12/11/19 21 Active Coenzyme Q10 100 mg [...] mg once a week. 1.5 mL 01/24/20 Active Blood Sugar Diagnostic (ONETOUCH ULTRA TEST) Misc Strip USE TO TEST UP TO 3 TIMES DAILY 300 Each 04/13/20 Active Lancets Misc Misc Used to test blood sugar 3 times daily 1 Each 11 04/14/20 Active fluticasone furoate (ARNUITY ELLIPTA) 100 mcg/actuation Inhl Disk with Device INHALE 1 PUFF BY MOUTH ONCE DAILY AT 9AM, MUST MAKE APPOINTMENT FOR FURTHER REFILLS 30 Each 2 10/13/20 Active enzalutamide (XTANDI ORAL) Take by mouth. [...] nephropathy, with long-term current use of insulin ([facility]) Take 1 Tablet by mouth daily. 90 [...] for Dizziness. 60 Tablet 01/03/20 25 Active lancets (FREESTYLE LANCETS) 28 gauge Misc Misc Subcutaneous (Inject under the skin) 1 'box' 3 times daily. USE 1 LANCET TO CHECK GLUCOSE THREE TIMES DAILY 200 Each 2 03/13/20 25 Active losartan (COZAAR) 100 mg Oral Tablet Take 1 tablet by mouth once daily 100 Tablet 2 04/17/20 25 Active amLODIPine (NORVASC) 5 mg Oral TabletIndicati ons:Hypertensi on associated with diabetes (HCC) Take 1 tablet by mouth once daily 100 Tablet 2 07/19/20 25 Active pravastatin (PRAVACHOL) 40 mg Oral TabletIndicati ons:10 year risk of MN or stroke 7.5% or greater TAKE 1 TABLET BY MOUTH ONCE DAILY IN THE EVENING 100 Tablet 09/20/20 25 Active metFORMIN (GLUCOPHAGE XR) 500 mg Oral ER 24 hr tablet TAKE 2 TABLETS BY MOUTH IN THE MORNING WITH BREAKFAST 200 Tablet 09/29/20 25 Active pravastatin (PRAVACHOL) 40 mg Oral TabletIndicati ons:10 year risk of MN or stroke 7.5% or greater TAKE 1 TABLET BY MOUTH ONCE DAILY IN THE EVENING 100 Tablet 06/12/20 25 025 Discontinued metFORMIN (GLUCOPHAGE XR) 500 mg Oral ER 24 hr tablet TAKE 2 TABLETS BY MOUTH IN THE MORNING WITH BREAKFAST 200 Tablet 06/22/20 25 025 Discontinued Active Problems Patient Care [...] Overview (09/30/2022): Follows with Dr. Prather in [place], [place] Assessment & Plan (02/19/2023 1:08 PM [...] Hyperlipidemia associated with type 2 diabetes m ellen 11/26/2010 ED (erectile dysfunction) 11/26/2010 RAD (reactive [...] Grandfather Social History Smoking Status as of 10/17/2025 Tobacco Use Types Packs/Day Years Used Date [...] care, and heating? Not very hard 08/21/2025 [facility] [place] [facility] Occupat ional Health - Occupational Stress [...] on file Medical Devices Implanted Type Area Voice Network Administrator Device Identifier Shelf Expiration Date Model / Serial / Lot Mesh 3d Right Large [id number] - [id number] Implanted:Qty: 1 on 09/20/2015 by Guille Allen MD at [facility] Right: Inguinal CR BARD:DAVOL 06/29/2020 [id number] / / [id number] Mesh 3d Left Large [id number] - [id number] Implanted:Qty: 1 on 09/20/2015 by Guille Allen MD at [facility] Left: Inguinal CR BARD:DAVOL 05/29/2020 [id number] / / [id number] Device Fixation Strap Absorbable 25 Straps Secure Strap 5mm - [id number] Implanted:Qty: 1 on 09/20/2015 by Guille Allen MD at [facility] Left: Inguinal J&J:ETHICON:ENDO -SURGERY 07/01/2017 [id number] / / [id number] Procedures Procedure Name Priority Date/Time Associated Diagnosis [...] 2 diabetes mellitus without complication, unspecified whether correction insulin use (HCC) LIPID SCREEN Routine 08/14/2021 [...] 2 diabetes mellitus without complication, unspecified whether medical terminologist insulin use (HCC) DIABETIC RETINAL EXAM Routine [...] Type 2 diabetes mellitus without complication, unspecified correction insulin use status DIFFERENTIAL Routine 11/18/2016 10:51 [...] obstruction or gangrene Special Needs XENA CPT; 24970, [id number] 09/06 DT GLUCOSE METER POC Routine 09/20/2015 [...] OFFICE 08/22/2025 11:1 4 AM EDT us Neema Atkins DO POINT OF CARE TEST ORDERABLES Final Result SEP OFFICE * SCANNED LABS (07/26/2025 3:17 PM EDT) Only the most recent of12 resultswithin the time period is included. 07/26/2025 3:17 PM EDT us Unknown Provider HEMATOLOGY ORDERABLES Final Res ult * (ABNORMAL) MICROALBUMIN/CREATININE RATIO URINE (03/01/2025 1:55 PM EDT) Only the most recent of11 resultswithin the time period is included. Urine Albumin 57.4 mg/L 03/01/2025 9:19 PM EDT [facility] Urine Creatinine 112.0 mg/dL 03/01/2025 9:19 PM EDT [facility] Ur Albumin/Creat Ratio 51(H) 0 - 30 mg/g 03/01/2025 9:19 PM EDT [facility], [facility] Urine STRUCTURE OF URINARY TRACT PROPER / Unknown 03/01/2025 1:55 PM EDT 03/01/2025 1:55 PM EDT Neema Atkins DO URINE ORDERABLES Final Result Performing Organization Address [facility] de Phone Number [facility] [employer], [facility] [address] [facility] , [place] [address] * TSH REFLEX TO FT4 (03/01/2025 1:51 PM EDT) Only the most recent of8 resultswithin the time period is included. TSH Reflex 3.620 0.270 - 4.200 mcIU/mL 03/01/2025 8:03 PM EDT [facility] Blood VENOUS BLOOD / Unknown Venipuncture / Unknown 03/01/2025 1:51 PM EDT 03/01/2025 1:51 PM EDT Narrative PREFERRED [employer], [facility] - 03/01/2025 8:03 PM EDT Ingestion of eduardo doses of biotin (>5 mg/day) taken within 8 hours of drawing blood sample can interfere with this immunoassay test. us Neema Atkins DO CHEMISTRY ORDERABLES Final Res ult Performing Organization Address [facility] de Phone Number [facility] Utility Funding [address] , [place] [address] * CBC WITH DIFF (03/01/2025 1:51 PM EDT) Only the most recent of15 resultswithin the time period is included. WBC 8.8 3.7 - 10.3 x10(3)/mcL 03/01/2025 7:59 PM EDT [facility] RBC 5.30 4.60 - 6.10 x10(6)/mcL 03/01/2025 7:59 PM EDT [facility] Hgb 16.4 13.7 - 17.5 g/dL 03/01/2025 7:59 PM EDT [facility] Hct 49.7 40.0 - 51.0 % 03/01/2025 7:59 PM EDT [facility] MCV 93.8 80.0 - 100.0 fL 03/01/2025 7:59 PM EDT [facility] MCH 30.9 26.0 - 34.0 pg 03/01/2025 7:59 PM EDT [facility] MCHC 33.0 30.7 - 35.5 g/dL 03/01/2025 7:59 PM EDT [facility] RDW 12.8 <=14.9 % 03/01/2025 7:59 PM EDT [facility] Platelet 322 155 - 369 x10(3)/mcL 03/01/2025 7:59 PM EDT [facility] MPV 10.0 8.8 - 12.5 fL 03/01/2025 7:59 PM EDT [facility] Neut Percent 68.1 % 03/01/2025 7:59 PM EDT [facility] Comment:Neutrophils equals s egs plus bands Imm Gran% 0.3 % 03/01/2025 7:59 PM EDT [facility] Comment:Automated count of m etamyelocytes, myelocytes and promyelocytes. Lymph Percent 15.5 % 03/01/2025 7:59 PM EDT [facility] Bowie Percent 10.1 % 03/01/2025 7:59 PM EDT [facility] Eos Percent 5.2 % 03/01/2025 7:59 PM EDT [facility] Baso Percent 0.8 % 03/01/2025 7:59 PM EDT [facility] Neut # 6.0 1.6 - 6.1 x10(3)/mcL 03/01/2025 7:59 PM EDT [facility] Comment:Neutrophils equals s egs plus bands IMMGRAN# 0.0 0.0 - 0.1 x10(3)/mcL 03/01/2025 7:59 PM EDT [facility] Comment:Automated count of m etamyelocytes, myelocytes and promyelocytes. An absolute IG <0.1 is reported as 0.0. Lymph # 1.4 1.2 - 3.9 x10(3)/mcL 03/01/2025 7:59 PM EDT [facility] Bowie # 0.9 0.3 - 0.9 x10(3)/mcL 03/01/2025 7:59 PM EDT [facility], [facility] Eos# 0.5 0.0 - 0.5 x10(3)/mcL 03/01/2025 7:59 PM EDT [facility], [facility] Baso # 0.1 0.0 - 0.1 x10(3)/mcL 03/01/2025 7:59 PM EDT [facility] Blood VENOUS BLOOD / Unknown Venipuncture / Unknown 03/01/2025 1:51 PM EDT 03/01/2025 1:51 PM EDT us Neema Atkins DO HEMATOLOGY ORDERABLES Final Re sult [facility] [employer] Funding [facility] [address] [facility] , [place] [address] * (ABNORMAL) LIPID SCREEN (03/01/2025 1:51 PM EDT) Only the most recent of12 resultswithin the time period is included. Pathologist [facility] Cholesterol 192 <200 mg/dL 03/01/2025 8:03 PM EDT [facility] Utility Funding [facility] Comment: < 200 Desirable 200 - 239 Borderline High >= 240 High Triglyceride 250(H) <150 mg/dL 03/01/2025 8:03 PM EDT [facility] Utility Funding [facility] Comment: < 150 Normal 150 - 199 Borderline High 200 - 499 High >= 500 Very High HDL 41 >=40 mg/dL 03/01/2025 8:03 PM EDT [facility] Utility Funding [facility] Comment: > 60 Optimal 40 - 60 Acceptable < 40 Low LDL Calculated 108(H) <100 mg/dL 03/01/2025 8:03 PM EDT [facility] Utility Funding [facility] Comment: < 100 Optimal 100 - 129 Near or above optimal 130 - 159 Borderline High 160 - 189 High >= 190 Very High The National Institutes of Health (NIH) equation is used for all lipid panels that report calculated LDL (LDL-C). Non-HDL-C Calculated 151(H) <=129 mg/dL 03/01/2025 8:03 PM EDT [facility] Comment: <130 Desirable 130-159 Above Desirable 160-189 Borderline High 190-219 High >= 220 Very High Fasting Specimen? Yes None 025 8:03 PM EDT [facility] Blood VENOUS BLOOD / Unknown Venipuncture / Unknown 03/01/2025 1:51 PM EDT 03/01/2025 1:51 PM EDT us Neema Atkins DO CHEMISTRY ORDERABLES Final Res ult [facility] [address] [facility] , [address] [place] [phone] * (ABNORMAL) COMPREHENSIVE METABOLIC PANEL (03/01/2025 1:51 [...] - 1.4 mg/dL 03/01/2025 8:03 PM EDT [facility], [facility] ALT 26 <=41 U/L 03/01/2025 8:03 PM EDT [facility], [facility] AST 27 <=40 U/L 03/01/2025 8:03 PM EDT [facility] Alk Phos 135(H) 40 - 129 U/L 03/01/2025 8:03 PM EDT [facility] eGFR (CKD-EPIcr 2020) 94 >=60 mL/min/1.7 3 m2 03/01/2025 8:03 PM EDT [facility] Comment:Estimated GFR was ca lculated using the CKD-EPIcr (2020) equation refit without race. The equation is recommended by the National Kidney Foundation - [place] [employer] of Nephrology Task Force. Blood VENOUS BLOOD / Unknown Venipuncture / Unknown 03/01/2025 1:51 PM EDT 03/01/2025 1:51 PM EDT us Neema Atkins DO CHEMISTRY ORDERABLES Final Res ult [facility] [address] [facility] , [address] [place] [phone] * MRI BRAIN W WO CONTRAST (01/03/2025 [...] PM CLINICAL HISTORY: H81.10-Benign paroxysmal vertigo, unspecified qsj-KMZ-05-CM B28-Xrcensssp neoplasm of prostate (HCC)-ICD-10-CM. COMPARISON: None. PROCEDURE [...] 7:10 PM CLINICAL HISTORY: H81.10-Benign paroxysmal vertigo, sjrejdwdfooddl-LLO-38-CM K27-Hpdajfnkc neoplasm of prostate (HCC)-ICD-10-CM. COMPARISON: None. PROCEDURE [...] Khoa Vela MD Performing Provider Oly Farrar, remedial teacher Nurse Ida Grey, remedial teacher Nurse Vanessa Nicole RN Business And Marketing Teacher CARA Schmitz CRNA, MD Anesthesiologist Medications See [...] AIRWAY PLACEMENT (08/19/2023 10:21 AM EDT) Narrative [facility] - 08/19/2023 10:21 AM EDT Ludivina Haro CRNA 08/19/2023 10:23 AM Intraop Airway Placement: Date/Time: 08/19/2023 10:21 AM Airway type: Nasal cannula salter us Christina Sneed MD [place] ANESTHESIA Final Result Performing Organization Address City/[facility] Co de Phone Number [facility] [address] [place] [address] * (ABNORMAL) GLUCOSE METER POC (08/19/2023 10:01 AM EDT) Only the most recent of3 resultswithin the time period is included. [facility] Glucose Meter POC 180(H) 70 - 100 mg/dL 08/19/2023 10:03 AM EDT [facility] Sample Type Capillary 08/19/2023 10:03 AM EDT [facility] Patient Status Non-Critical Patient 08/19/2023 10:03 AM EDT [facility] Blood BLOOD SPECIMEN / Unknown 08/19/2023 10:01 AM EDT 08/19/2023 10:03 AM EDT Khoa Vela MD POINT OF CARE TEST ORDERABL ES Final Result Performing Organization Address City/[facility]/ZIP Co de Phone Number [address] [address] * (ABNORMAL) HEMOGLOBIN A1C (02/19/2023 11:53 AM EDT) Only the most recent of16 resultswithin the time period is included. Pathologist [facility] Hgb A1C 7.2(H) 4.2 - 5.6 % 02/19/2023 5:17 PM EDT [facility]. Avg Glucose 160 mg/dL 02/19/2023 5:17 PM EDT [facility] Blood VENOUS BLOOD / Unknown Venipuncture / Unknown 02/19/2023 11:53 AM EDT 02/19/2023 11:53 AM EDT Narrative [facility] - 02/19/2023 5:17 PM EDT REFERENCE RANGE: Normal: 4.0-5.6% Pre-diabetes: 5.7-6.4% Provisional diagnosis of diabetes: >6.4% Hgb F>10% and anything which shortens red cell survival, such as hemolytic anemia, or unstable hemoglobin variants such as HbSS, HbSC, or HbCC, will lower the HbA1c value associated with a given level of glycemic control. Neema Atkins DO CHEMISTRY ORDERABLES Final Res ult Performing Organization Address [facility] Co de Phone Number [facility] [address] [place] [address], [place] [address] * DIABETIC RETINAL EXAM (10/23/2022 8:41 AM EST) [facility] VISUAL ACUITY SCREEN OS 20/20 10/23/2022 8:[address] [facility] OCULAR BLOOD FLOW MEASURE OS 18 10/23/2022 8:[address] [facility] DIABETIC RETINOPATHY NEGATIVE 10/23/2022 8:[address] [facility] CATARACTS NEGATIVE 10/23/2022 8:[address] [facility] GLAUCOMA NEGATIVE 10/23/2022 8:[address] [facility] 10/23/2022 8:41 AM EST us Unknown Provider OPHTHALMOLOGY SERVICES ORDERABL ES Final Result [facility] * DIABETIC RETINAL EXAM (10/23/2022 8:41 AM EST) VISUAL ACUITY SCREEN OD 20/20 10/23/2022 8:[address] [facility] OCULAR BLOOD FLOW MEASURE OD 14 10/23/2022 8:[address] [facility] 10/23/2022 8:41 AM EST us Unknown Provider OPHTHALMOLOGY SERVICES ORDERABL ES Final Result Performing Organization Address [facility] Co de Phone Number 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 FINDINGS: Nonspecific, nonobstructive bowel gas pattern. No pathologic calcification. Skeleton grossly intact. Surgical clips in the bilateral inguinal regions, cholecystectomy clips.. 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 Alin Prather MD IMG DIAGNOSTIC IMAGING ORDERAB LES Final Result * (ABNORMAL) PROSTATE SPECIFIC ANTIGEN (SCREENING) (06/20/2022 2:05 PM EDT) Only the most recent of8 resultswithin the time period is included. Total Psa 16.60(H) <=4.00 ng/mL 06/20/2022 8:14 PM EDT [facility] Blood VENOUS BLOOD / Unknown Venipuncture / Unknown 06/20/2022 2:05 PM EDT 06/20/2022 2:05 PM EDT Narrative [facility] - 06/20/2022 8:14 PM EDT Prostate cancer [...] Prather MD CHEMISTRY ORDERABLES Final Res ult [facility] [address] [facility] , [place] [address] * (ABNORMAL) TESTOSTERONE LEVEL TOTAL (06/20/2022 2:05 PM EDT) Only the most recent of3 resultswithin the time period is included. Testosterone Lvl <3(L) 300 - 720 ng/dL 06/20/2022 8:22 PM EDT [facility] Blood VENOUS BLOOD / Unknown Venipuncture / Unknown 06/20/2022 2:05 PM EDT 06/20/2022 2:05 PM EDT Narrative PREFERRED Utility Funding [facility] - 06/20/2022 8:22 PM EDT Values less than 12 ng/dL are not reliable as the intermediate precision coefficient of variation is > 20%. Ingestion of eduardo doses of biotin (>5 mg/day) taken within 8 hours of drawing blood sample can interfere with this immunoassay test. Alin Prather MD CHEMISTRY ORDERABLES Final Res ult [facility] [address] [facility] , [place] [address] * XR HIPS BILATERAL AP LATERAL W AP PELVIS (02/12/2022 11:38 AM EDT) Anatomical Region Laterality Modality Hip Radiographic Meli ging 02/12/2022 11:3 8 AM EDT Impressions 02/12/2022 12:01 PM EDT 1. No acute osseous abnormality. Narrative 02/12/2022 12:01 PM EDT XR HIPS BILATERAL AP LATERAL W AP PELVIS CLINICAL HISTORY: M25.559-Pain in unspecified cxv-OJF-05-CM COMPARISON: None No significant osseous abnormality. No acute fracture or dislocation. No destructive lesions. Soft tissue and fat planes preserved. Procedure Note Melvin Leo MD - 02/12/2022 XR HIPS BILATERAL AP LATERAL W AP PELVIS CLINICAL HISTORY: M25.559-Pain in unspecified oiw-XNN-28-CM COMPARISON: None No significant osseous abnormality. No acute fracture or dislocation. No destructive lesions. Soft tissue and fat planes preserved. IMPRESSION: 1. No acute osseous abnormality. us Neema Atkins DO IMG DIAGNOSTIC IMAGING ORDERAB LES Final Result * LYME AB TOTAL LATE (02/12/2022 10:55 AM EDT) B burgdorferi Abs, Total Negative Negative, Equivocal 02/14/2022 11:49 AM EDT [facility] Blood VENOUS BLOOD / Unknown Venipuncture / Unknown 02/12/2022 10:55 AM EDT 02/12/2022 10:55 AM EDT [facility] Evy Atkins DO IMMUNOLOGY ORDERABLES Final Re sult Performing Organization Address [facility] Phone Number [facility] [address] [place] [address] , [place] [address] * THYROID STIMULATING HORMONE (08/14/2021 10:39 AM EDT) Only the most recent of12 resultswithin the time period is included. [facility] TSH 1.860 0.270 - 4.200 mcIU/mL 08/14/2021 5:31 PM EDT [facility] Blood Venipuncture / Unknown 08/14/2021 10:39 AM EDT 08/14/2021 10:40 AM EDT Narrative [facility] - 08/14/2021 5:31 PM EDT Ingestion of eduardo doses of biotin (>5 mg/day) taken within 8 hours of drawing blood sample can interfere with this immunoassay test. Neema Atkins DO CHEMISTRY ORDERABLES Final Res ult Performing Organization Address [facility] de Phone Number [facility] [address] [place] [address] , [place] [address] * DIABETIC RETINAL EXAM (08/01/2021 4:40 PM EDT) [facility] VISUAL ACUITY SCREEN OD 20/20 08/01/2021 4:[address] [facility] VISUAL ACUITY SCREEN OS 20/20 08/01/2021 4:[address] [facility] OCULAR BLOOD FLOW MEASURE OD 19 08/01/2021 4:[address] [facility] OCULAR BLOOD FLOW MEASURE OS 19 08/01/2021 4:[address] [facility] DIABETIC RETINOPATHY NEGATIVE 08/01/2021 4:[address] [facility] CATARACTS NEGATIVE 08/01/2021 4:[address] [facility] GLAUCOMA NEGATIVE 08/01/2021 4:[address] [facility] 08/01/2021 4:40 PM EDT us Unknown Provider OPHTHALMOLOGY SERVICES ORDERABL ES Final Result Performing Organization Address [facility] Co de Phone Number [facility] * (ABNORMAL) VITAMIN D 25 HYDROXY (10/10/2020 9:25 AM EST) Only the most recent of2 resultswithin the time period is included. Vit D 25 OH 29.2(L) 30.0 - 120.0 ng/mL 10/10/2020 5:22 PM EST [facility] Comment: INTERPRETIVE INFORMATION: Vitamin D, 25-Hydroxy <20 [...] ORDERABLES Final Res ult Performing Organization Address [facility] Co de Phone Number [facility] [address] [facility] , [address] [place] [phone] * DIABETES EYE EXAM (07/13/2020) Only the most recent of2 resultswithin the time period is included. Left Diabetic Retinopathy Not Present Present/Not Present SEP OFFICE Right Diabetic Retinopathy Not Present Present/Not Present SEP OFFICE us Historical Provider HEALTH MAINTENANCE Final Res ult SEP OFFICE * DERMATOPATHOLOGY TISSUE SEND OUT [...] Description: A specimen of skin was received [id number] us Juan Jensen PATHOLOGY ORDERABLES Final Resul t DERMATOLOGY * SARS-COV-2 IGG (07/04/2020 9:13 AM EDT) SARS-CoV-2 IgG (Nucleocapsid) Negative 07/04/2020 4:21 PM EDT [facility] Blood VENOUS BLOOD / Unknown Venipuncture / Unknown 07/04/2020 9:13 AM EDT 07/04/2020 9:13 AM EDT Narrative [facility] - 07/04/2020 4:21 PM EDT The SARS-CoV-2 [...] protective immunity. Prieto IgG Provider Fact Sheet: https://www.fda.gov/media/463909/download Prieto IgG Patient Fact Sheet: https://www.fda.gov/media/576060/download us Neema Atkins DO IMMUNOLOGY ORDERABLES Final Re sult [facility] [address] [facility], [place] [address] * PATHOLOGY TISSUE REQUEST (04/09/2020 1:08 PM EDT) Only the most recent of2 resultswithin the time period is included. CASE REPORT Surgical Pathology Case: [id number] Authorizing Provider: Neema Atkins DO Collected: 04/09/2020 1308 Ordering Location: [facility] Received: 04/09/2020 1308 Pathologist: Angella Montiel MD Specimen: Back 04/12/2020 12:25 PM EDT [facility] FINAL DIAGNOSIS Skin, back, biopsy: - Pyogenic granuloma. 04/12/2020 12:25 PM EDT [facility] at 1225 EDT GROSS DESCRIPTION Received in formalin labeled with the patient's name and back is a 0.4 x 0.4 x 0.3 cm brown-red polypoid tissue. The margin is inked blue, bisected, and entirely submitted in cassette A1. /ZN 04/12/2020 12:25 PM EDT [facility] MICROSCOPIC DESCRIPTION Microscopic examination is performed and the findings corroborate the diagnosis. 04/12/2020 12:25 PM EDT [facility] EMBEDDED IMAGES 04/12/2020 12:25 PM EDT [facility] Tissue STRUCTURE OF BACK OF TRUNK / Unknown 04/09/2020 1:08 PM EDT 04/09/2020 1:08 PM EDT us Neema Atkins DO PATHOLOGY ORDERABLES Final Res ult [facility] [address] [place] [address] * IRON/UIBC (01/11/2020 9:27 AM EDT) Iron 100 50 - 170 mcg/dL 01/11/2020 4:21 PM EDT [facility] UIBC 200 112 - 347 mcg/dL 01/11/2020 4:21 PM EDT [facility] Transferrin Sat 33 20 - 50 % 0 4:21 PM EDT [facility] Blood VENOUS BLOOD / Unknown Venipuncture / Unknown 01/11/2020 9:27 AM EDT 01/11/2020 9:27 AM EDT us Neema Atkins DO CHEMISTRY ORDERABLES Final Res ult Performing Organization Address [facility] Co de Phone Number [facility], [facility] [address] [facility] , [place] [address] * (ABNORMAL) LIPID PANEL REFLEX (01/11/2020 9:27 AM EDT) Only the most recent of8 resultswithin the time period is included. Cholesterol 129 <200 mg/dL 01/11/2020 4:10 PM EDT [facility] Comment: < 200 Desirable 200 - 239 Borderline High >= 240 High Triglyceride 114 <150 mg/dL 01/11/2020 4:10 PM EDT [facility] Comment: < 150 Normal 150 - 199 Borderline High 200 - 499 High >= 500 Very High HDL 35(L) >=40 mg/dL 01/11/2020 4:10 PM EDT [facility] Comment: > 60 Optimal 40 - 60 Acceptable < 40 Low LDL Calculated 71 <100 mg/dL 01/11/2020 4:10 PM EDT [facility] Non-HDL-C Calculated 94 <=129 mg/dL 01/11/2020 4:10 PM EDT [facility] Comment: <130 Desirable 130-159 Above Desirable 160-189 Borderline High 190-219 High >= 220 Very High Fasting Specimen? Yes None 020 4:10 PM EDT [facility] Blood Venipuncture / Unknown 01/11/2020 9:27 AM EDT 01/11/2020 9:27 AM EDT us Neema Atkins DO CHEMISTRY ORDERABLES Final Res ult Performing Organization Address [facility]/ZIP Co de Phone Number [facility], [facility] [address] [facility] , [place] [address] * CBC (01/11/2020 9:27 AM EDT) Only the most recent of4 resultswithin the time period is included. [facility] WBC 7.0 3.7 - 10.3 x10(3)/mcL 01/11/2020 [...] fL 01/11/2020 3:48 PM EDT [facility] Blood Venipuncture / Unknown 01/11/2020 9:27 AM EDT 01/11/2020 9:27 AM EDT us Neema Atkins DO HEMATOLOGY ORDERABLES Final Re sult [facility] [address] [facility] , [place] [address] * FERRITIN (01/11/2020 9:27 AM EDT) Only the most recent of2 resultswithin the time period is included. [facility] Ferritin 159 30 - 400 ng/mL 01/11/2020 4:16 PM EDT [facility] Blood VENOUS BLOOD / Unknown Venipuncture / Unknown 01/11/2020 9:27 AM EDT 01/11/2020 9:27 AM EDT Narrative [facility] - 01/11/2020 4:16 PM EDT Ingestion of eduardo doses of biotin (>5 mg/day) taken within 8 hours of drawing blood sample can interfere with this immunoassay test. Neema Atkins DO CHEMISTRY ORDERABLES Final Res ult Performing Organization Address [facility] Co de Phone Number [facility] [address] [facility], [place] [address] * GMED EGD (12/02/2019 1:30 PM EST) 12/02/2019 1:30 PM EST Impressions [facility] - 12/02/2019 2:11 PM [...] ORDERABLES Fin al Result Performing Organization Address [facility] Co de Phone Number [facility] [address] [place] [phone] * DIABETIC RETINAL EXAM (12/22/2018 11:56 AM EST) VISUAL ACUITY SCREEN OD 20/20 12/22/2018 11:56 AM EST [facility] [place] VISUAL ACUITY SCREEN OS 20/20 12/22/2018 11:[address] [facility] OCULAR BLOOD FLOW MEASURE OD 14 12/22/2018 11:[address] [facility] OCULAR BLOOD FLOW MEASURE OS 16 12/22/2018 11:[address] [facility] DIABETIC RETINOPATHY NEGATIVE 12/22/2018 11:[address] [facility] CATARACTS NEGATIVE 12/22/2018 11:[address] [facility] GLAUCOMA NEGATIVE 12/22/2018 11:[address] [facility] 12/22/2018 11:5 6 AM EST us Unknown Provider OPHTHALMOLOGY SERVICES ORDERABL ES Final Result Performing Organization Address [facility]/ZIP Co de Phone Number [facility] * DIABETIC RETINOPATHY EXAM (12/19/2017 11:36 AM EST) VISUAL ACUITY SCREEN OD 20/20 12/19/2017 11:[address] [facility] VISUAL ACUITY SCREEN OS 20/20 12/19/2017 11:[address] [facility] OCULAR BLOOD FLOW MEASURE OD 16 12/19/2017 11:[address] [facility] OCULAR BLOOD FLOW MEASURE OS 14 12/19/2017 11:[address] [facility] DIABETIC RETINOPATHY NEGATIVE 12/19/2017 11:[address] [facility] CATARACTS NEGATIVE 12/19/2017 11:[address] [facility] GLAUCOMA NEGATIVE 12/19/2017 11:[address] [facility] 12/19/2017 11:3 6 AM EST us Unknown Provider OPHTHALMOLOGY SERVICES ORDERABL ES Final Result Performing Organization Address [facility] Co de Phone Number [facility] * CREATINE KINASE (12/01/2017 10:34 AM EST) Only the most recent of7 resultswithin the time period is included. CK 77 39 - 308 IU/L 12/01/2017 9:46 PM EST [facility] Blood VENOUS BLOOD / Unknown Venipuncture / Unknown 12/01/2017 10:34 AM EST 12/01/2017 10:34 AM EST us Johnny Michelle MD CHEMISTRY ORDERABLES Final Res ult Performing Organization Address City/[facility]/ZIP Co de Phone Number [facility] [address] [address] * CT ABDOMEN PELVIS W CONTRAST (08/25/2017 [...] 61 years. Male . R10.32-Left lower quadrant glax-ETF-11-CM R19.4-Change in bowel hbigm-WRG-99-CM. . Prior bilateral inguinal hernia repairs. Prior [...] Clinical: 61 years. Male . R10.32-Left lower yujhfgbpeszo-GEQ-35-CM R19.4-Change in bowel otuyi-YPE-50-CM. . Prior bilateral inguinal hernia repairs. Prior [...] this patient status post cholecystectomy andappendectomy. Nas Shetty Jot Stat Johnny Michelle MD [facility] CT ORDERABLES Final Result * CREATININE ISTAT (08/25/2017 3:47 PM EDT) Pathologist [facility] Creatinine-iST AT 0.7 0.6 - 1.3 mg/dL 08/25/2017 3:51 PM EDT [facility] Blood BLOOD SPECIMEN / Unknown 08/25/2017 3:47 PM EDT 08/25/2017 3:51 PM EDT Johnny Michelle MD POINT OF CARE TEST ORDERABLES Final Result [facility] [address] [place] [address] * BODY FLUID CULTURE (08/11/2017 10:44 AM EDT) Pathologist [facility] Culture No Growth at 5 days. 08/16/2017 9:18 AM EDT [facility] Stain Rare WBCs 08/16/2017 9:18 AM EDT [facility] Stain No organisms seen 08/16/2017 9:18 AM EDT [facility] Bursal Fluid LEFT ELBOW REGION STRUCTURE / Unknown 08/11/2017 10:44 AM EDT 08/11/2017 10:44 AM EDT Estefania Guzman [facility] - GENERAL ORDER MATHEW Final Result Performing Organization Address [facility] Phone Number [facility] [address] [place] [address] * PROCEDURE DOCUMENTATION - ASPIRATION (08/11/2017 9:40 AM EDT) Narrative SEP OFFICE - 08/11/2017 9:40 AM EDT Estefania Guzman, YANICK 08/11/2017 10:26 AM Joint Aspiration Date/Time: 08/11/2017 [...] the procedure well with no immediate complications Estefania Guzman APRN PROCEDURE/MINOR SURGICAL ORD ERABLES Final Result Performing Organization Address [facility] de Phone Number SEP OFFICE * XR [...] 08/06/2017 11:21 AM HISTORY: M79.671-Pain in right vtud-FQD-08-CM M79.672-Pain in left nvau-XBL-81-CM Procedure Note Aaron Nelson MD - 08/06/2017 XR FOOT RIGHT AP LATERAL AND OBLIQUE 08/06/2017 11:21 AM HISTORY: M79.671-Pain in right dzly-IMO-18-CM M79.672-Pain in left enau-NVG-06-CM IMPRESSION: No significant osseous, joint or soft tissue abnormality is seen. Johnny Michelle MD [facility] DIAGNOSTIC IMAGING ORDERAB LES Final Result * XR FOOT LEFT AP LATERAL AND OBLIQUE (08/06/2017 11:21 AM EDT) Anatomical Region Laterality Modality Foot Radiographic Meli ging 08/06/2017 11:2 1 AM EDT Impressions 08/06/2017 4:01 PM EDT 1. No acute osseous abnormality. Narrative 08/06/2017 4:01 PM EDT XR FOOT LEFT AP LATERAL AND OBLIQUE CLINICAL HISTORY: M79.671-Pain in right vxrr-HWD-49-CM M79.672-Pain in left arzx-LMD-82-CM COMPARISON: None No significant osseous abnormality. No acute fracture or dislocation. No destructive lesions. Soft tissue and fat planes preserved. Procedure Note Melvin eLo MD - 08/06/2017 XR FOOT LEFT AP LATERAL AND OBLIQUE CLINICAL HISTORY: M79.671-Pain in right flvf-CYQ-23-CM M79.672-Pain in left vhyv-KOZ-01-CM COMPARISON: None No significant osseous abnormality. No acute fracture or dislocation. No destructive lesions. Soft tissue and fat planes preserved. IMPRESSION: 1. No acute osseous abnormality. Johnny Michelle MD [facility] DIAGNOSTIC IMAGING ORDERAB LES Final Result * [...] 08/06/2017 11:21 AM HISTORY: M25.552-Pain in left ceh-PRT-18-CM Procedure Note Aaron Nelson MD - 08/06/2017 XR HIP LEFT AP LATERAL W AP PELVIS 08/06/2017 11:21 AM HISTORY: M25.552-Pain in left fvv-BAS-76-CM IMPRESSION: No significant osseous, joint or soft tissue abnormality is seen. Johnny Michelle MD [facility] DIAGNOSTIC IMAGING ORDERAB LES Final Result * [...] LATERAL AND OBLIQUES Clinical: M25.552-Pain in left mvy-JQP-23-CM Procedure Note Melvin Leo MD - 08/06/2017 XR LUMBAR SPINE AP LATERAL AND OBLIQUES Clinical: M25.552-Pain in left dno-PKH-41-CM IMPRESSION: Mild bilateral facet joint degenerative changes L5-S1. Moderate L5-S1 degenerative disc disease. Johnny Michelle MD [facility] DIAGNOSTIC IMAGING ORDERAB LES Final Result * [...] SPINE AP LATERAL ODONTOID AND OBLIQUE Clinical: M54.6-Zlqkdidyqea-GAR-10-CM G89.29-Other chronic mhca-LZQ-17-CM Procedure Note Melvin Leo MD - 08/06/2017 XR CERVICAL SPINE AP LATERAL ODONTOID AND OBLIQUE Clinical: M54.9-Gqjvzyojdza-BFM-10-CM G89.29-Other chronic lzhz-HOU-65-CM IMPRESSION: Mild degenerative disc disease C6-C7. Moderate foraminal stenosis on the right at C3-C4 and C4-C5. Moderate tosevere foraminal stenosis on the left at C4-C5. us Johnny Michelle MD [facility] DIAGNOSTIC IMAGING ORDERAB LES Final Result * HEPATITIS C ANTIBODY - SCREENING (07/22/2017 11:17 AM EDT) [facility] Hep C Ab Negative Negative [facility] Blood specimen (specimen) 07/22/2017 11:17 AM EDT 07/22/2017 4:09 PM EDT us Johnny Michelle MD HEMATOLOGY ORDERABLES Final Re sult Performing Organization Address [facility] [place] [address] * LDL, CALCULATED (07/22/2017 11:17 AM EDT) Only the most recent of7 resultswithin the time period is included. [facility] LDL Calculated 78 <=100 mg/dL [facility] Comment: < 100 Optimal 100 - 129 Near or above optimal 130 - 159 Borderline High 160 - 189 High >= 190 Very High Blood specimen (specimen) 07/22/2017 11:17 AM EDT 07/22/2017 4:09 PM EDT us Johnny Michelle MD CHEMISTRY ORDERABLES Final Res ult Performing Organization Address [facility] [place] [address] * HEPATIC FUNCTION PANEL (07/22/2017 11:17 AM EDT) [facility] Total Protein 7.8 6.4 - 8.3 gm/dL [facility] Albumin 4.5 3.2 - 4.6 gm/dL [facility] Bili Direct <0.2 0.0 - 0.3 mg/dL [facility] Bili Total 0.4 0.1 - 1.4 mg/dL [facility] AST 20 <=40 IU/L [facility] ALT 24 <=41 IU/L [facility] Alk Phos 74 40 - 129 IU/L [facility] Blood specimen (specimen) 07/22/2017 11:17 AM EDT 07/22/2017 4:09 PM EDT Johnny Michelle MD CHEMISTRY ORDERABLES Final Res ult Performing Organization Address [facility] [place] [address] * (ABNORMAL) BASIC METABOLIC PANEL (07/22/2017 11:17 AM EDT) Only the most recent of2 resultswithin the time period is included. Sodium 136 136 - 145 mmol/L [facility] Potassium 4.3 3.5 - 5.0 mmol/L [facility] Chloride 98 98 - 107 mmol/L [facility] Total CO2 25 22 - 29 mmol/L [facility] Anion Gap 13 7 - 16 mmol/L [facility] Calcium 9.8 8.8 - 10.2 mg/dL [facility] Glucose Lvl 237(H) 82 - 100 mg/dL [facility] BUN 16 8 - 23 mg/dL [facility] Creatinine 0.79 0.67 - 1.30 mg/dL [facility] GFR Afr Am >60 [facility] GFR Non Afr Am >60 [facility] Blood specimen (specimen) 07/22/2017 11:17 AM EDT 07/22/2017 4:09 PM EDT Johnny Michelle MD CHEMISTRY ORDERABLES Edited Re sult - Final Performing Organization Address [facility] [place] [address] * DIABETIC RETINOPATHY EXAM (11/25/2016 8:15 AM EST) VISUAL ACUITY SCREEN OD 20/20 11/25/2016 8:[address] [facility] VISUAL ACUITY SCREEN OS 20/20 11/25/2016 8:[address] [facility] OCULAR BLOOD FLOW MEASURE OD 18 11/25/2016 8:[address] [facility] OCULAR BLOOD FLOW MEASURE OS 18 11/25/2016 8:[address] [facility] DIABETIC RETINOPATHY NEGATIVE 11/25/2016 8:[address] [facility] CATARACTS NEGATIVE 11/25/2016 8:[address] [facility] GLAUCOMA NEGATIVE 11/25/2016 8:[address] [facility] 11/25/2016 8:15 AM EST us Unknown Provider OPHTHALMOLOGY SERVICES ORDERABL ES Final Result [facility] * DIFFERENTIAL (11/18/2016 10:51 AM EST) Only the most recent of7 resultswithin the time period is included. Neut Percent 60.3 % [facility] Lymph Percent 22.2 % [facility] Bowie Percent 9.7 % [facility] Eos Percent 7.2 % [facility] Baso Percent 0.6 % [facility] Neut# 3.6 1.8 - 7.7 x10(3)/mcL [facility] Lymph# 1.3 0.6 - 4.8 x10(3)/mcL [facility] Bowie# 0.6 0.0 - 1.3 x10(3)/mcL [facility] Eos# 0.4 0.0 - 0.5 x10(3)/mcL [facility] Baso# 0.0 0.0 - 0.2 x10(3)/mcL [facility] Blood specimen (specimen) 11/18/2016 10:51 AM EST 11/18/2016 5:18 PM EST us Johnny Michelle MD HEMATOLOGY ORDERABLES Final Re sult [facility] [address] [place] [address] * SCANNED RHYTHM STRIPS (09/22/2015 10:47 PM [...] 2015 5:38 PM EST Stationary ECG Study [facility] Interpretive Statements SINUS RHYTHM Normal Electronically Signed On 2015 17:38:54 EST by Nirmal Kay MD Narrative Procedure Note Nirmal Kay MD - 2015 IMPRESSION [facility] Interpretive Statements SINUS RHYTHM Normal Electronically Signed On 2015 17:38:54 EST by Nirmal Kay MD us Jo Ann Gordon APRN IMG ECG ORDERABLES Final Res ult * GMED COLONOSCOPY (07/30/2015 9:00 AM EDT) 07/30/2015 9:00 AM EDT Impressions [facility] - 07/30/2015 9:26 AM EDT Moderate diverticulosis of the distal descending colon and sigmoid colon. Plan: Screening Colonoscopy in 10 years. This section is an excerpt of the full report. us Ryne Craven MD GI PROCEDURE ORDERABLES Fin al Result Performing Organization Address [facility] Co de Phone Number [facility] [address] [place] [address] * POCT HEMOCCULT 1-3 CARDS (05/01/2015 1:46 PM EDT) Fec Heme negative Pos/Neg SEP OFFICE Comment:negative x 3 Lot Number SEP OFFICE Expiration Date SEP OFFICE SeriAl # SEP OFFICE Stool specimen (specimen) 05/01/2015 1:46 PM EDT Johnny Michelle MD POINT OF CARE TEST ORDERABLES Final Result Performing Organization Address [facility] de Phone Number SEP OFFICE * OVA AND PARASITE BASIC (05/01/2015 1:25 PM EDT) Final Negative: Giardia lamblia antigen not detected. Negative: Cryptosporidi um antigen not detected. Internal QC ok The O and P vial will be saved for 1 week. If extended O and P is desired, please call Micro at . [facility] Stool specimen (specimen) 05/01/2015 1:25 PM EDT 05/01/2015 7:03 PM EDT Johnny Michelle MD MICROBIOLOGY - GENERAL ORDERAB LES Final Result Performing Organization Address [facility] de Phone Number [facility] [address] [place] [address] * (ABNORMAL) PSA, TOTAL AND FREE (09/05/2014 11:19 AM EST) PSA Total 2.61 <=4.00 ng/mL [facility] Comment: Test Methodology: ECLIA PSA (Electrochemiluminescence Immunoassay) For PSA values from 2.5-4.0, particularly in younger men <60 years old, the AUA and NCCN suggest testing for % Free PSA (3515) and evaluation of the rate of increase in PSA (PSA velocity). PSA, Free 0.44 ng/mL [facility] PSA, %Free 17(L) >25 % [facility] Comment: Probability of Prostate Cancer (For Men with Non-Suspicious CARRIE Results and PSA Between 4 and 10 ng/mL, By Patient Age) % free PSA Patient Age 50 to 59 Years 60 to 69 Years >70 Years <=10% 49.2% 57.5% 64.5% 11 - 18% 26.9% 33.9% 40.8% 19 - 25% 18.3% 23.9% 29.7% >25% 9.1% 12.2% 15.8% Performed at: [employer] [address], [address] [place] [address] Blood specimen (specimen) UPPER LIMB STRUCTURE / Unknown 09/05/2014 11:19 AM EST 09/05/2014 7:19 PM EST Johnny Michelle MD CHEMISTRY ORDERABLES Final Res ult Performing Organization Address [facility] Co de Phone Number [facility] [address] [place] [address] * HEMOGLOBIN AND HEMATOCRIT (05/17/2014 11:00 AM EDT) Pathologist [facility] Hgb 16.1 13.5 - 17.1 gm/dL [facility] Hct 46.1 38.9 - 51.6 % [facility] Blood specimen (specimen) UPPER LIMB STRUCTURE / Unknown 05/17/2014 11:00 AM EDT 05/17/2014 5:30 PM EDT us Johnny Michelle MD HEMATOLOGY ORDERABLES Final Re sult Performing Organization Address [facility] Co de Phone Number [facility] [address] [place] [address] * POCT OCCULT BLOOD STOOL (04/10/2014 1:12 PM EDT) Pathologist [facility] Fec Heme negative Pos/Neg SEP OFFICE 04/10/2014 1:12 PM EDT us Johnny Michelle MD POINT OF CARE TEST ORDERABLES Final Result Performing Organization Address [facility]/ZIP Co de Phone Number SEP OFFICE * ALANINE AMINOTRANSFERASE (04/10/2014 10:14 AM EDT) Pathologist [facility] ALT 29 <=41 IU/L [facility] Blood specimen (specimen) UPPER LIMB STRUCTURE / Unknown 04/10/2014 10:14 AM EDT 04/10/2014 3:09 PM EDT Johnny Michelle MD CHEMISTRY ORDERABLES Final Res ult Performing Organization Address [facility] de Phone Number [facility] [address] [place] [address] * ASPARTATE AMINOTRANSFERASE (04/10/2014 10:14 AM EDT) AST 25 <=40 IU/L [facility] Blood specimen (specimen) UPPER LIMB STRUCTURE / Unknown 04/10/2014 10:14 AM EDT 04/10/2014 3:09 PM EDT Johnny Michelle MD CHEMISTRY ORDERABLES Final Res ult Performing Organization Address [facility] de Phone Number [facility] [address] [place] [address] * IRON LEVEL (04/10/2014 10:14 AM EDT) Iron 131 50 - 170 mcg/dL [facility] Blood specimen (specimen) UPPER LIMB STRUCTURE / Unknown 04/10/2014 10:14 AM EDT 04/10/2014 3:09 PM EDT Johnny Michelle MD CHEMISTRY ORDERABLES Final Res ult Performing Organization Address [facility] de Phone Number [facility] [address] [place] [address] * MICROALBUMIN, URINE-ARUP (07/19/2012 8:38 AM EDT) Total Volume Random mL [facility] Hrs Case Random hr [facility] U Creatinine 120 mg/dL [facility] U24 Creat Not Applicable 800 - 2100 mg/day [facility] Microalbumin mg/dL-ARUP 0.9 mg/dL [facility] Microalbumin/Cre atinine Ratio-ARUP 8 0 - 30 mg/gm [facility] Microalbumin ug/minute-ARUP Not Applicable 0 - 20 mcg/min [facility] Microalbumin mg/day-ARUP Not Applicable 2 - 30 mg/day [facility] Urine specimen (specimen) 07/19/2012 8:38 AM EDT 07/19/2012 4:06 PM EDT us Johnny Michelle MD URINE ORDERABLES Final Result [facility] [address] [place] [address] * XR CHEST PA AND LATERAL (11/29/2010 [...] exam Routine general medical examination at a [facility] care facility 11/26/2010 Rash Rash and other [...] Type 2 diabetes mellitus without complication, unspecified medical terminologist insulin use status 11/18/2016 Routine adult health maintenance Routine general medical examination at a health care facility 11/18/2016 Type 2 diabetes mellitus without complication, unspecified correction insulin use status 11/18/2016 Type 2 diabetes [...] mellitus (HCC) 08/04/2017 Hypertension associated with diabetes ([facility]) Type II or unspecified type diabetes mellitus [...] 2 diabetes mellitus with diabetic nephropathy, unspecified correction insulin use status 12/01/2017 Type 2 diabetes [...] nephropathy, with long-term current use of insulin ([facility]) 08/24/2019 Hypertension associated with diabetes ([facility]) Type II or unspecified type diabetes mellitus with other specified manifestations, not stated as uncontrolled 09/12/2019 Type 2 diabetes mellitus with diabetic nephropathy, with long-term current use of insulin ([facility]) 09/12/2019 Hyperlipidemia associated with type 2 diabetes mellitus (HCC) 09/12/2019 Hypertension associated with diabetes ([facility]) Type II or unspecified type diabetes mellitus with other specified manifestations, not stated as uncontrolled 2019 Chronic fatigue Other malaise and fatigue 2019 Hypertension associated with diabetes ([facility]) Type II or unspecified type diabetes mellitus with other specified manifestations, not stated as uncontrolled 2019 Type 2 diabetes mellitus with diabetic nephropathy, with long-term current use of insulin ([facility]) 2019 Hyperlipidemia associated with type 2 diabetes mellitus ([facility]) 2019 Chronic fatigue Other malaise and fatigue 09/15/2019 Hypertension associated with diabetes ([facility]) Type II or unspecified type diabetes mellitus with other specified manifestations, not stated as uncontrolled 09/15/2019 Esophageal dysfunction Dyskinesia of esophagus 09/21/2019 Type 2 diabetes mellitus with diabetic nephropathy, with long-term current use of insulin ([facility]) 09/21/2019 Esophageal dysphagia Dysphagia, pharyngoesophageal phase 11/29/2019 Epigastric abdominal pain Abdominal pain, epigastric 11/29/2019 Dysphagia, unspecified 12/02/2019 Gastroesophageal reflux disease with esophagitis 12/02/2019 Hypertension associated with diabetes ([facility]) Type II or unspecified type diabetes mellitus with other specified manifestations, not stated as uncontrolled 12/06/2019 Hyperlipidemia associated with type 2 diabetes mellitus ([facility]) 12/06/2019 Type 2 diabetes mellitus with diabetic nephropathy, with long-term current use of insulin ([facility]) 12/28/2019 Type 2 diabetes mellitus with diabetic nephropathy, with long-term current use of insulin ([facility]) 01/02/2020 Iron deficiency anemia, unspecified iron deficiency anemia type 01/02/2020 Iron deficiency anemia, unspecified iron deficiency anemia type 01/11/2020 Type 2 diabetes mellitus with diabetic nephropathy, with long-term current use of insulin ([facility]) 01/11/2020 Type 2 diabetes mellitus with diabetic nephropathy, with long-term current use of insulin ([facility]) 01/18/2020 Tinea pedis of both feet 01/18/2020 Type 2 diabetes mellitus with diabetic nephropathy, with long-term current use of insulin ([facility]) 02/10/2020 Hyperlipidemia associated with type 2 diabetes mellitus ([facility]) 02/10/2020 Hypertension associated with diabetes ([facility]) Type II or unspecified type diabetes mellitus with other specified manifestations, not stated as uncontrolled 02/10/2020 Type 2 diabetes mellitus with diabetic nephropathy, with long-term current use of insulin ([facility]) 02/14/2020 Gastroesophageal reflux disease with esophagitis 02/15/2020 [...] nephropathy, with long-term current use of insulin ([facility]) 05/29/2020 Gastroesophageal reflux disease with esophagitis 06/08/2020 Type 2 diabetes mellitus with diabetic nephropathy, with long-term current use of insulin ([facility]) 06/20/2020 Type 2 diabetes mellitus with diabetic nephropathy, with long-term current use of insulin ([facility]) 07/02/2020 Hypertension associated with diabetes ([facility]) Type II or unspecified type diabetes mellitus with other specified manifestations, not stated as uncontrolled 07/03/2020 Type 2 diabetes mellitus with diabetic nephropathy, with long-term current use of insulin ([facility]) 07/04/2020 Immunity status testing Antibody response examination 07/04/2020 Type 2 diabetes mellitus with diabetic nephropathy, with long-term current use of insulin ([facility]) 07/11/2020 Hypertension associated with diabetes ([facility]) Type II or unspecified type diabetes mellitus with other specified manifestations, not stated as uncontrolled 07/11/2020 Hyperlipidemia associated with type 2 diabetes mellitus ([facility]) 07/11/2020 Pain in both lower extremities 07/11/2020 Neoplasm of unspecified behavior of bone, soft tissue, and skin 07/11/2020 Other viral warts 07/11/2020 Disturbance of skin sensation 07/11/2020 RAD (reactive airway disease), mild persistent, uncomplicated 08/11/2020 Type 2 diabetes mellitus with diabetic nephropathy, with long-term current use of insulin ([facility]) 10/03/2020 Hypertension associated with diabetes (HCC) Type II or unspecified type diabetes mellitus with other specified manifestations, not stated as uncontrolled 10/03/2020 Type 2 diabetes mellitus with diabetic nephropathy, with long-term current use of insulin ([facility]) 10/04/2020 Hypertension associated with diabetes (HCC) Type [...] D deficiency 10/10/2020 10 year risk of MN or stroke 7.5% or greater 10/15/2020 BPH [...] nephropathy, with long-term current use of insulin ([facility]) 10/15/2020 Chronic left-sided low back pain with left-sided sciatica 10/15/2020 Type 2 diabetes mellitus with diabetic nephropathy, with long-term current use of insulin ([facility]) 11/06/2020 Hypertension associated with diabetes (HCC) Type II or unspecified type diabetes mellitus with other specified manifestations, not stated as uncontrolled 11/06/2020 Type 2 diabetes mellitus with diabetic nephropathy, with long-term current use of insulin ([facility]) 12/05/2020 Hypertension associated with diabetes (HCC) Type II or unspecified type diabetes mellitus with other specified manifestations, not stated as uncontrolled 12/05/2020 Type 2 diabetes mellitus with diabetic nephropathy, with long-term current use of insulin (HCC) 12/07/2020 Type 2 diabetes mellitus with diabetic nephropathy, with long-term current use of insulin (HCC) 12/13/2020 Hypertension associated with diabetes (HCC) Type II or unspecified type diabetes mellitus with other specified manifestations, not stated as uncontrolled 12/20/2020 BPH without urinary obstruction Hypertrophy of prostate without urinary obstruction and other lower urinary tract symptoms (LUTS) 01/16/2021 BPH without urinary obstruction Hypertrophy of prostate without urinary obstruction and other lower urinary tract symptoms (LUTS) 01/16/2021 10 year risk of MN or stroke 7.5% or greater 01/16/2021 Type [...] symptoms (LUTS) 04/09/2021 10 year risk of MN or stroke 7.5% or greater 04/09/2021 Gastroesophageal reflux disease with esophagitis 04/13/2021 Gastroesophageal reflux disease with esophagitis 04/16/2021 RAD (reactive airway disease), mild persistent, uncomplicated 04/16/2021 Gastroesophageal reflux disease with esophagitis 04/16/2021 Type 2 diabetes mellitus with diabetic nephropathy, with long-term current use of insulin ([facility]) 05/02/2021 Hypertension associated with diabetes (HCC) Type [...] symptoms (LUTS) 08/04/2021 10 year risk of MN or stroke 7.5% or greater 08/04/2021 Hyperlipidemia, unspecified hyperlipidemia type 08/05/2021 Screening, anemia, deficiency, iron Screening for iron deficiency anemia 08/05/2021 Hyperthyroidism Thyrotoxicosis without mention of goiter or other cause, without mention of thyrotoxic crisis or storm 08/05/2021 Type 2 diabetes mellitus without complication, unspecified whether correction insulin use 08/05/2021 Needs flu shot Need for prophylactic vaccination and inoculation against influenza 08/14/2021 Type 2 diabetes mellitus without complication, unspecified whether medical terminologist insulin use 08/14/2021 Hyperthyroidism Thyrotoxicosis without mention [...] 2 diabetes mellitus without complication, unspecified whether correction insulin use 09/20/2021 Hypertension associated with diabetes (HCC) Type II or unspecified type diabetes mellitus with other specified manifestations, not stated as uncontrolled 10/08/2021 BPH without urinary obstruction Hypertrophy of prostate without urinary obstruction and other lower urinary tract symptoms (LUTS) 11/04/2021 10 year risk of MN or stroke 7.5% or greater 11/04/2021 RAD [...] of care 01/13/2022 10 year risk of MN or stroke 7.5% or greater 02/01/2022 Encounter [...] as uncontrolled 03/07/2022 10 year risk of MN or stroke 7.5% or greater 03/08/2022 10 year risk of MN or stroke 7.5% or greater 03/10/2022 Encounter [...] as uncontrolled 11/15/2022 10 year risk of MN or stroke 7.5% or greater 11/16/2022 Hypertension [...] as uncontrolled 02/10/2023 10 year risk of MN or stroke 7.5% or greater 02/10/2023 Encounter [...] care facility 02/24/2024 10 year risk of MN or stroke 7.5% or greater 02/24/2024 Type 2 diabetes mellitus without complication, unspecified whether medical terminologist insulin use 02/24/2024 Encounter for support and [...] sinusitis, unspecified 01/04/2025 10 year risk of MN or stroke 7.5% or greater 02/11/2025 High [...] as uncontrolled 04/16/2025 10 year risk of MN or stroke 7.5% or greater 06/09/2025 Encounter [...] and coordination of transition of care 08/28/2025 10 year risk of MN or stroke 7.5% or greater 09/17/2025 Goals Goal Patient Goal Type Associated Problems Recent Progress Patient-Stated? Author Blood Pressure < 140/90 Blood Pressure 130/80(2024 11:01 AM EDT) No Johnny Michelle MD BMI (Calculated) < 30 General 29.5(08/22/20 25 11:01 AM EDT) No Alanna Mobley MA Maintain a healthy diet, exercise regularly and maintain an ideal body weight General No Phuong Vazquez, RMA LDL CALC < 100 Result Component 108( 1:51 PM EDT) Johnny Gtz MD HEMOGLOBIN A1C < 7.1 Result Component 7.4( 11:14 AM EDT) No Johnny Michelle MD Care Teams Human Service Specialist Relationship Specialty Start Date End Date Neema Atkins DO [address] [place] [address] PCP - General Family Medicine 09/21/19 Thiago Martin MD Ophthalmology 12/26/16
[2025-10-17 15:23] LABS: Hematocrit 45.5 % (42.0-52.0); Hemoglobin 15.3 g/dL (14.1-18.0); Immature Granulocytes % 0.4 %; Mean Corpuscular HGB Conc 33.6 g/dL (31.8-35.4); Mean Corpuscular Hemoglobin 29.8 pg (27.0-31.2); Mean Corpuscular Volume 88.5 fl (80-94); Nucleated Red Blood Cells % 0 %; Platelet Count 319 K/mm3 (142-424); Red Blood Count 5.14 M/mm3 (4.60-6.20); Red Cell Distribution Width-SD 40.2 fL; White Blood Count 7.4 K/mm3 (4.8-10.8)
[2025-10-17 16:31] LABS: Alanine Aminotransferase 28 U/L (12-78); Albumin Level 4.5 g/dl (3.5-5.0); Albumin/Globulin Ratio 1.5 (1.1-1.8); Alkaline Phosphatase 140 U/L (38-126); Anion Gap 16.3 mEq/L (5-15); Aspartate Amino Transferase 28 U/L (17-59); Bilirubin,Total 0.7 mg/dl (0.2-1.3); Blood Urea Nitrogen 25 mg/dl (9-20); Calcium 9.8 mg/dl (8.4-10.2); Carbon Dioxide 22 mmol/L (22.0-30.0); Chloride 103 mmol/L (98-107); Creatinine,Serum 0.90 mg/dl (0.66-1.25); Estimated Glomerular Filt Rate 83 ml/min (>60); GFR (African American) 101 ML/MIN (>60); Globulin 3.1 g/dL (1.3-3.2); Glucose 194 mg/dl (74-100); Potassium 4.3 mmoL/L (3.5-5.1); Sodium 137 mmol/L (136-145); Total Protein,Serum 7.6 g/dl (6.3-8.2)
[2025-10-18 08:49] LABS: PSA, Free 2.62 ng/mL
== END 2025-10-17 23:59 | disposition home or self-care (01) ==
LOC: LAB 15:07
PROVIDERS: PCP Student in an Organized Health Care Education/Training Program; Visit Provider Urology
DX: C61 Malignant neoplasm of prostate (principal); R97.20 Elevated prostate specific antigen [PSA]
CPT/HCPCS: 36415; 80053; 84153; 84154; 85025